=== PATIENT | female | born 1945 | race Caucasian/White ===

== ENCOUNTER → 2017-09-21 14:34 | Outpatient (CLI) | payer MEDICARE, BC, SELFPAY ==
--- NOTE | 2017-09-21 14:42 | XR_ITS ---
XR knee RT 3V HISTORY: ITS.REASON: ACUTE RT KNEE PAIN ORDERING PHYSICIAN: Edouard Giron MD PATIENT AGE: 72 years COMPARISON: 10/10/2016 FINDINGS: There are mild to moderate osteoarthritic changes of all 3 compartments greater at the medial compartment and patellofemoral joint. There is a small curvilinear density along the central aspect of the lateral tibial plateau measuring 5 mm and an additional rounded opacity along the central aspect of the medial tibial plateau. One these areas or both may represent loose bodies. There is decreased density at the interspinous region of the proximal tibia and may represent subcortical cystic change. No acute fracture or dislocation. There may be a small suprapatellar effusion. IMPRESSION: Mild to moderate osteoarthritic change greatest at the medial compartment and patellofemoral joint with possible small loose bodies and subcortical cystic change of the interspinous region of the proximal tibia. Overall no significant change from 10/10/2016
== END ==
PROVIDERS: PCP Family Medicine; Visit Provider Family Medicine
DX: M25.561 Pain in right knee (principal)
CPT/HCPCS: 73562

== ENCOUNTER → 2018-12-28 13:14 | Outpatient (CLI) | payer SELFPAY ==
--- NOTE | 2018-12-28 13:15 | CT_ITS ---
PROCEDURE: CT HEART W CALCIUM SCORE CLINICAL HISTORY: screening, heart scan COMPARISON: No exams were available for comparison TECHNIQUE: Axial images obtained with sagittal and coronal reformats. All CT scans at the facility use one or more dose reduction, viz: automated exposure control, ma/kV adjustment per patient size (including targeted exams where dose is matched to indication, i.e. head), or iterative reconstruction technique. FINDINGS: The coronary artery calcium score is 126 indicating moderate plaque burden with high cardiovascular disease risk. There is a small hiatal hernia. There is mild prominence of the pulmonary interstitium IMPRESSION: Moderate plaque burden with high cardiovascular disease risk Dictated by: Efra Laboy MD 12/28/2018 20:41 Electronically signed by Efra Laboy MD in [place] 12/28/2018 20:41
== END ==
PROVIDERS: PCP Family Medicine; Visit Provider Family Medicine
DX: Z13.6 Encounter for screening for cardiovascular disorders (principal)
CPT/HCPCS: 75571

== ENCOUNTER → 2019-01-31 11:00 | Outpatient (CLI) | payer MEDICARE, BC, SELFPAY ==
--- NOTE | 2019-01-31 | CA_ITS ---
APPROVED REPORT Exam: Exercise Treadmill Technologist: Adrianne Lawson Ht: 5 ft 4 in Wt: 180 lbs BSA: 1.87 m2 HR: 84 bpm BP: 156/88 mmHg Indications: Abnormal Calcium Score, Abnormal EKG, Dyspnea Medical History Medications: Levothyroxine,,,,, Aspirin,,,,, Multi Vitamin,,,,, Vitamin E,,,,, Crestor,,,,, Zolpidem,,,,, Magnesium,,,,, Vitamin D,,,,, Potassium,,,,, Vitamin A,,,,, Stress Test Details Test: Malcolm HR Resting HR: 92 bpm Max Heart Rate (APMHR): 147 bpm Max HR Achieved: 146 bpm Target HR (85% APMHR): 124 bpm % of APMHR: 99 Recovery HR: 93 bpm BP Resting BP: 156.0/88.0 mmHg Max BP: 156.0/88.0 mmHg Recovery BP: 139.0/78.0 mmHg ECG Clinical Exercise duration: 04:00 min Highest Stage Achieved: Exercise capacity: 7.0 METs Stress ECG Conclusion Resting ECG: Sinus rhythm Malcolm Protocol completed. Patient exercised 4:00. Test stopped due to dry mouth Symptoms: Dry mouth at peak exercise. No chest pain. No shortness of breath. Arrhythmias/Ectopy: Occasional PVC. Occasional PAC. ST-T Changes: Greater than 1.5mm ST Depression. Conclusion: Images to follow. Test Summary . . . . . Stop exercise at 04:00 . . . . . Electronically signed by : Yadiel Patel, 01/31/2019 18:54:30
--- NOTE | 2019-01-31 11:02 | NM_ITS ---
APPROVED REPORT Exam: Nuclear Stress Test Indication: abn calcium score, abn ekg, htn, hyperlipidemia, sob, fatique Patient Location: Outpatient Stress Tech: Adrianne Lawson GA Tech:KRISTA Maynard RT (R)(N)(M) Ht: 5 ft 4 in Wt: 180 lbs Bra Size: d HR: 84 bpm BP: 156/88 mmHg BSA: 1.87 m2 BMI: 30.8 History: abn calcium score, abn ekg, htn, hyperlipidemia, sob, fatique Procedure: Patient exercised on Malcolm protocol 4 minutes and sec, resting heart rate 84 bpm, resting blood pressure 156/88 mmHg, with exercise maximum heart rate achived was 148 bpm which is Greater than 85 % of the maximum predicted heart rate and blood pressure was 180/88 mmHg. Patient denied any complaint of chest pain. Patient has Adequate exercise capacity, achieved 7 METs of workload on treadmill, the blood pressure response to exercise was Adequate. Electrocardiogram Resting electro cardiogram showed sinus rhythm nonspecific ST-T changes, with exercise there is additional 1.[address] segment depression noted from the baseline EKG. The EKG portion of the exercise Myoview is nondiagnostic due to baseline abnormal EKG. Cardiac Stress and Resting SPECT Images: Cardiac Stress and Resting SPECT images were obtained using technetium 99m Myoview 31.2 mCi stress and 10.47 mCi at rest. Gated SPECT with analysis of segmental wall motion and calculation of the ejection fraction also done. Cardiac stress and resting SPECT images show uniform myocardial activity without segmental perfusion abnormality, computer derived ejection fraction is over 65% with no regional wall motion abnormality, right ventricle is normal size and contractility. Conclusion: 1. The EKG portion of the exercise Myoview is nondiagnostic due to baseline abnormal EKG, patient has adequate exercise capacity achieved 7 mets of workload on treadmill, the blood pressure response to exercise was adequate, there was no exercise-induced chest discomfort, test was stopped due to shortness of breath. 2. No scintigraphic evidence of reversible ischemia seen at this level of exercise, computer derived ejection fraction is over 65% with no regional wall motion abnormality, right ventricle is normal size and contractility. Electronically signed by : Yadiel Patel, 01/31/2019 18:57:42
--- NOTE | 2019-01-31 11:25 | CA_ITS ---
APPROVED REPORT EXAM: Comprehensive 2D, Doppler, and color-flow Echocardiogram Scout Executive: Irlanda Olivarez, RT(R) Ht: 5 ft 5 in Wt: 184lbs BSA: 1.91 BP: 142/79 mmHg Indications: Abnormal calcium score, SOA 2D Dimensions Aortic Root 2.90 cm F: 2.7 - 3.3 Left Atrium 3.40 cm F: 2.7 - 3.8 LVOT 2.09 cm (M/F) 1.5-2.5 M-Mode Dimensions RVDd 2.26 cm (0.9-2.6) LVDd 4.70 cm (3.5-5.7) LVDs 2.91 cm (3.5-5.7) IVSd 0.90 cm (0.6-1.1) PWd 0.97 cm (0.6-1.1) EF (Teich) 68.30% FS 38.10% EDV (Teich) 102.40 mL ESV (Teich) 32.50 mL LV Diastology E/A Ratio 0.87 Mitral Valve MV A Velocity 82.00 (40-130 cm/s) Left Ventricle Left atrium is mildly enlarged, left ventricle is normal size, mild concentric left ventricular hypertrophy, visually estimated ejection fraction 55% with no regional wall motion abnormality. Grade 1 diastolic dysfunction seen without tissue Doppler evidence of raise left atrial pressure. Right Ventricle Right atrium and right ventricular normal size and contractility. Aortic Valve Aortic valve is thickened and calcified, leaflet continue to display good mobility. There is no aortic stenosis aortic insufficiency. Mitral Valve Mitral valve is grossly normal, there is mild mitral regurgitation. Tricuspid Valve Tricuspid valve is grossly normal, there is mild tricuspid regurgitation. Pulmonic Valve Pulmonic valve is grossly normal, there is no pulmonic stenosis or pulmonic insufficiency. Great Vessels Aortic root is normal size. Pericardium No significant pericardial effusion noted. Conclusion 1. Mildly enlarged left atrium, normal left ventricular size, mild concentric left ventricular hypertrophy, visually estimated ejection fraction 55% with no regional wall motion abnormality, grade 1 diastolic dysfunction seen without tissue Doppler evidence of raise left atrial pressure. 2. Mild mitral and tricuspid regurgitation. 3. No significant pericardial effusion noted. Electronically signed by : Yadiel Patel, 02/01/2019 06:07:35
--- NOTE | 2019-01-31 13:22 | HMH.ITSHM ---
Current Home Medications as stated by this patient Aggie Oliver or litigation claim representative. []POTASSIUM CRESTOR LEVOTHYROXIN MAGNESIUM ASA CELEBREX ZOLPIDEM Coleman JAQUEZ,E SYNVASC
== END ==
PROVIDERS: PCP Family Medicine; Visit Provider Internal Medicine Cardiovascular Disease
DX: E78.5 Hyperlipidemia, unspecified (principal); R06.09 Other forms of dyspnea; R93.1 Abnormal findings on diagnostic imaging of heart and coronary circulation; R94.31 Abnormal electrocardiogram [ECG] [EKG]
CPT/HCPCS: 78452; 93017; 93306; A9502

== ENCOUNTER → 2021-03-11 13:33 | Outpatient (CLI) | payer MEDICARE, BC, SELFPAY ==
[2021-03-11 15:35] LABS: Basophils % 0.6 % (0.1-2.0); Eosinophils # 0.1 K/mm3 (0.0-0.4); Eosinophils % 0.9 % (0.1-12.0); Hematocrit 42.8 % (37.0-47.0); Hemoglobin 14.4 g/dL (12.2-16.2); Lymphocytes # 1.3 K/mm3 (0.7-4.5); Lymphocytes % 24.2 % (10-50); Mean Corpuscular HGB Conc 33.6 g/dL (31.8-35.4); Mean Corpuscular Hemoglobin 30.1 pg (27.0-31.2); Mean Corpuscular Volume 89.6 fl (81-99); Mean Platelet Volume 6.9 fl (7.4-10.4); Monocytes # 0.3 K/mm3 (0.1-1.0); Monocytes % 6.4 % (1.7-9.3); Neutrophils # 3.6 K/mm3 (1.8-7.8); Neutrophils % 67.9 % (37.0-80.0); Platelet Count 187 K/mm3 (142-424); Red Blood Count 4.77 M/mm3 (4.20-5.40); White Blood Count 5.3 K/mm3 (4.8-10.8)
== END ==
PROVIDERS: PCP Family Medicine; Visit Provider Nurse Practitioner
DX: Z20.822 Contact with and (suspected) exposure to COVID-19 (principal)
CPT/HCPCS: 36415; 85025; 87275; 87276; C9803; U0003; U0005

== ENCOUNTER → 2022-01-13 11:10 | Outpatient (CLI) | payer MEDICARE, BC, SELFPAY ==
--- NOTE | 2022-01-13 11:11 | US_ITS ---
PROCEDURE INFORMATION: Exam: US Right Breast, Complete Exam date and time: 01/13/2022 11:29 AM Age: 76 years old Clinical indication: Diffuse right breast pain TECHNIQUE: Imaging protocol: Complete ultrasound of all four quadrants of the Right breast and the retroareolar regions, including ultrasound of the axilla when performed. COMPARISON: [facility] Digital Tomas Screen BILAT 11/15/2021 1:34 PM FINDINGS: Breast: Only normal glandular structures are present. No suspicious solid or cystic mass is present. No benign-appearing solid or cystic mass is present. No architectural distortion or shadowing is present. No axillary adenopathy is present. IMPRESSION: No sonographic evidence of malignancy. Annual mammographic screening is recommended unless otherwise clinically indicated. ASSESSMENT: BI-RADS category 1: Negative
== END ==
PROVIDERS: PCP Family Medicine; Visit Provider Obstetrics & Gynecology
DX: N64.4 Mastodynia (principal)
CPT/HCPCS: 76641

== ENCOUNTER → 2022-03-26 10:30 | Outpatient (CLI) | payer MEDICARE, BC, SELFPAY ==
--- NOTE | 2022-03-26 10:34 | XR_ITS ---
FINAL REPORT CLINICAL HISTORY: Acute right knee pain COMPARISON: None FINDINGS: RIGHT KNEE 3 views of the left knee were obtained. There is no acute fracture or dislocation. There is moderate tricompartmental degenerative change. No joint effusion. Soft tissues are unremarkable. IMPRESSION: Degenerative changes with no acute bony abnormality. Reviewed, Interpreted and Dictated by Ambar Harkins MD Transcribed by Eleni Arango Authenticated and [facility]
== END ==
PROVIDERS: PCP Family Medicine; Visit Provider Orthopaedic Surgery
DX: M25.561 Pain in right knee (principal)
CPT/HCPCS: 73562

== ENCOUNTER 2024-08-02 07:40 | Day surgery (SDC) | payer MEDICARE, BC, SELFPAY ==
[2024-08-02] VITALS (7 sets, daily range): BP systolic 147–188; BP diastolic 74–89; PULSE 53–70; RESP 16–18; TEMP 36.2–36.7; O2SAT 94–99; BMI 30.1
[2024-08-02] MEDS: CYCLOPENTOLATE 2% OPHTH SOLN 2ML BOTTLE OP ×3 (08:30→08:40)
[2024-08-02] MEDS: TETRACAINE 0.5% OPTH SOL 15ML OP ×3 (08:30→08:40)
[2024-08-02] MEDS: PHENYLEPHRINE 2.5% OPHTH SOLN 2ML OP ×3 (08:30→08:40)
[2024-08-02] MEDS: SODIUM CHLORIDE 0.9% 10ML FLUSH SYRINGE 10 ML IV ×2 (08:46→09:35)
[2024-08-02] MEDS: FENTANYL 100MCG/2ML VIAL 25 MCG IV (09:35)
[2024-08-02] MEDS: LIDOCAINE 1% PF 2ML AMPULE 2 ML IJ (09:48)
[2024-08-02] MEDS: TIMOLOL 0.5% OPTH SOLN 5ML OP (09:48)
== END 2024-08-02 10:12 | disposition home or self-care (01) ==
PROVIDERS: PCP Family Medicine; Visit Provider Ophthalmology
PROC: (CPT 66984; principal; 2024-08-02 09:30)
DX: H26.9 Unspecified cataract (principal)
CPT/HCPCS: 66984; J3010; V2632

== ENCOUNTER 2024-08-19 08:29 | Outpatient (CLI) | payer MEDICARE, BC, SELFPAY ==
--- OUTSIDE RECORDS SUMMARY | 2024-08-19 08:33 | XMS_ITS ---
Author Organization Unknown [facility]MENT [facility] Start Date Provider Encounter for Check-up [id number] [facility]
--- OUTSIDE RECORDS SUMMARY | 2024-08-19 08:33 | XMS_ITS | Data Portability ---
Author Organization JACQUI NOHEMI Mccoy [facility]MBUDO CLOSED Address [address] [place] [address] Care Team Providers Care Internal Sales Name Role Phone MARANDA DELONG Primary Care Provider LINA AJ Topographic Computator Assessment No assessment recorded. Plan of Treatment Reminders Order Date Submit Date Provider Last Modified By Organization Details Last Modified Time Details Appointments FOLLOW UP DAK 2024 11:40A M LINA AJ MD Not available Not available Not available Lab None recorded. Referral None recorded. Procedures None recorded. Surgeries None recorded. Imaging None recorded. Medication Orders fluconazo le 150 mg tablet 2024 025 [facility], [address] [place] [address] [facility] [place], [id number], 07/21/2024 13:59:13 nystatin 100,000 unit/gram topical cream 2024 025 [facility] [employer] [facility], [address] [place] [address] [facility] [place], [id number], 07/21/2024 13:59:12 Patient TargetsNo targets recorded. Patient Instructions Encounter Date Encounter Id Patient Instructions Last Modified By Organization Details Last Modified Time 01/01/2023 [id number] Plan: office visit. Discussed in detail treatment recommendations. Lesion debridement #15 blade aseptic technique. Encourage splinting bilateral second MTPJ nonmedicated toe spacers dispensed.soaking instructions dispensed. If recurrence will recommend phenol matrixectomy orooney Not available 01/01/2023 16:15:06 02/08/2024 [id number] Plan: office visit. Discussed in detail treatment recommendations. continue with nonmedicated toe spacers soaking instructions if symptoms persist may benefit from phenol matrixectomy orooney Not available 02/08/2024 15:33:56 Reason for Referral None Reported. Results Created Date Observation Date Name Description Value Unit Range Abnormal Flag Note LastModifiedBy Organization Detail LastModifiedTime Result Notes None recorded. Problems Name Problem SNOMED Code Status Onset Date Resolution Date Notes Provider Name and Address Organization Details Recorded Time Asthma 705195689 [facility] 024 [facility] 10:33:26 History of hay fever 389493734 Active 024 [facility] 4 10:33:32 Malignant neoplasm of skin 847005701 Active 024 [facility] 10:33:45 Problem Notes None recorded. Procedures Surgical History Date Name Laterality Status Provider Name and Address Organization Details Recorded Time 02/08/20 24 Avulsion Nail Plate completed CARLOS A OAKES DPM [address] [place], [address], [facility] 02/08/2024 15:33:14 01/21/20 24 DAK - Cryo [place] completed Raymond Marcos [facility] 01/21/2024 13:54:17 07/16/19 24 DAK - Cryo [place] completed LINA AJ MD [address] [place], [address], [facility] 07/16/2023 10:53:41 01/02/20 23 Avulsion Nail Plate completed CARLOS A OAKES DPM [address] [place], [address], [facility] 01/01/2023 16:12:03 tonsillectomy completed Cici Enrique [facility] 07/16/2023 10:34:19 procedure on urinary bladder completed Cici Enrique [facility] 07/16/2023 10:34:23 cholecystectomy completed Cici Enrique [facility] 07/16/2023 10:34:32 [place] Teeth Extraction completed Cici Enrique [facility] 07/16/2023 10:35:16 Imaging Results None recorded. Procedure Notes None recorded. Medical Equipment None Reported. Allergies Allergen ID Allergen Name Allergen Category Reaction Reaction Severity Criticality Documentation Date Start Date Code Code System Note Provider Name and Address Organization Details Recorded Time 227215 Vioxx medicatio n Not available Not available Not available 02/14/20162008 63067 9 RxNorm Comme nt: Creat ed By: Atilio Balderas ;Crea ciarra Date: 1:43: 19 PM; Not Available [facility] 6 10:17:36 473457 Stahist medicatio n Not available Not available Not available 02/14/20162008 67826 5 RxNorm Comme nt: Creat ed By: Atilio Balderas ;Crea ciarra Date: 1:42: 40 PM; Not Available [facility] 6 12:52:16 575847 Valium medicatio n Not available Not available Not available 02/14/2016200847 2 RxNorm Comme nt: Creat ed By: Atilio Balderas ;Crea ciarra Date: 1:43: 08 PM; Not Available [facility] 6 12:52:16 656696 Substance with sulfonami de structure and antibacte rial mechanism of action (substanc e) medicatio n Not available Not available Not available 02/15/20162008 07190 8003 SNOMED Comme nt: Creat ed By: Atilio Balderas ;Crea ciarra Date: 1:42: 50 PM; Not Available [facility] 6 03:32:49 101565 Product containin g penicilli n (product) medicatio n Not available Not available Not available 02/15/20162008 61077 8001 SNOMED Comme nt: Creat ed By: Atilio Balderas ;Crea ciarra Date: 1:42: 28 PM; Not Available [facility] 6 03:32:52 900263 Lipitor medicatio n Not available Not available Not available 02/15/20162008 71424 5 RxNorm Comme nt: Creat ed By: Atilio Casanova ciarra Date: 009 1:44: 07 PM; Not Available [facility] 6 08:22:25 821903 Cipro medicatio n Not available Not available Not available 07/16/202393129 3 RxNorm Cici Enrique [facility] 4 10:29:40 118986 Levaquin medicatio n Not available Not available Not available 07/16/2023 88962 2 RxNorm Cici Enrique [facility] 4 10:29:55 785852 brompheni ramine / pseudoeph edrine medicatio n Not available Not available Not available 07/16/2023 19244 6 RxNorm Cici Enrique [facility] 4 10:30:02 Medications Name Sig Start Date Stop Date Status Note LastModified by Organization Details LastModified Time flowflex covid-19 ag home t 07/15 completed Not Available Not Available Not Available celecoxib 200 mg capsule active Not Available Not Available Not Available neomycin- polymyxin -hydrocor t 3.5 mg/mL-10, 000 unit/mL-1 % ear solution instill 5 drops into affected ear(s) THREE TIMES DAILY FOR 7 DAYS 07/15 completed Not Available Not Available Not Available potassium chloride ER 10 mEq capsule,e xtended release active Not Available Not Available Not Available fluconazo le 150 mg tablet Take 1 tablet every 72 hours by oral route. 2024 active Not Available Not Available Not Avai lable magnesium sulfate 500 mg/mL (50 %) injection solution active Medicati on Descript ion: magnesiu m sulfate; Route:in travenou s; refills: 0; Quantity :1 solution Not Available Not Available Not Available alendrona te 70 mg tablet TAKE ONE TABLET BY MOUTH ONCE A WEEK. take in THE morning with a full GLASS of water, ON an EMPTY stomach, AND DO not take anything else by MOUTH OR lie down FOR THE NEXT 30 MINUTES. 07/15 completed Not Available Not Available Not Available cromolyn 4 % eye drops INSTILL 1 DROP INTO AFFECTED EYE 4 TIMES DAILY NEEDED active Not Available Not Available No t Available Ultram 50 mg tablet 07/15 completed Duration : 10 days;Alt Frequenc y: prn;Medi cation Descript ion: tramadol ; Route:or al; refills: 0 Not Available Not Available Not Available omeprazol e 40 mg capsule,d elayed release active Not Available Not Available Not Available levothyro xine 25 mcg tablet active Not Available Not Available Not Available Micro-K 8 mEq capsule,e xtended release 07/15 completed Duration : 10 days;Med ication Descript ion: potassiu m chloride ; Route:or al; refills: 0 Not Available Not Available Not Available CARMOL 40 40 % topical cream Two times a day 07/15 completed Instruct ions: 90 day supply 3 tubes;Fr equency: bid;Medi cation Descript ion: urea topical; Dosage:1 ; Route:to pical; refills: 3; Quantity :100 g cream Not Available Not Available Not Available dexametha sone 2 mg tablet TAKE ONE TABLET BY MOUTH TWICE DAILY FOR 5 DAYS -- FINISH ALL MEDICINE -- --TAKE WITH FOOD-- 07/15 completed Not Available Not Available Not Available tacrolimu s 0.1 % topical ointment APPLY OINTMENT TOPICALL Y TO GROIN TWICE DAILY DIRECTED IN CLINIC active Not Available Not Available No t Available nystatin 100,000 unit/gram topical cream APPLY TO THE AFFECTED AREA(S) IN GROIN BY TOPICAL ROUTE 2 TIMES PER DAY X 2 WEEKS 2024 active Not Available Not Available Not Avai lable dexametha sone 4 mg tablet TAKE 1/2 TABLET BY MOUTH TWICE DAILY FOR 5 DAYS --TAKE WITH FOOD-- active Not Available Not Available No t Available metoprolo l succinate ER 25 mg tablet,ex tended release 24 hr active Not Available Not Available Not Available clobetaso l 0.05 % topical ointment apply a thin layer TO THE affected area(a) TWICE DAILY FOR no more THAN 2 WEEKS active Not Available Not Available No t Available azelastin e 137 mcg (0.1 %) nasal spray INSTILL 1 TO 2 SPRAYS IN EACH NOSTRIL TWICE DAILY NEEDED FOR ALLERGIE S OR NASAL DRAINAGE active Not Available Not Available No t Available epinephri ne 0.3 mg/0.3 mL injection , auto-inje ctor INJECT THE CONTENTS OF 1 AUTO-INJ ELVIRA INTRAMUS CULARLY ONCE NEEDED FOR ANAPHYLA XIS REACTION active Not Available Not Available No t Available cefuroxim e axetil 500 mg tablet TAKE ONE TABLET BY MOUTH TWICE DAILY FOR 7 DAYS -- FINISH ALL MEDICINE -- 07/15 completed Not Available Not Available Not Available zolpidem 10 mg tablet TAKE ONE TABLET BY MOUTH EVERY DAY AT BEDTIME NEEDED active Not Available Not Available No t Available albuterol sulfate HFA 90 mcg/actua tion aerosol inhaler INHALE TWO PUFFS BY MOUTH EVERY 4 HOURS NEEDED active Not Available Not Available No t Available cefdinir 300 mg capsule TAKE ONE CAPSULE BY MOUTH EVERY TWELVE HOURS FOR 7 DAYS -- FINISH ALL MEDICINE -- 07/15 completed Not Available Not Available Not Available albuterol sulfate concentra te 5 mg/mL(0.5 %) solution for nebulizat ion active Medicati on Descript ion: albutero l; Route:in halation ; refills: 0 Not Available Not Available Not Available fluticaso ne propionat e 50 mcg/actua tion nasal spray,brian pension instill 1-2 SPRAYS IN EACH NOSTRIL EVERY DAY NEEDED FOR allergie s active Not Available Not Available No t Available propoxyph marjorie 65 mg capsule 07/15 completed Medicati on Descript ion: propoxyp hene; Route:or al; refills: 0 Not Available Not Available Not Available Zetia 10 mg tablet 07/15 completed Medicati on Descript ion: ezetimib e; Route:or al; refills: 0 Not Available Not Available Not Available Restasis 0.05 % eye drops in a dropperet te active Medicati on Descript ion: cycloSPO RINE ophthalm ic; Route:op hthalmic ; refills: 0 Not Available Not Available Not Available Femring 0.1 mg/24 hr vaginal 07/15 completed Medicati on Descript ion: estradio l; Route:va ginal; refills: 0 Not Available Not Available Not Available rosuvasta tin 20 mg tablet active Not Available Not Available Not Available Vitamin C active Not Available Not Komal ilable Not Available aspirin active Not Available Not Avail able Not Available vitamin A active Not Available Not Komal ilable Not Available Fosamax active Duration : 30 days;Med ication Descript ion: alendron ate; Route:or al; refills: 0 Not Available Not Available Not Available calcium 07/15 completed Medicati on Descript ion: calcium carbonat e; Route:or al; refills: 0 Not Available Not Available Not Available Imitrex 07/15 completed Duration : 1 day;Medi cation Descript ion: sumatrip kamara; Route:or al; refills: 0 Not Available Not Available Not Available Vitamin D active Medicati on Descript ion: ergocalc iferol; Route:or al; refills: 0 Not Available Not Available Not Available levocetir izine 5 mg tablet TAKE ONE TABLET BY MOUTH EVERY DAY AT BEDTIME NEEDED active Not Available Not Available No t Available BinaxNOW COVID-19 Ag Self Test kit Use as Directed on the Package 07/15 completed Not Available Not Available Not Available Paxlovid 300 mg (150 mg x 2)-100 mg tablets in a dose pack TAKE 3 TABLETS TOGETHER (TWO 150 MG NIRMATRE LVIR TABLETS AND ONE 100 MG RITONAVI R TABLET) BY MOUTH TWICE DAILY FOR 5 DAYS. 01/20 completed Not Available Not Available Not Available Vitals None Recorded Social History Question Answer Notes LastModified by Organizat ion Details LastModified Time Tobacco Smoking Status Never Smoker Cici durán, [facility] 07/16/2023 10:34:08 What Was The Date Of Your Most Recent Tobacco Screening? 07/21/2024 [email or web address] Information not available 07/21/2024 Sex: Unknown Functional Status None recorded. Mental Status None recorded. Family History Relationship Description Onset Age of this Age Resolved Age Notes LastModified by Organization Details LastModified Time Father No current problems or disability Not available 06/22 10:34:02 Mother No current problems or disability [email or web address] Not available 06/22 10:34:02 Medical History Condition Response Skin Cancer Gynecological HistoryNo gynecological history recorded. 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 [id number] CARLOS A OAKES D[facility] [address] [place] [address] 01/01/2023 14:21:26 01/01/2023 15:53:44 Pain of toe of right foot 0527246607 99194 M79.674 Pain of to e of left foot 4307289660 25353 M79.675 Hammer toe 728732356 M20 .41 M20.42 With predisloca tion syndrome bilateral second MTPJ Ingrowing nail of toe of left foot 7358476131 2927144 L60.0 Ingrowing nail of toe of right foot 2765463460 5825643 L60.0 [id number] LINA AJ MD [address] [address] 07/16/2023 10:03:35 07/16/2023 14:40:42 History of malignant neoplasm of skin 366041552 Z85.828 - No evidence of recurrence today - Call with any worrisome lesions or if treated lesions return - Return at regular intervals for skin exam as recommende d Multiple b enign melanocytic nevi 790274544 D22.5 - Benign moles seen on exam today- SPF 30 or higher broad-spec trum sunscreen recommende d- Instructed to monitor for changes and to call us for appointmen t with any changing or worrisome lesions Seborrheic keratosis 394 224587 L82.1 - Benign overgrowth s of skin- Hereditary -SK on the left cheek. 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 today.She notes she had a flared 2 weeks again. Relates to stress of husbands cancer dx. She started clobetasol then. Pain was a 3/10 during flare.Can use plain Vaseline throughout the day as a protectant layer when not using clobetasol . Actinic keratosis L57.0 Will treat with LN2 today.Can leave a white discolorat ion in areas treated with LN2.Follow up if lesions persists or do not resolve with LN2. [id number] LINA W MD [facility] [address] [address] 01/21/2024 13:19:13 01/21/2024 14:53:05 Multiple benign melanocytic nevi 926084162 D22.5 I78.1 L81.4 L82.1 Benign appearing lesions.Co ntinue to monitor and follow-up with any or changing lesions.Re commend to wear SPF 30+ with zinc or titanium oxide cream daily. Prefers lotions/cr eams over sprays.Fol low up in 6 months for a full skin exam. History of malignant neoplasm of skin 866784441 Z85.828 Scar is clear. Well healed scar. No evidence of recurrence . Genital li iverson sclerosus 995229914 L90.0 Active.She is applying clobetasol TIW. Disc concern for atrophy due to senior care topical steroid on labia.Tacr olimus previously caused limited burning.Ad vised to mix tacrolimus with clobetasol TIW, then transfer to applying alternatin g clobetasol and tacrolimus daily in hopes to transfer to applying tacrolimus daily.Ok to stop if burning persists. Then just got to clobetasol BIW. Actinic keratosis L57.0 Precancero us lesion(s). Will LN2 today.Can leave a white discolorat ion in the areas when LN2 is performed. Follow-up if lesion(s) persists or do not resolve. [id number] CARLOS A OAKES D[facility] [address] [place] [address] 02/08/2024 13:17:18 02/08/2024 15:48:41 Pain of toe of right foot 9185095405 50511 M79.674 Hammer toe 153522371 M20 .41 M20.42 With predisloca tion syndrome bilateral second MTPJ Ingrowing nail of toe of right foot 5010430827 2131866 L60.0 Paronychia of toe of right foot 3346898640 1467992 L03.031 [id number] LINA W MD [facility] [place] [address] [place] [address] 07/21/2024 11:03:15 07/21/2024 12:18:03 Multiple benign melanocytic nevi 713948314 D22.5 I78.1 L81.4 L82.1 Benign appearing lesions.Co ntinue to monitor and follow-up with any or changing lesions.Re commend to wear SPF 30+ with zinc or titanium oxide cream daily. Prefers lotions/cr eams over sprays.Fol low up in 6 months for a full skin exam. History of malignant neoplasm of skin 276327280 Z85.828 Scar is clear. Well healed scar. No evidence of recurrence . 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 Active. She reports flared ~ 2-3 mo ago after passing.Sh e reports she is only able to tolerate tacrolimus BIW due to burning sensation unless she dilutes 1/4 with clobetasol .Advised to stop applying tacrolimus . Rec stopping the clobetasol x 2 weeks. If clear after 2 weeks can resume treatment with clobetasol as directed. Can apply prev rx'd clobetasol TIW to waistline. Rx sent for nystatin cream to apply to AA BID x 2 weeks. Disc concern for yeast.Rx sent for fluconazol e 150mg to take 1 po q72 hours x 3 doses.She is taking celecoxib BID. Advised to cut back if possible on days taking fluconazol e d/t bleeding risk. RTC if condition flares or worsens. Health Concerns Section Related Observation LastModified by Organization Detai ls LastModified Time None Recorded Concern Status LastModified by Organization Details LastModified Time None Recorded Advance Directives Directive None Recorded Payers Insurance Date Sequence Insurance Name Policy Number Policy Small Covered Member ID Small Member ID Guarantor Name 07/21/2024 2 [place] [id number] Aggie Oliver [id number] Aggie Oliver 07/21/2024 1 [place] Aggie Oliver [id number] Aggie Oliver Notes Date Note Type Note Provider Name and Address Organization Details Recorded Time 01/01/2023 text/html Location: Left halluxDuration: 2 weeksSeverity: Moderatemod factors: Nail feels to be ingrowing also pain bilateral second digit CARLOS A OAKES DPM [address] [place] [address], [phone], [facility] 01/01/2023 16:15:26 07/16/2023 text/html I am here for my skin check. History of SCCSternum I am following up on my lichen sclerosus.Groinclo betasol oint, vaseline. I have a place on my face that has changed.Alphonso AJ MD [address] [place] [address], [phone], [facility] 07/16/2023 10:56:05 01/21/2024 text/html I am here for my skin check. History of SCCSternum I am following up on my lichen sclerosus.Groinclo betasol oint, vaseline.About the same. Flares here and [place] [address] [place] [address], [phone], [facility] 01/21/2024 14:37:52 02/08/2024 text/html Location: Right halluxDuration: 1 weekSeverity: Moderatemod factors: pain is worsening CARLOS A OAKES DPM [address] [place], [address], [facility] 02/08/2024 15:34:17 07/21/2024 text/html I am here for my skin check. History of SCCSternum I am following up on my lichen sclerosus.Groinclo betasol oint, vaseline.patient reports flaring, getting worseneed refill of clobetasol June MD [facility] [address] [place], [address], [facility] 07/21/2024 12:35:04 OBGyn Episode No OBEpisode recorded.
--- OUTSIDE RECORDS SUMMARY | 2024-08-19 08:33 | XMS_ITS | Continuity of Care Document ---
Author Organization [facility] Sylvia gonzalez CLAUDIA WYANO Address [address] [place] [address] Care Team Providers Care Consultant Intern Name Role Phone MARANDA DELONG Primary Care Provider [phone] LINA AJ Lead Military Analyst Assessment No assessment recorded. Plan of Treatment Reminders Order Date Submit Date Provider Last Modified By Organization Details Last Modified Time Details Appointments FOLLOW UP [facility] 2024 11:40A M LINA AJ MD Not available Not available Not available Lab None recorded. Referral None recorded. Procedures None recorded. Surgeries None recorded. Imaging None recorded. Medication Orders fluconazo le 150 mg tablet 2024 025 [facility], [address] [place] [address] E Seema [place], [id number], 07/21/2024 13:59:13 nystatin 100,000 unit/gram topical cream 2024 025 [facility], [address] [place] [address] E Charlie Agarwal [employer], [place], [id number], 07/21/2024 13:59:12 Patient TargetsNo targets recorded. Patient InstructionsNo instructions recorded. Reason for Referral None Reported. Problems Name Problem SNOMED Code Status Onset Date Resolution Date Notes Provider Name and Address Organization Details Recorded Time Asthma 050410550 Active 024 [facility] 10:33:26 History of hay fever 417859627 Active 024 Cici durán [facility] 4 10:33:32 Malignant neoplasm of skin 946926007 Active 024 [facility]icarolyn [facility] 10:33:45 Problem Notes None recorded. Procedures Surgical History Date Name Laterality Status Provider Name and Address Organization Details Recorded Time 02/08/20 Avulsion Nail Plate completed CARLOS A OAKES, DPM [address] [place], [address], [facility] 02/08/2024 15:33:14 01/21/20 DAK - Cryo AK completed Raymond Marcos [facility] 01/21/2024 13:54:17 07/16/19 DAK - Cryo AK completed LINA AJ MD [address] [place], [address], [facility] 07/16/2023 10:53:41 01/02/20 Avulsion Nail Plate completed CARLOS A OAKES, EDUARD [address] [place], [address], [facility] 01/01/2023 16:12:03 tonsillectomy completed Cici Enrique [facility] 07/16/2023 10:34:19 procedure on urinary bladder completed Cici Enrqiue [facility] 07/16/2023 10:34:23 cholecystectomy completed Cici Enrique [facility] 07/16/2023 10:34:32 [place] Teeth Extraction completed Cici Enrique [facility] 07/16/2023 10:35:16 Imaging Results None recorded. Procedure Notes None recorded. Medical Equipment None Reported. Allergies Allergen ID Allergen Name Allergen Category Reaction Reaction Severity Criticality Documentation Date Start Date Code Code System Note Provider Name and Address Organization Details Recorded Time 344616 Vioxx medicatio n Not available Not available Not available 02/14/20162008 12700 9 RxNorm Comme nt: Creat ed By: Atilio lafleur Date: 009 1:43: 19 PM; Not Available [facility] 6 10:17:36 297917 Stahist medicatio n Not available Not available Not available 02/14/20162008 18861 5 RxNorm Comme nt: Creat ed By: Atilio lafleur Date: 1:42: 40 PM; Not Available [facility] 6 12:52:16 779902 Valium medicatio n Not available Not available Not available 02/14/2016200847 2 RxNorm Comme nt: Creat ed By: Harpalnav Balderas ;Crea ciarra Date: 1:43: 08 PM; Not Available [facility] 6 12:52:16 453575 Substance with sulfonami de structure and antibacte rial mechanism of action (substanc e) medicatio n Not available Not available Not available 02/15/20162008 52785 8003 SNOMED Comme nt: Creat ed By: Atilio Balderas ;Crea ciarra Date: 1:42: 50 PM; Not Available [facility] 6 03:32:49 422801 Product containin g penicilli n (product) medicatio n Not available Not available Not available 02/15/20162008 02775 8001 SNOMED Comme nt: Creat ed By: Harpalnav Balderas ;Crea ciarra Date: 1:42: 28 PM; Not Available [facility] 6 03:32:52 434691 Lipitor medicatio n Not available Not available Not available 02/15/20162008 90296 5 RxNorm Comme nt: Creat ed By: Atilio Balderas ;Crea ciarra Date: 1:44: 07 PM; Not Available [facility] 6 08:22:25 628184 Cipro medicatio n Not available Not available Not available 07/16/202357299 3 RxNorm [facility] 4 10:29:40 997097 Levaquin medicatio n Not available Not available Not available 07/16/202386893 2 RxNorm [facility] 4 10:29:55 070792 brompheni ramine / pseudoeph edrine medicatio n Not available Not available Not available 07/16/2023 52869 6 RxNorm Cici Klaus [facility] 10:30:02 Medications Name Sig Start Date Stop [...] Available Vitamin C active Not Available Not Kmoal ilable Not Available aspirin active Not Available [...] Time Tobacco Smoking Status Never Smoker [facility] 07/16/2023 10:34:08 What Was The Date Of Your Most Recent Tobacco Screening? 07/21/2024 Information not available 07/21/2024 Sex: Unknown Functional Status None recorded. Mental Status None recorded. Family History Relationship Description Onset Age of this Age Resolved Age Notes LastModified by Organization Details LastModified Time Father No current problems or disability [email or web address] Not available 06/22 10:34:02 Mother No current problems or disability [email or web address] Not available 06/22 10:34:02 Medical History Condition Response Skin Cancer Gynecological HistoryNo gynecological history recorded. Obstetrics History GPAL:G 0 P 0 0 0 0 Past Encounters Encounter ID Performer Location Encounter Start Date Encounter Closed Date Diagnosis/Indication Diagnosis SNOMED-CT Code Diagnosis ICD10 Code Diagnosis Note [id number] June MD [facility] [address] [address] [place] [address] 07/21/2024 11:03:15 07/21/2024 12:18:03 Multiple benign melanocytic nevi 083517299 D22.5 I78.1 L81.4 L82.1 Benign appearing lesions.Co ntinue to monitor and follow-up with any or changing lesions.Re commend to wear SPF 30+ with zinc or titanium oxide cream daily. Prefers lotions/cr eams over sprays.Fol low up in 6 months for a full skin exam. History of malignant neoplasm of skin 111185520 Z85.828 Scar is clear. Well healed scar. No evidence of recurrence . Genital li iverson sclerosus 860997009 L90.0 B37.2 Chronic. Active. She reports flared [...] by Organization Details LastModified Time None Recorded Payers Encounter Date Sequence Insurance Name Policy Number Policy Small Covered Member ID Small Member ID Guarantor Name 07/21/2024 1 [place] Aggie Oliver [id number] Aggie Oliver 07/21/2024 2 [place] [id number] Aggei Oliver [id number] Aggie Oliver Notes Date Note Type Note Provider Name and Address Organization Details Recorded Time 07/21/2024 text/html I am here for my skin check. History of SCCSternum I am following up on my lichen sclerosus.Groincl obetasol oint, vaseline.patient reports flaring, getting worseneed refill of clobetasol LINA W MD [facility] [address] [facility], [place], [address], [facility] 07/21/2024 12:35:04 OBGyn Episode No OBEpisode recorded.
--- NOTE | 2024-08-19 08:41 | XR_ITS ---
FINAL REPORT CLINICAL HISTORY: rt knee pain COMPARISON: 09/21/2017 FINDINGS: RIGHT KNEE: 3 views of the right knee obtained. There is no acute fracture or dislocation. There is moderate joint space narrowing of both the medial and lateral compartment present, consistent with osteoarthritic change. There are osteophytes on the posterior surface of the patella. A small joint effusion is present. Hypertrophic changes are present involving the posterior tibial plateau seen on the lateral view. . There is no soft tissue abnormality. IMPRESSION: Osteoarthritic degenerative change as described above, without acute bony abnormality. Reviewed, Interpreted and Dictated by Brandan Miller MD Transcribed by Josefina Spangler Authenticated and [facility]
== END 2024-08-19 23:59 | disposition home or self-care (01) ==
LOC: RAD 08:31
PROVIDERS: PCP Family Medicine; Visit Provider Physician Assistant
DX: M17.11 Unilateral primary osteoarthritis, right knee (principal)
CPT/HCPCS: 73564

== ENCOUNTER 2024-08-30 08:01 | Day surgery (SDC) | payer MEDICARE, BC, SELFPAY ==
[2024-08-29 15:36] VITALS: BMI 29.2
[2024-08-30] MEDS: CYCLOPENTOLATE 2% OPHTH SOLN 2ML BOTTLE OP ×3 (09:07→09:14)
[2024-08-30] MEDS: TETRACAINE 0.5% OPTH SOL 15ML OP ×3 (09:07→09:14)
[2024-08-30] MEDS: PHENYLEPHRINE 2.5% OPHTH SOLN 2ML OP ×3 (09:07→09:14)
[2024-08-30 09:08] VITALS: BP 145/91; PULSE 68; RESP 16; TEMP 36.3; O2SAT 97
[2024-08-30 09:59] VITALS: BP 183/86; PULSE 49; RESP 16; TEMP 36.6; O2SAT 98
[2024-08-30 10:04] VITALS: BP 168/80; PULSE 51; RESP 16; TEMP 36.6; O2SAT 98
[2024-08-30 10:09] VITALS: BP 172/80; PULSE 60; RESP 16; TEMP 36.6; O2SAT 100
[2024-08-30] MEDS: TIMOLOL 0.5% OPTH SOLN 5ML OP (10:09)
[2024-08-30] MEDS: TOBRAMYCIN/DEX OPTH SUSP 2.5ML OP (10:09)
[2024-08-30] MEDS: LIDOCAINE 1% PF 2ML AMPULE 2 ML IJ (10:09)
[2024-08-30 10:21] VITALS: BP 148/89; PULSE 72; RESP 18; TEMP 36.3; O2SAT 98
--- NOTE | 2024-08-30 10:54 | HMH.PROCNOTE ---
[facility] Procedure Note Date: 08/30/24 Time: 10:54 Procedure Note:: Preoperative Diagnosis: Cataract combined NS Cortical Complex [Right] Eye Postop diagnosis: same Operation: Microscopic phacoemulsification with intraocular lens implant [Right] Eye Specimen: None Blood Loss: None The patient was examined in the office with a complaint of poor vision in the [right] eye. The patient reports that this interferes with ADLs such as reading, watching TV and/or driving or the vision is like looking through a foggy haze and is very troubling. The patient was examined and found to have a visually significant cataract with best corrected vision of [20/400] by refraction and/or glare testing. Treatment options, risks and benefits were explained and the patient elected to have cataract surgery in an attempt to improve their vision. The patient had the eye anesthetized with topical tetracaine, the eye ways prepped and draped in the usual fashion for cataract surgery. A paracentesis and a temporal keratotomy were made. 0.2cc of 1% lidocaine PF was placed into the anterior chamber. And aqueous/viscoelastic exchange was done and a 360 degree capsulorexis was performed. Through hydrodissection and delineation with BSS on a cannula was done. The lens nucleus was phecoemulsified with CDE of [24.41]. Residual cortical material was removed using automated I&A The capsular bag was deepened with viscoelastica and a PCIOL was placed in the capsular bag with good centration and stability. Residual viscoelastic was removed using automated I&A. The keratotomy incision was hydrated with BSS on a cannula. The wound were checked and found to be water tight. IOP was checked digitally and adjusted as needed so as not to be too high. 1 drop of timolol 0.5%, ofloxacin, prednisolone acetate and ketorolac was instilled and eye shield taped over the eye. The patient was taken to recovery in good condition and will be seen postoperatively.
== END 2024-08-30 10:39 | disposition home or self-care (01) ==
PROVIDERS: PCP Family Medicine; Visit Provider Ophthalmology
PROC: (CPT 66984; principal; 2024-08-30 10:30)
DX: H25.811 Combined forms of age-related cataract, right eye (principal); M19.90 Unspecified osteoarthritis, unspecified site; I25.10 Atherosclerotic heart disease of native coronary artery without angina pectoris; E78.5 Hyperlipidemia, unspecified; I10 Essential (primary) hypertension; Z96.1 Presence of intraocular lens; Z97.3 Presence of spectacles and contact lenses; Z88.0 Allergy status to penicillin; Z79.82 Long term (current) use of aspirin; Z79.1 Long term (current) use of non-steroidal anti-inflammatories (NSAID); Z79.890 Hormone replacement therapy; Z79.899 Other long term (current) drug therapy; Z88.8 Allergy status to other drugs, medicaments and biological substances; Z88.6 Allergy status to analgesic agent; Z88.1 Allergy status to other antibiotic agents; Z88.2 Allergy status to sulfonamides
CPT/HCPCS: 66984; V2632

== ENCOUNTER 2024-09-01 08:41 | Outpatient (CLI) | payer MEDICARE, BC, SELFPAY ==
--- OUTSIDE RECORDS SUMMARY | 2024-03-08 06:15 | XMS_ITS ---
[facility] Organization [facility] Address [address] [place] [id number] Care Team Providers Care Landing Man Name Role Phone Mo Gironian Primary Care Provider [phone] Pepper Parson Unavailable [phone] Allergies Allergen (clinical drug ingredient) Drug/Non Drug [...] in each nost ril Nasally Twice a day for 30 day(s) Active Alendronate Sodium 70 MG 1 tablet 30 min utes before the first food, beverage or medicine of the day with plain water Orally One Time A Week Active Aspirin 81 MG 1 tab(s) orally once a day Active Flonase Allergy Relief 50 MCG/ACT 1 spray in each nostril Nasally Twice a day for 30 day(s) 03/08/2024 Active Bbxisumqx-Zbjudakw-IT 30-1-20 MG/5ML 5 ml as needed Orally every 6 hrs prn 03/08/2024 Active Synthroid 25 MCG 1 tab(s) orally once daily for 90 days Active Omeprazole 40 MG TAKE 1 CAPSULE BY MA UT ONCE DAILY for 90 days Active Potassium Chloride ER 10 MEQ 1 cap(s) orally 2 times a day for 90 days Active Erythromycin 5 MG/GM 1 application into the lower eyelid of affected eye Ophthalmic Twice a day for 7 day(s) 03/08/2024 Active Rosuvastatin Calcium 20 MG take 1 tablet by mouth once daily at bedtime for 90 days Active Metoprolol Succinate ER 25 MG 1 tablet Orally Once a day for 90 days Active Albuterol Sulfate HFA 108 (90 Base) MCG/ACT 1 puff as needed Inhalation tid 02/09/2024 Active CeleBREX 200 MG 1 cap(s) orally once a day for 90 days Active Cromolyn Sodium 4 % [...] 03/08/2024 Encounters Encounter Location Date Provider Diagnosis [facility] [address] [place], [place] [id number] 03/08/2024 Pepper Parson URI (upper respirato ry [...] spray in each nostril Nasally Twice a day for 30 day(s) 03/08/2024 Fviuvvrrh-Yvisijpq-NI 30-1-2 0 MG/5ML 5 ml as needed Orally every 6 hrs prn 03/08/2024 Erythromycin 5 MG/GM 1 application into the lower eyelid of affected eye Ophthalmic Twice a day for 7 day(s) 03/08/2024 Treatment Notes Assessment Notes URI (upper respiratory infection) fluids , rest, supportive measures; sleep with head elevated Stye eye care reviewed; w arm compresess to the eye prn Next Appt Details Follow Up: prn, Reason: Provider Name:Edouard Carroll , 02/27/2025 09:30:00 AM, [address] [facility] [address] [facility], [address] , [place], [place], [id number], Progress Notes * Fay OLIVEROB:[birth year] (79 yo F)Acc No.[id number]:03/08/2024 Progress Notes Patient: Aggie ARMSTRONG Provider: WILLIE Marquez :1945 A ge:79 Y S ex:Female Date:03/08/2024 Address:[address] [place] [address], [id number] Pcp:Edouard Giron Subjective: * Chief Complaints: * [...] , Forehead Pre Cancerous Lesion Removal , [place] Teeth Extracted , Eye Lid 12/2012, LT [...] * Vitals: W t:172.2, Temp:97.6, BP:124/70, HR:55, Nurse:[facility], Ht: 64.75, BMI:28.87. * Examination: E NT/Respiratory: General Appearance: well nourished and hydrated, NAD, alert. Eyes: sclera clear bilateraly; right iner lower lid with papule; drainage noted. Ears: auditory canals normal bilaterally, tympanic membranes normal bilaterally. Nose : nares patent. Sinuses : non tender bilaterally. Oral cavity : no erythema or exudate seen on pharynx.? Neck : supple, no cervical lymphadenopathy. Heart : RRR. Lungs: CTAB A&P. Assessment: * Assessment: 1. U [...] Procedure Codes: 3 6416 CAPILLARY BLOOD DRAW, 31030 CBC WITH AUTO DIFF * Follow Up: p rn * Billing Information: * Visit Code: 41470 Office Visit, Est Pt., Level 3. * Procedure Codes: 45009 CAPILLARY BLOOD DRAW. 69558 CBC WITH AUTO DIFF. * Electronic signature of Florencia Parson APRN on 09/01/2024 at 08:47 AM EDT Sign off status: Pending * Provider: WILLIE Marquez Date: 1 05/09/2023 Generated for Jim yun/Alicia/eTheladioitting on: 0 09/01/2024 08:47 AM EDT History and Physical Notes * HPI (History [...]
--- OUTSIDE RECORDS SUMMARY | 2024-08-26 07:00 | XMS_ITS ---
Author [facility] Address [address] [id number] Care Team Providers Care Environmental Conservation Professor Name Role Phone Mo Gironian Primary Care [...] Twice a day for 30 day(s) 03/08/2024 Not-Taking Gwrzxhhml-Oeasussb-OY 30-1-20 MG/5ML 5 ml as needed Orally every 6 hrs prn 03/08/2024 Not-Taking Erythromycin 5 MG/GM 1 application into the lower eyelid of affected eye Ophthalmic Twice a day for 7 day(s) 03/08/2024 Not-Taking Rosuvastatin Calcium 20 MG take 1 tablet by mouth once daily at bedtime for 90 days Active Synthroid 25 MCG 1 tab(s) orally once daily for 90 days Active Metoprolol Succinate ER 25 MG 1 tablet Orally Once a day Active Omeprazole 40 MG TAKE 1 CAPSULE BY [facility] ONCE DAILY for 90 days Active Potassium Chloride ER 10 MEQ 1 cap(s) orally 2 times a day for 90 days Active Albuterol [...] 08/26/2024 Encounters Encounter Location Date Provider Diagnosis [facility] [address] [id number] 08/26/2024 Edouard Giron Primary hypertension I10 ; [...] [address], [address], [place], [phone], Progress Notes * Fay HUNTOB:[birth year] (79 yo F)Acc No.[id number]:08/26/2024 Progress Notes Patient: Aggie ARMSTRONG Provider: Katy Giron M.D. :1945 A ge:79 Y S ex:Female Date:08/26/2024 Address:[address] [place] [address], [place], [id number] Subjective: * Chief Complaints: * 1 . [...] , Forehead Pre Cancerous Lesion Removal , [place] Teeth Extracted , Eye Lid 12/2012, LT [...] eye Ophthalmic Twice a day , Not-Taking Oqylwmrhc-Puzvadjw-ZY 30-1-20 MG/5ML Liquid 5 ml as needed [...] 91, O2 Sat: 98% on RA, Nurse: [facility], Ht: 64.75, BMI:29.58. * Examination: C ardiology: General Appearance: p leasant, NAD. Heart sounds: R RR, normal S1, S2. Lungs: c lear, no rales or wheezes. Assessment: * Assessment: 1. P rimary hypertension - I10 (Primary) 2 . A cquired hypothyroidism - E03.9 3 . H yperlipidemia - E78.5 4 . I nsomnia - G47.00 ? 5 . B GA 29.0-29.9,adult - Z68.29 Plan: * Treatment: * Procedure Codes: G 2211 Complex e/m visit add on, G8950 PREHTN/HTN BP DOC INDCD F/U DOC, G8752 MOST RECENT SYSTOLIC BP < 140MM HG, G8754 MOST RECENT DIASTOLIC BP < 90MM HG, G8420 BMI<30 AND >=22 CALC & DOCU, 1036F TOBACCO NON-USER * Follow Up: 6 Months * Billing Information: * Visit Code: 56288 Office Visit, Est Pt., Level 3. * Procedure Codes: G2211 Complex e/m visit add on. G8950 PREHTN/HTN BP DOC INDCD F/U DOC. G8752 MOST RECENT SYSTOLIC BP < 140MM HG. G8754 MOST RECENT DIASTOLIC BP < 90MM HG. G8420 BMI<30 AND >=22 CALC & DOCU. 1036F TOBACCO NON-USER. * Electronic signature of Yuly Giron MD on 09/01/2024 at 08:46 AM EDT Sign off status: Pending * Provider: Katy Giron M.D. Date: 0 08/26/2024 Generated for Jim yun/Alicia/Stormyitting on: 0 09/01/2024 08:46 AM EDT History and Physical Notes * [...]
--- OUTSIDE RECORDS SUMMARY | 2024-08-27 09:31 | XMS_ITS ---
Author Organization [facility] Address [address] [place] [id number] Care Team Providers Care Gasoline Catalyst Operator Name Role Phone Edouard Giron Primary Care Provider REASON FOR VISIT due for screening Encounters Encounter Location Date Provider Diagnosis [facility] [address] [place] [id number] 08/27/2024 Edouard Giron Screening for osteoporosis Z13.820 Assessments Encounter Date Diagnosis (ICD Code) Assessment Notes Treatment Notes Treatment Clinical Notes Section Notes 08/27/2024 Screening for osteoporosis (ICD-10 - Z13.820) Plan Of Treatment Next Appt Details Provider Name:Edouard Carroll ry, 02/27/2025 09:30:00 AM, [address], [place], [id number], Progress Notes * BENITO, SharChrisOB:[birth year] (79 yo F)Acc No.[id number]:08/27/2024 Patient: Aggie ARMSTRONG :1945 A ge:79 Y S ex:Female Address:[address], [address] Subjective: * Chief Complaints: * D ue for screening * Medical History: * Surgical History: * Hospitalization/Major Diagno stic Procedure: * Medications: Objective: * Vitals: * Physical Examination: Assessment: * Assessment: 1. S creening for osteoporosis - Z13.820 (Primary) Plan: * Treatment: * Procedure Codes: * * Date:
--- OUTSIDE RECORDS SUMMARY | 2024-09-01 08:46 | XMS_ITS | Encounter Summary ---
Author Organization Healthcare Address [address] [place] [address] Care Team Providers Care Oracle Financials Developer Name Role Phone Edouard Giron MD Primary Care Provider [phone] Encounter Details Date Type Department Care Team (Latest Contact Info) Description 08/18/2024 Travel Social History Tobacco Use Types Packs/Day Years Used Date Smoking Tobacco: Never Smokeless Tobacco: Never Alcohol Use Standard Drinks/Week Comments Yes 0 (1 standard drink = 0.6 oz pur e alcohol) Social PHQ-2 Answer Date Recorded Patient Health Questionnaire-2 Score 1 09/01/2023 PHQ-2A Answer Date Recorded Patient Health Questionnaire-2 Score 0 09/01/2022 Comments Unknown Sex and Gender Information Value Date Recorded Sex Assigned at Not on file Legal Sex Female 8:13 PM EDT Gender Identity Not on file Sexual Orientation Not on file documented as of this encounter Plan of Treatment Upcoming Encounters Date Type Department Care Team (Late st Contact Info) Description 09/19/2024 3:20 PM EDT Appointment Professional [facility] & Mineral Metabolism [address], [address] [place] [address] 09/19/2024 4:00 PM EDT Office Visit Professional [facility] Mineral Metabolism [address], [address] [place] [address] Yassine Pizarro PA [address] [place] [address] [place] [address] 08/29/2025 1:00 PM EDT Ovarian Cancer Screening [facility] [address] [place] [phone] documented as of this encounter Visit Diagnoses Not on filedocumented in this encounter Additional Health Concerns Assessment Noted Time A fall risk assessment has been complete d for the patient 09/01/2023 1:37 PM EDT A Body Mass Index follow-up plan has been documented for the patient 09/01/2023 1:49 PM EDT documented as of this encounter Care Teams Oracle Financ[employer] Developer Relationship Specialty Start Date End Date Edouard Giron MD [address] [id number] PCP - General 08/03/20 documented as of this encounter
--- OUTSIDE RECORDS SUMMARY | 2024-09-01 08:47 | XMS_ITS | Clinical Summary ---
Author Organization [facility] Address [address] [place] [address] Care Team Providers Care Billet Examiner Name Role Phone Edouard Giron MD Primary Care Provider [phone] Allergies Active Allergy Reactions Criticality Noted Date Comments Atorvastatin Unknown - Patient st ates they do not know rxn details Low 08/23/2008 Dexchlorpheniramine-Phenyleph Unknown - Patient states they do not know rxn details Low 08/23/2008 Diazepam Unknown - Patient st ates they do not know rxn details Low 08/23/2008 Dexbrompheniramine-Pseudoeph Unknown - P atient states they do not know rxn details Low 08/31/2012 Ibuprofen Unknown - Patient st ates they do not know rxn details Low 08/31/2012 Levofloxacin Unknown - Patient st ates they do not know rxn details Low 08/31/2012 Penicillins Rash Medium 08/31/2012 Rofecoxib Unknown - Patient st ates they do not know rxn details Low 08/23/2008 Triprolidine-Phenylephrine Unknown - Pat ient states they do not know rxn details Low 08/31/2012 Sulfa Drugs Unknown - Patient st ates they do not know rxn details Low 08/23/2008 Sulfacetamide Unknown - Patient st ates they do not know rxn details Low 08/31/2012 Medications Aspirin Buf,CaCarb-MgC arb-MgO, 81 MG tablet Take 81 mg by mouth 1 (one) time each day. 09/01/19 13 Active celecoxib (CeleBREX) 200 MG capsule Take 1 capsule (200 mg) by mouth if needed. 09/05/19 15 Active cromolyn (Opticrom) 4 % ophthalmic solution INSTILL 1 DROP INTO AFFECTED EYE(S) 4 TIMES DAILY NEEDED 08/27/19 19 Active levothyroxine (Synthroid, Levoxyl) 25 MCG tablet Take 1 tablet (25 mcg) by mouth 1 (one) time each day before breakfast. 07/26/19 17 Active magnesium oxide (Mag-Ox) 400 MG tablet Take 1 tablet (400 mg) by mouth 1 (one) time each day. 09/01/19 13 Active potassium chloride ER (Micro-K) 10 MEQ ER capsule Take 1 capsule (10 mEq) by mouth 1 (one) time each day. 09/01/19 13 Active Vitamin A 2400 MCG (8000 UT) capsule Take 1 capsule (8,000 Units) by mouth 1 (one) time each day. 09/01/19 13 Active cholecalcifero l (Vitamin D-3) 125 MCG (5000 UT) capsule Take 1 capsule (5,000 Units) by mouth 1 (one) time each day. 09/03/19 17 Active Multiple Vitamins-Car Salesperson als (Womens Multi) capsule Take 1 capsule by mouth 1 (one) time each day. 09/01/19 13 Active albuterol 108 (90 Base) MCG/ACT inhaler Inhale 1-2 puffs every 6 (six) hours if needed. 07/04/19 21 Active zolpidem (Ambien) 10 MG tablet Take 1 tablet (10 mg) by mouth at night if needed. 07/21/19 21 Active omeprazole (PriLOSEC) [address] capsule Take 1 capsule (40 mg) by mouth 1 (one) time each day. 07/29/19 21 Active levocetirizine (Xyzal) 5 MG tablet Take 0.5 tablets (2.5 mg) by mouth 1 (one) time each day. 08/07/19 21 Active Flovent HFA 220 MCG/ACT inhaler Inhale 2 puffs 2 (two) times a day if needed. 02/23/20 20 Active EPINEPHrine (Epipen) 0.3 MG/0.3ML injection syringe INJECT THE CONTENTS OF 1 AUTO-INJECTOR INTRAMUSCULARLY ONCE NEEDED FOR ANAPHYLAXIS REACTION 03/21/20 20 Active azelastine (Astelin) 0.1 % nasal spray instill 1-2 SPRAYS IN EACH NOSTRIL TWICE DAILY NEEDED FOR allergies OR nasal drainage 08/07/19 23 Active BinaxNOW COVID-19 Ag Home Test kit Use as Directed on the Package 01/12/20 22 Active cycloSPORINE (Restasis) 0.05 % ophthalmic emulsion Restasis 0.05 % eye drops in a dropperette Active fluticasone (Flonase) 50 MCG/ACT nasal spray instill 1-2 SPRAYS IN EACH NOSTRIL EVERY DAY NEEDED FOR allergies 08/07/19 23 Active metoprolol succinate XL (Toprol-XL) 25 MG 24 hr tablet metoprolol succinate ER 25 mg tablet,extended release 24 hr Active Probiotic Product (Align) capsule TAKE 1 CAPSULE Daily 09/03/19 17 Active Vitamin A 3 MG (90195 UT) capsule 09/01/19 13 Active alpha tocopherol (Vitamin E) 400 units capsule 09/01/19 13 Active rosuvastatin (Crestor) 10 MG tablet 09/05/19 15 Active Active Problems Problem Noted Date Diagnosed Date 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 Slight decline in BMD in R hip. FRAX remains low. Today's Plan: No bone tx at this time. Recheck labs and BMD in 2 years. Cont Vit D 7000IU. Increase exercise, has been limited due to covid. 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 21 Assessment & Plan (08/28/2020 3:26 PM EDT): Relevant Hx: ongoing L wrist pain Daily Update: no new fx Today's Plan: Cont f/u with pcp Encounters Date Type Department Care Team Description 08/29/2024 Travel 08/18/2024 Travel from Last 3 Months Immunizations Immunization Administration Dates Next Due Hep B, adult 08/04/2000,03/06/2000,02/05/2000 Influenza, High-dose, Split Virus, Trivalent, Injectable, preservative free 12/10/2017 Influenza, high-dose, quadrivalent 12/07,11/29/2019,12/28/2018,12/10,12/02/2016 Influenza, seasonal, injectable 12/17/2016,12/27 Influenza, seasonal, injecta ble, preservative free 12/17/2009 Pneumococcal Polysaccharide PPV23 02/22/2021 Rsvpref, Recombinant, Protei n Subunit, Adjuvent 02/27/2023 Zoster, Recombinant 05/10/2018 Family History Medical History Relation Name Comments Hypertension Father Stroke Father Alzheimer's disease Mother Arthritis Mother Diabetes Other Relation Name Status Comments Father Mother Other Social History Tobacco Use Types Packs/Day Years [...] on file Sexual Orientation Not on file Last Filed Vital Signs Vital Sign Reading Time Taken Comments Blood Pressure 166/83 09/01/2023 1:33 PM EDT Pulse 62 09/01/2023 1:33 PM EDT Temperature - - Respiratory Rate 18 09/01/2022 1:34 PM EDT Oxygen Saturation 96% 09/01/2023 1:33 PM EDT Inhaled Oxygen Concentration - - Weight 82.4 kg (181 lb 10.5 oz) 09/01/2023 1:33 PM EDT Height 162.6 cm (5' 4 ) 09/01/2023 1:33 PM EDT Body Mass Index 31.18 09/01/2023 1:33 PM EDT Plan of Treatment Upcoming Encounters Date Type Department Care Team (Late st Contact Info) Description 09/19/2024 3:20 PM EDT Appointment [facility] Mineral Metabolism [address] [place] [address] 09/19/2024 4:00 PM EDT Office Visit [facility] Mineral Metabolism [address] [place] [address] Yassine Pizarro, PA [address] [address] 08/29/2025 1:00 PM EDT Ovarian Cancer Screening [facility] [address] [facility] [place], [place] [address] Health Maintenance Due Date Last Done Comments [facility]-Hepatitis C Screening 1945 [facility]-Medicare Annual Wellness (AWV) 1945 [facility]-Infant/Child/Adol SDOH Screenings 1945 [facility]- SDOH Screenings 1963 [facility]-Adult SDOH Screenings 1963 [facility]-Zoster Vaccines (2 of 2) 07/05/2018 05/10/2018 [facility]-Bone Density Scan 08/31/2024 09/01/2023 , 09/01/2022, 09/01/2022, Additional history exists [facility]-Depression Screening 08/31/2024 09/01/2023 [id number] Vaccine (7 - Moderna risk 2023- season) 2024 03/25/2024, 12/31/2021, 07/16/2021, Additional history exists [facility]-Influenza Vaccine (Season Ended) 2024 12/07/2020, 11/29/2019, 12/28/2018, Additional history exists [facility]-DTaP,Tdap,and Td Vaccines (4 - Td or Tdap) 01/05/2034 01/06/2024, 12/12/2013, 07/03/2004 [facility]-Pneumococcal Vaccine: 50+ Years Completed 02/22/2021, 12/14/2015, 12/12/2013, Additional history exists [facility]-RSV Vaccine: 60+ Years or Completed 02/27/2023 [facility]-Obesity Intervention Completed 09/01/2023, 08/21 HPV Vaccines Aged Out No longer eligi ble based on patient's age to complete this topic [facility]-HIB Vaccines Aged Out No longer e ligible based on patient's age to complete this topic [facility]-Hepatitis A Vaccines Aged Out No longer eligible based on patient's age to complete this topic [facility]-IPV Vaccines Aged Out No longer e ligible based on patient's age to complete this topic [facility]-Rotavirus Vaccines Aged Out No lo nger eligible based on patient's age to complete this topic Procedures Procedure Name Priority Date/Time Associated Diagnosis Comments BONE SPECIFIC ALKALINE PHOSPHATASE Routine 08/29/2024 12:45 PM EDT Osteopenia of multiple sites RENAL FUNCTION PANEL, PLASMA Routine 08/29/2024 12:45 PM EDT Osteopenia of multiple sites VITAMIN D 25 HYDROXY Routine 08/29/2024 12:45 PM EDT Osteopenia of multiple sites DEXA BONE DENSITY Routine 09/01/2023 1:0 6 PM EDT Osteoporosis, unspecified osteoporosis type, unspecified pathological fracture presence from Last 3 Months or Most Recently Relevant to Health Maintenance Results * Bone Specific Alkaline Phosphatase (08/29/2024 12:45 PM EDT) Bone Specific Alkaline Phosphatase 14.4 ug/L 08/29/2024 4:31 PM EDT [facility] Comment: BSAP (Ostase) Reference Values, Female, age 18 years and up: Premenopausal: 4.5 to 16.9 ug/L Postmenopausal: 7.0 to 22.4 ug/L Blood Venous blood specimen / Unknown Venipuncture / Unknown 08/29/2024 12:45 PM EDT 08/29/2024 12:45 PM EDT us [facility] REF LAB BLOOD AND FLUID OR D Final Result [facility] [address] [place] [address] * Vitamin D 25 Hydroxy (08/29/2024 12:45 PM EDT) Vitamin D 25 Hydroxy 59.8 20.0 - 80.0 ng/mL 08/29/2024 4:29 PM EDT [facility] Blood Venous blood specimen / Unknown Venipuncture / Unknown 08/29/2024 12:45 PM EDT 08/29/2024 12:45 PM EDT Narrative [facility] - 08/29/2024 4:29 PM EDT Testing performed on [employer] [facility] [employer] [facility], standardized against NIST SRM 2972. When testing samples from patients whose predominant form of vitamin D is vitamin D2, such as patients receiving vitamin D2 supplementation, results that are subtherapeutic should be confirmed with another method, such as LC-MS/MS, before being used for patient management. Vitamin D, 25-Hydroxy reference range, age 18 years and up: Deficiency: <12 ng/mL Insufficiency: 12 to 19 ng/mL Sufficiency: 20 to 80 ng/mL Possible toxicity: >100 ng/mL us [facility] BLOOD ORDERABLES Final Res ult [facility] [address] [place] [address] * (ABNORMAL) Renal Function Panel, Plasma (08/29/2024 12:45 PM EDT) Glucose, Plasma 104(H) 74 - 99 mg/dL 08/29/2024 2:55 PM EDT [facility] BUN, Plasma 16 8 - 23 mg/dL 08/29/2024 2:55 PM EDT [facility] Creatinine, Plasma 0.65 0.60 - 1.10 mg/dL 08/29/2024 2:55 PM EDT [facility] BUN/Creatinine Ratio 25 08/29/2024 2:55 PM EDT [facility] Sodium, Plasma 135(L) 136 - 145 mmol/L 08/29/2024 2:55 PM EDT [facility] Potassium, Plasma 4.3 3.6 - 4.9 mmol/L 08/29/2024 2:55 PM EDT [facility] Chloride, Plasma 101 97 - 107 mmol/L 08/29/2024 2:55 PM EDT [facility] CO2, Plasma 24 22 - 29 mmol/L 08/29/2024 2:55 PM EDT [facility] Anion Gap 10 6 - 16 mmol/L 08/29/2024 2:55 PM EDT [facility] Total Calcium, Plasma 9.1 8.9 - 10.2 mg/dL 08/29/2024 2:55 PM EDT [facility] Phosphorus, Plasma 3.6 2.5 - 4.5 mg/dL 08/29/2024 2:55 PM EDT [facility] Albumin, Plasma 4.2 3.5 - 5.2 g/dL 08/29/2024 2:55 PM EDT [facility] eGFRcr 89.7 mL/min/1.7 3m*2 08/29/2024 2:55 PM EDT [facility] Comment:Reported eGFRcr in m L/min/1.73m2 is based the CKD-EPI 2020 equation that does not use a race coefficient. Blood Venous blood specimen / Unknown Venipuncture / Unknown 08/29/2024 12:45 PM EDT 08/29/2024 12:45 PM EDT us [facility] BLOOD ORDERABLES Final Res ult Performing Organization Address City/State/[facility] Co de Phone Number [facility] [address] [place] [address] * Dexa Bone Density (09/01/2023 1:06 PM EDT) Anatomical Region Laterality Modality L-spine Radiographic Zonia ging Narrative 09/06/2023 5:40 PM EDT [facility] - [facility] [address] [place] [address] DXA Bone Densitometry Report: [Date of exam] BMD test performed using the SynappioXA DXA System (analysis version: 14.10) manufactured by [employer]. REFERRING PROVIDER: SHAUNNA Garcia CLINICAL INFORMATION: PATIENT NAME: Aggie Hunt PATIENT AGE: 78 y.o. LEGAL SEX: female RADIOGRAPHIC VIEWS: Sites scanned: AP Spine, HIP Right , HIP Left, and TBS COMPARISON STUDY: DXA Axial 2022 FINDINGS: Based on WHO criteria (post-menopausal female) the diagnosis is Osteopenia The lowest T score is -2.2 in the Left Hip There is Stability compared to prior measurements The presence of arthritic or degenerative joint changes in the spine could artefactually increase measured BMD. 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 Suggest general measures to optimize calcium and vitamin D status, fall prevention measures and reduce fracture risk. FRAX threshold not calculated while on therapy Consider repeat BMD in 2-3 years [facility] DXA PROCEDURES Final Resul t from Last 3 Months or Most Recently Relevant to Health Maintenance Insurance MEDICARE [facility] [place] [address] Care Teams Billet Examiner Relationship Specialty Start Date End Date Edouard Giron MD [address] [place] [address] PCP - General 08/03/20
--- OUTSIDE RECORDS SUMMARY | 2024-09-01 08:47 | XMS_ITS | Encounter Summary ---
Author Organization Healthcare Address [address] [place] [address] Care Team Providers Care Yarn Mercerizer Operator Name Role Phone Edouard Giron MD Primary Care Provider [phone] Encounter Details Date Type Department Care Team (Latest Contact Info) Description 08/29/2024 Travel Social History Tobacco Use Types Packs/Day [...] Description 09/19/2024 3:20 PM EDT Appointment Professional [facility] Min[facility] Met[facility] [address], [address] [place] [address] 09/19/2024 4:00 PM EDT Office Visit Professional [facility] [address], [address] [place] [address] Yassine Pizarro PA [address] [place] [address] 08/29/2025 1:00 PM EDT Ovarian Cancer Screening [facility] [address] [place] [phone] documented as of this encounter Visit Diagnoses Not on filedocumented in this encounter Additional Health Concerns Assessment Noted Time A fall risk assessment has been complete d for the patient 09/01/2023 1:37 PM EDT A Body Mass Index follow-up plan has been documented for the patient 09/01/2023 1:49 PM EDT documented as of this encounter Care Teams Yarn Mercerizer Operator Relationship Specialty Start Date End Date Edouard Giron MD [address] [phone] PCP - General 08/03/20 documented as of this encounter
--- OUTSIDE RECORDS SUMMARY | 2024-09-01 08:47 | XMS_ITS | Patient Health Record ---
[facility] Address [address] [place] [id number] Care Team Providers Care Precipitator Operator Name Role Phone [email or web address] Primary Care Provider [phone] Pepper Parson Unavailable [phone] Allergies Allergen (clinical drug ingredient) Drug/Non Drug Allergy documented on EMR Reaction Allergy Type Onset Date Status Levaquin Unknown Drug Allergy Active atorvastatin Lipitor muscle weakness Drug Allergy Active Stahist Unknown Drug Allergy Active Sulfamethoxazole Unknown Drug Allergy Active diazepam Valium insomnia Drug Allergy Active Penicillin rash Drug Allergy Active rofecoxib Rofecoxib Unknown Drug Allergy Active Results Component Value Reference Range Notes P-Vitamin D 25-Hydroxy Reviewed date:03/02/2024 09:02:03 AM Interpretation: Normal Performing Lab: Notes/Report: Test performed by [facility] [address] [place] [address] , [place] [address] Richard Live MD, Care Assistant CLIA: [id number] Vitamin D 25-Hydroxy 52.9 30.0-100.0 ng/mL Interpretation of Vitamin D 25 OH: < 20 ng/mL - Deficiency 20 - 29 ng/mL - Insufficiency 30 - 100 ng/mL - Sufficiency > 100 ng/mL - Super-therapeutic- toxicity may occur above this level. Clinical correlation required. P-Microalbumin/Creatinine, R andom Urine Sample Reviewed date:03/02/2024 09:02:03 AM Interpretation: Normal Performing Lab: Notes/Report: Test performed by [facility] [address] [place], [place] [address] [place] , [address], [place] [address] Richard Live MD, Care Assistant CLIA: [id number] Albumin/Creatinine Ratio, Urine 25 0-30 ug/m g Microalbumin, Urine, Random 11.4 Creatinine, Urine 462.4 P-TSH Reviewed date:03/02/2024 09:02:03 AM Interpretation: Normal Performing Lab: Notes/Report: Test performed by [facility] [address] [place] [address] [address], [place] [address] Richard Live MD, Care Assistant CLIA: [id number] TSH 2.82 0.43-5.25 mU/L P-Lipid Panel Reviewed date:03/02/2024 09:02:03 AM Interpretation: Normal Performing Lab: Notes/Report: Test performed by [facility] [address] [place] [address] [address], [place] [address] Richard Live MD, Care Assistant CLIA: [id number] Cholesterol 148 <200 mg/dL Triglycerides 116 <150 [...] Results: 51 Units: mg/dL % Change: -1% P-T4 Free (thyroxine) Reviewed date:03/02/2024 09:02:03 AM Interpretation: Normal Performing Lab: Notes/Report: Test performed by [facility] [address] [place] [address] , [place] [address] Richard Live MD, Care Assistant CLIA: [id number] Thyroxine Free (free T4) 1.45 0.86-1.76 ng/dL P-Comprehensive Metabolic Pa gabby (CMP) Reviewed date:03/02/2024 09:02:02 AM Interpretation:gluc 126 Performing Lab: Notes/Report: Test performed by [facility] [address] [place], [place] [address] [place] , [address], [place] [address] Richard Live MD, Care Assistant CLIA: [id number] Sodium 141 135-145 mmol/L Potassium 4.7 3.5-5.3 [...] 0.6 <0.2-1.2 mg/dL A/G Ratio 1.9 1.1-2.5 CBC Venipuncture (in house) Reviewed date:03/02/2024 09:02:03 [...] - 38 platlet 277 100 - 400 CBC Fingerstick (in house) Reviewed date:02/09/2024 03:39:46 [...] - 38 plat 159 100 - 400 Covid test (in house) Reviewed date:11/30/2023 02:50:25 PM Interpretation:Positive Performing Lab: Notes/Report: Positive Result: Pos CBC Fingerstick (in house) Reviewed date:11/30/2023 02:50:25 PM Interpretation: Performing Lab: Notes/Report: wbc 6.4 3.5 - 10 lym 23.3% 15 - 50 mid 6.8% 2 - 15 gran 69.9% 35 - 80 rbc 4.44 3.5 - 5.5 hgb 13.6 11.5 - 16.5 hct 40.4 35 - 55 mcv 91.0 75 - 100 mch 30.7 25 - 35 mchc 33.7 31 - 38 plat 163 100 - 400 CBC Fingerstick (in house) Reviewed date:03/08/2024 03:05:08 [...] - 38 plat 203 100 - 400 Reason For Referral No Information Medications Medication SIG (Take, Route, Frequency, Duration) Notes Start Date End Date Status EpiPen 2-Tima 0.3 MG/0.3ML 1 kit intramuscularly once Active Vitamin E 400 UNIT 1 cap(s) orally once a day Active Erythromycin 5 MG/GM 1 application into the lower eyelid of affected eye Ophthalmic Twice a day for 7 day(s) 03/08/2024 Not-Taking Metoprolol Succinate ER 25 MG 1 tablet Orally Once a day Active Vitamin A & D 8000-400 UNIT 1 cap(s) orally once a day Active Rosuvastatin Calcium 20 MG take 1 tablet by mouth once daily at bedtime for 90 days Active Multivitamin - 1 tab(s) orally once a day Active Synthroid 25 MCG 1 tab(s) orally once daily for 90 days Active Magnesium Oxide 400 MG 1 tab(s) orally o nce a day Active Omeprazole 40 MG TAKE 1 CAPSULE BY [facility] ONCE DAILY for 90 days Active Aspirin 81 MG 1 tab(s) orally once a day Active Potassium Chloride ER 10 MEQ 1 cap(s) orally 2 times a day for 90 days Active Azelastine HCl 0.1 % 1 puff in each nost ril Nasally Twice a day for 30 day(s) Active Alendronate Sodium 70 MG 1 tablet 30 minutes before the first food, beverage or medicine of the day with plain water Orally One Time A Week Active Albuterol Sulfate HFA 108 (90 Base) MCG/ACT 1 puff as needed Inhalation tid 02/09/2024 Active CeleBREX 200 MG 1 cap(s) orally once a day for 90 days Active Cromolyn Sodium 4 % 1 gtt in each affect ed eye 4 times a day as needed 08/26/2018 Active Vitamin D3 50 MCG (2000 UT) 6000 units orally once a day 12/24/2015 Active Flonase Allergy Relief 50 MCG/ACT 1 spray in each nostril Nasally Twice a day for 30 day(s) 03/08/2024 Not-Taking Ctjjxtggt-Yostxckl-OF 30-1-20 MG/5ML 5 ml as needed Orally every 6 hrs prn 03/08/2024 Not-Taking Immunizations Vaccine Route Administration Date Status Comme nts Tetanus Tdap-Adacel (over 7yrs) IM Intramuscular 07/03/2004 Administered Tetanus Tdap-Adacel (over 7yrs) IM Intramuscular 12/12/2013 Administered Shingrix Unknown 01/30/2018 Administered Shingrix Unknown 05/10/2018 Administered Prevnar (PCV20) Unknown 02/28/2022 Pending Prevnar (PCV13) IM Intramuscular 12/12/2013 Administered PNEUMOVAX 23 VACCINE IM Intramuscular 01/08/2009 Administe red PNEUMOVAX 23 VACCINE IM Intramuscular 12/14/2015 Administe red PNEUMOVAX 23 VACCINE IM Intramuscular 02/22/2021 Administe red Hepatitis B (20 and more) Unknown 08/04/2000 Administer ed Fluzone High Dose (65yr and older) IM Intramuscular 12/10/2012 Administered Fluzone High Dose (65yr and older) IM Intramuscular 12/12/2013 Administered Fluzone High Dose (65yr and older) IM Intramuscular 11/29/2015 Administered Fluzone High Dose (65yr and older) IM Intramuscular 12/02/2016 Administered Fluzone High Dose (65yr and older) IM Intramuscular 12/10/2017 Administered Fluzone High Dose (65yr and older) IM Intramuscular 12/28/2018 Administered Fluzone High Dose (65yr and older) IM Intramuscular 11/29/2019 Administered Fluzone High Dose (65yr and older) IM Intramuscular 12/07/2020 Administered Fluzone High Dose (65yr and older) IM Intramuscular 12/19/2021 Administered Fluzone High Dose (65yr and older) IM Intramuscular 12/11/2022 Administered Fluzone High Dose (65yr and older) IM Intramuscular 12/25/2023 Administered COVID 19 Moderna Unknown 05/04/2020 Administered COVID 19 Moderna Unknown 11/21/2020 Administered Boostrix Tdap Unknown 01/06/2024 Administered Problems Problem Type SNOMED Code ICD Code Onset Dates Problem Status W/U Status Risk Notes Problem Atrophic vulvovaginitis (90243639) 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.3) Active confirmed Problem Polyarthralgia (38909070) Polyarthralgia (719.49) Active confirmed Problem 638654533 Insomnia (G47.00) Active confirmed Problem 004164407 Dry eyes, bilate ral (H04.123) Active confirmed Problem 21394367 Hyperlipidemia (E78.5) Active confirmed Problem 21788178 Vitamin D deficiency (E55.9) Active confirmed Problem Otitis externa (0702776) Otitis externa (H60.90) Active confirmed Problem 295044999 History of anemi a (Z86.2) Active confirmed Problem Allergic rhinitis (12157748) Allergic rhinitis, unspecified (J30.9) Active confirmed Problem 860857722 Acquired hypothyroidism (E03.9) Active confirmed Problem 214508151 Gastroesophageal reflux disease, esophagitis presence not specified (K21.9) Active confirmed Problem 54336599 Migraine without status migrainosus, not intractable, unspecified migraine type (G43.909) Active confirmed Problem 175477204 Uncomplicated asthma, unspecified asthma severity (J45.909) Active confirmed Problem 811702397 Primary osteoarthritis of both knees (M17.0) Active confirmed Problem 346919446 Low vitamin D le carolyne (E55.9) Active confirmed Problem 23586769 Rhinitis, unspecified type (J31.0) Active confirmed Problem 81730623 Allergic rhiniti s, unspecified seasonality, unspecified trigger (J30.9) Active confirmed Problem 39551914 Primary hypertension (I10) Active confirmed Vital Signs Heart Rate 91 /min 08/26/2024 Blood pressure diastolic 72 mm Hg 08/26/2024 Height 64.75 in 08/26/2024 Blood pressure systolic 120 mm Hg 08/26/2024 Weight 176.4 lbs 08/26/2024 BMI 29.58 kg/m2 08/26/2024 Encounters Encounter Location Date Provider Diagnosis [facility] [address] [place], [place] [id number] 11/30/2023 [place] COVID-19 U07.1 [facility] [address] [place], [place] [id number] 12/25/2023 [place] Encounter for immunization Z23 [facility] [address] [place], [place] [id number] 02/09/2024 Pepper Parson Bronchitis J40 [facility] [address] [place], [place] [id number] 02/26/2024 Ed[place] [place] Primary hypertension I10 ; Hyperlipidemia E78.5 ; Acquired hypothyroidism E03.9 ; Vitamin D deficiency E55.9 ; Gastroesophageal reflux disease, esophagitis presence not specified K21.9 ; Insomnia G47.00 ; Persistent cough R05.3 and Hypokalemia E87.6 [facility] [address] [facility] [address] [place], [place] [id number] 03/08/2024 Peppertomas [place]ond URI (upper respirato ry infection) J06.9 and Stye H00.019 [facility] [address] [facility] [address] [place], [place] [id number] 08/26/2024 Ed[place] [place] Primary hypertension I10 ; Acquired hypothyroidism E03.9 ; Hyperlipidemia E78.5 ; Insomnia G47.00 and BMI 29.0-29.9,adult Z68.29 [facility] [address] [place], [place] [id number] 08/27/2024 [place] [place] Screening for osteoporosis Z13.820 [facility] [address] [facility] [address] [place], [place] [id number] 09/02/2023 Ed[place] Dry eyes, bilateral H04.123 [facility] [address] [facility] [address] [place], [place] [id number] 09/02/2023 [place] [facility] [address] [place], [place] [id number] 03/02/2024 [place] [place] Assessments Encounter Date Diagnosis (ICD Code) Assessment Notes Treatment Notes Treatment Clinical Notes Section Notes 08/26/2024 Primary hypertension (ICD-10 - I10) 08/27/2024 Screening for osteoporosis (ICD-10 - Z13.820) 09/02/2023 Dry eyes, bilateral (ICD-10 - H04.123) 11/30/2023 COVID-19 (ICD-10 - U07.1) 12/25/2023 Encounter for immunization (ICD-10 - Z23) 02/09/2024 Bronchitis (ICD-10 - J40) fluids, rest, supportive measures for fever/symptom relief 02/26/2024 Hyperlipidemia (ICD-10 - E78.5) 02/26/2024 Primary hypertension (ICD-10 - I10) 03/08/2024 URI (upper respiratory infection) (ICD-10 - J06.9) fluids, rest, supportive measures; sleep with head elevated 03/08/2024 Stye (ICD-10 - H00.019) eye care reviewed; warm compresess to the eye prn 08/26/2024 Acquired hypothyroidism (ICD-10 - E03.9) 02/26/2024 Acquired hypothyroidism (ICD-10 - E03.9) 08/26/2024 Hyperlipidemia (ICD-10 - E78.5) 08/26/2024 Insomnia (ICD-10 - G47.00) 02/26/2024 Vitamin D deficiency (ICD-10 - E55.9) 08/26/2024 BMI 29.0-29.9,adult (ICD-10 - Z68.29) 02/26/2024 Gastroesophageal reflux disease, esophagitis presence not specified (ICD-10 - K21.9) 02/26/2024 Insomnia (ICD-10 - G47.00) 02/26/2024 Persistent cough (ICD-10 - R05.3) 02/26/2024 Hypokalemia (ICD-10 - E87.6) Plan Of Treatment Pending Test Test Name Order Date Bone density 08/29/2024 Next Appt Details Provider Name:Edouard Carroll , 02/27/2025 09:30:00 AM, [address], [address], [place], [place], [id number], Insurance Providers Payer Name Payer Address Payer Phone Subscriber Number Group Number Insured Name Patient Relationship to Insured Coverage Start Date Coverage End Date MEDICARE PART B [address] [address] [place] [address] [id number] Aggie Oliver Self - patient is the insured [employer] [address] [place] [address] [id number] Aggie Oliver Self - patient is the insured Medications Administered Medication Instructions Date of Administration Dosage Notes allergy 10/28/2012 Contents: [facility] 1:10, R upper deltoid allergy 10/28/2012 Contents Tree [facility] 1:1000, R lower deltoid allergy 10/28/2012 Contents: [facility] 1:10,000, L lower deltoid allergy 02/23/2013 R upper arm, e xp 07/2013 allergy 02/23/2013 R Delt. Lower area, allergy 02/23/2013 exp, 07/2013 allergy 08/08/2013 1.0 blue dot allergy 08/08/2013 1.0 right upper-re d allergy 08/08/2013 1.0 yellow right a rm lower allergy 10/05/2013 1.0 mL allergy 10/05/2013 1.0 mL allergy 10/05/2013 1.0 mL allergy 11/02/2013 0.5 mL allergy 11/02/2013 0.5 mL allergy 11/02/2013 0.5 mL allergy 11/09/2013 1 allergy 11/09/2013 1 allergy 11/09/2013 1 allergy 12/05/2013 1 mL Upper arm allergy 12/05/2013 1 mL Lower arm allergy 12/05/2013 1 mL allergy 02/23/2014 0.10 mL allergy 02/23/2014 0.1 mL allergy 02/23/2014 0.1 mL allergy 07/28/2014 1 mL allergy 07/28/2014 1 mL allergy 07/28/2014 1 mL allergy 08/25/2014 0.5 mL allergy 08/25/2014 0.5 mL allergy 08/25/2014 0.5 mL allergy 08/31/2014 1.0 mL allergy 08/31/2014 1.0 mL allergy 08/31/2014 1.0 mL allergy 09/27/2014 0.10 mL allergy 09/27/2014 0.10 mL allergy 09/27/2014 0.10 mL allergy 10/26/2014 1.0 ug RU allergy 10/26/2014 1.0 ug RL allergy 10/26/2014 1.0 ug allergy 11/24/2014 0.1 mL allergy 11/24/2014 0.1 mL allergy 11/24/2014 0.1 mL allergy 03/05/2015 1.0 units allergy 03/05/2015 1.0 units allergy 03/05/2015 1.0 units allergy 08/13/2015 1.0 mL allergy 08/13/2015 1.0 mL allergy 08/13/2015 1.0 mL allergy 09/18/2015 1.0 mL allergy 09/18/2015 1.0 mL allergy 09/18/2015 1.0 mL allergy 10/17/2015 1.0 mL allergy 10/17/2015 1.0 mL allergy 10/17/2015 1.0 mL allergy 11/19/2015 1.0 mL allergy 11/19/2015 1.0 mL allergy 11/19/2015 1.0 mL allergy 03/06/2016 1 mL allergy 03/06/2016 1 mL allergy 03/06/2016 1.0 mL allergy 08/06/2016 1.0 mL allergy 08/06/2016 1.0 mL allergy 08/06/2016 1.0 mL allergy 09/08/2016 1.0 mL allergy 09/08/2016 1.0 mL allergy 09/08/2016 1.0 mL allergy 10/10/2016 allergy 10/10/2016 allergy 10/10/2016 allergy 11/11/2016 0.5 mL allergy 11/11/2016 0.5 mL allergy 11/11/2016 0.5 mL allergy 11/18/2016 1.0 mL allergy 11/18/2016 1.0 mL allergy 11/18/2016 1.0 mL allergy 02/18/2017 1.0 mL allergy 02/18/2017 1.0 mL allergy 02/18/2017 1.0 mL allergy 03/20/2017 1.0 mL allergy 03/20/2017 1.0 mL allergy 03/20/2017 1.0 mL allergy 06/11/2017 0.6 mL allergy 06/11/2017 0.6 mL allergy 06/11/2017 0.6 mL allergy 06/18/2017 0.05 mL allergy 06/18/2017 0.05 mL allergy 06/18/2017 0.05 mL allergy 06/29/2017 0.10 mL allergy 06/29/2017 0.10 mL allergy 06/29/2017 0.10 mL allergy 07/07/2017 0.20 mL allergy 07/07/2017 0.20 allergy 07/07/2017 0.20 mL allergy 07/15/2017 0.30 allergy 07/15/2017 0.30 mL allergy 07/15/2017 0.30 mL allergy 07/24/2017 0.40 mL allergy 07/24/2017 0.5 mL allergy 07/24/2017 0.5 mL allergy 07/31/2017 0.6 mL allergy 07/31/2017 0.8 mL allergy 07/31/2017 0.8 mL allergy 08/07/2017 0.05 mL allergy 08/07/2017 0.50 mL allergy 08/07/2017 0.50 mL allergy 08/14/2017 0.10 mg allergy 08/14/2017 1.0 mg allergy 08/14/2017 1.0 mg allergy 08/21/2017 0.20 mL allergy 08/21/2017 1.0 mL allergy 08/21/2017 1.0 mL allergy 08/28/2017 0.4 mL allergy 08/28/2017 1.0 mL allergy 08/28/2017 1.0 mL allergy 09/07/2017 0.80 mL allergy 09/07/2017 1 mL allergy 09/07/2017 1 mL allergy 09/15/2017 1 mL allergy 09/15/2017 1 mL allergy 09/15/2017 1 mL allergy 10/14/2017 0.5 mL allergy 10/14/2017 0.5 mL allergy 10/14/2017 0.5 mL allergy 10/22/2017 1.0 mL allergy 10/22/2017 1.0 mL allergy 10/22/2017 1.0 mL allergy 11/05/2017 1.0 mL allergy 11/05/2017 1.0 mL allergy 11/05/2017 1.0 mL allergy 11/24/2017 1.0 mL allergy 11/24/2017 1.0 mL allergy 11/24/2017 1.0 mL allergy 12/16/2017 1.0 mL allergy 12/16/2017 1.0 mL allergy 12/16/2017 1.0 mL allergy 01/01/2018 allergy 01/01/2018 allergy 01/01/2018 Dexamethasone 02/27/2014 1 mL Dexamethasone 02/09/2024 1 mL Medical (General) History Medical History History ICD Code Insomnia Hypercholestrolemia Vitamin D Deficiency Migraine Headaches Allergic Rhinitis Asthma Esophageal Reflux Surgical History Surgery Date(Month/Year) Cholecystectomy Tonsillectomy Bladder Suspension D & C Ear Tubes Forehead Pre Cancerous Lesion Removal [place] Teeth Extracted Eye Lid 12/2012 LT Lower Arm Lesion Removal x2 5 RT 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
--- NOTE | 2024-09-01 09:30 | CT_ITS ---
FINAL REPORT TECHNIQUE: Pre and post contrasted images of the right knee was performed by computed tomography. Sagittal and coronal reformatted images were obtained and reviewed. This study was performed with techniques to keep radiation doses as low as reasonably achievable, (ALARA). Individualized dose reduction techniques using automated exposure control or adjustment of mA and/or kV according to the patient's size were employed. CLINICAL HISTORY: right knee pain pt stated right knee pain x many years FINDINGS: There is moderately advanced medial compartment joint space narrowing and subchondral sclerosis. There is degenerative subchondral cyst formation. There are moderate hypertrophic changes at the medial and lateral joint margins. Small osteophytes are seen along the undersurface of the patella. Small joint effusion is identified. There is no abnormal contrast-enhancement. IMPRESSION: Moderately advanced hypertrophic change of osteoarthritis. Reviewed, Interpreted and Dictated by Brandan Miller MD Transcribed by Nicolasa Christian Authenticated and [facility]
[2024-09-01 09:33] LABS: Blood Urea Nitrogen 16 mg/dl (7-17); Estimated Glomerular Filt Rate 96 ml/min (>60); GFR (African American) 117 ML/MIN (>60)
[2024-09-01] MEDS: IOPAMIDOL-370 (76%);100ML BOTTLE 75 ML IV (10:07)
[2024-09-01] MEDS: SODIUM CHLORIDE 0.9% 10ML SYR (RAD ONLY) 10 ML IV (10:07)
== END 2024-09-01 23:59 | disposition home or self-care (01) ==
LOC: RAD 08:42
PROVIDERS: PCP Family Medicine; Visit Provider Physician Assistant
DX: M17.11 Unilateral primary osteoarthritis, right knee (principal)
CPT/HCPCS: 36415; 73702; 82565; 84520; Q9967

== ENCOUNTER 2024-09-09 08:40 | Outpatient (CLI) | payer MEDICARE, BC, SELFPAY ==
--- OUTSIDE RECORDS SUMMARY | 2024-03-08 06:15 | XMS_ITS ---
Author Organization [facility] Address [address] [place] [id number] Care Team Providers Care Breeder Hen Service Technician Name Role Phone Mo Gironian Primary Care Provider Pepper Parson Unavailable [phone] Allergies Allergen (clinical drug ingredient) Drug/Non Drug [...] a day for 30 day(s) 03/08/2024 Active Vovxdnmec-Ygoymqnc-EL 30-1-20 MG/5ML 5 ml as needed Orally every 6 hrs prn 03/08/2024 Active Synthroid 25 MCG 1 tab(s) orally once daily for 90 days Active Omeprazole 40 MG TAKE 1 CAPSULE BY LA UT ONCE DAILY for 90 days Active [...] 03/08/2024 Encounters Encounter Location Date Provider Diagnosis [facility] [address] [place], [place] [id number] 03/08/2024 Pepper Parson URI (upper respirato ry [...] Twice a day for 30 day(s) 03/08/2024 Mkwgvgfli-Omwsadkd-OY 30-1-2 0 MG/5ML 5 ml as needed [...] Carroll , 02/27/2025 09:30:00 AM, [address] [facility] [address] [facility], [address] , [place], [place], [id number], Progress Notes * Fay OLIVEROB:[birth year] (79 yo F)Acc No.[id number]:03/08/2024 Progress Notes Patient: Aggie ARMSTRONG Provider: WILLIE Marquez :1945 A ge:79 Y S ex:Female Date:03/08/2024 Address:[address] [place] [address], [id number] Pcp:Edouard Giron Subjective: * Chief Complaints: * [...] , Forehead Pre Cancerous Lesion Removal , [place] Teeth Extracted , Eye Lid 12/2012, LT [...] * Vitals: W t:172.2, Temp:97.6, BP:124/70, HR:55, Nurse:[facility], Ht: 64.75, BMI:28.87. * Examination: E NT/Respiratory: [...] Procedure Codes: 3 6416 CAPILLARY BLOOD DRAW, 28547 CBC WITH AUTO DIFF * Follow Up: p rn * Billing Information: * Visit Code: 86735 Office Visit, Est Pt., Level 3. * Procedure Codes: 75969 CAPILLARY BLOOD DRAW. 55270 CBC WITH AUTO DIFF. * Electronic signature of Florencia Parson APRN on 09/09/2024 at 08:44 AM EDT Sign off status: Pending * Provider: WILLIE Marquez Date: 1 05/09/2023 Generated for Jim yun/Alicia/eTalexsmitting on: 0 09/09/2024 08:44 AM EDT History and Physical Notes * [...]
--- OUTSIDE RECORDS SUMMARY | 2024-08-26 07:00 | XMS_ITS ---
Author Organization [facility] Address [address] [phone] Care Team Providers Care Central Services Tech Name Role Phone Mo Gironian Primary Care [...] a day for 30 day(s) 03/08/2024 Not-Taking Axzqpzhnf-Brxuqpmk-GV 30-1-20 MG/5ML 5 ml as needed Orally [...] 40 MG TAKE 1 CAPSULE BY [facility] ONCE DAILY for 90 days Active Potassium [...] Diagnosis [facility] [address] [id number] 08/26/2024 Edouard Giron Primary hypertension I10 ; [address], [place], [id number], Progress Notes * Fay HUNTOB:[birth year] (79 yo F)Acc No.[id number]:08/26/2024 Progress Notes Patient: Aggie ARMSTRONG Provider: Katy Giron M.D. :1945 A ge:79 Y S ex:Female Date:08/26/2024 Address:[address] [place] [address], [place], [id number] Subjective: * Chief Complaints: * 1 . [...] , Forehead Pre Cancerous Lesion Removal , [place] Teeth Extracted , Eye Lid 12/2012, LT [...] eye Ophthalmic Twice a day , Not-Taking Hyauxlkoq-Sykikrxl-HE 30-1-20 MG/5ML Liquid 5 ml as needed [...] 91, O2 Sat: 98% on RA, Nurse: [facility], Ht: 64.75, BMI:29.58. * Examination: C ardiology: General Appearance: p leasant, NAD. Heart sounds: R RR, normal S1, S2. Lungs: c lear, no rales or wheezes. Assessment: * Assessment: 1. P rimary hypertension - I10 (Primary) 2 . A cquired hypothyroidism - E03.9 3 . H yperlipidemia - E78.5 4 . I nsomnia - G47.00 ? 5 . B SC 29.0-29.9,adult - Z68.29 Plan: * Treatment: * Procedure Codes: G 2211 Complex e/m visit add on, G8950 PREHTN/HTN BP DOC INDCD F/U DOC, G8752 MOST RECENT SYSTOLIC BP < 140MM HG, G8754 MOST RECENT DIASTOLIC BP < 90MM HG, G8420 BMI<30 AND >=22 CALC & DOCU, 1036F TOBACCO NON-USER * Follow Up: 6 Months * Billing Information: * Visit Code: 49625 Office Visit, Est Pt., Level 3. * Procedure Codes: G2211 Complex e/m visit add on. G8950 PREHTN/HTN BP DOC INDCD F/U DOC. G8752 MOST RECENT SYSTOLIC BP < 140MM HG. G8754 MOST RECENT DIASTOLIC BP < 90MM HG. G8420 BMI<30 AND >=22 CALC & DOCU. 1036F TOBACCO NON-USER. * Electronic signature of Yuly Giron MD on 09/09/2024 at 08:42 AM EDT Sign off status: Pending * Provider: Katy Giron M.D. Date: 0 08/26/2024 Generated for Jim yun/Alicia/Stormyitting on: 09/09/2024 08:42 AM EDT History and Physical Notes * [...]
--- OUTSIDE RECORDS SUMMARY | 2024-08-27 09:31 | XMS_ITS ---
Author Organization [facility] Address [address] [place] [id number] Care Team Providers Care Cut Off Sawyer Log Name Role Phone Edouard Giron Primary Care Provider REASON FOR VISIT due for screening Encounters Encounter Location Date Provider Diagnosis [facility] [address] [place] [id number] 08/27/2024 Edouard Giron Screening for osteoporosis Z13.820 Assessments Encounter Date Diagnosis (ICD Code) Assessment Notes Treatment Notes Treatment Clinical Notes Section Notes 08/27/2024 Screening for osteoporosis (ICD-10 - Z13.820) Plan Of Treatment Next Appt Details Provider Name:Edouard Carroll ry, 02/27/2025 09:30:00 AM, [address], [place], [id number], Progress Notes * BENITO, SharChrisOB:[birth year] (79 yo F)Acc No.[id number]:08/27/2024 Patient: Aggie ARMSTRONG :1945 A ge:79 Y S ex:Female Address:[address], [address] Subjective: * Chief Complaints: * D ue for screening * Medical History: * Surgical History: * Hospitalization/Major Diagno stic Procedure: * Medications: Objective: * Vitals: * Physical Examination: Assessment: * Assessment: 1. S creening for osteoporosis - Z13.820 (Primary) Plan: * Treatment: * Procedure Codes: * true * Date: Generated for Jim yun/Alicia/John on: 0 09/09/2024 08:43 AM EDT
--- OUTSIDE RECORDS SUMMARY | 2024-09-09 08:43 | XMS_ITS | Data Portability ---
Author Organization JACQUI NOHEMI Mccoy [facility] Address [address] [facility] [address] [place] [address] Care Team Providers Care Lens Maker Name Role Phone MARANDA DELONG Primary Care Provider LINA AJ Shingle Shearing Machine Operator Assessment No assessment recorded. Plan of Treatment Reminders Order Date Submit Date Provider Last Modified By Organization Details Last Modified Time Details Appointments FOLLOW UP DAK 2024 11:40A M LINA AJ MD Not available Not available Not available Lab None recorded. Referral None recorded. Procedures None recorded. Surgeries None recorded. Imaging None recorded. Medication Orders fluconazo le 150 mg tablet 2024 025 [facility], [address] [place] [address] E [facility] [place], [id number], 07/21/2024 13:59:13 nystatin 100,000 unit/gram topical cream 2024 025 [facility] [employer] [facility], [address] [place] [address] E [facility] [place], [id number], 07/21/2024 13:59:12 Patient TargetsNo targets recorded. Patient Instructions Encounter Date Encounter Id Patient Instructions Last Modified By Organization Details Last Modified Time 01/01/2023 [id number] Plan: office visit. Discussed in detail treatment recommendations. Lesion debridement #15 blade aseptic technique. Encourage splinting bilateral second MTPJ nonmedicated toe spacers dispensed.soaking instructions dispensed. If recurrence will recommend phenol matrixectomy orooney Not available 01/01/2023 16:15:06 02/08/2024 [id number] Plan: office visit. Discussed in detail treatment [...] and Address Organization Details Recorded Time Asthma 030996990 Active 024 [facility] 10:33:26 History of hay fever 765312501 Active 024 [facility] 4 10:33:32 Malignant neoplasm of skin 662940142 Active 024 [facility] 10:33:45 Problem Notes None recorded. Procedures Surgical History Date Name Laterality Status Provider Name and Address Organization Details Recorded Time 02/08/20 24 Avulsion Nail Plate completed CARLOS A OAKES DPM [address] [place], [address], [facility] 02/08/2024 15:33:14 01/21/20 24 DAK - Cryo AK completed Raymond Marcos [facility] 01/21/2024 13:54:17 07/16/19 24 DAK - Cryo AK completed LINA AJ MD [address] [place], [address], [facility] 07/16/2023 10:53:41 01/02/20 23 Avulsion Nail Plate completed CARLOS A OAKES DPM [address] [place], [address], [facility] 01/01/2023 16:12:03 tonsillectomy completed Cici Enrique [facility] 07/16/2023 10:34:19 procedure on urinary bladder completed Cici Enrique [facility] 07/16/2023 10:34:23 cholecystectomy completed Cici Enrique [facility] 07/16/2023 10:34:32 [place] Teeth Extraction completed Cici Enrique [facility] 07/16/2023 10:35:16 Imaging Results None recorded. Procedure Notes None recorded. Medical Equipment None Reported. Allergies Allergen ID Allergen Name Allergen Category Reaction Reaction Severity Criticality Documentation Date Start Date Code Code System Note Provider Name and Address Organization Details Recorded Time 195970 Vioxx medicatio n Not available Not available Not available 02/14/20162008 71367 9 RxNorm Comme nt: Creat ed By: Atilio Balderas ;Crea ciarra Date: 1:43: 19 PM; Not Available [facility] 6 10:17:36 720025 Stahist medicatio n Not available Not available Not available 02/14/20162008 76250 5 RxNorm Comme nt: Creat ed By: Atilio Balderas ;Crea ciarra Date: 1:42: 40 PM; Not Available [facility] 6 12:52:16 413619 Valium medicatio n Not available Not available Not available 02/14/2016200847 2 RxNorm Comme nt: Creat ed By: Atilio Balderas ;Crea ciarra Date: 1:43: 08 PM; Not Available [facility] 6 12:52:16 143631 Substance with sulfonami de structure and antibacte rial mechanism of action (substanc e) medicatio n Not available Not available Not available 02/15/20162008 39052 8003 SNOMED Comme nt: Creat ed By: Atilio Balderas ;Crea ciarra Date: 1:42: 50 PM; Not Available [facility] 6 03:32:49 586239 Product containin g penicilli n (product) medicatio n Not available Not available Not available 02/15/20162008 16985 8001 SNOMED Comme nt: Creat ed By: Atilio Balderas ;Crea ciarra Date: 1:42: 28 PM; Not Available [facility] 6 03:32:52 901854 Lipitor medicatio n Not available Not available Not available 02/15/20162008 06985 5 RxNorm Comme nt: Creat ed By: Atilio Casanova ciarra Date: 009 1:44: 07 PM; Not Available [facility] 6 08:22:25 051509 Cipro medicatio n Not available Not available Not available 07/16/202348096 3 RxNorm Cici Enrique [facility] 4 10:29:40 061813 Levaquin medicatio n Not available Not available Not available 07/16/2023 80958 2 RxNorm Cici Enrique [facility] 4 10:29:55 263955 brompheni ramine / pseudoeph edrine medicatio n Not available Not available Not available 07/16/2023 12858 6 RxNorm Cici Enrique [facility] 4 10:30:02 Medications Name Sig Start Date [...] Tobacco Smoking Status Never Smoker Cici durán, [facility] 07/16/2023 10:34:08 What Was The Date Of Your Most Recent Tobacco Screening? 07/21/2024 [email or web address] Information not available 07/21/2024 Sex: Unknown Functional Status None recorded. Mental Status None recorded. Family History Relationship Description Onset Age of this Age Resolved Age Notes LastModified by Organization Details LastModified Time Father No current problems or disability [email or web address] Not available 06/22 10:34:02 Mother No current problems or disability [email or web address] Not available 06/22 10:34:02 Medical History Condition Response Skin Cancer Gynecological HistoryNo gynecological history recorded. Obstetrics History GPAL:G 0 P 0 0 0 0 Past Encounters Encounter ID Performer Location Encounter Start Date Encounter Closed Date Diagnosis/Indication Diagnosis SNOMED-CT Code Diagnosis ICD10 Code Diagnosis Note [id number] CARLOS A OAKES DPM [facility] [address] [place] [address] 03/21/2022 11:12:47 03/21/2022 11:48:57 Pain of toe of right foot 4657290992 63158 M79.674 Pain of to e of left foot 5289689910 42849 M79.675 Hammer toe 862295277 M20 .41 M20.42 With predisloca tion syndrome bilateral second MTPJ [id number] CARLOS A OAKES DPM [facility] [address] [place] [address] 01/01/2023 14:21:26 01/01/2023 15:53:44 Pain of toe of right foot 4485905172 47991 M79.674 Pain of to e of left foot 6468382362 25239 M79.675 Hammer toe 106481404 M20 .41 M20.42 With predisloca tion syndrome bilateral second MTPJ Ingrowing nail of toe of left foot 4353802492 3264481 L60.0 Ingrowing nail of toe of right foot 8729393684 3541475 L60.0 [id number] LINA AJ MD [address] [address] 07/16/2023 10:03:35 07/16/2023 14:40:42 History of malignant neoplasm of skin 218192954 Z85.828 - No evidence of recurrence today - Call with any worrisome lesions or if treated lesions return - Return at regular intervals for skin exam as recommende d Multiple b enign melanocytic nevi 804766142 D22.5 - Benign moles seen on exam today- SPF 30 or higher broad-spec trum sunscreen recommende d- Instructed to monitor for changes and to call us for appointmen t with any changing or worrisome lesions Seborrheic keratosis 394 303434 L82.1 - Benign overgrowth s of skin- Hereditary -SK on the left cheek. 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 [id number] LINA W MD [place] [address] [address] 01/21/2024 13:19:13 01/21/2024 14:53:05 Multiple benign melanocytic nevi 487306876 D22.5 I78.1 L81.4 L82.1 Benign appearing lesions.Co ntinue to monitor and follow-up with any or changing lesions.Re commend to wear SPF 30+ with zinc or titanium oxide cream daily. Prefers lotions/cr eams over sprays.Fol low up in 6 months for a full skin exam. History of malignant neoplasm of skin 942312253 Z85.828 Scar is clear. Well healed scar. No evidence of recurrence . 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 Disc concern for atrophy due to long-term topical steroid on labia.Tacr olimus previously caused [...] if lesion(s) persists or do not resolve. [id number] CARLOS A OAKES DPM [facility] [address] [place] [address] 02/08/2024 13:17:18 02/08/2024 15:48:41 Pain of toe of right foot 1633596780 69918 M79.674 Hammer toe 353416353 M20 .41 M20.42 With predisloca tion syndrome bilateral second MTPJ Ingrowing nail of toe of right foot 3881506534 5811083 L60.0 Paronychia of toe of right foot 4842178487 2661152 L03.031 [id number] LINA W MD [place] [address] [place] [address] 07/21/2024 11:03:15 07/21/2024 12:18:03 Multiple benign melanocytic nevi 845933095 D22.5 I78.1 L81.4 L82.1 Benign appearing lesions.Co ntinue to monitor and follow-up with any or changing lesions.Re commend to wear SPF 30+ with zinc or titanium oxide cream daily. Prefers lotions/cr eams over sprays.Fol low up in 6 months for a full skin exam. History of malignant neoplasm of skin 865311188 Z85.828 Scar is clear. Well healed scar. No evidence of recurrence . Genital li iverson sclerosus 649167430 L90.0 B37.2 Chronic. Active. She reports flared [...] OF [place] (MEDICARE SUPPLEMENT) [id number] Aggie Oliver [id number] Aggie Oliver 07/21/2024 1 MEDIC[place]ICARE[place] Aggie Oliver [id number] Aggie Oliver Notes Date Note Type Note Provider Name and Address Organization Details Recorded Time 01/01/2023 text/html Location: Left halluxDuration: 2 weeksSeverity: Moderatemod factors: Nail feels to be ingrowing also pain bilateral second digit CARLOS A OAKES DPM [address] [place] [address], [phone], [facility] 01/01/2023 16:15:26 07/16/2023 text/html I am here for my skin check. History of SCCSternum I am following up on my lichen sclerosus.Groinclo betasol oint, vaseline. I have a place on my face that has changed.Alphonso AJ MD [address] [place] [address], [address], [facility] 07/16/2023 10:56:05 01/21/2024 text/html I am here for my skin check. History of SCCSternum I am following up on my lichen sclerosus.Groinclo betasol oint, vaseline.About the same. Flares here and [place] [address] [place] [address], [address], [facility] 01/21/2024 14:37:52 02/08/2024 text/html Location: Right halluxDuration: 1 weekSeverity: Moderatemod factors: pain is worsening CARLOS A OAKES DPM [address] [place], [address], [facility] 02/08/2024 15:34:17 07/21/2024 text/html I am here for my skin check. History of SCCSternum I am following up on my lichen sclerosus.Groinclo betasol oint, vaseline.patient reports flaring, getting worseneed refill of clobetasol June MD [place] [address] [place], [address], [facility] 07/21/2024 12:35:04 OBGyn Episode No OBEpisode recorded.
--- OUTSIDE RECORDS SUMMARY | 2024-09-09 08:43 | XMS_ITS | Encounter Summary ---
Author Organization [employer] Address [address] [place] [address] Care Team Providers Care Grain Elevator Man Name Role Phone Edouard Giron MD Primary Care Provider + [phone] Encounter Details Date Type Department Care Team (Late st Contact Info) Description 09/19/2021 Transcribed Document [facility] [place] [address] [place] [address] ProviderRenato MD [address] [place] [address] Social History Tobacco Use Types Packs/Day Years Used Date Smoking Tobacco: Never Assessed Comments Unknown Sex and Gender Information Value Date Recorded Sex Assigned at Not on file Legal Sex Female 4:29 PM CDT Gender Identity Not on file Sexual Orientation Not on file documented as of this encounter Miscellaneous Notes * [employer] Conversion Note - Renato Elizabeth MD - 09/19/2021 8:03 AM CDT Pre Procedure Adult Entered On: 09/19/2021 8:07 EDT Performed On: 09/19/2021 8:03 EDT by ONELIA Mandujano RN Height and Weight, Clinical Dosing Height Source : Stated Height Entry Format : [place] Height, Feet : 0 ft(Converted to: 0 cm, 0 Inch) Height, Inches : 64 Inch(Converted to: 5 ft 4 Inch, 162.56 cm) Clinical Height : 162.56 cm Weight Source : Standing scale Weight Entry Format : [place] Clinical Dosing Weight : 79.82 kg Weight, Pounds : 175.6 lb Body Surface Area (BSA) : 1.85 m2 Body Mass Index : 30.2 kg/m2 (HI) [place] Body Weight : 54 kg ONELIA Mandujano RN - 09/19/2021 8:03 EDT Health Histories Smoking Status : Never (less than 100 in lifetime; none in last 30 days) Smokeless Tobacco Status : Never ONELIA Mandujano RN - 09/19/2021 8:03 EDT Social History (As Of: 09/19/2021 08:07:44 EDT) Tobacco: Use in Last 12 Months: No. Smoking Status Never smoker. (Last Updated: 09/05/2013 07:37:27 EDT by JOHNATHON COOK RN) Alcohol: Use in Last 12 Months: Yes. (Last Updated: 09/05/2013 07:37:33 EDT by JOHNATHON COOK RN) Alcohol Use History No. Alcohol Use Frequency Rarely. (Last Updated: 09/19/2021 08:04:14 EDT by ONELIA Mandujano RN) Substance Abuse: Drug Use Hx: No. Use in Last 12 Months: No. (Last Updated: 09/16/2018 07:32:05 EDT by Lanny Cohen RN) Nutrition/Health: Caffeine intake amount: 1. (Last Updated: 09/05/2013 07:37:53 EDT by JOHNATHON COOK RN) Infectious Disease History Does patient have symptoms of COVID-19? : No Tested for COVID19 in the past 14 days : No, Patient stated Does the Patient state known exposure to a COVID-19 positive case in the last 14 days? : No Patient Vaccinated for COVID-19 : Fully vaccinated ONELIA Mandujano RN - 09/19/2021 8:03 EDT Infectious Disease Risk Screening Grid Cough < 2 wks of unknown origin : NO Cough > 2 weeks : NO Blood in Sputum : NO Fever or self-reported Fever : NO Rash of unknown origin : NO Headache : NO Stiff neck : NO Night Sweats : NO Unexplained Weight Loss : NO Diarrhea (3 episode per day) : NO ONELIA Mandujano RN - 09/19/2021 8:03 EDT Physical contact outside [place] in the last 30 days : No Hospitalized in Foreign Country : No Infectious Disease History : Chicken pox/Shingles, Influenza, Measles, Mumps INF Disease TB Screening Calc : 0 INF Disease Recent Travel Calc : 0 [place], ONELIA J, RN - 09/19/2021 8:03 EDT COVID19 PreProcedure Screening Is this an Emergent or Add on Procedure? : No Date PreProcedure COVID-19 test known? : No Has patient been isolated since the test : Unable to Obtain Exposed to COVID19 symptoms since test? : No ONELIA Mandujano RN - 09/19/2021 8:03 EDT Anesthesia/Transfusion History Family History of Anesthesia Reaction : No prior transfusion(s) Transfusion History : Prior anesthesia without reaction Family History of Anesthesia Reaction : None ONELIA Mandujano RN - 09/19/2021 8:03 EDT Functional Assessment Living Situation : Home Patient Lives With : Spouse Current Home Treatments : None ONELIA Mandujano RN - 09/19/2021 8:03 EDT [place] Suicide Severity Rating Scale (C-SSRS) CSSRS Past Month Wish to be : No CSSRS Past Month Suicidal Thoughts : No CSSRS Lifetime Suicide Behavior : No Suicide Severity Rating Score : 0 Suicide Severity Rating : No Additional Care Required at this time ONELIA Mandujano RN - 09/19/2021 8:03 EDT Psychosocial History Do You Have a History of the Following? : Patient denies history Currently in Unsafe Situation : No ONELIA Mandujano RN - 09/19/2021 8:03 EDT Advance Directive Patient has Advance Directive *Q : Yes, Advance Directive not with the patient Advance Directive Type : Living will Copy Advance Directive Verified/on Chart : No ONELIA Mandujano RN - 09/19/2021 8:03 EDT Teaching/Learning Assessment Barriers To Learning : None evident Individuals Taught : Patient Readiness to Learn : Cooperative Highest Level of Education : Some college Baseline Knowledge of Topic : Good Readiness to Learn : Explanation ONELIA Mandujano RN - 09/19/2021 8:03 EDT General Info Support Person/Patient Business Team Leader : Yes Support Person/Pt Rep Name : Jamel (spouse) Patient's Support Person/Pt Rep Contact Information : [phone] Want Family/Rep/Phys Notified of Admit : Yes Name/Contact Info Fam/Rep Notified Adm : na Name/Contact Info Physician Notified Adm : Edouard Giron Emergency Contact #1 : Normal [place] Emergency Contact #1 Emergency Contact #1 Relationship : spouse Emergency Contact #2 : none Emergency Contact #2 Phone Number : none Emergency Contact #2 Relationship : none Information Obtained From : Patient Primary Language : Irish Communication Barrier : None Truck Rental Manager Needed : No Objects to Sharing Info w Family : No ONELIA Mandujano RN - 09/19/2021 8:03 EDT Sleep Apnea Risk Assmt Hx of Obstructive Sleep Apnea Diagnosis : No Snore Loudly : No Tired, Fatigued, or Sleepy During Day : No Observed Stopping Breathing During Sleep : No Have/Are Being Treated for Hypertension : Yes BMI Greater Than 35 kg/m2 : No Age over 50 Years Old : Yes Neck Circumference Greater Than 40 cm : No Gender Male : No STOP-BANG Sleep Apnea Risk Level Score : 2 ONELIA Mandujano RN - 09/19/2021 8:03 EDT Kennedy Scale Kennedy Sensory Perception : No impairment Kennedy Moisture : Rarely moist Kennedy Activity : Walks frequently Kennedy Mobility : No limitation Kennedy Nutrition : Adequate Kennedy Friction and Shear : No apparent problem Kennedy Score : 22 ONELIA Mandujano RN - 09/19/2021 8:03 EDT Fall Risk Scales ABCs Fall Injury Risk Identification : None WHITTAKER Hx Falls Immediate/Within 3 Months : No Whittaker Secondary Diagnosis : No WHITTAKER Use of Ambulatory Aid : None WHITTAKER IV Therapy or IV Access : Yes Whittaker Gait/Transferring : Normal, bedrest, immobile Whittaker Mental Status : Oriented to own ability Whittaker Fall Risk Score : 20 WHITTAKER Fall Scale Risk Level : 0-24 Low Risk Turney Fall Interventions : Adequate lighting, Bed in low position, Call device within reach, Fall prevention handout/education per facility policy, Frequent orientation to call device, Frequent orientation to surroundings, Hourly comfort/safety rounds, Non-slip footwear, Personal items within reach, Reinforced to call for assistance before getting out of bed, Room free of clutter/spills, Upper side-rails up, Wheels locked, Wires/Cords secured ONELIA Mandujano RN - 09/19/2021 8:03 EDT Valuables and Belongings Valuables and Belongings : Clothing, Personal devices Clothing : Common streetwear Clothing Disposition : Bedside Personal Device Disposition : Bedside Personal Devices : Glasses ONELIA Mandujano RN - 09/19/2021 8:03 EDT Electronically signed by [facility], [facility] Conversion Thermoforming Operator Cerner at 07/08/2022 11:48 AM CDT documented in this encounter Plan of Treatment Upcoming Encounters Date Type Department Care Team (Late st Contact Info) Description 11/23/2024 1:45 PM EDT Appointment [address] [place] [address] documented as of this encounter Visit Diagnoses Not on filedocumented in this encounter Care Teams Grain Elevator Man Relationship Specialty Start Date End Date Edouard Giron MD [address] [place] [facility] [address] [facility] [place] [address] PCP - General Family Medicine 11/17/22 documented as of this encounter
--- OUTSIDE RECORDS SUMMARY | 2024-09-09 08:43 | XMS_ITS | Encounter Summary ---
Author Organization [employer] Address [address] [place] [address] Care Team Providers Care Plant Worker Name Role Phone Edouard Giron MD Primary Care Provider [phone] Encounter Details Date Type Department Care Team (Late st Contact Info) Description 09/16/2018 Transcribed Document [facility] Family [place] [facility] [place] [address] ProviderRenato MD [address] [place], [place] [id number] Social History Tobacco Use Types Packs/Day Years Used Date Smoking Tobacco: Never Assessed Comments Unknown Sex and Gender Information Value Date Recorded Sex Assigned at Not on file Legal Sex Female 4:29 PM CDT Gender Identity Not on file Sexual Orientation Not on file documented as of this encounter Miscellaneous Notes * Cerner Conversion Note - Renato ProviderMD - 09/16/2018 8:00 AM CDT [facility] [place] PreOp Summary Primary Physician: ERNIE SANTORO MD-GAE Finalized Date/Time: 09/16/18 07:47:09 Pt. Name: AGGIE HUNT /Sex: 1945 Female Med Rec #: [id number] Physician: ERNIE SANTORO MD-GAE Financial #: [id number] Pt. Type: O Room/Bed: N/2 Admit/Disch: 09/16/18 06:44:00 - Institution: [facility] PreOp Case Times Entry 1 In Preop 09/16/18 07:25:00 Ready for Holding 09/16/18 07:46:00 Room Patient Ready for 09/16/18 07:47:00 Surgery Patient Out of Preop 09/16/18 07:47:00 Patient Out of 09/16/18 07:47:00 Holding Room [facility] PreOp Case Times Audit 09/16/18 07:47:05 Hoisting Laborer: [email or web address] Modifier: [email or web address] <+> 1 Patient Out of Preop <+> 1 Patient Ready for Surgery <+> 1 Ready for Holding Room <+> 1 Patient Out of Holding Room Finalized By: Lanny Cohen RN Document Signatures Signed By: Lanny Cohen RN 09/16/18 07:47 Electronically signed by Neida Manuel Conversion Enrollment Services Vice President Cerner at 07/08/2022 11:49 AM CDT documented in this encounter Plan of Treatment Upcoming Encounters Date Type Department Care Team (Late st Contact Info) Description 11/23/2024 1:45 PM EDT Appointment [address] [place] [address] documented as of this encounter Visit Diagnoses Not on filedocumented in this encounter Care Teams Plant Worker Relationship Specialty Start Date End Date Edouard Giron MD [address] [facility] [address] [place] [address] PCP - General Family Medicine 11/17/22 documented as of this encounter
--- OUTSIDE RECORDS SUMMARY | 2024-09-09 08:43 | XMS_ITS | Encounter Summary ---
Author Organization Healthcare Address [address] [place] [address] Care Team Providers Care Vibrator Operator Name Role Phone Edouard Giron MD Primary Care Provider [phone] Encounter Details Date Type Department Care Team [...] Description 09/19/2024 3:20 PM EDT Appointment Professional [facility] [address], [address] [place] [address] 09/19/2024 4:00 PM EDT Office Visit Professional [employer] [facility] [address], [address] [place] [address] Yassine Pizarro PA [address] [place] [address] [place] [address] 08/29/2025 1:00 PM EDT Ovarian Cancer Screening [facility] [address] [facility] [address] [place] [address] documented as of this encounter Visit Diagnoses Not on filedocumented in this encounter Additional Health Concerns Assessment Noted Time A fall risk assessment has been complete d for the patient 09/01/2023 1:37 PM EDT A Body Mass Index follow-up plan has been documented for the patient 09/01/2023 1:49 PM EDT documented as of this encounter Care Teams Vibrator Operator Relationship Specialty Start Date End Date Edouard Giron MD [address] [place] [id number] PCP - General 08/03/20 documented as of this encounter
--- OUTSIDE RECORDS SUMMARY | 2024-09-09 08:43 | XMS_ITS | Encounter Summary ---
Author Organization [employer] Address [address] [place] [address] Care Team Providers Care Inclusion Special Education Teacher Name Role Phone Edouard Giron MD Primary Care Provider [phone] Encounter Details Date Type Department Care Team (Late st Contact Info) Description 09/19/2021 Transcribed Document [facility] [place] Family Medicine [address] [place] [address] ProviderRenato MD [address] [place], [place] [id number] Social History Tobacco Use Types Packs/Day Years Used Date Smoking Tobacco: Never Assessed Comments Unknown Sex and Gender Information Value Date Recorded Sex Assigned at Not on file Legal Sex Female 4:29 PM CDT Gender Identity Not on file Sexual Orientation Not on file documented as of this encounter Miscellaneous Notes * Cerner Conversion Note - Renato Elizabeth MD - 09/19/2021 8:30 AM CDT [facility] [place] PreOp Summary Primary Physician: ROSA GLASS MD Finalized Date/Time: 09/19/21 08:10:55 Pt. Name: AGGIE HUNT /Sex: 1945 Female Med Rec #: [id number] Physician: ROSA GLASS MD Financial #: [id number] Pt. Type: E Room/Bed: [facility] Admit/Disch: 09/19/21 07:30:00 - Institution: [facility] [place] PreOp Case Times Entry 1 In Preop 09/19/21 07:52:00 Ready for Holding n/a Room Patient Ready for n/a Surgery Patient Out of Preop 09/19/21 08:10:00 Patient Out of n/a Holding Room [facility] [place] PreOp Case Times Audit 09/19/21 08:10:53 Board Setter: MARTÍNEZ Modifier: MARTÍNEZ <+> 1 Patient Out of Preop Finalized By: ONELIA Mandujano RN Document Signatures Signed By: ONELIA Mandujano RN 09/19/21 08:10 documented in this encounter Plan of Treatment Upcoming Encounters Date Type Department Care Team (Late st Contact Info) Description 11/23/2024 1:45 PM EDT Appointment [address] [place] [address] documented as of this encounter Visit Diagnoses Not on filedocumented in this encounter Care Teams Inclusion Special Education Teacher Relationship Specialty Start Date End Date Edouard Giron MD [address] [facility] [address] [place] [address] PCP - General Family Medicine 11/17/22 documented as of this encounter
--- OUTSIDE RECORDS SUMMARY | 2024-09-09 08:43 | XMS_ITS | Encounter Summary ---
Author Organization [employer] Address [address] [place] [address] Care Team Providers Care Colorist Dyer Name Role Phone Edouard Giron MD Primary Care Provider + [phone] Encounter Details Date Type Department Care Team (Late st Contact Info) Description 09/16/2018 Transcribed Document [facility] [place] Family Medicine [address] [place] [address] ProviderRenato MD [address] [place] [address] Social History Tobacco Use Types Packs/Day Years Used Date Smoking Tobacco: Never Assessed Comments Unknown Sex and Gender Information Value Date Recorded Sex Assigned at Not on file Legal Sex Female 4:29 PM CDT Gender Identity Not on file Sexual Orientation Not on file documented as of this encounter Miscellaneous Notes * Cerner Conversion Note - Renato Elizabeth MD - 09/16/2018 7:29 AM CDT Pre Procedure Adult Entered On: 09/16/2018 7:39 EDT Performed On: 09/16/2018 7:29 EDT by Lanny Cohen RN Height and Weight, Clinical Dosing Height Source : Stated Height Entry Format : [place] Height, Feet : 5 ft(Converted to: 152 cm, 60 Inch) Height, Inches : 4 Inch(Converted to: 0 ft 4 Inch, 10.16 cm) Clinical Height : 162.56 cm Weight Source : Standing scale Weight Entry Format : [place] Clinical Dosing Weight : 78.73 kg Weight, Pounds : 173.2 lb Body Surface Area (BSA) : 1.84 m2 Body Mass Index : 29.8 kg/m2 (HI) [place] Body Weight : 54 kg Lanny Cohen RN - 09/16/2018 7:29 EDT Health Histories Smoking Status : Never (less than 100 in lifetime; none in last 30 days) Smokeless Tobacco Status : Never Lanny Cohen RN - 09/16/2018 7:29 EDT Social History (As Of: 09/16/2018 07:39:04 EDT) Tobacco: Use in Last 12 Months: No. Smoking Status Never smoker. (Last Updated: 09/05/2013 07:37:27 EDT by JOHNATHON COOK RN) Alcohol: Use in Last 12 Months: Yes. (Last Updated: 09/05/2013 07:37:33 EDT by JOHNATHON COOK RN) Substance Abuse: Drug Use Hx: No. Use in Last 12 Months: No. (Last Updated: 09/16/2018 07:32:05 EDT by Lanny Cohen RN) Nutrition/Health: Caffeine intake amount: 1. (Last Updated: 09/05/2013 07:37:53 EDT by JOHNATHON COOK RN) Infectious Disease History Infectious Disease History : Chicken pox/Shingles, Influenza, Measles, Mumps Fever/Chills Last 48 Hours : No Travel To Regions with Travel Advisories : No Travel Outside [place] Within Last 30 Days : No Contact With Traveler to Advisory Region : No Tuberculosis Symptoms : None Lanny Cohen RN - 09/16/2018 7:29 EDT Anesthesia/Transfusion History Family History of Anesthesia Reaction : No prior transfusion(s) Transfusion History : Prior anesthesia without reaction Family History of Anesthesia Reaction : None Lanny Cohen RN - 09/16/2018 7:29 EDT Functional Assessment Living Situation : Home Patient Lives With : Spouse Current Home Treatments : None Lanny Cohen RN - 09/16/2018 7:29 EDT Psychosocial History Do You Have a History of the Following? : Patient denies history Currently in Unsafe Situation : No Tried to Harm Yourself in the Past? : No Thoughts of Harming/Killing Yourself : No Lanny Cohen RN - 09/16/2018 7:29 EDT Advance Directive Patient has Advance Directive *Q : Yes, Advance Directive not with the patient Advance Directive Type : Living will Copy Advance Directive Verified/on Chart : No Lanny Cohen RN - 09/16/2018 7:29 EDT Teaching/Learning Assessment Barriers To Learning : None evident Individuals Taught : Patient, Spouse Readiness to Learn : Cooperative Baseline Knowledge of Topic : Good Readiness to Learn : Explanation, Printed materials Learning Style Preferences Patient : Printed materials, Verbal explanation Learning Style Preferences Family : Printed materials, Verbal explanation Lanny Cohen RN - 09/16/2018 7:29 EDT General Info Arrived From : Home Mode of Arrival on Unit : Ambulatory Support Person/Patient Mineral Surveying Technician : Yes Support Person/Pt Rep Name : Rui (spouse) Patient's Support Person/Pt Rep Contact Information : [phone] Want Family/Rep/Phys Notified of Admit : Yes Name/Contact Info Fam/Rep Notified Adm : RUI Name/Contact Info Physician Notified Adm : EDOUARD GIRON Emergency Contact #1 : RUI Emergency Contact #1 Emergency Contact #1 Relationship : Emergency Contact #2 : NA Emergency Contact #2 Phone Number : NA Emergency Contact #2 Relationship : NA Primary Language : Guatemalan Communication Barrier : None Lanny Cohen RN - 09/16/2018 7:29 EDT Sleep Apnea Risk Assmt Hx of Obstructive Sleep Apnea Diagnosis : No Snore Loudly : No Tired, Fatigued, or Sleepy During Day : No Observed Stopping Breathing During Sleep : No Have/Are Being Treated for Hypertension : No BMI Greater Than 35 kg/m2 : No Age over 50 Years Old : Yes Neck Circumference Greater Than 40 cm : No Gender Male : No STOP-BANG Sleep Apnea Risk Level Score : 1 Lanny Cohen RN - 09/16/2018 7:29 EDT Kennedy Scale Kennedy Sensory Perception : No impairment Kennedy Moisture : Rarely moist Kennedy Activity : Walks occasionally Kennedy Mobility : No limitation Kennedy Nutrition : Adequate Kennedy Friction and Shear : No apparent problem Kennedy Score : 21 Lanny Cohen RN - 09/16/2018 7:29 EDT Pain Assessment Pain Assessment : Initial assessment Pain Scale Goal : 5 Pain Scale Used : 0-10 Scale Lanny Cohen RN - 09/16/2018 7:29 EDT Fall Risk Scales ABCs Fall Injury [...] Scale Risk Level : 0-24 Low Risk [place] Fall Interventions : Adequate lighting, Bed in low position, Personal items within reach, Reinforced to call for assistance before getting out of bed, Room free of clutter/spills, Upper side-rails up, Wheels locked, Wires/Cords secured Lanny Cohen RN - 09/16/2018 7:29 EDT Valuables and Belongings Valuables and Belongings : Clothing Clothing : Common streetwear Clothing Disposition : Bedside Lanny Cohen RN - 09/16/2018 7:29 EDT Pain Scale Intensity : 0 Lanny Cohen RN - 09/16/2018 7:29 EDT Image 4 - Images currently included in the form version of this document have not been included in the text rendition version of the form. documented in this encounter Plan of Treatment Upcoming Encounters Date Type Department Care Team (Late st Contact Info) Description 11/23/2024 1:45 PM EDT Appointment [address] [address] documented as of this encounter Visit Diagnoses Not on filedocumented in this encounter Care Teams Colorist Dyer Relationship Specialty Start Date End Date Edouard Giron MD [address] [facility] [address] [place] [address] PCP - General Family Medicine 11/17/22 documented as of this encounter
--- OUTSIDE RECORDS SUMMARY | 2024-09-09 08:43 | XMS_ITS | Encounter Summary ---
Author Organization [employer] Address [address] [place] [address] Care Team Providers Care Combination Machine Tool Operator Name Role Phone Edouard Giron MD Primary Care Provider + [phone] Encounter Details Date Type Department Care Team (Late st Contact Info) Description 09/16/2018 Transcribed Document [facility] [place] Family [facility] [place] [address] ProviderRenato MD [address] [place] [address] Social History Tobacco Use Types Packs/Day Years Used Date Smoking Tobacco: Never Assessed Comments Unknown Sex and Gender Information Value Date Recorded Sex Assigned at Not on file Legal Sex Female 4:29 PM CDT Gender Identity Not on file Sexual Orientation Not on file documented as of this encounter Miscellaneous Notes * Cerner Conversion Note - Renato Elizabeth MD - 09/16/2018 7:16 AM CDT Patient: AGGIE HUNT Age: 73 years Sex: Female : 1945 Associated Diagnoses: None Author: CORI PAYNE MD-GAE Basic Information Source of history: Self. Referral source: CORI PAYNE MD-GAE. Chief Complaint History of colon polyps History of Present Illness Patient presents today for a screening colonoscopy. Denies any gastrointestinal complaints. Specifically denies rectal bleeding, weight loss, or change in bowel habits. No family history of colon cancer. Pt takes a daily ASA 81mg, stopped 5 days ago. Denies NSAID's. She did feel a protrusion as she had a bowel movement in April. It has since gone, but now more difficult to wipe . Last colonoscopy 08/[address] Cori Payne for screening colon, Findings: Diverticulosis in the sigmoid, A single polyp in the descending colon, measuring between 5 and 10 mm, ( TUBULAR ADENOMA) Two sessile polyps in the sigmoid colon, measuring between 5 and 10mm, ( FRAGMENTS OF TUBULAR ADNOMA) Two sessile polyps found in the rectum, measuring between 5 and 10mm, (HYPERPLASTIC POLYP). NO HIGH GRAQDE DYSPLASIA IN POLYPS. InternaL HEMORRHOIDS Histories Past Medical History: Active Seasonal allergies (263946534) Arthritis (1965831) Resolved Asthma (941615323): Resolved. Procedure history: Dental surgical procedure (830722075). Tonsillectomy (259199375). Cholecystectomy (29554393). Bladder surgery. Dilation and curettage (46572286). Blephaplasty. Cyst removed from right finger. Social History Social & Psychosocial Habits Alcohol 09/05/2013 Alcohol Use in Last Twelve Months Yes Nutrition/Health 09/05/2013 Caffeine intake amount: 1 Substance Abuse 09/16/2018 Recreational Drug Use History No Recreational Drug Use Last 12 Months No Tobacco 09/05/2013 Tobacco Use Within Last Twelve Months No Smoking Status Never smoker . Family History: No family history of Zepeda Syndrome. Health Status Allergies: Allergic Reactions (All) Severity Not Documented Drixoral- Disorientation. Levaquin- Unknown. Lipitor- Disorientation. Penicillin- Hives. Stahist- No reactions were documented. Sulfamethoxazole- No reactions were documented. Valium- Disorientation. Vioxx- Disorientation. Canceled/Inactive Reactions (All) Severity Not Documented Stahist- Unknown. Vioxx,valium,lipitor,dirxoral- Disorientation., Allergies (8) Active Reaction Drixoral Disorientation Levaquin Unknown Lipitor Disorientation penicillin Hives Stahist None Documented sulfamethoxazole None Documented Valium Disorientation Vioxx Disorientation Current medications: (Selected) Inpatient Medications Ordered Sodium Chloride 0.9% intravenous solution 1,000 mL: 100 mL/Hr, IntraVENous Documented Medications Documented Crestor 10 mg oral tablet: 1 Tab, Oral, Daily, 30 Tab, 0 Refill(s) Mucinex DM: Tab, Oral, Q12H, PRN: as needed, 0 Refill(s) Multiple Vitamins oral tablet: 1 Tab, Oral, Daily, 30 Tab, 0 Refill(s) Non Formulary Medication: one dose, SubCutaneous, [id number], Allergy injection, 0 Refill(s) ProAir HFA 90 mcg/inh inhalation aerosol: Puff, Inhalation, QID, PRN: as needed for wheezing, 0 Refill(s) Vitamin D2: 1400u, Oral, Daily, 0 Refill(s) aspirin: 81 mg, Oral, Daily, 0 Refill(s) magnesium oxide: 400 mg, Oral, Daily, 0 Refill(s) potassium chloride-sodium chloride: 750 mg, Oral, Daily, 0 Refill(s) vitamin A: 30719p, Oral, Daily, 0 Refill(s) vitamin E: 500 mg, Oral, Daily, 0 Refill(s) zolpidem 10 mg oral tablet: 1 Tab, Oral, At Bedtime, PRN: for sleep, 0 Refill(s), Medications (1) Active Scheduled: (0) Continuous: (1) NaCl 0.9% 1,000 mL 1,000 mL, IntraVENous, 100 mL/Hr PRN: (0) Problem list: All Problems Acute vaginitis / SNOMED CT 63093068 / Confirmed Arthritis / SNOMED CT 4438920 / Confirmed H/O hyperlipidemia / SNOMED CT 374784451 / Confirmed Seasonal allergies / SNOMED CT 792121562 / Confirmed Resolved: Asthma / SNOMED CT 233962742, Active Problems (4) Acute vaginitis Arthritis H/O hyperlipidemia Seasonal allergies Review of Systems Constitutional: No fever, No chills, No weight gain, No weight loss. Eye: No recent visual problem, No blurring. Ear/Nose/Mouth/Throat: No dysphagia, No epistaxis, No hoarse voice, No sore throat. Respiratory: No shortness of breath, No cough, No hemoptysis. Cardiovascular: No chest pain, No palpitations, No claudication. Gastrointestinal: Negative except as documented in history of present illness. Genitourinary: No dysuria, No hematuria. Hematology/Lymphatics: No bruising tendency, No bleeding tendency. Endocrine: No excessive thirst, No cold intolerance, No heat intolerance. Musculoskeletal: No joint pain, No muscle pain, No gait disturbance, No joint redness. Integumentary: No rash, No pruritus. Neurologic: No confusion, No dizziness, No headache, No seizure. Psychiatric: No anxiety, No depression. the rest of the 10 system review is negative Physical Examination VS/Measurements Vitals Signs (last 24 hrs) Last Charted Minimum Maximum Temp 97.8 (SEP 16 07:40) 97.8 (SEP 16:40) 97.8 (SEP 16 07:40) Mon HR 62 (SEP 16 07:40) 62 (SEP 16 07:40) 62 (SEP 16 07:40) Resp Rate 18 (SEP 16:40) 18 (SEP 16 07:40) 18 (SEP 16 07:40) SBP H 178 (SEP 16 07:40) H 178 (SEP 16 07:40) H 178 (SEP 16 07:40) DBP 75 (SEP 16:40) 75 (SEP 16 07:40) 75 (SEP 16 07:40) SpO2 97 (SEP 16 07:40) 97 (SEP 16 07:40) 97 (SEP 16 07:40) General: No acute distress. Appearance: Well nourished. Eye: Pupils are equal, round and reactive to light, Extraocular movements are intact, Normal conjunctiva. Sclera: Both eyes, Within normal limits. HENT: Normocephalic, Normal hearing, Oral mucosa is moist. Nose: Both nostrils, Within normal limits, Patent. Mouth: pink. Neck: Supple, Non-tender, No carotid bruit, No jugular venous distention. Respiratory: Lungs are clear to auscultation, Respirations are non-labored, Breath sounds are equal. Pattern: Regular. Cardiovascular: Normal rate, Regular rhythm, No murmur, No gallop, No edema. Arterial pulses: Bilateral, Dorsalis pedis, Within normal limits. Gastrointestinal: Soft, Non-tender, Non-distended, Normal bowel sounds, No organomegaly. Abdomen: Liver ( Within normal limits ). Lymphatics: Lymphatic exam: Bilateral, Cervical chain, Inguinal, Within normal limits. Musculoskeletal: Normal range of motion, Normal strength, No tenderness, No deformity, Normal gait. Integumentary: Warm, Dry, [place], No rash. Integumentary exam: Face, Chest, Arm, Abdomen, Leg. Neurologic: Alert, Oriented, No focal deficits. Orientation: To person, To place, To time. Psychiatric: Cooperative, Appropriate mood & affect, Normal judgment. Review / Management Results review: No qualifying data available. Impression and Plan Colon for screening of colon polyps. Proceed with colonoscopy. Risks including that of bleeding, perforation, splenic injury, and missed lesion have been discussed with patient who verbalizes understanding and agrees to proceed. Further recommendations taz be based on the above findings. Scribed by Evens Pham PA-C for Dr. Mayi Payne. documented in this encounter Plan of Treatment Upcoming Encounters Date Type Department Care Team (Late st Contact Info) Description 11/23/2024 1:45 PM EDT Appointment [address] [place] [address] documented as of this encounter Visit Diagnoses Not on filedocumented in this encounter Care Teams Combination Machine Tool Operator Relationship Specialty Start Date End Date Edouard Giron MD [address] [facility] [address] [place] [address] PCP - General Family Medicine 11/17/22 documented as of this encounter
--- OUTSIDE RECORDS SUMMARY | 2024-09-09 08:43 | XMS_ITS | Encounter Summary ---
Author Organization [employer] Address [address] [place] [address] Care Team Providers Care Bowling Pin Refinisher Name Role Phone Edouard Giron MD Primary Care Provider + [phone] Encounter Details Date Type Department Care Team (Late st Contact Info) Description 09/19/2021 Transcribed Document [facility] Family Medicine [address] [place] [address] ProviderRenato MD [address] [place], [place] [id number] Social History Tobacco Use Types Packs/Day Years Used Date Smoking Tobacco: Never Assessed Comments Unknown Sex and Gender Information Value Date Recorded Sex Assigned at Not on file Legal Sex Female 4:29 PM CDT Gender Identity Not on file Sexual Orientation Not on file documented as of this encounter Miscellaneous Notes * Cerner Conversion Note - Renato Elizabeth MD - 09/19/2021 9:07 AM CDT [facility] Summary Primary Physician: ROSA GLASS MD Finalized Date/Time: 09/19/21 09:39:14 Pt. Name: AGGIE HUNT /Sex: 1945 Female Med Rec #: [id number] Physician: ROSA GLASS MD Financial #: [id number] Pt. Type: Room/Bed: [facility] Admit/Disch: 09/19/21 07:30:00 - Institution: [facility] - Case Attendance Entry 1 Entry 2 Entry 3 Case Attendee ROSA GLASS MD QURESHI, HERA, ILEANA BRIAN, RAMA Role Performed Surgeon/Proceduralist, Anesthesiologist of DENTAL TECHNOLOGY ADVISOR/Nurse Manufacturing Shift Supervisor First Record Time In 09/19/21 09:03:00 09/19/21 08:58:00 09/19/21 08:58:00 Time Out 09/19/21 09:38:00 09/19/21 09:38:00 09/19/21 09:38:00 Procedure Colon Polypectomy, Colon Polypectomy, Colon Polypectomy, Colonoscopy Colonoscopy Colonoscopy Other Attendee Superficial Wound Closed By: Last Modified By: RE GREEN, RE WAHL, RE WAHL, VERONICA 09/19/21 09:38:04 09/19/21 09:38:04 09/19/21 09:38:04 Entry 4 Entry 5 Entry 6 Case Attendee RE GREEN, Adeola Glover, Ally Delcid, MANAGER CONSUMER INSIGHTS Role Performed Unpaid Intern, First Unpaid Intern, Second Scrub, First Time In 09/19/21 08:58:00 09/19/21 08:58:00 09/19/21 08:58:00 Time Out 09/19/21 09:38:00 09/19/21 09:38:00 09/19/21 09:38:00 Procedure Colon Polypectomy, Colon Polypectomy, Colon Polypectomy, Colonoscopy Colonoscopy Colonoscopy Other Attendee Superficial Wound Closed By: Last Modified By: RE GREEN, RE WAHL, RE WAHL, VERONICA 09/19/21 09:38:04 09/19/21 09:38:04 09/19/21 09:38:04 [facility] - Case Attendance Audit 09/19/21 09:38:04 Play Writer: [id number] Modifier: [id number] 1 <+> Time Out 1 <*> Procedure Colon Polypectomy, Colonoscopy 2 <+> Time Out 2 <*> Procedure Colon Polypectomy, Colonoscopy 3 <+> Time Out 3 <*> Procedure Colon Polypectomy, Colonoscopy 4 <+> Time Out 4 <*> Procedure Colon Polypectomy, Colonoscopy 5 <+> Time Out 5 <*> Procedure Colon Polypectomy, Colonoscopy 6 <+> Time Out 6 <*> Procedure Colon Polypectomy, Colonoscopy 09/19/21 09:26:47 Play Writer: [id number] Modifier: [id number] <+> 1 Procedure <+> 2 Procedure <+> 3 Procedure <+> 4 Procedure <+> 5 Procedure <+> 6 Procedure 09/19/21 09:25:29 Play Writer: [id number] Modifier: [id number] 1 <-> Procedure Colonoscopy 2 <-> Procedure Colonoscopy 3 <-> Procedure Colonoscopy 4 <-> Procedure Colonoscopy 5 <-> Procedure Colonoscopy 6 <-> Procedure Colonoscopy 09/19/21 09:04:12 Play Writer: [id number] Modifier: [id number] 1 <*> Time In 09/19/21 08:58:00 1 <*> Procedure Colonoscopy 09/19/21 09:01:57 Play Writer: [id number] Modifier: [id number] 1 <+> Time In 1 <*> Procedure Colonoscopy 2 <*> Procedure Colonoscopy 3 <*> Procedure Colonoscopy 4 <*> Procedure Colonoscopy 5 <*> Procedure Colonoscopy 6 <*> Procedure Colonoscopy 09/19/21 08:59:34 Play Writer: [id number] Modifier: [id number] 1 <*> Procedure Colonoscopy 2 <+> Time In 2 <*> Procedure Colonoscopy 3 <+> Time In 3 <*> Procedure Colonoscopy 4 <+> Time In 4 <*> Procedure Colonoscopy 5 <+> Time In 5 <*> Procedure Colonoscopy 6 <+> Time In 6 <*> Procedure Colonoscopy 09/19/21 08:51:22 Play Writer: [id number] Modifier: [id number] <+> 1 Procedure 2 <*> Procedure Colonoscopy 3 <*> Procedure Colonoscopy 4 <*> Procedure Colonoscopy 5 <*> Procedure Colonoscopy 6 <*> Procedure Colonoscopy 09/19/21 08:50:11 Play Writer: [id number] Modifier: [id number] <+> 2 Case Attendee <+> 2 Role Performed <+> 2 Procedure <+> 3 Case Attendee <+> 3 Role Performed <+> 3 Procedure <+> 4 Case Attendee <+> 4 Role Performed <+> 4 Procedure <+> 5 Case Attendee <+> 5 Role Performed <+> 5 Procedure <+> 6 Case Attendee <+> 6 Role Performed <+> 6 Procedure [facility] - Case Times Entry 1 Patient In Room Time 09/19/21 08:58:00 Out Room Time 09/19/21 09:38:00 Anesthesia Start Time 09/19/21 09:04:00 Stop Time 09/19/21 09:36:00 Anesthesia Ready 09/19/21 08:58:00 Surgery / Procedure Times Start Time 09/19/21 09:07:00 Stop Time 09/19/21 09:36:00 Last Modified By: RE GREEN RN 09/19/21 08:59:23 [facility] - Case Times Audit 09/19/21 09:38:01 Play Writer: [id number] Modifier: [id number] <+> 1 Out Room Time <+> 1 Stop Time <+> 1 Stop Time 09/19/21 09:07:10 Play Writer: [id number] Modifier: [id number] <+> 1 Start Time <+> 1 Start Time [facility] - Cultures and Spec Summary Entry 1 Cultrures and Specimens Specimen Ordered: Yes Test(s) Routine/Path-Lab Requested/Final Disposition Last Modified By: RE GREEN RN 09/19/21 09:26:54 [facility] - Delays Entry 1 Delay Reason Other Duration 0 Minute(s) Comment NO DELAY Last Modified By: RE GREEN RN 09/19/21 08:50:14 [facility] - Departure from OR Entry 1 Integumentary Assessment Integumentary WDL Assessment WDL Transfer/Handoff Transfer to PACU Phase I Handoff Method Bedside/Face to face Post-op Transport Stretcher/Gurney Via Patient Transport RE GREEN, Accompanied by RN, ILEANA KHANNA NA, Adeola Packer RN Last Modified By: RE GREEN RN 09/19/21 09:02:27 [facility] - Endoscopy Details Entry 1 Abdomen Procedure Soft, Non-Tender Assessment Procedure Abdomen 09/19/21 09:00:00 Assessment D/T Radio Frequency Ablation Abdominal Pressure Last Modified By: RE GREEN RN 09/19/21 09:02:14 [facility] - Fire Risk Assessment Entry 1 Fire Info Surgical Site or 0- No Incision Above the Xyphoid Open O2 Source 1- Yes (Mask or Cannula) Available Ignition 1- Yes (ESU, Laser, Light Source) Fire Risk 2 Assessment Score Fire Score Fire Risk Yes Assessment 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 RN Assessment Verified By Fire Risk 09/19/21 08:59:00 Assessment Verified Date/Time Fire Risk High Risk Protocol Yes Implemented Standard Fire Yes Safety Precautions Followed Last Modified By: RE GREEN RN 09/19/21 09:00:09 [facility] - General Case Systems Operator 1 Case Information OR Endo 02 [facility] Case Level 1 Room Verified Yes Wound Class 2 - Clean-Contaminated Specialty Gastroenterology Anesthesia Type Moderate Sedation ASA Class 3 Diagnosis Preop Diagnosis Routine screening, History of polyps Postop Diagnosis diverticulosis, colon polyps Wound Class Definitions Last Modified By: RE GREEN RN 09/19/21 09:05:21 [facility] - General Case Data Audit 09/19/21 09:24:57 Play Writer: [id number] Modifier: [id number] 1 <*> Postop Diagnosis diverticulosis, 09/19/21 09:12:40 Play Writer: [id number] Modifier: [id number] <+> 1 Postop Diagnosis 09/19/21 09:05:21 Play Writer: [id number] Modifier: [id number] <+> 1 ASA Class [facility] - Intraoperative Assessment Entry 1 Handoff Method Bedside/Face to face Valid History / Yes Physical in Chart Preoperative Yes Checklist Reviewed/Evaluated Patient is Latex No Sensitive Isolation Not applicable Precautions Noted Level of WDL Consciousness (WDL = Alert, Oriented to Person, Place, and Time) Present Upon IVs, ECG monitored Arrival to OR Last Modified By: RE GREEN RN 09/19/21 09:01:07 [facility] - Intraoperative Equipment Entry 1 Type Scope Equipment Intraop Monitoring Electrocardiogram Three lead placement (ECG) Electrode Placement Blood Pressure Non-Invasive BP Device Source Blood Pressure Arm, left upper Location Pulse Oximeter Hand, right Probe Site Antiembolic Devices Scopes Flexible Endoscopes Colonoscope, Peds Used Scope Serial [id number] Number/Identificatio n Number Photo/Video Documentation Photo Yes Video No Last Modified By: RE GREEN RN 09/19/21 08:50:55 [facility] - Patient Positioning Entry 1 Procedure Colon Polypectomy, Colonoscopy Body Position Lateral, right side up Left Arm Position Resting at side Right Arm Position Resting at side Left Leg Position Other Right Leg Position Other Position Comments Right leg over Left leg uncrossed Feet Uncrossed Yes Pressure Points Yes Checked Positioned By Ally Schmidt, MANAGER CONSUMER INSIGHTS, ILEANA KHANNA NA Position Verified Positioning Yes Verified by Surgeon Last Modified By: RE GREEN RN 09/19/21 09:01:28 [facility] - Patient Positioning Audit 09/19/21 09:26:48 Play Writer: [id number] Modifier: [id number] <+> 1 Procedure 09/19/21 09:25:30 Play Writer: [id number] Modifier: [id number] 1 <-> Procedure Colonoscopy [facility] - Sign In Entry 1 Patient, Site, Yes Procedure Identified Surgical Consent Yes Confirmed Surgical Site N/A Marked by person performing procedure Allergies Yes Airway Hypothermia Risk No Warming Measures Yes Taken Last Modified By: RE GREEN RN 09/19/21 09:01:52 [facility] - Sign Out Entry 1 RN Confirmation Surgical Yes Procedure(s) Identified Instrument, Sponge Yes and Sharps Counts Correct/Documented Urinary Catheter N/A Documented in IView Wound Yes classification reviewed, verified and updated post case in both the General Case Data and Procedure segments Safety Checklist Yes Elements Complete? RN Sign Out RE GREEN, RN Signature RN Sign Out 09/19/21 09:38:00 Signature Date/Time Plan of Care Outcome - Fire Risk OUTCOME STATEMENT: Goal met Patient is free from injury related to surgical fire Plan of Care Outcome - Pt Positioning OUTCOME STATEMENT: Goal met Absence of signs and symptoms of positioning injury. Plan of Care Outcome - Skin Prep OUTCOME STATEMENT: Goal met Intraoperative care is consistent with measures to prevent infection Plan of Care Outcome - Xray/Images OUTCOME STATEMENT: Goal met Absence of observable signs or symptoms of radiation injury Plan of Care Outcome - Counts OUTCOME STATEMENT: Goal met Absence of signs and symptoms of injury related to extraneous objects Last Modified By: RE GREEN RN 09/19/21 09:37:49 [facility] - Surgical Procedures Entry 1 Entry 2 Procedure Colon Polypectomy Colonoscopy Modifiers Additional ascending, descending, Procedure sigmoid Description Primary Procedure No Yes Primary Surgeon ROSA GLASS MD YONG, JUNE, MD Start 09/19/21 09:07:00 09/19/21 09:07:00 Stop 09/19/21 09:36:00 09/19/21 09:36:00 Physician States 09/19/21 09:15:00 09/19/21 09:15:00 Cecum Reached Anesthesia Type MAC MAC Specialty Gastroenterology Gastroenterology Wound Class 2 - Clean-Contaminated 2 - Clean-Contaminated Last Modified By: RE GREEN RN MASENGALE, DANIELLE, RN 09/19/21 09:24:27 09/19/21 09:26:42 [facility] - Surgical Procedures Audit 09/19/21 09:38:51 Play Writer: [id number] Modifier: [id number] <+> 1 Stop 09/19/21 09:37:15 Play Writer: [id number] Modifier: [id number] 2 <*> Procedure Colonoscopy 2 <+> Stop 09/19/21 09:33:48 Play Writer: [id number] Modifier: [id number] 1 <*> Procedure Colon Polypectomy 1 <*> Additional Procedure Description ascending, descending 09/19/21 09:26:42 Play Writer: [id number] Modifier: [id number] 1 <*> Procedure Colonoscopy 1 <*> Primary Procedure Yes 1 <+> Additional Procedure Description <+> 2 Procedure <+> 2 Primary Procedure <+> 2 Primary Surgeon <+> 2 Specialty <+> 2 Start <+> 2 Wound Class <+> 2 Anesthesia Type <+> 2 Physician States Cecum Reached 09/19/21 09:24:27 Play Writer: [id number] Modifier: [id number] 1 <*> Procedure Colonoscopy 1 <+> Start 1 <+> Physician States Cecum Reached [facility] - Time Out Entry 1 Procedure to be Colon Polypectomy, Performed Colonoscopy Time Out Time Out Pause Time 09/19/21 09:04:00 All activity Yes suspended (unless life threatening emergency) Team Verbally Correct patient Confirms Information identity, Consent form is present and accurate, Agreement on the procedure to be done, Correct patient position Antibiotic N/A Prophylaxis Administered Or In Progress Within the Last 60 Minutes Beta Caryl N/A Administered Venous N/A Thromboembolism Prophylaxis Required Anticipated Critical Events Surgeon None expected Last Modified By: RE GREEN RN 09/19/21 09:26:48 [facility] - Time Out Audit 09/19/21 09:26:48 Play Writer: [id number] Modifier: [id number] <+> 1 Procedure to be Performed 09/19/21 09:25:30 Play Writer: [id number] Modifier: [id number] 1 <-> Procedure to be Performed Colonoscopy Case Comments <None> Finalized By: RE GREEN, RN Document Signatures Signed By: RE GREEN, VERONICA 09/19/21 09:39 documented in this encounter Plan of Treatment Upcoming Encounters Date Type Department Care Team (Late st Contact Info) Description 11/23/2024 1:45 PM EDT Appointment [address] [place] [address] documented as of this encounter Visit Diagnoses Not on filedocumented in this encounter Care Teams Bowling Pin Refinisher Relationship Specialty Start Date End Date Edouard Giron MD [address] [facility] [address] [place] [address] PCP - General Family Medicine 11/17/22 documented as of this encounter
--- OUTSIDE RECORDS SUMMARY | 2024-09-09 08:43 | XMS_ITS | Encounter Summary ---
Author Organization [employer] Address [address] [place] [address] Care Team Providers Care Computer Programmer Analyst Name Role Phone Edouard Giron MD Primary Care Provider + [phone] Encounter Details Date Type Department Care Team (Late st Contact Info) Description 09/19/2021 Transcribed Document [facility] Family Medicine [address] [place] [address] ProviderRenato MD [address] [place], [place] [id number] Social History Tobacco Use Types Packs/Day Years [...] - 09/19/2021 9:07 AM CDT [facility] Summary Primary Physician: ROSA GLASS MD Finalized Date/Time: 09/19/21 10:19:13 Pt. Name: AGGIE HUNT /Sex: 1945 Female Med Rec #: [id number] Physician: ROSA GLASS MD Financial #: [id number] Pt. Type: E Room/Bed: [facility] Admit/Disch: 09/19/21 07:30:00 - Institution: [facility] PACU Case Times Entry 1 In PACU I 09/19/21 09:40:00 Ready for PACU 09/19/21 10:16:00 Discharge Discharge from PACU 09/19/21 10:18:00 I Finalized By: Irlanda Berry [facility] Document Signatures Signed By: Irlanda Berry [facility]-NUR[facility] 09/19/21 10:19 documented in this encounter Plan of Treatment Upcoming Encounters Date Type Department Care Team (Late st Contact Info) Description 11/23/2024 1:45 PM EDT Appointment [address] [place] [address] documented as of this encounter Visit Diagnoses Not on filedocumented in this encounter Care Teams Computer Programmer Analyst Relationship Specialty Start Date End Date Edouard Giron MD [address] [place] [address] PCP - General Family Medicine 11/17/22 documented as of this encounter
--- OUTSIDE RECORDS SUMMARY | 2024-09-09 08:43 | XMS_ITS | Encounter Summary ---
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 Name Role Phone Edouard Giron MD Primary Care Provider + [phone] Encounter Details Date Type Department Care Team (Late st Contact Info) Description 09/16/2018 Transcribed Document [facility] [place] [facility] [place] [address] ProviderRenato MD [address] [place] [id number] Social History Tobacco Use Types Packs/Day Years Used Date Smoking Tobacco: Never Assessed Comments Unknown Sex and Gender Information Value Date Recorded Sex Assigned at Not on file Legal Sex Female 4:29 PM CDT Gender Identity Not on file Sexual Orientation Not on file documented as of this encounter Miscellaneous Notes * Cerner Conversion Note - Renato Elizabeth MD - 09/16/2018 8:50 AM CDT [address] [address] AGGIE HUNT :1945 Visit Time:09/16/2018 What to do next Your Diagnosis Personal history of colonic polyps, Personal history of colonic polyps Instructions From Your Care Team Diet after Discharge: Resume usual diet as tolerated, Do not drink any alcoholic beverages, _ Fluid Restriction after Discharge: _ Activity after Discharge: _, Rest and relax today, No strenuous activity Lifting Restrictions: _ Weight Bearing: _ Bedrest: _ Driving after Discharge: Do not drive for 24 hours May Return to Work/School: 09/17/18 Showering/Bathing: _, _ Notify Provider of: with any questions or concerns Wound/Incision Care after Discharge: _, _ Medical Equipment for Home Use: Home Health Services: Community Services: Follow-Up Appointments Follow Up with ERNIE SANTORO MD-GAE When Within As needed, only if needed Comments See procedure report for recommendations Where: [address] [facility] [address] [place] [address]- Medications What How Much When Instructions Next Dose albuterol (ProAir HFA 90 mcg/ inh inhalation aerosol) Inhalation Four Times A Day as needed for as needed for wheezing aspirin 81 Milligram(s) Oral Every Day dextromethorphan-guaiFENesin (Mucinex DM) Oral Every 12 hours as needed for as needed ergocalciferol (Vitamin D2) 1400u Oral Every Day magnesium oxide 400 Milligram(s) Oral Every Day multivitamin (Multiple Vitamins oral tablet) 1 Tablet(s) Oral Every Day Non Formulary (Non Formulary Medication) one dose SubCutaneous Every 4 Weeks Allergy injection potassium chloride-sodium chloride 750 Milligram(s) Oral Every Day rosuvastatin (Crestor 10 mg oral tablet) 1 Tablet(s) Oral Every Day vitamin A 03895n Oral Every Day vitamin E 500 Milligram(s) Oral Every Day zolpidem (zolpidem 10 mg oral tablet) 1 Tablet(s) Oral At Bedtime as needed for for sleep Take your medications faithfully. Do NOT skip medication. Do NOT stop taking medications without the direction of a physician. Carry a list of your medications with you at all times, and take this medication list with you to your first follow up visit. Report any side effects. Avoid herbal remedies unless discussed with your physician. As part of your treatment plan, your physician may have prescribed a limited course of a controlled substance. This medication may be given to help people with moderate or severe pain or for other medical conditions, but there are risks involved with treatment. Common side effects may include nausea, constipation, drowsiness, sweating, itching, dry mouth, and rash. More serious side effects may include cognitive and motor impairment, like problems with thinking, concentrating, alertness, and movement (e.g. slowed reflexes), and driving and operating heavy machinery can be dangerous. It is important for you to talk to your physician if you have these side effects or questions. These controlled substances can produce physical dependence and be habit-forming if taken for an extended period of time, which means that the body has gotten used to them and may experience withdrawal symptoms if they are abruptly stopped. Withdrawal symptoms can include runny nose, sweating, goose bumps, diarrhea, abdominal cramping, rapid heartbeat, difficulty sleeping, and nervousness. Please dispose of unused and medications per pharmacy guidance. Education Materials Colonoscopy, Adult, Care After This sheet gives you information about how to care for yourself after your procedure. Your doctor may also give you more specific instructions. If you have problems or questions, call your doctor. What can I expect after the procedure? After the procedure, it is common to have: ??? A small amount of blood in your poop for 24 hours. ??? Some gas. ??? Mild cramping or bloating in your belly. Follow these instructions at home: General instructions ??? For the first 24 hours after the procedure: ? Do not drive or use machinery. ? Do not sign important documents. ? Do not drink alcohol. ? Do your daily activities more slowly than normal. ? Eat foods that are soft and easy to digest. ??? Take pble-eie-grbohdc or prescription medicines only as told by your doctor. To help cramping and bloating: ??? Try walking around. ??? Put heat on your belly (abdomen) as told by your doctor. Use a heat source that your doctor recommends, such as a moist heat pack or a heating pad. ? Put a towel between your skin and the heat source. ? Leave the heat on for 20???30 minutes. ? Remove the heat if your skin turns bright red. This is especially important if you cannot feel pain, heat, or cold. You can get burned. Eating and drinking ??? Drink enough fluid to keep your pee (urine) clear or pale yellow. ??? Return to your normal diet as told by your doctor. Avoid heavy or fried foods that are hard to digest. ??? Avoid drinking alcohol for as long as told by your doctor. Contact a doctor if: ??? You have blood in your poop (stool) 2???3 days after the procedure. Get help right away if: ??? You have more than a small amount of blood in your poop. ??? You see large clumps of tissue (blood clots) in your poop. ??? Your belly is swollen. ??? You feel sick to your stomach (nauseous). ??? You throw up (vomit). ??? You have a fever. ??? You have belly pain that gets worse, and medicine does not help your pain. Summary ??? After the procedure, it is common to have a small amount of blood in your poop. You may also have mild cramping and bloating in your belly. ??? For the first 24 hours after the procedure, do not drive or use machinery, do not sign important documents, and do not drink alcohol. ??? Get help right away if you have a lot of blood in your poop, feel sick to your stomach, have a fever, or have more belly pain. This information is not intended to replace advice given to you by your health care provider. Make sure you discuss any questions you have with your health care provider. Document Released: 04/11/2011 Document Revised: 01/07/2018 Document Reviewed: 12/01/2016 [employer] Patient Education ?? 2019 [employer] Colon Polyps Polyps are tissue growths inside the body. Polyps can grow in many places, including the large intestine (colon). A polyp may be a round bump or a mushroom-shaped growth. You could have one polyp or several. Most colon polyps are noncancerous (benign). However, some colon polyps can become cancerous over time. What are the causes? The exact cause of colon polyps is not known. What increases the risk? This condition is more likely to develop in people who: ??? Have a family history of colon cancer or colon polyps. ??? Are older than 50 or older than 45 if they are . ??? Have inflammatory bowel disease, such as ulcerative colitis or Crohn disease. ??? Are overweight. ??? Smoke cigarettes. ??? Do not get enough exercise. ??? Drink too much alcohol. ??? Eat a diet that is: ? High in fat and red meat. ? Low in fiber. ??? Had childhood cancer that was treated with abdominal radiation. What are the signs or symptoms? Most polyps do not cause symptoms. If you have symptoms, they may include: ??? Blood coming from your rectum when having a bowel movement. ??? Blood in your stool. The stool may look dark red or black. ??? A change in bowel habits, such as constipation or diarrhea. How is this diagnosed? This condition is diagnosed with a colonoscopy. This is a procedure that uses a lighted, flexible scope to look at the inside of your colon. How is this treated? Treatment for this condition involves removing any polyps that are found. Those polyps will then be tested for cancer. If cancer is found, your health care provider will talk to you about options for colon cancer treatment. Follow these instructions at home: Diet ??? Eat plenty of fiber, such as fruits, vegetables, and whole grains. ??? Eat foods that are high in calcium and vitamin D, such as milk, cheese, yogurt, eggs, liver, fish, and broccoli. ??? Limit foods high in fat, red meats, and processed meats, such as hot dogs, sausage, amin, and lunch meats. ??? Maintain a healthy weight, or lose weight if recommended by your health care provider. General instructions ??? Do not smoke cigarettes. ??? Do not drink alcohol excessively. ??? Keep all follow-up visits as told by your health care provider. This is important. This includes keeping regularly scheduled colonoscopies. Talk to your health care provider about when you need a colonoscopy. ??? Exercise every day or as told by your health care provider. Contact a health care provider if: ??? You have new or worsening bleeding during a bowel movement. ??? You have new or increased blood in your stool. ??? You have a change in bowel habits. ??? You unexpectedly lose weight. This information is not intended to replace advice given to you by your health care provider. Make sure you discuss any questions you have with your health care provider. Document Released: 12/03/2004 Document Revised: 08/14/2016 Document Reviewed: 01/28/2016 [employer] Patient Education ?? 2019 [employer] Diverticulosis Diverticulosis is a condition that develops when small pouches (diverticula) form in the wall of the large intestine (colon). The colon is where water is absorbed and stool is formed. The pouches form when the inside layer of the colon pushes through weak spots in the outer layers of the colon. You may have a few pouches or many of them. What are the causes? The cause of this condition is not known. What increases the risk? The following factors may make you more likely to develop this condition: ??? Being older than age 60. Your risk for this condition increases with age. Diverticulosis is rare among people younger than age 30. By age 80, many people have it. ??? Eating a low-fiber diet. ??? Having frequent constipation. ??? Being overweight. ??? Not getting enough exercise. ??? Smoking. ??? Taking nvgq-lqz-igcuaqb pain medicines, like aspirin and ibuprofen. ??? Having a family history of diverticulosis. What are the signs or symptoms? In most people, there are no symptoms of this condition. If you do have symptoms, they may include: ??? Bloating. ??? Cramps in the abdomen. ??? Constipation or diarrhea. ??? Pain in the lower left side of the abdomen. How is this diagnosed? This condition is most often diagnosed during an exam for other colon problems. Because diverticulosis usually has no symptoms, it often cannot be diagnosed independently. This condition may be diagnosed by: ??? Using a flexible scope to examine the colon (colonoscopy). ??? Taking an X-ray of the colon after dye has been put into the colon (barium enema). ??? Doing a CT scan. How is this treated? You may not need treatment for this condition if you have never developed an infection related to diverticulosis. If you have had an infection before, treatment may include: ??? Eating a high-fiber diet. This may include eating more fruits, vegetables, and grains. ??? Taking a fiber supplement. ??? Taking a live bacteria supplement (probiotic). ??? Taking medicine to relax your colon. ??? Taking antibiotic medicines. Follow these instructions at home: ??? Drink 6???8 glasses of water or more each day to prevent constipation. ??? Try not to strain when you have a bowel movement. ??? If you have had an infection before: ? Eat more fiber as directed by your health care provider or your diet and nutritional chemist (dietitian). ? Take a fiber supplement or probiotic, if your health care provider approves. ??? Take dqjd-kra-pqplmuf and prescription medicines only as told by your health care provider. ??? If you were prescribed an antibiotic, take it as told by your health care provider. Do not stop taking the antibiotic even if you start to feel better. ??? Keep all follow-up visits as told by your health care provider. This is important. Contact a health care provider if: ??? You have pain in your abdomen. ??? You have bloating. ??? You have cramps. ??? You have not had a bowel movement in 3 days. Get help right away if: ??? Your pain gets worse. ??? Your bloating becomes very bad. ??? You have a fever or chills, and your symptoms suddenly get worse. ??? You vomit. ??? You have bowel movements that are bloody or black. ??? You have bleeding from your rectum. Summary ??? Diverticulosis is a condition that develops when small pouches (diverticula) form in the wall of the large intestine (colon). ??? You may have a few pouches or many of them. ??? This condition is most often diagnosed during an exam for other colon problems. ??? If you have had an infection related to diverticulosis, treatment may include increasing the fiber in your diet, taking supplements, or taking medicines. This information is not intended to replace advice given to you by your health care provider. Make sure you discuss any questions you have with your health care provider. Document Released: 12/04/2004 Document Revised: 01/26/2017 Document Reviewed: 01/26/2017 [employer] Patient Education ?? 2019 [employer] Hemorrhoids Hemorrhoids are swollen veins in and around the rectum or anus. Hemorrhoids can cause pain, itching, or bleeding. Most of the time, they do not cause serious problems. They usually get better with diet changes, lifestyle changes, and other home treatments. Follow these instructions at home: Eating and drinking ??? Eat foods that have fiber, such as whole grains, beans, nuts, fruits, and vegetables. Ask your doctor about taking products that have added fiber (fiber supplements). ??? Drink enough fluid to keep your pee (urine) clear or pale yellow. For Pain and Swelling ??? Take a warm-water bath (sitz bath) for 20 minutes to ease pain. Do this 3???4 times a day. ??? If directed, put ice on the painful area. It may be helpful to use ice between your warm baths. ? Put ice in a plastic bag. ? Place a towel between your skin and the bag. ? Leave the ice on for 20 minutes, 2???3 times a day. General instructions ??? Take ygwq-edd-cwbvkpv and prescription medicines only as told by your doctor. ? Medicated creams and medicines that are inserted into the anus (suppositories) may be used or applied as told. ??? Exercise often. ??? Go to the bathroom when you have the urge to poop (to have a bowel movement). Do not wait. ??? Avoid pushing too hard (straining) when you poop. ??? Keep the butt area dry and clean. Use wet toilet paper or moist paper towels. ??? Do not sit on the toilet for a long time. Contact a doctor if: ??? You have any of these: ? Pain and swelling that do not get better with treatment or medicine. ? Bleeding that will not stop. ? Trouble pooping or you cannot poop. ? Pain or swelling outside the area of the hemorrhoids. This information is not intended to replace advice given to you by your health care provider. Make sure you discuss any questions you have with your health care provider. Document Released: 12/16/2008 Document Revised: 08/14/2016 Document Reviewed: 11/21/2015 [employer] Patient Education ?? 2019 [employer]. Emergency Awareness and Preventative Care STROKE is an EMERGENCY Every Minute Counts Act FAST and Check for these signs: FACE Does the face look uneven? ARM Does one arm drift down? SPEECH Does their speech sound strange? TIME Call at any sign of stroke Stroke Risk Factors Atrial Fibrillation (irregular heartbeat) Diabetes Family history of stroke Heart Disease Heavy alcohol use High Blood Pressure High Cholesterol Physical inactivity and obesity Smoking Cigarette Smoking The facts are clear, cigarette smoking will shorten your life. Smoking can cause many illnesses along the way. As a healthcare provider, we recommend that you stop smoking. Assistance with quitting is available by contacting 1-873-AAZL-NOW. This is a free resource providing counseling, support, and referral. Or you may contact your personal physician. National Suicide Prevention Lifeline: The National Suicide Prevention Lifeline is a national network of local crisis centers that provides free and confidential emotional support to people in suicidal crisis or emotional distress 24 hours a day, 7 days a week. Don't Wait! Stop a Heart Attack Before it Starts What is a heart attack? A heart attack is damage or to a part of the heart from severely decreased or lack of blood flow to the heart. Over time, arteries can become narrow from the buildup of fat and cholesterol, which is called plaque. The plaque can rupture causing a blood clot to form. When the blood clot forms, the artery can become severely narrowed or completely blocked, causing a heart attack. Heart attack is the leading cause of in the [place]. 85% of muscle damage occurs within the first 2 hours. Delay in the recognition of heart attack symptoms increases the chances of . Know the early symptoms of a heart attack: Nausea Feeling of fullness in chest Jaw Pain Pain that travels down one or both arms Fatigue/being tired Anxiety Back Pain Chest pressure, squeezing, or discomfort Shortness of breath Sweating, or a cold sweat Feeling of impending doom There are unusual signs of a heart attack, too! Women, the elderly, and diabetics may present with atypical symptoms: Fainting/dizziness Weakness Confusion Risk Factors for a Heart Attack Some heart disease risk factors, such as age and family history, cannot be changed. Others, like smoking and lack of exercise, can be changed. Smoking High Cholesterol High Blood Pressure Family History Obesity Age Gender (Males are at higher risk) Lack of Exercise Diabetes Diet Stress Excessive Alcohol Intake If you or someone you know is experiencing the signs and symptoms of a heart attack, DON???T DELAY. Call immediately and seek help. If someone collapses, perform CPR! Do not attempt to drive if you are having symptoms of heart attack. Hands-Only CPR Why Hands-Only CPR? Hands-Only CPR has been shown to be as effective as conventional CPR for cardiac arrests that occur outside of a hospital. Survival depends on immediately receiving CPR from someone nearby. How do you perform Hands-Only CPR? There are two easy steps: Call 9-1-1 if you see a teen or adult collapse Push hard and fast in the center of the chest at a beat of 100 beats per minute. Save a life! 4 WAYS TO GET AHEAD OF SEPSIS SEPSIS is a MEDICAL EMERGENCY. Time matters! Infections put you and your family at risk for a life-threatening condition called sepsis. Sepsis is the body's extreme response to an infection. It is life-threatening, and without timely treatment, sepsis can rapidly lead to tissue damage, organ failure, and . Sepsis happens when an infection you already have-in your skin, lungs, urinary tract or somewhere else-triggers a chain reaction throughout your body. 1 PREVENT INFECTIONS Take good care of chronic conditions. Talk to your doctor about getting the recommended vaccines. 2 PRACTICE GOOD HYGIENE Wash your hands frequently. Keep cuts or open sores clean and covered until they are healed. 3 KNOW THE SYMPTOMS Confusion or disorientation Shortness of breath High heart rate Fever, shivering, or feeling very cold Extreme pain or discomfort Clammy or sweaty skin 4 ACT FAST Get medical care IMMEDIATELY if you suspect sepsis or if you have an infection that is not getting better or is getting worse. To learn more about sepsis and how to prevent infections, visit www.cdc.gov/sepsis. Test Results Laboratory or Other Results This Visit (last charted value for your 09/16/2018 visit) No Laboratory or Other Results This Visit Patient Name:GILBERT AGGIE Coleman I have received this information and was given the opportunity to ask questions. Patient/[facility] Vat Worker Name: Patient/[facility] Vat Worker Signature: Relationship to Patient: Clinician/Hospital [facility] Worker Signature: Date: documented in this encounter Plan of Treatment Upcoming Encounters Date Type Department Care Team (Late st Contact Info) Description 11/23/2024 1:45 PM EDT Appointment [address] [place] [address] documented as of this encounter Visit Diagnoses Not on filedocumented in this encounter Care Teams Endless Bed Drum Sander Relationship Specialty Start Date End Date Edouard Giron MD [address] [facility] [address] [place] [id number] PCP - General Family Medicine 11/17/22 documented as of this encounter
--- OUTSIDE RECORDS SUMMARY | 2024-09-09 08:43 | XMS_ITS | Encounter Summary ---
Author Organization [employer] Address [address] [place] [address] Care Team Providers Care Pulp Bleacher Name Role Phone Edouard Giron MD Primary Care Provider [phone] Encounter Details Date Type Department Care Team (Late st Contact Info) Description 09/16/2018 Transcribed Document [facility] Family Medicine [facility] [place] [address] ProviderRenato MD [address] [place], [place] [phone] Social History Tobacco Use Types Packs/Day Years Used Date Smoking Tobacco: Never Assessed Comments Unknown Sex and Gender Information Value Date Recorded Sex Assigned at Not on file Legal Sex Female 4:29 PM CDT Gender Identity Not on file Sexual Orientation Not on file documented as of this encounter Miscellaneous Notes * Cerner Conversion Note - Renato Elizabeth MD - 09/16/2018 8:38 AM CDT Patient Education Materials Follows: Colonoscopy, Adult, Care After This sheet gives [...] soft and easy to digest. ??? Take hcca-czx-fcdhwdv or prescription medicines only as told by [...] source. ? Leave the heat on for 20?30 minutes. ? Remove the heat if your [...] You have blood in your poop (stool) 2?3 days after the procedure. Get help right [...] 04/11/2011 Document Revised: 01/07/2018 Document Reviewed: 12/01/2016 [employer] Interactive Patient Education ? 2019 [employer] Colon Polyps Polyps are tissue growths [...] a bowel movement. ??? Blood in your stool.?The stool may look dark red or black. [...] 12/03/2004 Document Revised: 08/14/2016 Document Reviewed: 01/28/2016 [employer] Interactive Patient Education ? 2019 [employer] Diverticulosis Diverticulosis is a condition that [...] getting enough exercise. ??? Smoking. ??? Taking hkxj-zpj-jhxtdhe pain medicines, like aspirin and ibuprofen. ??? [...] Follow these instructions at home: ??? Drink 6?8 glasses of water or more each day to prevent constipation. ??? Try not to strain when you have a bowel movement. ??? If you have had an infection before: ? Eat more fiber as directed by your health care provider or your diet and graphics production specialist (dietitian). ? Take a fiber supplement or probiotic, if your health care provider approves. ??? Take dqdn-mdg-akexmau and prescription medicines only as told by [...] 12/04/2004 Document Revised: 01/26/2017 Document Reviewed: 01/26/2017 [employer] Interactive Patient Education ? 2019 [employer] Hemorrhoids Hemorrhoids are swollen veins in [...] about taking products that have added fiber (fiber?supplements). ??? Drink enough fluid to keep your pee (urine) clear or pale yellow. For Pain and Swelling ??? Take a warm-water bath (sitz bath) for 20 minutes to ease pain. Do this 3?4 times a day. ??? If directed, put ice on the painful area. It may be helpful to use ice between your warm baths. ? Put ice in a plastic bag. ? Place a towel between your skin and the bag. ? Leave the ice on for 20 minutes, 2?3 times a day. General instructions ??? Take eohh-pvr-stbbhrt and prescription medicines only as told by [...] 12/16/2008 Document Revised: 08/14/2016 Document Reviewed: 11/21/2015 [employer] Interactive Patient Education ? 2019 [employer]. documented in this encounter Plan of Treatment Upcoming Encounters Date Type Department Care Team (Late st Contact Info) Description 11/23/2024 1:45 PM EDT Appointment [address] [place] [address] documented as of this encounter Visit Diagnoses Not on filedocumented in this encounter Care Teams Pulp Bleacher Relationship Specialty Start Date End Date Edouard Giron MD [address] [facility] [address] [place] [address] PCP - General Family Medicine 11/17/22 documented as of this encounter
--- OUTSIDE RECORDS SUMMARY | 2024-09-09 08:43 | XMS_ITS | Encounter Summary ---
Author Organization [employer] Address [address] [place] [address] Care Team Providers Care Lasting Machine Operator Hand Method Name Role Phone Edouard Giron MD Primary Care Provider [phone] Encounter Details Date Type Department Care Team (Late st Contact Info) Description 09/16/2018 Transcribed Document [facility] Family Medicine [facility] [place] [address] ProviderRenato MD [address] [place], [place] [phone] Social History Tobacco Use Types Packs/Day Years Used Date Smoking Tobacco: Never Assessed Comments Unknown Sex and Gender Information Value Date Recorded Sex Assigned at Not on file Legal Sex Female 4:29 PM CDT Gender Identity Not on file Sexual Orientation Not on file documented as of this encounter Miscellaneous Notes * Cerner Conversion Note - Renato Elizabeth MD - 09/16/2018 7:59 AM CDT [facility] Summary Primary Physician: ERNIE SANTORO MD-GAE Finalized Date/Time: 09/16/18 09:44:03 Pt. Name: AGGIE HUNT /Sex: 1945 Female Med Rec #: [id number] Physician: ERNIE SANTORO MD-GAE Financial #: [id number] Pt. Type: O Room/Bed: N/2 Admit/Disch: 09/16/18 06:44:00 - Institution: [facility] - Case Attendance Entry 1 Entry 2 Entry 3 Case Attendee ERNIE SANTORO MD-MELVI MAGANA, RN CAMELIA MARTINEZ, NUMERICAL CONTROL MACHINE MACHINIST Role Performed Surgeon/Proceduralist, Compression Molding Machine Tender, First NUMERICAL CONTROL MACHINE MACHINIST/Nurse Finished Cloth Examiner First Time In 09/16/18 07:50:00 09/16/18 07:50:00 09/16/18 07:50:00 Time Out 09/16/18 08:24:00 09/16/18 08:24:00 09/16/18 08:24:00 Procedure Colonoscopy, Colon Colonoscopy, Colon Colonoscopy, Colon Polypectomy Polypectomy Polypectomy Other Attendee Superficial Wound Closed By: Last Modified By: MELVI RANGEL, RN MELVI RANGEL, RN MELVI RANGEL, RN 09/16/18 08:22:51 09/16/18 08:22:51 09/16/18 08:22:51 Entry 4 Case Attendee TESSA KHAN Role Performed Scrub, First Time In 09/16/18 07:54:00 Time Out 09/16/18 08:24:00 Procedure Colonoscopy, Colon Polypectomy Other Attendee Superficial Wound Closed By: Last Modified By: MELVI RANGEL RN 09/16/18 08:22:51 [facility] - Case Attendance Audit 09/16/18 08:22:51 Warehouse Distribution Manager: YONGJ Modifier: YONGJ 1 <+> Time Out 1 <*> Procedure Colonoscopy, Colon Polypectomy 2 <+> Time Out 2 <*> Procedure Colonoscopy, Colon Polypectomy 3 <+> Time Out 3 <*> Procedure Colonoscopy, Colon Polypectomy 4 <+> Time Out 4 <*> Procedure Colonoscopy, Colon Polypectomy 09/16/18 08:08:53 Warehouse Distribution Manager: YONGJ Modifier: YONGJ 1 <*> Procedure Colonoscopy 2 <*> Procedure Colonoscopy 3 <*> Procedure Colonoscopy 4 <*> Procedure Colonoscopy 09/16/18 07:54:32 Warehouse Distribution Manager: YONGJ Modifier: YONGJ 4 <*> Time In 09/16/18 07:54:00 4 <*> Procedure Colonoscopy [facility] - Case Times Entry 1 Patient In Room Time 09/16/18 07:50:00 Out Room Time 09/16/18 08:24:00 Anesthesia Start Time 09/16/18 07:50:00 Stop Time 09/16/18 08:24:00 Anesthesia Ready 09/16/18 07:52:00 Surgery / Procedure Times Start Time 09/16/18 07:59:00 Stop Time 09/16/18 08:22:00 Last Modified By: MELVI RANGEL RN 09/16/18 08:22:47 [facility] - Case Times Audit 09/16/18 08:22:47 Warehouse Distribution Manager: JUAN CARLOSKJ Modifier: JUAN CARLOSKJ <+> 1 Out Room Time <+> 1 Stop Time <+> 1 Stop Time 09/16/18 08:06:09 Warehouse Distribution Manager: JUAN CARLOSKJ Modifier: JUAN CARLOSKJ <+> 1 Start Time [facility] - Cultures and Spec Summary Entry 1 Cultrures and Specimens Specimen Ordered: Yes Specimens Types Pathology Specimen(s) Labeled Lab and Sent to Last Modified By: MELVI RANGEL RN 09/16/18 08:09:15 General Comments: ascending colon polyp transverse colon polyp [facility] - Delays Entry 1 Delay Reason Other Duration 0 Minute(s) Comment NO DELAY Last Modified By: MELVI RANGEL RN 09/16/18 07:52:41 [facility] - Departure from OR Entry 1 Integumentary Assessment Integumentary WDL Assessment WDL Transfer/Handoff Transfer to PACU Phase I Post-op Transport Stretcher/Livia Via Patient Transport MELVI RANGEL RN, Accompanied by CAMELIA MARTINEZ CRNA Last Modified By: MELVI RANGEL RN 09/16/18 07:52:59 [facility] - Endoscopy Details Entry 1 Abdomen Procedure Soft, Non-Tender Assessment Procedure Abdomen 09/16/18 07:52:00 Assessment D/T Radio Frequency Ablation Last Modified By: MELVI RANGEL RN 09/16/18 07:52:51 [facility] - Fire Risk Assessment Entry 1 Fire Info Surgical Site or 0- No Incision Above the Xyphoid Open O2 Source 1- Yes (Mask or Cannula) Available Ignition 1- Yes (ESU, Laser, Light Source) Fire Risk 2 Assessment Score Fire Score Fire Risk Yes Assessment Complete Fire Risk MELVI RANGEL RN Assessment Verified By Fire Risk 09/16/18 07:53:00 Assessment Verified Date/Time Fire Risk High Risk Protocol Yes Implemented Standard Fire Yes Safety Precautions Followed Last Modified By: MELVI RANGEL RN 09/16/18 07:53:07 [facility] Endo - General Case Diversified Crops I Farmworker 1 Case Information OR Endo 02 [facility] Case Level 1 Room Verified Yes Wound Class III - Contaminated Specialty SN Gastroenterology Anesthesia Type MAC ASA Class 2 Diagnosis Preop Diagnosis Z86.010 history of polyps Postop Same As Preop No Postop Diagnosis polyps, diverticulosis, hemorrhoids Last Modified By: MELVI RANGEL RN 09/16/18 08:22:37 [facility] Endo - General Case Data Audit 09/16/18 08:22:37 Warehouse Distribution Manager: MADHU Modifier: MADHU 1 <*> Postop Diagnosis polyps, diverticulosis, hemorrhoids 09/16/18 08:12:30 Warehouse Distribution Manager: MADHU Modifier: MADHU <+> 1 Postop Diagnosis [facility] Endo - Intraoperative Assessment Entry 1 Valid History / Yes Physical in Chart Preoperative Yes Checklist Reviewed/Evaluated Allergies Reviewed Yes Patient is Latex No Sensitive Level of WDL Consciousness (WDL = Alert, Oriented to Person, Place, and Time) Present Upon ECG monitored Arrival to OR Last Modified By: MELVI RANGEL RN 09/16/18 07:53:47 [facility] - Intraoperative Equipment Entry 1 Type Scope Equipment Intraop Monitoring Blood Pressure Arm, left upper Location Pulse Oximeter Hand, right Probe Site Antiembolic Devices Scopes Flexible Endoscopes Colonoscope, Peds Used Scope Serial [id number] Number/Identificatio n Number Photo/Video Documentation Photo Yes Video No Last Modified By: MELVI RANGEL RN 09/16/18 07:54:50 [facility] - Intraoperative Equipment Audit 09/16/18 07:54:50 Warehouse Distribution Manager: MADHU Modifier: MADHU <+> 1 Photo <+> 1 Video <+> 1 Blood Pressure Location <+> 1 Pulse Oximeter Probe Site <+> 1 Flexible Endoscopes Used <+> 1 Scope Serial Number/Identification Number [facility] Endo - Patient Positioning Entry 1 Procedure Colonoscopy, Colon Polypectomy Body Position Lateral, right side up Left Arm Position Resting at side Right Arm Position Resting at side Left Leg Position Other Right Leg Position Other Position Comments Right leg over Left leg uncrossed Feet Uncrossed Yes Pressure Points Yes Checked Positioned By MELVI RANGEL RN Position Verified Positioning Yes Verified by Surgeon Last Modified By: MELVI RANGEL RN 09/16/18 08:08:54 [facility] - Patient Positioning Audit 09/16/18 08:08:54 Warehouse Distribution Manager: JUAN CARLOSKJ Modifier: JUAN CARLOSKJ 1 <*> Procedure Colonoscopy [facility] - Sign In Entry 1 Patient, Site, Yes Procedure Identified Surgical Consent Yes Confirmed Surgical Site N/A Marked by person performing procedure Allergies Yes Airway Hypothermia Risk No Warming Measures No Taken Last Modified By: MELVI RANGEL RN 09/16/18 07:54:09 [facility] - Sign Out Entry 1 RN Confirmation Surgical Yes Procedure(s) Identified Instrument, Sponge N/A and Sharps Counts Correct/Documented Equipment Problems N/A Documented Specimen Labeled Yes Correctly Urinary Catheter N/A Documented in IView Safety Checklist Yes Elements Complete? RN Sign Out MELVI RANGEL RN Signature RN Sign Out 09/16/18 08:23:00 Signature Date/Time Plan of Care Outcome - [...] of Care Outcome - Xray/Images OUTCOME STATEMENT: N/A Absence of observable signs or symptoms of radiation injury Plan of Care Outcome - Counts OUTCOME STATEMENT: N/A Absence of signs and symptoms of injury related to extraneous objects Last Modified By: MELVI RANGEL RN 09/16/18 08:23:44 [facility] - Sign Out Audit 09/16/18 08:23:44 Warehouse Distribution Manager: JUAN CARLOSKJ Modifier: JUAN CARLOSKJ <+> 1 RN Sign Out Signature Date/Time <+> 1 Urinary Catheter Documented in IView [facility] Endo - Surgical Procedures Entry 1 Entry 2 Procedure Colonoscopy Colon Polypectomy Modifiers Additional Procedure Description Primary Procedure Yes No Primary Surgeon ERNIE SANTORO MD-GAE HAAS, LAURIE, MD-GAE Start 09/16/18 07:59:00 09/16/18 07:59:00 Stop 09/16/18 08:22:00 09/16/18 08:22:00 Physician States 09/16/18 08:06:00 09/16/18 08:06:00 Cecum Reached Anesthesia Type MAC MAC Specialty SN Gastroenterology SN Gastroenterology Wound Class III - Contaminated III - Contaminated Last Modified By: MELVI RANGEL RN TAYLOR, KAREN J., RN 09/16/18 08:23:01 09/16/18 08:23:01 [facility] Endo - Surgical Procedures Audit 09/16/18 08:23:01 Warehouse Distribution Manager: MADHU Modifier: YONGJ <+> 1 Stop <+> 2 Stop 09/16/18 08:08:48 Warehouse Distribution Manager: MADHU Modifier: MADHU 1 <*> Procedure Colonoscopy 1 <+> Start 1 <+> Physician States Cecum Reached <+> 2 Procedure <+> 2 Primary Procedure <+> 2 Primary Surgeon <+> 2 Specialty <+> 2 Start <+> 2 Wound Class <+> 2 Anesthesia Type <+> 2 Physician States Cecum Reached 09/16/18 07:55:14 Warehouse Distribution Manager: MADHU Modifier: MADHU 1 <*> Procedure Colonoscopy 1 <+> Specialty [facility] Endo - Time Out Entry 1 Procedure to be Colonoscopy, Colon Performed Polypectomy Time Out Time Out Pause Time 09/16/18 07:55:00 All activity Yes suspended (unless life threatening emergency) Team Verbally Correct patient Confirms Information identity, Correct side and site are marked, Consent form is present and accurate, Agreement on the procedure to be done, Correct patient position, Relevant images/results properly labeled/appropriately displayed Antibiotic N/A Prophylaxis Administered Or In Progress Within the Last 60 Minutes Beta Caryl N/A Administered Venous N/A Thromboembolism Prophylaxis Required Anticipated Critical Events Surgeon None expected Last Modified By: MELVI RANGEL RN 09/16/18 08:08:55 [facility] - Time Out Audit 09/16/18 08:08:55 Warehouse Distribution Manager: MADHU Modifier: MADHU 1 <*> Procedure to be Performed Colonoscopy Case Comments <None> Finalized By: MELVI RANGEL, RN Document Signatures Signed By: MELVI RANGEL RN 09/16/18 08:23 MELVI RANGEL RN 09/16/18 09:44 Unfinalized History Date/Time Username Reason for Unfinalizing Freetext Reason for Unfinalizing 09/16/18 09:43 MADHU Correct Documentation documented in this encounter Plan of Treatment Upcoming Encounters Date Type Department Care Team (Late st Contact Info) Description 11/23/2024 1:45 PM EDT Appointment [address] [place] [address] documented as of this encounter Visit Diagnoses Not on filedocumented in this encounter Care Teams Lasting Machine Operator Hand Method Relationship Specialty Start Date End Date Edouard Giron MD [address] [facility] [address] [place] [address] PCP - General Family Medicine 11/17/22 documented as of this encounter
--- OUTSIDE RECORDS SUMMARY | 2024-09-09 08:43 | XMS_ITS | Encounter Summary ---
Author Organization [employer] Address [address] [place] [address] Care Team Providers Care Engraver Copperplate Name Role Phone Edouard Giron MD Primary Care Provider [phone] Encounter Details Date Type Department Care Team (Late st Contact Info) Description 09/16/2018 Transcribed Document [facility] [place] [facility] [place] [address] ProviderRenato MD [address] [place] [phone] Social History Tobacco Use Types Packs/Day Years [...] - 09/16/2018 7:59 AM CDT [facility] Summary Primary Physician: ERNIE SANTORO MD-GAE Finalized Date/Time: 09/16/18 08:56:16 Pt. Name: AGGIE HUNT /Sex: 1945 Female Med Rec #: [id number] Physician: ERNIE SANTORO MD-GAE Financial #: [id number] Pt. Type: O Room/Bed: N/2 Admit/Disch: 09/16/18 06:44:00 - Institution: [facility] PACU Case Times Entry 1 In PACU I 09/16/18 08:26:00 Ready for PACU 09/16/18 08:56:00 Discharge Discharge from PACU 09/16/18 08:56:00 [facility] PACU Case Times Audit 09/16/18 08:56:12 Faculty Neuropsychologist: MARTÍNEZ Modifier: MARTÍNEZ <+> 1 Ready for PACU Discharge <+> 1 Discharge from PACU I Finalized By: ONELIA Mandujano RN Document Signatures Signed By: ONELIA Mandujano RN 09/16/18 08:56 documented in this encounter Plan of Treatment Upcoming Encounters Date Type Department Care Team (Late st Contact Info) Description 11/23/2024 1:45 PM EDT Appointment [address] [place] [address] documented as of this encounter Visit Diagnoses Not on filedocumented in this encounter Care Teams Engraver Copperplate Relationship Specialty Start Date End Date Edouard Giron MD [address] [facility] [address] [facility] [place] [address] PCP - General Family Medicine 11/17/22 documented as of this encounter
--- OUTSIDE RECORDS SUMMARY | 2024-09-09 08:44 | XMS_ITS | Encounter Summary ---
Author Organization [employer] Address [address] [place] [address] Care Team Providers Care Active Directory Administrator Name Role Phone Edouard Giron MD Primary Care Provider [phone] Reason for Referral * Mammography (Routine) - Authorized Specialty Diagnoses / Procedures Referred By Ramos bennett Referred To Contact Radiology Diagnoses Visit for screening mammogram Procedures MM digital mammo screen with joe bilateral Edouard Giron MD [address] [place] [address] Phone: tel: fax: [address] [place] [address] Phone: tel: fax: Referral ID Status Reason Start Date Expiration Date V isits Requested Visits Authorized [id number] Authorized 11/23/2024 11/23/2025 1 1 Encounter Details Date Type Department Care Team (Late st Contact Info) Description 11/19/2023 Outside Orders [address] [place] [address] Edouard Giron MD [address] [place] [address] Visit for screening mammogram (Primary Dx) Social History Tobacco Use Types Packs/Day Years Used Date Smoking Tobacco: Never Assessed Interpersonal Safety Answer Date Record ed Family or friends hurt you Not on file 04/10 Family or friends insult you Not on file Family or friends threaten you Not on file 0 04/10/2023 Family or friends scream or curse at you Not on file 04/10/2023 Housing Stability Answer Date Recorded Living situation today Not on file Living situation problems Not on file 2023 Family and Community Support Answer Patrick e Recorded Help with Day to Day Activities Not on file 04/10/2023 Feeling Lonely or Isolated Not on file 04/10 Educational Attainment Answer Date Rupesh rded Speak language other than Nigerien at home Not on file 04/10/2023 Want help with school or training Not on file 04/10/2023 Depression Answer Date Recorded PHQ-2 Risk Not on file 04/10/2023 Disabilities Answer Date Recorded Difficulty concentrating Not on file 024 Difficulty doing errands alone Not on file 0 04/10/2023 Substance Use Answer Date Recorded Used prescription meds for non-medical reasons N ot on file 04/10/2023 Used illegal drugs past 12 months Not on file 04/10/2023 Comments Unknown Sex and Gender Information Value Date Recorded Sex Assigned at Not on file Legal Sex Female 4:29 PM CDT Gender Identity Not on file Sexual Orientation Not on file documented as of this encounter Plan of Treatment Upcoming Encounters Date Type Department Care Team (Late st Contact Info) Description 11/23/2024 1:45 PM EDT Appointment [address] [address] Scheduled Orders Name Type Priority Associated Diagnoses Orde r Schedule MM digital mammo screen with joe bilateral Imaging Routine Visit for screening mammogram Expected: 11/23/2024, Expires: 11/23/2025 documented as of this encounter Visit Diagnoses Diagnosis Visit for screening mammogram- Primary documented in this encounter Care Teams Active Directory Administrator Relationship Specialty Start Date End Date Edouard Giron MD [address] [facility] [address] [facility] [address] PCP - General Family Medicine 11/17/22 documented as of this encounter
--- OUTSIDE RECORDS SUMMARY | 2024-09-09 08:44 | XMS_ITS | Clinical Summary ---
Author Organization [employer] Address [address] [place] [address] Care Team Providers Care Hops Farmworker Name Role Phone Edouard Giron MD Primary Care Provider + [phone] Allergies Active Allergy Reactions Criticality Noted Date Comments Atorvastatin Anaphylaxis,Other (See Comments) High 08/23/2008 Dexbrompheniramine-Ps eudoephed Other (See Comments) Low 08/31/2012 Dexchlorpheniram-Phen ylephrine Other (See Comments) Low 08/23/2008 Diazepam Other (See Comments) Low 08/23/2008 Other reaction(s): Disorientation Ibuprofen Other (See Comments) Low 08/31/2012 Levofloxacin Other (See Comments) Low 08/31/2012 Penicillins Hives,Other (See Comments) High 08/23/2008 Rofecoxib Anaphylaxis,Rash,Ot her (See Comments) High 08/23/2008 Btlpadcol-Lj-Nlm-Verde adonna Other (See Comments) 08/23/2008 1Replaced free text allergy Sulfa (Sulfonamide Antibiotics) Other (See Comments) Low 08/23/2008 Triprolidine-Phenylep hrine-Dm Other (See Comments) Low 08/31/2012 Triprolidine-Pseudoep hedrine Anaphylaxis High 11/03/2023 Medications alendronate (FOSAMAX) 70 MG tablet Take 1 tablet (70 mg total) by mouth once a week. 06/16/2023 Active celecoxib (CeleBREX) 200 MG capsule Take 1 capsule (200 mg total) by mouth 2 (two) times daily. Active cycloSPORINE (RESTASIS) 0.05 % ophthalmic emulsion Place 1 drop into both eyes every 12 (twelve) hours. Active levothyroxine (SYNTHROID) 25 MCG tablet Take 1 tablet (25 mcg total) by mouth daily. Active metoprolol succinate (TOPROL-XL) 25 MG 24 hr tablet Take 1 tablet (25 mg total) by mouth daily. Active omeprazole (PriLOSEC) 40 MG capsule Take 1 capsule (40 mg total) by mouth daily. Active potassium chloride (MICRO-K) 10 mEq CR capsule Take 1 capsule (10 mEq total) by mouth daily. Active Active Problems Problem Noted Date Diagnosed Date History of colon polyps 11/03/2023 Family History Medical History Relation Name Comments Breast cancer Maternal Grandmother Relation Name Status Comments Maternal Grandmother Social History Tobacco Use Types Packs/Day Years Used Date Smoking Tobacco: Never Smokeless Tobacco: Never Tobacco Cessation:Counseling Given: Not Answered Alcohol Use Standard Drinks/Week Comments Never 0 (1 standard drink = 0.6 oz pur e alcohol) Interpersonal Safety Answer Date Record ed Family [...] Date Rupesh rded Speak language other than Sudanese at home Not on file 04/10/2023 Want [...] Sign Reading Time Taken Comments Blood Pressure 128/70 12/28/2023 4:10 PM EDT Pulse 67 12/28/2023 4:10 PM EDT Temperature 36.4 C (97.5 F) 12/28/2023 3:58 PM EDT Respiratory Rate 16 12/28/2023 4:10 PM EDT Oxygen Saturation 99% 12/28/2023 4:10 PM EDT Inhaled Oxygen Concentration - - Weight 79.8 kg (176 lb) 12/28/2023 2:03 PM EDT Height 162.6 cm (5' 4 ) 12/28/2023 2:03 PM EDT Body Mass Index 30.21 12/28/2023 2:03 PM EDT Plan of Treatment Upcoming Encounters Date Type Department Care Team (Late st Contact Info) Description 11/23/2024 1:45 PM EDT Appointment [address] [address] Health Maintenance Due Date Last Done Comments DXA SCAN 1945 Depression Screening (12+) 1957 Hepatitis C Screening 1963 DTAP/TDAP/TD VACCINES (1 - Tdap) 02/16/1964 Medicare Initial AWV G0438 01/22/2011 Respiratory Syncytial Virus (RSV) Adult or (1 - 1-dose 75+ series) 02/16/2020 Pneumococcal 50+ years (2 of 2 - PCV) 02/22/2022 02/22/2021 COVID-19 VACCINE (6 - 2023-2 5 season) 2023 12/31/2021, 07/16/2021, 11/21/2020, Additional history exists Falls Risk Screening 03/23/2024 Influenza Vaccine (Season Ended) 2024 12/07/2020, 11/29/2019, 11/29/2019, Additional history exists Tobacco Cessation Counseling and Screening (12+) 12/27/2024 12/28/2023 Shingles Vaccine (Zoster) Completed 05/10/2018, 12/2017 Insurance [facility] SUPPL MEDICARE PART A B Care Teams Hops Farmworker Relationship Specialty Start Date End Date Edouard Giron MD [address] [facility] [address] [place] [address] PCP - General Family Medicine 11/17/22
--- OUTSIDE RECORDS SUMMARY | 2024-09-09 08:44 | XMS_ITS | Encounter Summary ---
Author Organization [employer] Address [address] [place] [address] Care Team Providers Care Gravity Prospecting Operator Helper Name Role Phone Edouard Giron MD Primary Care Provider + [phone] Encounter Details Date Type Department Care Team (Late st Contact Info) Description 09/19/2021 Transcribed Document [facility] [place] [facility] [place] [address] ProviderRenato MD [address], [place] [id number] Social History Tobacco Use Types Packs/Day Years Used Date Smoking Tobacco: Never Assessed Comments Unknown Sex and Gender Information Value Date Recorded Sex Assigned at Not on file Legal Sex Female 4:29 PM CDT Gender Identity Not on file Sexual Orientation Not on file documented as of this encounter Miscellaneous Notes * Cerner Conversion Note - Renato Elizabeth MD - 09/19/2021 9:56 AM CDT Patient Education Materials Follows: Diverticulosis Diverticulosis is a condition that develops when small pouches (diverticula) form in the wall of the large intestine (colon). The colon is where water is absorbed and stool (feces) is formed. The pouches form when the inside layer of the colon pushes through weak spots in the outer layers of the colon. You may have a few pouches or many of them. The pouches usually do not cause problems unless they become inflamed or infected. When this happens, the condition is called diverticulitis. What are the causes? The cause of [...] getting enough exercise. ??? Smoking. ??? Taking adpz-ukl-ojbawac pain medicines, like aspirin and ibuprofen. ??? Having a family history of diverticulosis. What are the signs or symptoms? In most people, there are no symptoms of this condition. If you do have symptoms, they may include: ??? Bloating. ??? Cramps in the abdomen. ??? Constipation or diarrhea. ??? Pain in the lower left side of the abdomen. How is this diagnosed? Because diverticulosis usually has no symptoms, it is most often diagnosed during an exam for other colon problems. The condition may be diagnosed by: ??? Using a flexible scope to examine the colon (colonoscopy). ??? Taking an X-ray of the colon after dye has been put into the colon (barium enema). ??? Having a CT scan. How is this treated? You may not need treatment for this condition. Your health care provider may recommend treatment to prevent problems. You may need treatment if you have symptoms or if you previously had diverticulitis. Treatment may include: ??? Eating a high-fiber diet. ??? Taking a fiber supplement. ??? Taking a live bacteria supplement (probiotic). ??? Taking medicine to relax your colon. Follow these instructions at home: Medicines ??? Take aijo-sdr-gewqxzz and prescription medicines only as told by your health care provider. ??? If told by your health care provider, take a fiber supplement or probiotic. Constipation prevention Your condition may cause constipation. To prevent or treat constipation, you may need to: ??? Drink enough fluid to keep your urine pale yellow. ??? Take tlmd-itq-qqewjnk or prescription medicines. ??? Eat foods that are high in fiber, such as beans, whole grains, and fresh fruits and vegetables. ??? Limit foods that are high in fat and processed sugars, such as fried or sweet foods. General instructions ??? Try not to strain when you have a bowel movement. ??? Keep all follow-up visits as told by your health care provider. This is important. Contact a health care provider if you: ??? Have pain in your abdomen. ??? Have bloating. ??? Have cramps. ??? Have not had a bowel movement in 3 [...] an exam for other colon problems. ??? Treatment may include increasing the fiber in your diet, taking supplements, or taking medicines. This information is not intended to replace advice given to you by your health care provider. Make sure you discuss any questions you have with your health care provider. Document Revised: 10/06/2019 Document Reviewed: 10/06/2019 [employer] Patient Education ? 2020 [employer]. Oncology Colon Polyps Colon polyps are tissue growths inside the colon, which is part of the large intestine. They are one of the types of polyps that can grow in the body. A polyp may be a round bump or a mushroom-shaped growth. You could have one polyp or more than one. Most colon polyps are noncancerous (benign). However, some colon polyps can become cancerous over time. Finding and removing the polyps early can help prevent this. What are the causes? The exact cause of colon polyps is not known. What increases the risk? The following factors may make you more likely to develop this condition: ??? Having a family history of colorectal cancer or colon polyps. ??? Being older than 45 years of age. ??? Being younger than 45 years of age and having a significant family history of colorectal cancer or colon polyps or a genetic condition that puts you at higher risk of getting colon polyps. ??? Having inflammatory bowel disease, such as ulcerative colitis or Crohn's disease. ??? Having certain conditions passed from parent to child (hereditary conditions), such as: ? Familial adenomatous polyposis (FAP). ? Zepeda syndrome. ? Turcot syndrome. ? Peutz?Jeghers syndrome. ? MUTYH-associated polyposis (MAP). ??? Being overweight. ??? Certain lifestyle factors. These include smoking cigarettes, drinking too much alcohol, not getting enough exercise, and eating a diet that is high in fat and red meat and low in fiber. ??? Having had childhood cancer that was treated with radiation of the abdomen. What are the signs or symptoms? Many times, there are no symptoms. If you have symptoms, they may include: ??? Blood coming from the rectum during a bowel movement. ??? Blood in the stool (feces). The blood may be bright red or very dark in color. ??? Pain in the abdomen. ??? A change in bowel habits, such as constipation or diarrhea. How is this diagnosed? This condition is diagnosed with a colonoscopy. This is a procedure in which a lighted, flexible scope is inserted into the opening between the buttocks (anus) and then passed into the colon to examine the area. Polyps are sometimes found when a colonoscopy is done as part of routine cancer screening tests. How is this treated? This condition is treated by removing any polyps that are found. Most polyps can be removed during a colonoscopy. Those polyps will then be tested for cancer. Additional treatment may be needed depending on the results of testing. Follow these instructions at home: Eating and drinking ??? Eat foods that are high in fiber, such as fruits, vegetables, and whole grains. ??? Eat foods that are high in calcium and vitamin D, such as milk, cheese, yogurt, eggs, liver, fish, and broccoli. ??? Limit foods that are high in fat, such as fried foods and desserts. ??? Limit the amount of red meat, precooked or cured meat, or other processed meat that you eat, such as hot dogs, sausages, amin, or meat loaves. ??? Limit sugary drinks. Lifestyle ??? Maintain a healthy weight, or lose weight if recommended by your health care provider. ??? Exercise every day or as told by your health care provider. ??? Do not use any products that contain nicotine or tobacco, such as cigarettes, e-cigarettes, and chewing tobacco. If you need help quitting, ask your health care provider. ??? Do not drink alcohol if: ? Your health care provider tells you not to drink. ? You are , may be , or are planning to become . ??? If you drink alcohol: ? Limit how much you use to: ? 0?1 drink a day for women. ? 0?2 drinks a day for men. ? Know how much alcohol is in your drink. In the [place] one drink equals one 12 oz bottle of beer (355 mL), one 5 oz glass of wine (148 mL), or one 1? oz glass of hard liquor (44 mL). General instructions ??? Take ndwp-esn-waygllz and prescription medicines only as told by your health care provider. ??? Keep all follow-up visits. This is important. This includes having regularly scheduled colonoscopies. Talk to your health care provider about when you need a colonoscopy. Contact a health care provider if: ??? You have new or worsening bleeding during a bowel movement. ??? You have new or increased blood in your stool. ??? You have a change in bowel habits. ??? You lose weight for no known reason. Summary ??? Colon polyps are tissue growths inside the colon, which is part of the large intestine. They are one type of polyp that can grow in the body. ??? Most colon polyps are noncancerous (benign), but some can become cancerous over time. ??? This condition is diagnosed with a colonoscopy. ??? This condition is treated by removing any polyps that are found. Most polyps can be removed during a colonoscopy. This information is not intended to replace advice given to you by your health care provider. Make sure you discuss any questions you have with your health care provider. Document Revised: 06/27/2020 Document Reviewed: 06/27/2020 [employer] Patient Education ? 2020 [employer]. Pharmacology Monitored Anesthesia Care, Care After This sheet gives you information about how to care for yourself after your procedure. Your health care provider may also give you more specific instructions. If you have problems or questions, contact your health care provider. What can I expect after the procedure? After the procedure, it is common to have: ??? Tiredness. ??? Forgetfulness about what happened after the procedure. ??? Impaired judgment for important decisions. ??? Nausea or vomiting. ??? Some difficulty with balance. Follow these instructions at home: For the time period you were told by your health care provider: ??? Rest as needed. ??? Do not participate in activities where you could fall or become injured. ??? Do not drive or use machinery. ??? Do not drink alcohol. ??? Do not take sleeping pills or medicines that cause drowsiness. ??? Do not make important decisions or sign legal documents. ??? Do not take care of children on your own. Eating and drinking ??? Follow the diet that is recommended by your health care provider. ??? Drink enough fluid to keep your urine pale yellow. ??? If you vomit: ? Drink water, juice, or soup when you can drink without vomiting. ? Make sure you have little or no nausea before eating solid foods. General instructions ??? Have a responsible adult stay with you for the time you are told. It is important to have someone help care for you until you are awake and alert. ??? Take xnjh-lda-yszwrqf and prescription medicines only as told by your health care provider. ??? If you have sleep apnea, surgery and certain medicines can increase your risk for breathing problems. Follow instructions from your health care provider about wearing your sleep device: ? Anytime you are sleeping, including during daytime naps. ? While taking prescription pain medicines, sleeping medicines, or medicines that make you drowsy. ??? Avoid smoking. ??? Keep all follow-up visits as told by your health care provider. This is important. Contact a health care provider if: ??? You keep feeling nauseous or you keep vomiting. ??? You feel light-headed. ??? You are still sleepy or having trouble with balance after 24 hours. ??? You develop a rash. ??? You have a fever. ??? You have redness or swelling around the IV site. Get help right away if: ??? You have trouble breathing. ??? You have new-onset confusion at home. Summary ??? For several hours after your procedure, you may feel tired. You may also be forgetful and have poor judgment. ??? Have a responsible adult stay with you for the time you are told. It is important to have someone help care for you until you are awake and alert. ??? Rest as told. Do not drive or operate machinery. Do not drink alcohol or take sleeping pills. ??? Get help right away if you have trouble breathing, or if you suddenly become confused. This information is not intended to replace advice given to you by your health care provider. Make sure you discuss any questions you have with your health care provider. Document Revised: 11/22/2020 Document Reviewed: 02/09/2020 [employer]inte Patient Education ? 2020 [employer]. documented in this encounter Plan of Treatment Upcoming Encounters Date Type Department Care Team (Late st Contact Info) Description 11/23/2024 1:45 PM EDT Appointment [address] [place] [address] documented as of this encounter Visit Diagnoses Not on filedocumented in this encounter Care Teams Gravity Prospecting Operator Helper Relationship Specialty Start Date End Date Edouard Giron MD [address] [facility] [address] [facility] [id number] PCP - General Family Medicine 11/17/22 documented as of this encounter
--- OUTSIDE RECORDS SUMMARY | 2024-09-09 08:44 | XMS_ITS | Clinical Summary ---
Author Organization [facility] Address [address] [place] [address] Care Team Providers Care Label Machine Operator Name Role Phone Edouard Giron MD Primary Care Provider + [phone] Allergies Active Allergy Reactions Criticality Noted Date [...] time each day. 09/03/19 17 Active Multiple Vitamins-Duck Farmer als (Womens Multi) capsule Take 1 capsule [...] 09/03/19 17 Active Vitamin A 3 MG (88388 UT) capsule 09/01/19 13 Active alpha tocopherol [...] Info) Description 09/19/2024 3:20 PM EDT Appointment [facility] [address] , [address] [place] [address] 09/19/2024 4:00 PM EDT Office Visit [facility] [address] , [address] [place] [address] Yassine Pizarro, PA [address] [address] 08/29/2025 1:00 PM EDT Ovarian Cancer Screening [facility] [address] [facility] [place], [place] [address] Health Maintenance Due Date Last Done Comments [facility]-Hepatitis C Screening 1945 [facility]-Medicare Annual Wellness (AWV) 1945 [facility]-Infant/Child/Adol SDOH Screenings 1945 [facility]- SDOH Screenings 1963 [facility]-Adult SDOH Screenings 1963 [facility]-Zoster Vaccines (2 of 2) 07/05/2018 05/10/2018 [facility]-Bone Density Scan 08/31/2024 09/01/2023 , 09/01/2022, 09/01/2022, Additional history exists [facility]-Depression Screening 08/31/2024 09/01/2023 [id number] Vaccine (7 - Moderna risk 2023- season) [...] 12:45 PM EDT Osteopenia of multiple sites C-TELOPEPTIDE Routine 08/29/2024 12:45 PM EDT Osteopenia of [...] Specific Alkaline Phosphatase (08/29/2024 12:45 PM EDT) Pathologist [facility] Bone Specific Alkaline Phosphatase 14.4 ug/L 08/29/2024 4:31 PM EDT [facility] Comment: BSAP (Ostase) Reference Values, Female, age 18 years and up: Premenopausal: 4.5 to 16.9 ug/L Postmenopausal: 7.0 to 22.4 ug/L Blood Venous blood specimen / Unknown Venipuncture / Unknown 08/29/2024 12:45 PM EDT 08/29/2024 12:45 PM EDT us [facility] REF LAB BLOOD AND FLUID OR D Final Result [facility] [address] [place] [address] * C-Telopeptide (08/29/2024 12:45 PM EDT) Pathologist [facility] C Telopeptide Beta Cross Linked Serum Result 429 pg/mL 09/01/2024 12:49 PM EDT [facility] ([facility]) Blood Venous blood specimen / Unknown Venipuncture / Unknown 08/29/2024 12:45 PM EDT 08/29/2024 12:45 PM EDT Narrative [facility]) - 09/01/2024 12:49 PM EDT Premenopausal Females: 136-689 pg/mL Postmenopausal Females: 177-1015 pg/mL REFERENCE INTERVAL: C-Telopeptide, Ntoq-Vvlzy-Wqnmhw, Serum Access complete set of age- and/or gender-specific reference intervals for this test in the [facility] Test Directory (Family[facility]). Performed By: [facility] [address] [place] [address] Insurance Claims Processor: Arsalan Elizabeth MD, PhD CLIA Number: [id number] us [facility] BLOOD ORDERABLES Final Res ult [facility] [address] [place] [address] * Vitamin D 25 Hydroxy (08/29/2024 12:45 PM EDT) Vitamin D 25 Hydroxy 59.8 20.0 - 80.0 ng/mL 08/29/2024 4:29 PM EDT [facility] Blood Venous blood specimen / Unknown Venipuncture / Unknown 08/29/2024 12:45 PM EDT 08/29/2024 12:45 PM EDT Narrative [facility] - 08/29/2024 4:29 PM EDT Testing performed on [employer], standardized against NIST SRM 2972. When testing [...] [facility] BLOOD ORDERABLES Final Res ult [facility] [address] [place] [address] * (ABNORMAL) Renal Function Panel, Plasma (08/29/2024 12:45 PM EDT) Glucose, Plasma 104(H) 74 - 99 mg/dL 08/29/2024 2:55 PM EDT [facility] BUN, Plasma 16 8 - 23 mg/dL 08/29/2024 2:55 PM EDT [facility] Creatinine, Plasma 0.65 0.60 - 1.10 mg/dL 08/29/2024 2:55 PM EDT [facility] BUN/Creatinine Ratio 25 08/29/2024 2:55 PM EDT [facility] Sodium, Plasma 135(L) 136 - 145 mmol/L 08/29/2024 2:55 PM EDT [facility] Potassium, Plasma 4.3 3.6 - 4.9 mmol/L 08/29/2024 2:55 PM EDT [facility] Chloride, Plasma 101 97 - 107 mmol/L 08/29/2024 2:55 PM EDT [facility] CO2, Plasma 24 22 - 29 mmol/L 08/29/2024 2:55 PM EDT [facility] Anion Gap 10 6 - 16 mmol/L 08/29/2024 2:55 PM EDT [facility] Total Calcium, Plasma 9.1 8.9 - 10.2 mg/dL 08/29/2024 2:55 PM EDT [facility] Phosphorus, Plasma 3.6 2.5 - 4.5 mg/dL 08/29/2024 2:55 PM EDT [facility] Albumin, Plasma 4.2 3.5 - 5.2 g/dL 08/29/2024 2:55 PM EDT [facility] eGFRcr 89.7 mL/min/1.7 3m*2 08/29/2024 2:55 PM EDT [facility] Comment:Reported eGFRcr in m L/min/1.73m2 is based the CKD-EPI 2020 equation that does not use a race coefficient. Blood Venous blood specimen / Unknown Venipuncture / Unknown 08/29/2024 12:45 PM EDT 08/29/2024 12:45 PM EDT us [facility] BLOOD ORDERABLES Final Res ult [facility] [address] [place] [address] * Dexa Bone Density (09/01/2023 1:06 PM EDT) Anatomical Region Laterality Modality L-spine Radiographic Zonia ging Narrative 09/06/2023 5:40 PM EDT [facility] [address] [address], [place] [address] DXA Bone Densitometry Report: [Date of exam] BMD test performed using the eTherapeuticsXA DXA System (analysis version: 14.10) manufactured by [employer]. REFERRING PROVIDER: SHAUNNA Garcia CLINICAL INFORMATION: PATIENT [...] therapy Consider repeat BMD in 2-3 years us [facility] DXA PROCEDURES Final Resul t from Last 3 Months or Most Recently Relevant to [place] [address] [facility] Care Teams Label Machine Operator Relationship Specialty Start Date End Date Edouard Giron MD [address] [place] [id number] PCP - General 08/03/20
--- OUTSIDE RECORDS SUMMARY | 2024-09-09 08:44 | XMS_ITS | Encounter Summary ---
Author Organization [employer] Address [address] [place] [address] Care Team Providers Care Bioengineer Name Role Phone Edouard Giron MD Primary Care Provider + [phone] Encounter Details Date Type Department Care Team (Late st Contact Info) Description 09/19/2021 Transcribed Document [facility] Family Medicine [address] [place] [address] ProviderRenato MD [address] [place] [address] Social History Tobacco Use Types Packs/Day Years Used Date Smoking Tobacco: Never Assessed Comments Unknown Sex and Gender Information Value Date Recorded Sex Assigned at Not on file Legal Sex Female 4:29 PM CDT Gender Identity Not on file Sexual Orientation Not on file documented as of this encounter Miscellaneous Notes * Cerner Conversion Note - Renato Elizabeth MD - 09/19/2021 9:58 AM CDT [address] [address] AGGIE HUNT :1945 Visit Time:09/19/2021 What to do next Your Diagnosis Personal history of colonic polyps, Personal history of colonic polyps Instructions From Your Care Team Diet after Discharge: Resume usual diet as tolerated, Do not drink any alcoholic beverages, _ Activity after Discharge: _, Rest and relax today, No strenuous activity Driving after Discharge: Do not drive May Return to Work/School: tomorrow Notify Provider of: with any fever/chills of 101, persistent vomiting or vomiting blood, severe abdominal pain other than gas cramps, severe throat or chest pain, black tarry stools, any bleeding exceeding a tablespoon Follow-Up Appointments Follow Up with ROSA GLASS MD When Within 2 to 3 days, only if needed Comments Please contact the office with any questions or concerns. Where: [address] [facility] [place] [address]- [phone] Medications What How Much When Instructions Next Dose albuterol (ProAir HFA 90 mcg/ inh inhalation aerosol) Inhalation Four Times A Day as needed for as needed for wheezing ascorbic acid (Vitamin C) 400 iu Oral Every Day aspirin 81 Milligram(s) Oral Every Day clobetasol topical (clobetasol 0.05% topical cream) Topical 2-3 x a week dextromethorphan-guaifenesin (Mucinex DM) 1 Tablet(s) Oral Every 12 hours as needed for as needed ergocalciferol (Vitamin D2) 1400u Oral Every Day fluticasone nasal (fluticasone 50 mcg/ inh nasal spray) Nasal Every Day levothyroxine 25 Microgram(s) Oral Every Day magnesium oxide 400 Milligram(s) Oral Every Day metoprolol (metoprolol succinate 25 mg oral capsule, extended release) 1 Capsule(s) Oral Every Day multivitamin (Multiple Vitamins oral tablet) 1 Tablet(s) Oral Every Day potassium chloride (Potassium Chloride (Eqv-K-Tab) 10 mEq oral tablet, extended release) 1 Tablet(s) Oral Every Day rosuvastatin (Crestor 10 mg oral tablet) 1 Tablet(s) Oral Every Day vitamin A 04445y Oral Every Day vitamin E 500 Milligram(s) [...] and medications per pharmacy guidance. Education Materials Monitored Anesthesia Care, Care After This sheet [...] you are awake and alert. ??? Take llec-gfo-avgjzcd and prescription medicines only as told by [...] provider. Document Revised: 11/22/2020 Document Reviewed: 02/09/2020 Workable Patient Education ?? 2020 [employer]able Inc. Diverticulosis Diverticulosis is a condition that [...] getting enough exercise. ??? Smoking. ??? Taking ogar-zum-blragup pain medicines, like aspirin and ibuprofen. ??? [...] these instructions at home: Medicines ??? Take oivs-xon-moybudz and prescription medicines only as told by your health care provider. ??? If told by your health care provider, take a fiber supplement or probiotic. Constipation prevention Your condition may cause constipation. To prevent or treat constipation, you may need to: ??? Drink enough fluid to keep your urine pale yellow. ??? Take ecvc-emm-sbfxloa or prescription medicines. ??? Eat foods that [...] provider. Document Revised: 10/06/2019 Document Reviewed: 10/06/2019 Workable Patient Education ?? 2020 [employer]r, Inc.. Colon Polyps Colon polyps are tissue growths [...] ? Zepeda syndrome. ? Turcot syndrome. ? Peutz???Jeghers syndrome. ? MUTYH-associated polyposis (MAP). ??? Being [...] Limit how much you use to: ? 0???1 drink a day for women. ? 0???2 drinks a day for men. ? Know how much alcohol is in your drink. In the [place] one drink equals one 12 oz bottle of beer (355 mL), one 5 oz glass of wine (148 mL), or one 1?? oz glass of hard liquor (44 mL). General instructions ??? Take kyai-syf-rlipmlt and prescription medicines only as told by [...] provider. Document Revised: 06/27/2020 Document Reviewed: 06/27/2020 Elsevier Patient Education ?? 2020 [employer] Inc. Emergency Awareness and Preventative Care STROKE is [...] Assistance with quitting is available by contacting 4-679-EOCU-NOW. This is a free resource providing counseling, support, and referral. Or you may contact your personal physician. [employer] Suicide Prevention Lifeline: The National Suicide Prevention [...] CPR? There are two easy steps: Call 11-21- if you see a teen or adult [...] This Visit (last charted value for your 09/19/2021 visit) No Laboratory or Other Results This Visit Patient Name:AGGIE HUNT Coleman I have received this information and was given the opportunity to ask questions. Patient/Seafood And Service Meat Manager Name: Patient/Seafood And Service Meat Manager Signature: Relationship to Patient: Clinician/Hospital Seafood And Service Meat Manager Signature: Date: Electronically signed by Kaleb, [facility] Conversion Captain Airline Pilot Cerner at 07/08/2022 11:57 AM CDT documented in this encounter Plan of Treatment Upcoming Encounters Date Type Department Care Team (Late st Contact Info) Description 11/23/2024 1:45 PM EDT Appointment [address] [address] documented as of this encounter Visit Diagnoses Not on filedocumented in this encounter Care Teams Bioengineer Relationship Specialty Start Date End Date Edouard Giron MD [address] [facility] [address] [place] [address] PCP - General Family Medicine 11/17/22 documented as of this encounter
--- OUTSIDE RECORDS SUMMARY | 2024-09-09 08:44 | XMS_ITS | Patient Health Record ---
Author Organization [facility] Address [address] [place] [id number] Care Team Providers Care Journeyman Powerhouse Operator Name Role Phone dEouard Giron Primary Care Provider [phone] Pepper Parson Unavailable [phone] Allergies Allergen (clinical drug ingredient) Drug/Non Drug Allergy documented on EMR Reaction Allergy Type Onset Date Status Levaquin Unknown Drug Allergy Active atorvastatin Lipitor muscle weakness Drug Allergy Active Stahist Unknown Drug Allergy Active Sulfamethoxazole Unknown Drug Allergy Active diazepam Valium insomnia Drug Allergy Active Penicillin rash Drug Allergy Active rofecoxib Rofecoxib Unknown Drug Allergy Active Results Component Value Reference Range Notes Covid test (in house) Reviewed date:11/30/2023 02:50:25 [...] - 38 plat 159 100 - 400 CBC Venipuncture (in house) Reviewed date:03/02/2024 09:02:03 [...] 126 Performing Lab: Notes/Report: Test performed by [facility] [address] [place] [address] , [address], [place] [address] Richard Live MD, Breaker Machine Operator CLIA: [id number] Sodium 141 135-145 mmol/L Potassium 4.7 3.5-5.3 [...] Normal Performing Lab: Notes/Report: Test performed by [facility], [address] , [place] [address] Richard Live MD, Breaker Machine Operator CLIA: [id number] Thyroxine Free (free T4) 1.45 0.86-1.76 ng/dL P-Lipid Panel Reviewed date:03/02/2024 09:02:03 AM Interpretation: Normal Performing Lab: Notes/Report: Test performed by [facility], [address] , [place] [address] Richard Live MD, Breaker Machine Operator CLIA: [id number] Cholesterol 148 <200 mg/dL Triglycerides 116 <150 [...] Normal Performing Lab: Notes/Report: Test performed by [facility] [address] [place] [address] , [address], [place] [address] Richard Live MD, Breaker Machine Operator CLIA: [id number] TSH 2.82 0.43-5.25 mU/L P-Microalbumin/Creatinine, R andom Urine Sample Reviewed date:03/02/2024 09:02:03 AM Interpretation: Normal Performing Lab: Notes/Report: Test performed by [facility] [address] [place] [address] , [address], [place] [id number] Richard Live MD, Breaker Machine Operator CLIA: [id number] Albumin/Creatinine Ratio, Urine 25 0-30 ug/m g Microalbumin, Urine, Random 11.4 Creatinine, Urine 462.4 P-Vitamin D 25-Hydroxy Reviewed date:03/02/2024 09:02:03 AM Interpretation: Normal Performing Lab: Notes/Report: Test performed by [facility] [address] [place] [address] , [place] [address] Richard Live MD, Breaker Machine Operator CLIA: [id number] Vitamin D 25-Hydroxy 52.9 30.0-100.0 ng/mL Interpretation of Vitamin D 25 OH: < 20 ng/mL - Deficiency 20 - 29 ng/mL - Insufficiency 30 - 100 ng/mL - Sufficiency > 100 ng/mL - Super-therapeutic- toxicity may occur above this level. Clinical correlation required. CBC Fingerstick (in house) Reviewed date:03/08/2024 03:05:08 [...] Omeprazole 40 MG TAKE 1 CAPSULE BY [facility] ONCE DAILY for 90 days Active [...] a day for 30 day(s) 03/08/2024 Not-Taking Chbsbjxry-Yeqlzfes-VH 30-1-20 MG/5ML 5 ml as needed Orally every 6 hrs prn 03/08/2024 Not-Taking Immunizations Vaccine Route Administration Date Status Comme nts Tetanus Tdap-Adacel (over 7yrs) IM Intramuscular 07/03/2004 Administered Tetanus Tdap-Adacel (over 7yrs) IM Intramuscular 12/12/2013 Administered Shingrix Unknown 01/30/2018 Administered Shingrix Unknown 05/10/2018 Administered Prevnar (PCV20) Unknown 02/28/2022 Pending Prevnar (PCV13) IM Intramuscular 12/12/2013 Administered Fluzone High Dose [...] 11/21/2020 Administered Boostrix Tdap Unknown 01/06/2024 Administered PNEUMOVAX 23 VACCINE IM Intramuscular 01/08/2009 Administe red PNEUMOVAX 23 VACCINE IM Intramuscular 12/14/2015 Administe red PNEUMOVAX 23 VACCINE IM Intramuscular 02/22/2021 Administe red Hepatitis B (20 and more) Unknown 08/04/2000 Administer ed Problems Problem Type SNOMED Code ICD Code Onset Dates Problem Status W/U Status Risk Notes Problem Atrophic vulvovaginitis (70454055) 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.3) Active confirmed Problem Polyarthralgia (88337130) Polyarthralgia (719.49) Active confirmed Problem 248203596 Insomnia (G47.00) Active confirmed Problem 420575841 Dry eyes, bilate ral (H04.123) Active confirmed Problem 43413139 Hyperlipidemia (E78.5) Active confirmed Problem 29086966 Vitamin D deficiency (E55.9) Active confirmed Problem Otitis externa (9521013) Otitis externa (H60.90) Active confirmed Problem 821524964 History of anemi a (Z86.2) Active confirmed Problem Allergic rhinitis (05433297) Allergic rhinitis, unspecified (J30.9) Active confirmed Problem 407992008 Acquired hypothyroidism (E03.9) Active confirmed Problem 977636026 Gastroesophageal reflux disease, esophagitis presence not specified (K21.9) Active confirmed Problem 81616908 Migraine without status migrainosus, not intractable, unspecified migraine type (G43.909) Active confirmed Problem 457747085 Uncomplicated asthma, unspecified asthma severity (J45.909) Active confirmed Problem 405486160 Primary osteoarthritis of both knees (M17.0) Active confirmed Problem 881293647 Low vitamin D le carolyne (E55.9) Active confirmed Problem 70957550 Rhinitis, unspecified type (J31.0) Active confirmed Problem 81824511 Allergic rhiniti s, unspecified seasonality, unspecified trigger (J30.9) Active confirmed Problem 28379017 Primary hypertension (I10) Active confirmed Vital Signs Heart Rate 91 /min 08/26/2024 Blood pressure diastolic 72 mm Hg 08/26/2024 Height 64.75 in 08/26/2024 Blood pressure systolic 120 mm Hg 08/26/2024 Weight 176.4 lbs 08/26/2024 BMI 29.58 kg/m2 08/26/2024 Encounters Encounter Location Date Provider Diagnosis [facility] [address] [place], [place] [id number] 11/30/2023 Edouard Phoenix COVID-19 U07.1 [facility] [address] [place], [place] [id number] 12/25/2023 Edouard [place] Encounter for immunization Z23 [facility] [address] [place], [place] [id number] 02/09/2024 Pepper Parson Bronchitis J40 [facility] [address] [place] [id number] 02/26/2024 Edouard [place] Primary hypertension I10 ; Hyperlipidemia E78.5 ; Acquired hypothyroidism E03.9 ; Vitamin D deficiency E55.9 ; Gastroesophageal reflux disease, esophagitis presence not specified K21.9 ; Insomnia G47.00 ; Persistent cough R05.3 and Hypokalemia E87.6 [facility] [address] [facility] [address] [place] [id number] 03/08/2024 Peppertomas Hellerond URI (upper respirato ry infection) J06.9 and Stye H00.019 [facility] [address] [place] [id number] 08/26/2024 Edouard [place] Primary hypertension I10 ; Acquired hypothyroidism E03.9 ; Hyperlipidemia E78.5 ; Insomnia G47.00 and BMI 29.0-29.9,adult Z68.29 [facility] [address] [place] [id number] 03/02/2024 Edouard [place] [facility] [address] [place] [id number] 08/27/2024 Edouard [place] Screening for osteoporosis Z13.820 Assessments Encounter Date Diagnosis (ICD Code) Assessment Notes Treatment Notes Treatment Clinical Notes Section Notes 08/26/2024 Primary hypertension (ICD-10 - I10) 08/27/2024 Screening for osteoporosis (ICD-10 - Z13.820) 11/30/2023 COVID-19 (ICD-10 - U07.1) 12/25/2023 Encounter [...] 08/29/2024 Next Appt Details Provider Name:Edouard Carroll ry, 02/27/2025 09:30:00 AM, [address], [place], [place], [id number], Insurance Providers Payer Name Payer Address Payer Phone Subscriber Number Group Number Insured Name Patient Relationship to Insured Coverage Start Date Coverage End Date MEDICARE PART B [address] [address] [place] [id number] Aggie Oliver Self - patient is the insured [facility] [address] [place] [address] [id number] Aggie Oliver Self - patient is the insured Medications Administered Medication Instructions Date of Administration Dosage Notes allergy 10/28/2012 Contents: DMC 1:10, R upper deltoid allergy 10/28/2012 Contents Tree C 1:1000, R lower deltoid allergy 10/28/2012 Contents: GTW 1:10,000, L lower deltoid allergy 02/23/2013 R upper arm, e xp 07/2013 allergy 02/23/2013 R Delt. 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
--- OUTSIDE RECORDS SUMMARY | 2024-09-09 08:44 | XMS_ITS | Referral Summary ---
Author Organization [employer] Address [address] [place] [address] Care Team Providers Care Middle School Humanities Teacher Name Role Phone Edouard Giron MD Primary Care Provider + [phone] Allergies Active Allergy Reactions Criticality Noted Date Comments Atorvastatin Anaphylaxis,Other (See Comments) High 08/23/2008 Dexbrompheniramine-Ps eudoephed Other (See Comments) Low 08/31/2012 Dexchlorpheniram-Phen ylephrine Other (See Comments) Low 08/23/2008 Diazepam Other (See Comments) Low 08/23/2008 Other reaction(s): Disorientation Ibuprofen Other (See Comments) Low 08/31/2012 Levofloxacin Other (See Comments) Low 08/31/2012 Penicillins Hives,Other (See Comments) High 08/23/2008 Rofecoxib Anaphylaxis,Rash,Ot her (See Comments) High 08/23/2008 Exlnbhsuw-Ja-Ipz-Verde adonna Other (See Comments) 08/23/2008 1Replaced free [...] Diagnosed Date History of colon polyps 11/03/2023 Social History Tobacco Use Types Packs/Day Years [...] Date Rupesh rded Speak language other than Maldivian at home Not on file 04/10/2023 Want [...] Info) Description 11/23/2024 1:45 PM EDT Appointment [address] [address] Insurance [facility] MEDICARE PART A B Care Teams Middle School Humanities Teacher Relationship Specialty Start Date End Date Edouard Giron MD [address] [facility] [address] [place] [address] PCP - General Family Medicine 11/17/22
--- OUTSIDE RECORDS SUMMARY | 2024-09-09 08:44 | XMS_ITS | Encounter Summary ---
Author Organization Healthcare Address [address] [place] [address] Care Team Providers Care Regional Project Manager Name Role Phone Edouard Giron MD Primary Care Provider [phone] Encounter Details Date Type Department Care Team [...] Description 09/19/2024 3:20 PM EDT Appointment Professional [facility] [address], [address] [place] [address] 09/19/2024 4:00 PM EDT Office Visit Professional [employer] [place] [facility] [address], [address] [place] [address] Yassine Pizarro PA [address] [place] [address] [place] [address] 08/29/2025 1:00 PM EDT Ovarian Cancer Screening [facility] [address] [facility] [address] [place] [address] documented as of this encounter Visit Diagnoses Not on filedocumented in this encounter Additional Health Concerns Assessment Noted Time A fall risk assessment has been complete d for the patient 09/01/2023 1:37 PM EDT A Body Mass Index follow-up plan has been documented for the patient 09/01/2023 1:49 PM EDT documented as of this encounter Care Teams Regional Project Manager Relationship Specialty Start Date End Date Edouard Giron MD [address] [place] [id number] PCP - General 08/03/20 documented as of this encounter
--- NOTE | 2024-09-09 08:45 | CA_ITS ---
APPROVED REPORT EXAM: Comprehensive 2D, Doppler, and color-flow Echocardiogram Customs Guard: Corine Hartman RDCS Ht: 5 ft 5 in Wt: 176lbs BSA: 1.87 BP: 182/105 mmHg Indications: Preop assessment for total knee replacement M-Mode Dimensions RVDd 2.69 cm (0.9-2.6) LA Diam 3.74 cm (1.9-4.0) LVDd 5.42 cm (3.5-5.7) LVDs 3.75 cm (3.5-5.7) IVSd 0.95 cm (0.6-1.1) PWd 0.83 cm (0.6-1.1) EF (Teich) 57.90% FS 30.80% EDV (Teich) 142.50 mL TAPSE 1.98 (<1.7) ESV (Teich) 60.00 mL LV Diastology E Decel Time 247 (160-240 msec) E/A Ratio 0.4 Mitral Valve MV E Max Mitchell. 35.0 (40-130 cm/s) MV A Velocity 93.0 (40-130 cm/s) E/A Ratio 0.38 MV Mean Gr. 0.90 (<2mmHg) MV PHT 72.0 ms Left Ventricle The left ventricle is normal size. The left ventricular systolic function is normal. The left ventricular ejection fraction is within the normal range. There is increased LV wall thickness. There is normal LV segmental wall motion. The left ventricular diastolic function is normal. LVEF is 55%. Right Ventricle The right ventricle is normal size. The right ventricular systolic function is normal. Atria Left atrium is mildly dilated. The right atrium size is normal. There is no Doppler evidence of interatrial shunt. Aortic Valve The aortic valve is mildly thickened. There is no aortic valvular stenosis. Trace aortic regurgitation. Mitral Valve The mitral valve is normal in structure. No evidence of mitral valve stenosis. Mild mitral regurgitation. Tricuspid Valve Tricuspid valve is grossly normal in structure and function. Trace tricuspid regurgitation. There is insufficient TR jet to estimate RVSP. Pulmonic Valve The pulmonary valve is normal in structure. Trace pulmonic regurgitation. Great Vessels The aortic root is normal in size. IVC is normal in size and collapses >50% with inspiration. Pericardium There is no pericardial effusion. Other Information Study Quality: Fair Conclusion Normal biventricular systolic function. Mild LA dilation. Mild MR. Electronically signed by : Steph Pereira MD 09/12/2024 23:05:05
== END 2024-09-09 23:59 | disposition home or self-care (01) ==
LOC: RT 08:41
PROVIDERS: PCP Family Medicine; Visit Provider Physician Assistant
DX: Z01.810 Encounter for preprocedural cardiovascular examination (principal); I34.0 Nonrheumatic mitral (valve) insufficiency; I51.7 Cardiomegaly
CPT/HCPCS: 93306

== ENCOUNTER 2024-11-16 14:54 | Outpatient (CLI) | payer MEDICARE, BC, SELFPAY ==
--- OUTSIDE RECORDS SUMMARY | 2024-09-19 15:02 | XMS_ITS | Encounter Summary ---
Author Organization [facility] Address [address] [place] [address] Care Team Providers Care Software Quality Test Engineer Name Role Phone Edouard Giron MD Primary Care Provider + [phone] Encounter Details Date Type Department Care Team (Latest Contact Info) Description 09/19/2024 3:02 PM EDT - 09/19/2024 11:59 PM EDT Hospital Encounter [facility] [address], [address] [place] [address] Osteopenia of multiple sites Discharge Disposition: Home or Self Care Social History Tobacco Use Types Packs/Day Years [...] on file documented as of this encounter Medications at Time of Discharge albuterol 108 (90 Base) MCG/ACT inhaler Inhale 1-2 puffs every 6 (six) hours if needed. 07/03/2020 alpha tocopherol (Vitamin E) 400 units capsule 08/31/2012 Aspirin Buf,CaCarb-MgCa rb-MgO, 81 MG tablet Take 81 mg by mouth 1 (one) time each day. 08/31/2012 azelastine (Astelin) 0.1 % nasal spray instill 1-2 SPRAYS IN EACH NOSTRIL TWICE DAILY NEEDED FOR allergies OR nasal drainage 08/06/2022 ManuelaideeJAMAR COVID-19 Ag Home Test kit Use as Directed on the Package 01/11/2022 celecoxib (CeleBREX) 200 MG capsule Take 1 capsule (200 mg) by mouth if needed. 09/04/2014 cholecalciferol (Vitamin D-3) 125 MCG (5000 UT) capsule Take 1 capsule (5,000 Units) by mouth 1 (one) time each day. 09/02/2016 cromolyn (Opticrom) 4 % ophthalmic solution INSTILL 1 DROP INTO AFFECTED EYE(S) 4 TIMES DAILY NEEDED 08/26/2018 cycloSPORINE (Restasis) 0.05 % ophthalmic emulsion Restasis 0.05 % eye drops in a dropperette EPINEPHrine (Epipen) 0.3 MG/0.3ML injection syringe INJECT THE CONTENTS OF 1 AUTO-INJECTOR INTRAMUSCULARLY ONCE NEEDED FOR ANAPHYLAXIS REACTION 03/21/2020 Flovent HFA 220 MCG/ACT inhaler Inhale 2 puffs 2 (two) times a day if needed. 02/23/2020 fluticasone (Flonase) 50 MCG/ACT nasal spray instill 1-2 SPRAYS IN EACH NOSTRIL EVERY DAY NEEDED FOR allergies 08/06/2022 levocetirizine (Xyzal) 5 MG tablet Take 0.5 tablets (2.5 mg) by mouth 1 (one) time each day. 08/06/2020 levothyroxine (Synthroid, Levoxyl) 25 MCG tablet Take 1 tablet (25 mcg) by mouth 1 (one) time each day before breakfast. 07/25/2016 magnesium oxide (Mag-Ox) 400 MG tablet Take 1 tablet (400 mg) by mouth 1 (one) time each day. 08/31/2012 metoprolol succinate XL (Toprol-XL) 25 MG 24 hr tablet metoprolol succinate ER 25 mg tablet,extended release 24 hr Multiple Vitamins-Minera ls (Womens Multi) capsule Take 1 capsule by mouth 1 (one) time each day. 08/31/2012 omeprazole (PriLOSEC) [address] capsule Take 1 capsule (40 mg) by mouth 1 (one) time each day. 07/28/2020 potassium chloride ER (Micro-K) 10 MEQ ER capsule Take 1 capsule (10 mEq) by mouth 1 (one) time each day. 08/31/2012 Probiotic Product (Align) capsule TAKE 1 CAPSULE Daily 09/02/2016 rosuvastatin (Crestor) 10 MG tablet 09/04/2014 rosuvastatin (Crestor) 20 MG tablet 08/05/2024 Vitamin A 2400 MCG (8000 UT) capsule Take 1 capsule (8,000 Units) by mouth 1 (one) time each day. 08/31/2012 Vitamin A 3 MG (11447 UT) capsule 08/31/2012 zolpidem (Ambien) 10 MG tablet Take 1 tablet (10 mg) by mouth at night if needed. 07/20/2020 documented as of this encounter Plan of Treatment Upcoming Encounters Date Type Department Care Team ([facility] st Contact Info) Description 08/29/2025 1:00 PM EDT Ovarian Cancer Screening [facility] [address] [place] [place] [phone] 09/05/2025 1:00 PM EDT Clinical Support [facility] Laboratory Services [address], 1st [place] [address] 09/19/2025 2:40 PM EDT Appointment [facility] Mineral Metabolism [address], [address] [place] [address] 09/19/2025 3:00 PM EDT Office Visit [facility] Mineral Metabolism [address], [address] [place] [address] Yassine Pizarro PA [address] [place] [address] documented as of this encounter Procedures Procedure Name Priority Date/Time Associated Diagnosis Comments DEXA BONE DENSITY Routine 09/19/2024 2:1 9 PM EDT Osteopenia of multiple sites documented in this encounter Results * Dexa Bone Density (09/19/2024 2:19 PM EDT) Anatomical Region Laterality Modality L-spine Radiographic Zonia ging Narrative 10/01/2024 10:42 PM EDT [facility] [address] [place] [address], [place] [address] DXA Bone Densitometry Report: [Date of exam] BMD test performed using the MethylGeneXA DXA System (analysis version: 14.10) manufactured by [employer]. REFERRING PROVIDER: SHAUNNA Garcia CLINICAL INFORMATION: PATIENT NAME: Aggie Oliver PATIENT AGE: 79 y.o. LEGAL SEX: female RADIOGRAPHIC VIEWS: Sites scanned: AP Spine, HIP Right , and HIP Left COMPARISON STUDY: DXA Axial 2023 FINDINGS: Based on WHO criteria (post-menopausal female) the diagnosis is Osteopenia The lowest T score is -2.3 in the Left Hip There is Stability compared to prior measurements FRAX (10-year probability of fracture) - Major Osteoporotic: 17.1 %; Hip: 5.4 % The presence of arthritic or degenerative joint changes in the spine could artefactually increase measured BMD. 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 Suggest general measures to optimize calcium and vitamin D status, fall prevention measures and reduce fracture risk. FRAX threshold met for consideration of therapy (Hip >3% or Total >20%) Consider repeat BMD in 2-3 years Yassine MAZA IMG DXA PROCEDURES Final Resul t documented in this encounter Visit Diagnoses Diagnosis Osteopenia of multiple sites documented in this encounter Additional Health Concerns Assessment Noted Time A fall risk assessment has been complete d for the patient 09/19/2024 3:50 PM EDT A Body Mass Index follow-up plan has been documented for the patient 09/19/2024 4:33 PM EDT documented as of this encounter Care Teams Software Quality Test Engineer Relationship Specialty Start Date End Date Edouard Giron MD [address] [place] [address] PCP - General 08/03/20 documented as of this encounter
--- OUTSIDE RECORDS SUMMARY | 2024-09-19 16:00 | XMS_ITS | Encounter Summary ---
Author Organization [facility] Address [address] [place] [address] Care Team Providers Care Securities Lending Trader Name Role Phone Edouard Giron MD Primary Care Provider + [phone] Reason for Referral * Consultation (Routine) - Pending Review Specialty Diagnoses / Procedures Referred By Ramos bennett Referred To Contact Diagnoses Osteopenia of multiple sites Yassine Pizarro PA [address] [place] [address] Phone: tel: fax: Referral ID Status Reason Start Date Expiration Date V isits Requested Visits Authorized [id number] Pending Review 09/19/2024 03/21/2026 1 1 Reason for Visit * Reason Comments Follow-up Encounter Details Date Type Department Care Team ([facility] st Contact Info) Description 09/19/2024 4:00 PM EDT Office Visit [facility] [address] , [address] [place] [address] Yassine Pizarro PA [address] [place] [address] Osteopenia of multiple sites (Primary Dx); Hypervitaminosis D; Osteochondrosis of lunate, unspecified laterality Social History Tobacco Use Types Packs/Day Years Used Date Smoking Tobacco: Never Smokeless Tobacco: Never Tobacco Cessation:Counseling Given: Not Answered Alcohol Use Standard Drinks/Week Comments Yes 0 [...] on file documented as of this encounter Last Filed Vital Signs Vital Sign Reading Time Taken Comments Blood Pressure 180/82 09/19/2024 3:54 PM EDT Pulse 53 09/19/2024 3:41 PM EDT Temperature 36.5 C (97.7 F) 09/19/2024 3:41 PM EDT Respiratory Rate - - Oxygen Saturation 97% 09/19/2024 3:4 1 PM EDT Inhaled Oxygen Concentration - - Weight 81.8 kg (180 lb 5.4 oz) 09/19/2024 3:41 PM EDT Height 163.8 cm (5' 4.5 ) 09/19/2024 3: 41 PM EDT with shoes on Body Mass Index 30.48 09/19/2024 3:41 PM EDT documented in this encounter Miscellaneous Notes * Progress Notes - Yassine Pizarro PA - 09/19/2024 4:00 PM EDT Subjective Patient ID: Aggie Oliver is a 79 y.o. female Chief Complaint Patient presents with Follow-up for osteopenia HPI Ms Oliver is seen for follow up in the Bone Clinic today for osteopenia and Kienb?ck disease. 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 The pt reports that repetitious motions from her work caused numerous fractures a bone in the left wrist. Last visit 08/2023. The patient was treated with Fosamax 70 mg weekly from 1992 through 2006. At that time, the Fosamaxwas decreased to 35 mg/week from 2006 through 2010. In August 2010, the Fosamax was discontinued altogether since the pt's bone density had improved. Restarted alendronate 08/2022-09/2023. The patient is postmenopausal x 16 years and was on hormone replacement therapy from for several years until 2004. She used Premarin vaginal cream in the past but discontinued it in 2011. Previous fractures include multiple toe fractures over the years. She states that the pain in her left wrist is ongoing. 3-4 episodes of left wrist pain. She discontinued her calcium supplement in 2012 and on Vitamin D 5000 u/day. She ingests at least 3servings/day of calcium in her diet Exercise has declined during pandemic, has not resumed. Doing yardwork, active. No hx of seizure med use or jail steroid use Denies height loss, Low back pain at times No hx of cancer or radiation treatment No IA or CVA No hx of kidney stones x 2 Family hx of osteoporosis in mother possibly Dental health: good, no plans for invasive work Diet is good, wgt stable No recent falls Restarted alendronate 08/2022-09/2023, held since last visit due to low bone markers. Returns today for follow up. Taking Vit D 5000 IU every day Sadly, passed in dec 2024 Cataract surgery since last visit Pending right knee surgery soon, has to see dentist first 09/27/24. Walks some for exercise. May need right knee replacement, getting steroid injections periodically. No fractures since last visit. Constitutional: Negative. No fever, fatigue, weight loss. Eyes: Negative. No vision changes. Cardiovascular: Negative. No chest pain or discomfort, lower extremity swelling. Respiratory: Negative. No shortness of breath at rest, cough, hemoptysis. Gastrointestinal: Negative. No heartburn, loss of appetite, nausea, vomiting, bowel disturbance. Musculoskeletal: wrist pain, knee pain Physical Exam: Constitutional: No acute distress. Well-developed and nourished. Body mass index is 30.48 kg/m??. Pulmonary: Normal effort of breathing; . Musculoskeletal: Normal range of motion. Psychiatric: Orientated to person, place, and time: Normal Mood and affect Objective BMD 09/19/24 Lunar T score: L spine -1.6, left femur neck -2.3, right femur neck -1.7, total left hip -1.6, total right hip -1.9, Values are improved in total left hip, stable in all other sites compared to 2023 DXA. FRAX major fx 16.7%, hip fx 5.6% BMD 09/01/23 Lunar T score: L spine -1.5, left femur neck -2.2, right femur neck -1.8, total left hip -1.8, total right hip -1.9. Values are improved in L spine, total left and right hip, stable in femur necks compared to 2022 DXA. Labs: No visits with results within 7 Day(s) from this visit. Latest known visit with results is: Appointment on 08/29/2024 Component Date Value Ref Range Status Vitamin D 25 Hydroxy 08/29/2024 59.8 20.0 - 80.0 ng/mL Final Glucose, Plasma 08/29/2024 104 (H) 74 - 99 mg/dL Final BUN, Plasma 08/29/2024 16 8 - 23 mg/dL Final Creatinine, Plasma 08/29/2024 0.65 0.60 - 1.10 mg/dL Final BUN/Creatinine Ratio 08/29/2024 25 Final Sodium, Plasma 08/29/2024 135 (L) 136 - 145 mmol/L Final Potassium, Plasma 08/29/2024 4.3 3.6 - 4.9 mmol/L Final Chloride, Plasma 08/29/2024 101 97 - 107 mmol/L Final CO2, Plasma 08/29/2024 24 22 - 29 mmol/L Final Anion Gap 08/29/2024 10 6 - 16 mmol/L Final Total Calcium, Plasma 08/29/2024 9.1 8.9 - 10.2 mg/dL Final Phosphorus, Plasma 08/29/2024 3.6 2.5 - 4.5 mg/dL Final Albumin, Plasma 08/29/2024 4.2 3.5 - 5.2 g/dL Final eGFRcr 08/29/2024 89.7 mL/min/1.73m*2 Final C Telopeptide Beta Cross Linked Se* 08/29/2024 429 pg/mL Final Bone Specific Alkaline Phosphatase 08/29/2024 14.4 ug/L Final Assessment/Plan Problem List Items Addressed This Visit Osteopenia of multiple sites - Primary Relevant Orders Follow Up Bone Mineral Metabolism Dexa Bone Density Bone Specific Alkaline Phosphatase C-Telopeptide Renal Function Panel, Plasma Vitamin D 25 Hydroxy Osteochondrosis of lunate Hypervitaminosis D Ms Oliver is seen for follow up in the Bone Clinic today for osteopenia and Kienb?ck disease. 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 Osteopenia/osteoporosis defined due to fx/elevated FRAX -BMD 09/19/24 Lunar T score: L spine -1.6, left femur neck -2.3, right femur neck -1.7, total left hip -1.6, total right hip -1.9, Values are improved in total left hip, stable in all other sites compared to 2023 DXA. FRAX major fx 16.7%, hip fx 5.6% -Fosamax 70 mg weekly from 1992 through 2006. At that time, the Fosamax was decreased to 35 mg/weekfrom 2006 through 2010. -restarted alendronate 70 mg/week 08/2022-09/2023, held due to low bone markers. 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 The pt reports that repetitious motions from her work caused numerous fractures a bone in the left wrist. -today, bone markers are increasing a bit, discussed starting alendronate again vs IM or IV meds, pt prefers oral med -will hold until pt had dental visit and completes her right knee replacement surgery, will call ptin early October to check on her and see if she is ready to start alendronate again -cont current dose Vit D -cont wgt bearing exercise as able 2. Kienb?ck disease. -stable, wrist pain at times 3. Hypervitaminosis D -level now normal 59.8, on 5000 IU every day -cont at this time Restart alendronate after knee surgery Will call pt in October to check on status RTC one year with labs and BMD Pt agreed with plan and can call with questions. Total time of encounter: 30 minutes. This time includes face to face with patient, counseling and discussion, lab/result interpretation, coordination of follow-up care. Documents reviewed: previous note, dxa report Labs reviewed: bone labs, vit d, rfp Additional Historian: No Social Determinants impacting Health: none identified SHAUNNA [facility] Note to patient: The Century Cures Act makes medical notes like these available to patients inthe interest of transparency. However, be advised this is a medical document. It is intended as peer to peer communication. It is written in medical language and may contain abbreviations or verbiagethat are unfamiliar. It may appear blunt or direct. Medical documents are intended to carry relevant information, facts as evident, and the clinical opinion of the practitioner. documented in this encounter Plan of Treatment Upcoming Encounters Date Type Department Care Team (Late st Contact Info) Description 08/29/2025 1:00 PM EDT Ovarian Cancer Screening [facility] [address] [address] 09/05/2025 1:00 PM EDT Clinical Support [facility] Laboratory Services [address], [address] [place] [address] 09/19/2025 2:40 PM EDT Appointment [facility] Mineral Metabolism [address], [address] [place] [address] 09/19/2025 3:00 PM EDT Office Visit [facility] [address], [address] [place] [address] Yassine Pizarro PA [address] [place] [address] Scheduled Orders Name Type Priority Associated Diagnoses Orde r Schedule Dexa Bone Density Imaging Routine Osteopenia of multiple sites Expected: 09/19/2025 (Approximate), Expires: 03/23/2026 Bone Specific Alkaline Phosphatase Lab Routine Osteopenia of multiple sites Expected: 09/22/2025 (Approximate), Expires: 03/23/2026 C-Telopeptide Lab Routine Osteopenia of multiple sites Expected: 09/22/2025 (Approximate), Expires: 03/23/2026 Renal Function Panel, Plasma Lab Routine Osteopenia of multiple sites Expected: 09/22/2025 (Approximate), Expires: 03/23/2026 Vitamin D 25 Hydroxy Lab Routine Osteopenia of multiple sites Expected: 09/22/2025 (Approximate), Expires: 03/23/2026 Scheduled Referrals Name Type Priority Associated Diagnoses Order Schedule Follow Up Bone Mineral Metabolism Outpatient Referral Routine Osteopenia of multiple sites Expected: 09/19/2025, Expires: 10/19/2025 documented as of this encounter Visit Diagnoses Diagnosis Osteopenia of multiple sites- Primary Hypervitaminosis D Osteochondrosis of lunate, unspecified laterality documented in this encounter Additional Health Concerns Assessment Noted Time A fall risk assessment has been complete d for the patient 09/19/2024 3:50 PM EDT A Body Mass Index follow-up plan has been documented for the patient 09/19/2024 4:33 PM EDT documented as of this encounter Care Teams Securities Lending Trader Relationship Specialty Start Date End Date Edouard Giron MD [address] [place] [address] PCP - General 08/03/20 documented as of this encounter
--- OUTSIDE RECORDS SUMMARY | 2024-09-20 07:45 | XMS_ITS ---
Author Organization [facility] Address [address] [place] [id number] Care Team Providers Care Cafeteria Worker Name Role Phone Mo Gironian Primary Care [...] Duration) Notes Start Date End Date Status Hvgpedtnc-Kbmkpfmo-EL 30-1-20 MG/5ML 5 ml as needed Orally [...] Omeprazole 40 MG TAKE 1 CAPSULE BY [facility] ONCE DAILY; Duration: 90 days Active Synthroid [...] orally once a day Active Vital Signs Weight 178 lbs 09/20/2024 Blood pressure systolic 132 mm Hg 09/21/19 25 Blood pressure diastolic 92 mm Hg 025 Heart Rate 92 /min 09/20/2024 Height 64.75 in 09/20/2024 BMI 29.85 kg/m2 09/20/2024 Encounters Encounter Location Date Provider Diagnosis [facility] [address] [facility] [address] [place], [place] [id number] 09/20/2024 Edouard Giron Essential hypertensi on I10 [...] [address], [address], [place], [id number], Progress Notes * Fay HUNTOB:[birth year] (79 yo F)Acc No.[id number]:09/20/2024 Progress Notes Patient: Aggie ARMSTRONG Provider: Katy Giron M.D. :1945 A ge:79 Y S ex:Female Date:09/20/2024 Address:[address] [place] [address], [place], [id number] Subjective: * Chief Complaints: * 1 . [...] , Forehead Pre Cancerous Lesion Removal , [place] Teeth Extracted , Eye Lid 12/2012, LT [...] eye Ophthalmic Twice a day , Not-Taking Xclrpugzr-Dujznelf-JF 30-1-20 MG/5ML Liquid 5 ml as needed [...] hypertension - I10 (Primary) 2 . B MD 29.0-29.9,adult - Z68.29 Plan: * Treatment: * Procedure Codes: G 2211 Complex e/m visit add on, 1036F TOBACCO NON-USER, G8420 BMI<30 AND >=22 CALC & DOCU, G8950 PREHTN/HTN BP DOC INDCD F/U DOC, G8752 MOST RECENT SYSTOLIC BP < 140MM HG, G8755 MOST RECENT DIASTOLIC BP >= 90MM HG * Follow Up: 1 Week * Images: Billing Information: * Visit Code: 24325 Office Visit, Est Pt., Level 3. * Procedure Codes: G2211 Complex e/m visit add on. 1036F TOBACCO NON-USER. G8420 BMI<30 AND >=22 CALC & DOCU. G8950 PREHTN/HTN BP DOC INDCD F/U DOC. G8752 MOST RECENT SYSTOLIC BP < 140MM HG. G8755 MOST RECENT DIASTOLIC BP >= 90MM HG. * Electronic signature of Yuly Giron MD on 11/16/2024 at 02:56 PM EDT Sign off status: Pending * Provider: Katy Giron M.D. Date: 09/20/2024 Generated for Jim yun/Alicia/eTransmitting on: 11/16/2024 02:56 PM EDT History and Physical Notes * HPI [...]
--- OUTSIDE RECORDS SUMMARY | 2024-09-27 06:30 | XMS_ITS ---
Author Organization [facility] Address [address] [place] [phone] Care Team Providers Care Line Manager Name Role Phone Mo Gironian Primary [...] once a day Active Vital Signs Weight 181.4 lbs 09/27/2024 Blood pressure systolic 160 mm Hg 09/28/19 25 Blood pressure diastolic 82 mm Hg 025 Heart Rate 80 /min 09/27/2024 Height 64.75 in 09/27/2024 BMI 30.42 kg/m2 09/27/2024 Encounters Encounter Location Date Provider Diagnosis [facility] [address] [place], [place] [id number] 09/27/2024 Edouard Giron Primary hypertension I10 Assessments [...] [address], [address], [place], [place], [phone], Progress Notes * Fay HUNTOB:[birth year] (79 yo F)Acc No.[id number]:09/27/2024 Patient: Aggie ARMSTRONG Provider: Katy Giron M.D. :1945 A ge:79 Y S ex:Female Date:09/27/2024 Address:[address] [place] [address], [place], [id number] Subjective: * Chief Complaints: * 1 . [...] , Forehead Pre Cancerous Lesion Removal , [place] Teeth Extracted , Eye Lid 12/2012, LT [...] eye Ophthalmic Twice a day , Discontinued Ccelswolw-Sjxfiblf-MW 30-1-20 MG/5ML Liquid 5 ml as needed [...] * Images: Billing Information: * Visit Code: 19610 Office Visit, Est Pt., Level 3. * Procedure Codes: G2211 Complex e/m visit add on. 1036F TOBACCO NON-USER. G8950 PREHTN/HTN BP DOC INDCD F/U DOC. G8753 MOST RECENT SYSTOLIC BP >= 140MM HG. G8754 MOST RECENT DIASTOLIC BP < 90MM HG. * Electronic signature of Yuly Giron MD on 11/16/2024 at 02:58 PM EDT Sign off status: Pending * Provider: Katy Giron M.D. Date: 0 09/27/2024 Generated for Jim yun/Alicia/Emilismitting on: 0 11/16/2024 02:58 PM EDT History and Physical Notes * [...]
--- OUTSIDE RECORDS SUMMARY | 2024-11-16 14:56 | XMS_ITS | Encounter Summary ---
Author Organization [facility] [employer] ([place], [place], [place], [place]) Address [address] [place] [address] Care Team Providers Care Law Writer Name Role Phone Edouard Giron MD Primary Care Provider + [phone] Encounter Details Date Type Department Care Team (Late st Contact Info) Description 09/16/2018 Transcribed Document [facility] [address] [place] [address] ProviderRenato MD [address] [place] [address] Social History Tobacco Use Types Packs/Day Years Used Date Smoking Tobacco: Never Assessed Comments Unknown Sex and Gender Information Value Date Recorded Sex Assigned at Not on file Legal Sex Female 4:29 PM CDT Gender Identity Not on file Sexual Orientation Not on file documented as of this encounter Miscellaneous Notes * Cerner Conversion Note - Renato ProviderMD - 09/16/2018 8:50 AM CDT [address] [address] AGGIE HUNT :1945 Visit Time:09/16/2018 [...] See procedure report for recommendations [facility]: [address] [facility] [address] [place] [id number]- Medications What How Much When Instructions Next [...] 1 Tablet(s) Oral Every Day vitamin A 54744v Oral Every Day vitamin E 500 Milligram(s) [...] soft and easy to digest. ??? Take sktq-vfz-aiytnau or prescription medicines only as told by [...] 04/11/2011 Document Revised: 01/07/2018 Document Reviewed: 12/01/2016 Insticator Interactive Patient Education ?? 2019 [employer] Inc. Colon Polyps Polyps are tissue growths [...] 12/03/2004 Document Revised: 08/14/2016 Document Reviewed: 01/28/2016 Insticator Interactive Patient Education ?? 2019 [employer]. Diverticulosis Diverticulosis is a condition that [...] getting enough exercise. ??? Smoking. ??? Taking qklo-efz-lfkrhdr pain medicines, like aspirin and ibuprofen. ??? [...] health care provider or your diet and nutrition aides teacher (dietitian). ? Take a fiber supplement or probiotic, if your health care provider approves. ??? Take fcre-ywf-qyfbtct and prescription medicines only as told by [...] 12/04/2004 Document Revised: 01/26/2017 Document Reviewed: 01/26/2017 Insticator Interactive Patient Education ?? 2019 [employer]. Hemorrhoids Hemorrhoids are swollen veins in [...] times a day. General instructions ??? Take duyr-yhu-trjwevh and prescription medicines only as told by [...] 12/16/2008 Document Revised: 08/14/2016 Document Reviewed: 11/21/2015 Insticator Interactive Patient Education ?? 2019 [employer] Inc. Emergency Awareness and Preventative Care STROKE [...] Assistance with quitting is available by contacting 9-770-LMEGNOW. This is a free resource providing counseling, [...] Other Results This Visit Patient Name:AGGIE HUNT I have received this information and was given the opportunity to ask questions. Patient/Street Photographer Name: Patient/Street Photographer Signature: Relationship to Patient: Clinician/Hospital Street Photographer Signature: Date: Electronically signed by Kaleb, Neida Conversion Release And Technical Records Clerk Cerner at 07/08/2022 12:01 PM CDT documented in this encounter Plan of Treatment Upcoming Encounters Date Type Department Care Team (Late st Contact Info) Description 11/23/2024 1:45 PM EDT Appointment [address] [address] documented as of this encounter Visit Diagnoses Not on filedocumented in this encounter Care Teams Law Writer Relationship Specialty Start Date End Date Edouard Giron MD [address] [facility] [address] [place] [address] PCP - General Family Medicine 11/17/22 documented as of this encounter
--- OUTSIDE RECORDS SUMMARY | 2024-11-16 14:56 | XMS_ITS | Encounter Summary ---
Author Organization [employer] ([place], [place], [place], [place]) Address [address] [place] [address] Care Team Providers Care Manager Furniture Name Role Phone Edouard Giron MD Primary Care Provider + [phone] Encounter Details Date Type Department Care Team (Late st Contact Info) Description 09/16/2018 Transcribed Document [facility] [place] [address] [place] [address] ProviderRenato MD [address] [place] [address] Social History Tobacco Use Types Packs/Day Years Used Date Smoking Tobacco: Never Assessed Comments Unknown Sex and Gender Information Value Date Recorded Sex Assigned at Not on file Legal Sex Female 4:29 PM CDT Gender Identity Not on file Sexual Orientation Not on file documented as of this encounter Miscellaneous Notes * Cerner Conversion Note - Renato ProviderMD - 09/16/2018 7:59 AM CDT [facility] PACU Summary Primary Physician: ERNIE SANTORO MD-GAE Finalized Date/Time: 09/16/18 08:56:16 Pt. Name: AGGIE HUNT.O.B./Sex: 1945 Female Med Rec #: [id number] Physician: ERNIE SANTORO MD-GAE Financial #: [id number] Pt. Type: O Room/Bed: EEN/2 Admit/Disch: 09/16/18 06:44:00 - Institution: [facility] PACU Case Times Entry 1 In PACU I 09/16/18 08:26:00 Ready for PACU 09/16/18 08:56:00 Discharge Discharge from PACU 09/16/18 08:56:00 I [facility] PACU Case Times Audit 09/16/18 08:56:12 Handkerchief Presser: MARTÍNEZ Modifier: MARTÍNEZ <+> 1 Ready for PACU Discharge <+> 1 Discharge from PACU I Finalized By: ONELIA Mandujano RN Document Signatures Signed By: ONELIA Mandujano RN 09/16/18 08:56 Electronically signed by Kaleb [facility] Conversion News Anchor Cerner at 07/08/2022 11:59 AM CDT documented in this encounter Plan of Treatment Upcoming Encounters Date Type Department Care Team (Late st Contact Info) Description 11/23/2024 1:45 PM EDT Appointment [address] [address] documented as of this encounter Visit Diagnoses Not on filedocumented in this encounter Care Teams Manager Furniture Relationship Specialty Start Date End Date Edouard Giron MD [address] [facility] [address] [place] [address] PCP - General Family Medicine 11/17/22 documented as of this encounter
--- OUTSIDE RECORDS SUMMARY | 2024-11-16 14:56 | XMS_ITS | Encounter Summary ---
Author Organization [employer] ([place], [place], [place], [place]) Address [address] [place] [address] Care Team Providers Care Economic Analyst Name Role Phone Edouard Giron MD Primary Care Provider + [phone] Encounter Details Date Type Department Care Team (Late st Contact Info) Description 09/16/2018 Transcribed Document [facility] [place] [address] [place] [address] ProviderRenato MD [address], [place] [id number] Social History Tobacco Use Types Packs/Day Years Used Date Smoking Tobacco: Never Assessed Comments Unknown Sex and Gender Information Value Date Recorded Sex Assigned at Not on file Legal Sex Female 4:29 PM CDT Gender Identity Not on file Sexual Orientation Not on file documented as of this encounter Miscellaneous Notes * Cerner Conversion Note - Renato ProviderMD - 09/16/2018 7:29 AM CDT Pre Procedure Adult Entered On: 09/16/2018 7:39 EDT Performed On: 09/16/2018 7:29 EDT by Lanny Cohen RN Height and Weight, Clinical Dosing Height Source : Stated Height Entry Format : [place] Height, Feet : 5 ft(Converted to: 152 cm, 60 Inch) Height, Inches : 4 Inch(Converted to: 0 ft 4 Inch, 10.16 cm) Clinical Height : 162.56 cm Weight Source : Standing scale Weight Entry Format : [place] Clinical Dosing Weight : 78.73 kg Weight, Pounds : 173.2 lb Body Surface Area (BSA) : 1.84 m2 Body Mass Index : 29.8 kg/m2 (HI) [place] Body Weight : 54 kg Lanny Cohen [...] Arrival on Unit : Ambulatory Support Person/Patient Frame Stripper And Crusher : Yes Support Person/Pt Rep Name : Rui (spouse) Patient's Support Person/Pt Rep Contact Information : [phone] Want Family/Rep/Phys Notified of Admit : Yes Name/Contact Info Fam/Rep Notified Adm : RUI Name/Contact Info Physician Notified Adm : EDOUARD GIRON Emergency Contact #1 : RUI Emergency Contact #1 Emergency Contact #1 Relationship : Emergency Contact #2 : NA Emergency Contact #2 Phone Number : NA Emergency Contact #2 Relationship : NA Primary Language : Sri Lankan Communication Barrier : None Lanny Cohen RN [...] Scale Risk Level : 0-24 Low Risk [place] Fall Interventions : Adequate lighting, Bed in [...] Info) Description 11/23/2024 1:45 PM EDT Appointment [address] [place] [address] documented as of this encounter Visit Diagnoses Not on filedocumented in this encounter Care Teams Economic Analyst Relationship Specialty Start Date End Date Edouard Giron MD [address] [facility] [address] [place] [id number] PCP - General Family Medicine 11/17/22 documented as of this encounter
--- OUTSIDE RECORDS SUMMARY | 2024-11-16 14:56 | XMS_ITS | Encounter Summary ---
Author Organization [employer] ([place], [place], [place], [place]) Address [address] [place] [address] Care Team Providers Care Commercial Loan Officer Name Role Phone Edouard Giron MD Primary Care Provider + [phone] Encounter Details Date Type Department Care Team (Late st Contact Info) Description 09/16/2018 Transcribed Document [facility] [place] Medicine [address] [place] [address] ProviderRenato MD [address], [place] [id number] Social History Tobacco Use Types Packs/Day Years [...] soft and easy to digest. ??? Take afnz-hdl-nnkaybn or prescription medicines only as told by [...] 04/11/2011 Document Revised: 01/07/2018 Document Reviewed: 12/01/2016 ElseScuttledog Interactive Patient Education ? 2019 Mediamind Inc. Colon Polyps Polyps are tissue growths [...] 12/03/2004 Document Revised: 08/14/2016 Document Reviewed: 01/28/2016 Mediamind Interactive Patient Education ? 2019 [employer] Inc. Diverticulosis Diverticulosis is a condition that [...] getting enough exercise. ??? Smoking. ??? Taking nmqm-hnp-yjnnmji pain medicines, like aspirin and ibuprofen. ??? [...] health care provider or your diet and security specialist (dietitian). ? Take a fiber supplement or probiotic, if your health care provider approves. ??? Take rtyx-owr-nerxstj and prescription medicines only as told by [...] 12/04/2004 Document Revised: 01/26/2017 Document Reviewed: 01/26/2017 Mediamind Interactive Patient Education ? 2019 [employer] Inc. Hemorrhoids Hemorrhoids are swollen veins in [...] times a day. General instructions ??? Take kicg-fhy-aebvgpb and prescription medicines only as told by [...] 12/16/2008 Document Revised: 08/14/2016 Document Reviewed: 11/21/2015 ElseScuttledog Interactive Patient Education ? 2019 Sym[employer]ified. documented in this encounter Plan of Treatment Upcoming Encounters Date Type Department Care Team (Late st Contact Info) Description 11/23/2024 1:45 PM EDT Appointment [address] [place] [address] documented as of this encounter Visit Diagnoses Not on filedocumented in this encounter Care Teams Commercial Loan Officer Relationship Specialty Start Date End Date Edouard Giron MD 12[address] [facility] [address] [place] [address] PCP - General Family Medicine 11/17/22 documented as of this encounter
--- OUTSIDE RECORDS SUMMARY | 2024-11-16 14:56 | XMS_ITS | Encounter Summary ---
Author Organization [employer] ([place], [place], [place], [place]) Address [address] [place] [address] Care Team Providers Care Manager Bank Name Role Phone Edouard Giron MD Primary Care Provider + [phone] Encounter Details Date Type Department Care Team (Late st Contact Info) Description 09/19/2021 Transcribed Document [facility] [place] Medicine [address] [place] [address] ProviderRenato MD [address] [place] [address] Social History Tobacco Use Types Packs/Day Years Used Date Smoking Tobacco: Never Assessed Family and Community Support Answer Patrick e Recorded Help with Day to Day Activities Not on file 04/10/2023 Feeling Lonely or Isolated Not on file 04/10 Educational Attainment Answer Date Rupesh rded Speak language other than Andorran at home Not on file 04/10/2023 Want help with school or training Not on file 04/10/2023 Substance Use Answer Date Recorded Used [...] Source : Stated Height Entry Format : [place] Height, Feet : 0 ft(Converted to: 0 cm, 0 Inch) Height, Inches : 64 Inch(Converted to: 5 ft 4 Inch, 162.56 cm) Clinical Height : 162.56 cm Weight Source : Standing scale Weight Entry Format : [place] Clinical Dosing Weight : 79.82 kg Weight, Pounds : 175.6 lb Body Surface Area (BSA) : 1.85 m2 Body Mass Index : 30.2 kg/m2 (HI) Walker Body Weight : 54 kg ONELIA Mandujano [...] (Last Updated: 09/05/2013 07:37:27 EDT by JOHNATHON COOK, VERONICA) Alcohol: Use in Last 12 Months: Yes. (Last Updated: 09/05/2013 07:37:33 EDT by JOHNATHON COOK, VERONICA) Alcohol Use History No. Alcohol Use Frequency Rarely. (Last Updated: 09/19/2021 08:04:14 EDT by ONELIA Mandujano RN) Substance Abuse: Drug Use Hx: No. Use in Last 12 Months: No. (Last Updated: 09/16/2018 07:32:05 EDT by Lanny Cohen RN) Nutrition/Health: Caffeine intake amount: 1. (Last Updated: 09/05/2013 07:37:53 EDT by JOHNATHON COOK, VERONICA) Infectious Disease History Does patient have symptoms [...] INF Disease Recent Travel Calc : 0 ONELIA Mandujano RN - 09/19/2021 8:03 EDT COVID19 PreProcedure [...] ONELIA Mandujano RN - 09/19/2021 8:03 EDT [place] Suicide Severity Rating Scale (C-SSRS) CSSRS Past [...] 09/19/2021 8:03 EDT General Info Support Person/Patient Inside Barrel Polisher : Yes Support Person/Pt Rep Name : Jamel (spouse) Patient's Support Person/Pt Rep Contact Information : [phone] Want Family/Rep/Phys Notified of Admit : Yes Name/Contact Info Fam/Rep Notified Adm : na Name/Contact Info Physician Notified Adm : Edouard Giron Emergency Contact #1 : Normal [place] Emergency Contact #1 Emergency Contact #1 Relationship : spouse Emergency Contact #2 : none Emergency Contact #2 Phone Number : none Emergency Contact #2 Relationship : none Information Obtained From : Patient Primary Language : Andorran Communication Barrier : None Dealer Card Room Needed : No Objects to Sharing Info [...] Scale Risk Level : 0-24 Low Risk [place] Fall Interventions : Adequate lighting, Bed in [...] - 09/19/2021 8:03 EDT Electronically signed by [facility], [facility] Conversion Polymer Engineer Cerner at 07/08/2022 11:48 AM CDT documented in this encounter Plan of Treatment Upcoming Encounters Date Type Department Care Team (Late st Contact Info) Description 11/23/2024 1:45 PM EDT Appointment [address] [place] [address] documented as of this encounter Visit Diagnoses Not on filedocumented in this encounter Care Teams Manager Bank Relationship Specialty Start Date End Date Edouard Giron MD [address] [facility] [address] [place] [address] PCP - General Family Medicine 11/17/22 documented as of this encounter
--- OUTSIDE RECORDS SUMMARY | 2024-11-16 14:56 | XMS_ITS | Encounter Summary ---
Author Organization [employer] ([place], [place], [place], [place]) Address [address] [place] [address] Care Team Providers Care Proposal Lead Writer Name Role Phone Edouard Giron MD Primary Care Provider + [phone] Encounter Details Date Type Department Care Team (Late st Contact Info) Description 09/16/2018 Transcribed Document [facility] [place] [address] [place] [address] ProviderRenato MD [address] [place] [address] Social History Tobacco Use Types Packs/Day Years [...] Histories Past Medical History: Active Seasonal allergies (310255899) Arthritis (0476163) Resolved Asthma (340008055): Resolved. Procedure history: Dental surgical procedure (661716284). Tonsillectomy (374442525). Cholecystectomy (63602971). Bladder surgery. Dilation and curettage (09662441). Blephaplasty. Cyst removed from right finger. Social [...] Refill(s) Non Formulary Medication: one dose, SubCutaneous, N3Bpwsz, Allergy injection, 0 Refill(s) ProAir HFA 90 mcg/inh inhalation aerosol: Puff, Inhalation, QID, PRN: as needed for wheezing, 0 Refill(s) Vitamin D2: 1400u, Oral, Daily, 0 Refill(s) aspirin: 81 mg, Oral, Daily, 0 Refill(s) magnesium oxide: 400 mg, Oral, Daily, 0 Refill(s) potassium chloride-sodium chloride: 750 mg, Oral, Daily, 0 Refill(s) vitamin A: 57193w, Oral, Daily, 0 Refill(s) vitamin E: 500 mg, Oral, Daily, 0 Refill(s) zolpidem 10 mg oral tablet: 1 Tab, Oral, At Bedtime, PRN: for sleep, 0 Refill(s), Medications (1) Active Scheduled: (0) Continuous: (1) NaCl 0.9% 1,000 mL 1,000 mL, IntraVENous, 100 mL/Hr PRN: (0) Problem list: All Problems Acute vaginitis / SNOMED CT 23573916 / Confirmed Arthritis / SNOMED CT 4453386 / Confirmed H/O hyperlipidemia / SNOMED CT 378051065 / Confirmed Seasonal allergies / SNOMED CT 186310069 / Confirmed Resolved: Asthma / SNOMED CT 354384669, Active Problems (4) Acute vaginitis Arthritis H/O [...] Temp 97.8 (SEP 16 07:40) 97.8 (SEP 16 07:40) 97.8 (SEP 16 07:40) Mon HR 62 [...] No deformity, Normal gait. Integumentary: Warm, Dry, [place], No rash. Integumentary exam: Face, Chest, Arm, [...] Evens Pham PA-C for Dr. Mayi Payne. Electronically signed by [facility], [facility] Conversion Blooming Mill Supervisor Cerner at 07/08/2022 11:59 AM CDT documented in this encounter Plan of Treatment Upcoming Encounters Date Type Department Care Team (Late st Contact Info) Description 11/23/2024 1:45 PM EDT Appointment [address] [place] [address] documented as of this encounter Visit Diagnoses Not on filedocumented in this encounter Care Teams Proposal Lead Writer Relationship Specialty Start Date End Date Edouard Giron MD 1210 [facility] [address] [place] [address] PCP - General Family Medicine 11/17/22 documented as of this encounter
--- OUTSIDE RECORDS SUMMARY | 2024-11-16 14:56 | XMS_ITS | Encounter Summary ---
Author Organization [employer] ([place], [place], [place], [place]) Address [address] [place] [address] Care Team Providers Care Woolen Suiting Shrinker Name Role Phone Edouard Giron MD Primary Care Provider + [phone] Encounter Details Date Type Department Care Team (Late st Contact Info) Description 09/16/2018 Transcribed Document [facility] [place] [address] [place] [address] ProviderRenato MD [address] [place], [place] [address] Social History Tobacco Use Types Packs/Day Years [...] Finalized Date/Time: 09/16/18 09:44:03 Pt. Name: AGGIE HUNT.O.B./Sex: 1945 Female Med Rec #: [id number] Physician: ERNIE SANTORO MD-GAE Financial #: [id number] Pt. Type: O Room/Bed: EEN/2 Admit/Disch: 09/16/18 06:44:00 - Institution: [facility] [place] - Case Attendance Entry 1 Entry 2 Entry 3 Case Attendee ERNIE SANTORO MD-MELVI MAGANA, RN CAMELIA MARTINEZ, MAJOR GIFTS MANAGER Role Performed Surgeon/Proceduralist, Keycase Assembler, First MAJOR GIFTS MANAGER/Nurse Staffing Mgr First Time In 09/16/18 07:50:00 09/16/18 07:50:00 09/16/18 07:50:00 Time Out 09/16/18 08:24:00 09/16/18 08:24:00 09/16/18 08:24:00 Procedure Colonoscopy, Colon Colonoscopy, Colon Colonoscopy, Colon Polypectomy Polypectomy Polypectomy Other Attendee Superficial Wound Closed By: Last Modified By: MELVI RANGEL, RN MELVI RANGEL, RN MELVI RANGEL RN 09/16/18 08:22:51 09/16/18 08:22:51 09/16/18 08:22:51 Entry 4 Case Attendee TESSA KHAN Role Performed Scrub, First Time In 09/16/18 07:54:00 Time Out 09/16/18 08:24:00 Procedure Colonoscopy, Colon Polypectomy Other Attendee Superficial Wound Closed By: Last Modified By: MELVI RANGEL RN 09/16/18 08:22:51 [facility] - Case Attendance Audit 09/16/18 08:22:51 Density Control Puncher: JUAN CARLOSKJ Modifier: JUAN CARLOSKJ 1 <+> Time Out 1 <*> Procedure Colonoscopy, Colon Polypectomy 2 <+> Time Out 2 <*> Procedure Colonoscopy, Colon Polypectomy 3 <+> Time Out 3 <*> Procedure Colonoscopy, Colon Polypectomy 4 <+> Time Out 4 <*> Procedure Colonoscopy, Colon Polypectomy 09/16/18 08:08:53 Density Control Puncher: JUAN CARLOSKJ Modifier: JUAN CARLOSKJ 1 <*> Procedure Colonoscopy 2 <*> Procedure Colonoscopy 3 <*> Procedure Colonoscopy 4 <*> Procedure Colonoscopy 09/16/18 07:54:32 Density Control Puncher: JUAN CARLOSKJ Modifier: JUAN CARLOSKJ 4 <*> Time In 09/16/18 07:54:00 4 <*> Procedure Colonoscopy [facility] - Case Times Entry 1 Patient In Room Time 09/16/18 07:50:00 Out Room Time 09/16/18 08:24:00 Anesthesia Start Time 09/16/18 07:50:00 Stop Time 09/16/18 08:24:00 Anesthesia Ready 09/16/18 07:52:00 Surgery / Procedure Times Start Time 09/16/18 07:59:00 Stop Time 09/16/18 08:22:00 Last Modified By: MELVI RANGEL RN 09/16/18 08:22:47 [facility] - Case Times Audit 09/16/18 08:22:47 Density Control Puncher: JUAN CARLOSKJ Modifier: JUAN CARLOSKJ <+> 1 Out Room Time <+> 1 Stop Time <+> 1 Stop Time 09/16/18 08:06:09 Density Control Puncher: YONGJ Modifier: JUAN CARLOSKJ <+> 1 Start Time [...] Risk Yes Assessment Complete Fire Risk MELVI RANGEL, green marketer Verified By Fire Risk 09/16/18 07:53:00 Assessment Verified Date/Time Fire Risk High Risk Protocol Yes Implemented Standard Fire Yes Safety Precautions Followed Last Modified By: MELVI RANGEL RN 09/16/18 07:53:07 [facility] Endo - General Case Clerical Office 1 Case Information OR Endo 02 [facility] Case Level 1 Room Verified Yes Wound Class III - Contaminated Specialty SN Gastroenterology Anesthesia Type MAC ASA Class 2 Diagnosis Preop Diagnosis Z86.010 history of polyps Postop Same As Preop No Postop Diagnosis polyps, diverticulosis, hemorrhoids Last Modified By: MELVI RANGEL RN 09/16/18 08:22:37 [facility] Endo - General Case Data Audit 09/16/18 08:22:37 Density Control Puncher: MADHU Modifier: MADHU 1 <*> Postop Diagnosis polyps, diverticulosis, hemorrhoids 09/16/18 08:12:30 Density Control Puncher: MADHU Modifier: MADHU <+> 1 Postop Diagnosis [facility] Endo - Intraoperative Assessment Entry 1 Valid [...] Endo - Intraoperative Equipment Audit 09/16/18 07:54:50 Density Control Puncher: MADHU Modifier: MADHU <+> 1 Photo <+> 1 Video <+> 1 Blood Pressure Location <+> 1 Pulse Oximeter Probe Site <+> 1 Flexible Endoscopes Used <+> 1 Scope Serial Number/Identification Number [facility] Endo - Patient Positioning Entry 1 Procedure [...] Endo - Patient Positioning Audit 09/16/18 08:08:54 Density Control Puncher: JUAN CARLOSElmaJ Modifier: YONGJ 1 <*> Procedure Colonoscopy [facility] Endo - Sign In Entry 1 Patient, Site, Yes Procedure Identified Surgical Consent Yes Confirmed Surgical Site N/A Marked by person performing procedure Allergies Yes Airway Hypothermia Risk No Warming Measures No Taken Last Modified By: MELVI RANGEL RN 09/16/18 07:54:09 [facility] - Sign Out Entry 1 RN [...] Modified By: MELVI RANGEL RN 09/16/18 08:23:44 [facility] - Sign Out Audit 09/16/18 08:23:44 Density Control Puncher: JUAN CARLOSKJ Modifier: YONGJ <+> 1 RN Sign Out Signature Date/Time <+> 1 Urinary Catheter Documented in IView E Endo - Surgical Procedures Entry 1 Entry [...] KAREN J., RN 09/16/18 08:23:01 09/16/18 08:23:01 [facility] Endo - Surgical Procedures Audit 09/16/18 08:23:01 Density Control Puncher: MADHU Modifier: MADHU <+> 1 Stop <+> 2 Stop 09/16/18 08:08:48 Density Control Puncher: MADHU Modifier: MADHU 1 <*> Procedure Colonoscopy 1 <+> Start 1 <+> Physician States Cecum Reached <+> 2 Procedure <+> 2 Primary Procedure <+> 2 Primary Surgeon <+> 2 Specialty <+> 2 Start <+> 2 Wound Class <+> 2 Anesthesia Type <+> 2 Physician States Cecum Reached 09/16/18 07:55:14 Density Control Puncher: MADUH Modifier: MADHU 1 <*> Procedure Colonoscopy 1 <+> Specialty [facility] Endo - Time Out Entry 1 Procedure [...] Endo - Time Out Audit 09/16/18 08:08:55 Density Control Puncher: MADHU Modifier: MADHU 1 <*> Procedure to [...] Info) Description 11/23/2024 1:45 PM EDT Appointment [address] [place] [address] documented as of this encounter Visit Diagnoses Not on filedocumented in this encounter Care Teams Woolen Suiting Shrinker Relationship Specialty Start Date End Date Edouard Giron MD [address] [address] [place] [address] PCP - General Family Medicine 11/17/22 documented as of this encounter
--- OUTSIDE RECORDS SUMMARY | 2024-11-16 14:56 | XMS_ITS | Encounter Summary ---
Author Organization [employer] ([place], [place], [place], [place]) Address [address] [place] [address] Care Team Providers Care Multimedia Engineer Name Role Phone Edouard Giron MD Primary Care Provider + [phone] Encounter Details Date Type Department Care Team (Late st Contact Info) Description 09/16/2018 Transcribed Document [facility] Family Medicine [address] [place] [address] ProviderRenato MD [address] [place], [place] [id number] Social History Tobacco Use Types Packs/Day Years [...] Finalized Date/Time: 09/16/18 07:47:09 Pt. Name: AGGIE HUNT.O.B./Sex: 1945 Female Med Rec #: [id number] Physician: ERNIE SANTORO MD-GAE Financial #: [id number] Pt. Type: O Room/Bed: EEN/2 Admit/Disch: 09/16/18 06:44:00 - Institution: [facility] [place] PreOp Case Times Entry 1 In Preop 09/16/18 07:25:00 Ready for Holding 09/16/18 07:46:00 Room Patient Ready for 09/16/18 07:47:00 Surgery Patient Out of Preop 09/16/18 07:47:00 Patient Out of 09/16/18 07:47:00 Holding Room [facility] PreOp Case Times Audit 09/16/18 07:47:05 Sanitary Chemist: FERMIN Modifier: [email or web address] <+> 1 Patient Out of Preop <+> 1 Patient Ready for Surgery <+> 1 Ready for Holding Room <+> 1 Patient Out of Holding Room Finalized By: Lanny Cohen RN Document Signatures Signed By: Lanny Cohen RN 09/16/18 07:47 documented in this encounter Plan of Treatment Upcoming Encounters Date Type Department Care Team (Late st Contact Info) Description 11/23/2024 1:45 PM EDT Appointment [address] [place] [address] documented as of this encounter Visit Diagnoses Not on filedocumented in this encounter Care Teams Multimedia Engineer Relationship Specialty Start Date End Date Edouard Giron MD [address] [facility] [address] [place] [address] PCP - General Family Medicine 11/17/22 documented as of this encounter
--- OUTSIDE RECORDS SUMMARY | 2024-11-16 14:57 | XMS_ITS | Clinical Summary ---
Author Organization [facility] Address [address] [place] [address] Care Team Providers Care Certified Family Mediator Name Role Phone Edouard Giron MD Primary Care Provider + [phone] Allergies Active Allergy Reactions Criticality Noted Date [...] time each day. 09/03/19 17 Active Multiple Vitamins-Northwest Arctic als (Womens Multi) capsule Take 1 capsule [...] 09/03/19 17 Active Vitamin A 3 MG (55917 UT) capsule 09/01/19 13 Active alpha tocopherol (Vitamin E) 400 units capsule 09/01/19 13 Active rosuvastatin (Crestor) 10 MG tablet 09/05/19 15 Active rosuvastatin (Crestor) 20 MG tablet 08/06/19 25 Active Active Problems Problem Noted Date Diagnosed [...] limited due to covid. 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 Assessment & Plan (08/28/2020 3:26 PM EDT): Relevant Hx: ongoing L wrist pain Daily Update: no new fx Today's Plan: Cont f/u with pcp Encounters Date Type Department Care Team Description 09/19/2024 4:00 PM EDT Office Visit [facility] [address], [address] [place] [address] Yassine Pizarro, PA Osteopenia of multiple sites (Primary Dx); Hypervitaminosis D; Osteochondrosis of lunate, unspecified laterality 09/19/2024 3:02 PM EDT - 09/19/2024 11:59 PM EDT Hospital Encounter Professional [facility] [address], [address] [place] [address] Osteopenia of multiple sites Discharge Disposition: Home or Self Care 09/19/2024 Travel 08/29/2024 Travel 08/18/2024 Travel from Last 3 Months Immunizations Immunization Administration Dates Next Due Hep B, adult 08/04/2000,03/06/2000,02/05/2000 Influenza, high-dose, quadrivalent 12/07,11/29/2019,12/28/2018,12/10,12/02/2016 Influenza, seasonal, injectable 12/17/2016,12/27 Influenza, seasonal, injecta ble, preservative free 12/17/2009 Pneumococcal Polysaccharide PPV23 02/22/2021 Rsvpref, Recombinant, Protei n Subunit, Adjuvent 02/27/2023 Zoster, Recombinant 05/10/2018,01/30/2018 Family History Medical History Relation Name Comments [...] F) 09/19/2024 3:41 PM EDT Respiratory Rate 18 09/01/2022 1:34 PM EDT Oxygen Saturation 97% 09/19/2024 3:4 1 PM EDT Inhaled Oxygen Concentration - - Weight 81.8 kg (180 lb 5.4 oz) 09/19/2024 3:41 PM EDT Height 163.8 cm (5' 4.5 ) 09/19/2024 3: 41 PM EDT with shoes on Body Mass Index 30.48 09/19/2024 3:41 PM EDT Plan of Treatment Upcoming Encounters Date Type Department Care Team (Late st Contact Info) Description 08/29/2025 1:00 PM EDT Ovarian Cancer Screening [facility] [address] [place] [address] 09/05/2025 1:00 PM EDT Clinical Support [facility] [address] [place] [address] 09/19/2025 2:40 PM EDT Appointment [facility] [address], [address] [place] [address] 09/19/2025 3:00 PM EDT Office Visit [facility] [address], [address] [place] [address] Yassine Pizarro, SHAUNNA [address] [place] [address] Health Maintenance Due Date Last Done Comments [facility]-Hepatitis C Screening 1945 [facility]Medicare Annual Wellness (AWV) 1945 [facility]-/Child/Adol SDOH Screenings 1945 [facility]- SDOH Screenings 1963 [facility]-Adult SDOH Screenings 1963 [facility]-Depression Screening 08/31/2024 09/01/2023 [id number] Vaccine (7 - Moderna risk season) 2024 03/25/2024, 12/31/2021, 07/16/2021, Additional history exists [facility]-Influenza Vaccine (#1) 11/21/202412/07, 11/29/2019, 12/28/2018, Additional history exists [facility]-Bone Density Scan 09/19/2025 09/19/2024 , 09/01/2023, 09/01/2022, Additional history exists [facility]-DTaP,Tdap,and Td Vaccines (4 - Td or Tdap) 01/05/2034 01/06/2024, 12/12/2013, 07/03/2004 [facility]-Zoster Vaccines Completed 05/10/2018, 8 [facility]-Pneumococcal Vaccine: 50+ Years Completed 02/22/2021, 12/14/2015, 12/12/2013, Additional history exists [facility]-RSV Vaccine: 60+ Years or Completed 02/27/2023 [facility]-Obesity Intervention Completed 025, 09/01/2023, 09/01/2022 HPV Vaccines Aged Out No longer eligi [...] 9 PM EDT Osteopenia of multiple sites BONE SPECIFIC ALKALINE PHOSPHATASE Routine 08/29/2024 12:45 PM EDT Osteopenia of multiple sites C-TELOPEPTIDE Routine 08/29/2024 12:45 PM EDT Osteopenia of multiple sites RENAL FUNCTION PANEL, PLASMA Routine 08/29/2024 12:45 PM EDT Osteopenia of multiple sites VITAMIN D 25 HYDROXY Routine 08/29/2024 12:45 PM EDT Osteopenia of multiple sites from Last 3 Months Results * Dexa Bone Density (09/19/2024 2:19 PM EDT) Anatomical Region Laterality Modality L-spine Radiographic Zonia ging Narrative 10/01/2024 10:42 PM EDT [facility] [address] [place] [address] DXA Bone Densitometry Report: [Date of exam] BMD test performed using the [employer] DXA System (analysis version: 14.10) manufactured by [employer]. REFERRING PROVIDER: SHAUNNA Garcia CLINICAL INFORMATION: PATIENT NAME: Aggie Hunt PATIENT AGE: 79 y.o. LEGAL SEX: female [...] >20%) Consider repeat BMD in 2-3 years us [facility] IMG DXA PROCEDURES Final Resul t * Bone Specific Alkaline Phosphatase (08/29/2024 12:45 PM EDT) Bone Specific Alkaline Phosphatase 14.4 ug/L 08/29/2024 4:31 PM EDT [facility] Comment: BSAP (Ostase) Reference Values, Female, age 18 years and up: Premenopausal: 4.5 to 16.9 ug/L Postmenopausal: 7.0 to 22.4 ug/L Blood Venous blood specimen / Unknown Venipuncture / Unknown 08/29/2024 12:45 PM EDT 08/29/2024 12:45 PM EDT us [facility] REF LAB BLOOD AND FLUID OR D Final Result [facility] [address] [place] [address] * C-Telopeptide (08/29/2024 12:45 PM EDT) C Telopeptide Beta Cross Linked Serum Result 429 pg/mL 09/01/2024 12:49 PM EDT [facility] ([employer]) Blood Venous blood specimen / Unknown Venipuncture / Unknown 08/29/2024 12:45 PM EDT 08/29/2024 12:[address] [facility] [employer]) - 09/01/2024 12:49 PM EDT Premenopausal Females: 136-689 pg/mL Postmenopausal Females: 177-1015 pg/mL REFERENCE INTERVAL: C-Telopeptide, Cgkf-Faixn-Ibrotm, Serum Access complete set of age- and/or gender-specific reference intervals for this test in the [facility] Test Directory ([email or web address]). Performed By: [facility] [address] [place] [address] Aerospace Products Sales Engineer: Arsalan Elizabeth MD, PhD CLIA Number: [id number] us [facility] BLOOD ORDERABLES Final Res ult Performing Organization Address City/[facility]/ZIP Co de Phone Number [facility] [employer]) [address] [place] [address] * Vitamin D 25 Hydroxy (08/29/2024 12:45 PM EDT) Vitamin D 25 Hydroxy 59.8 20.0 - 80.0 ng/mL 08/29/2024 4:29 PM EDT [facility] Blood Venous blood specimen / Unknown Venipuncture / Unknown 08/29/2024 12:45 PM EDT 08/29/2024 12:45 PM EDT Narrative [facility] - 08/29/2024 4:29 PM EDT Testing performed on [employer] Net Coordinator, standardized against NIST SRM 2972. When testing [...] [facility] BLOOD ORDERABLES Final Res ult [facility] [address] [place] [address] * (ABNORMAL) Renal Function Panel, Plasma (08/29/2024 12:45 PM EDT) Glucose, Plasma 104(H) 74 - 99 mg/dL 08/29/2024 2:55 PM EDT [facility] BUN, Plasma 16 8 - 23 mg/dL 08/29/2024 2:55 PM EDT [facility] Creatinine, Plasma 0.65 0.60 - 1.10 mg/dL 08/29/2024 2:55 PM EDT [facility] BUN/Creatinine Ratio 25 08/29/2024 2:55 PM EDT [facility] Sodium, Plasma 135(L) 136 - 145 mmol/L 08/29/2024 2:55 PM EDT [facility] Potassium, Plasma 4.3 3.6 - 4.9 mmol/L 08/29/2024 2:55 PM EDT [facility] Chloride, Plasma 101 97 - 107 mmol/L 08/29/2024 2:55 PM EDT [facility] CO2, Plasma 24 22 - 29 mmol/L 08/29/2024 2:55 PM EDT [facility] Anion Gap 10 6 - 16 mmol/L 08/29/2024 2:55 PM EDT [facility] Total Calcium, Plasma 9.1 8.9 - 10.2 mg/dL 08/29/2024 2:55 PM EDT [facility] Phosphorus, Plasma 3.6 2.5 - 4.5 mg/dL 08/29/2024 2:55 PM EDT [facility] Albumin, Plasma 4.2 3.5 - 5.2 g/dL 08/29/2024 2:55 PM EDT [facility] eGFRcr 89.7 mL/min/1.7 3m*2 08/29/2024 2:55 PM EDT [facility] Comment:Reported eGFRcr in m L/min/1.73m2 is based the CKD-EPI 2020 equation that does not use a race coefficient. Blood Venous blood specimen / Unknown Venipuncture / Unknown 08/29/2024 12:45 PM EDT 08/29/2024 12:45 PM EDT us [facility] BLOOD ORDERABLES Final Res ult [facility] [address] [place] [address] from Last 3 [place] [address] [facility] [place] [address] [address] [facility] Care Teams Certified Family Mediator Relationship Specialty Start Date End Date Edouard Giron MD [address] [place] [address] PCP - General 08/03/20
--- OUTSIDE RECORDS SUMMARY | 2024-11-16 14:57 | XMS_ITS | Referral Summary ---
Author Organization [employer] ([place], [place], [place], [place]) Address [address] [place] [address] Care Team Providers Care Play Reader Name Role Phone Edouard Giron MD Primary Care Provider + [phone] Allergies Active Allergy Reactions Criticality Noted Date Comments Atorvastatin Anaphylaxis,Other (See Comments) High 08/23/2008 Dexbrompheniramine-Ps eudoephed Other (See Comments) Low 08/31/2012 Dexchlorpheniram-Phen ylephrine Other (See Comments) Low 08/23/2008 Diazepam Other (See Comments) Low 08/23/2008 Other reaction(s): Disorientation Ibuprofen Other (See Comments) Low 08/31/2012 Levofloxacin Other (See Comments) Low 08/31/2012 Penicillins Hives,Other (See Comments) High 08/23/2008 Rofecoxib Anaphylaxis,Rash,Ot her (See Comments) High 08/23/2008 Kdpuldnsq-Bg-Fft-Verde adonna Other (See Comments) 08/23/2008 1Replaced free [...] drink = 0.6 oz pur e alcohol) Family and Community Support Answer Patrick e Recorded Help with Day to Day Activities Not on file 04/10/2023 Feeling Lonely or Isolated Not on file 04/10 Educational Attainment Answer Date Rupesh rded Speak language other than Georgian at home Not on file 04/10/2023 Want [...] Info) Description 11/23/2024 1:45 PM EDT Appointment [address] [place] [address] Insurance [facility] MEDICARE PART A B Care Teams Play Reader Relationship Specialty Start Date End Date Edouard Giron MD [address] [facility] [address] [place] [phone] PCP - General Family Medicine 11/17/22
--- OUTSIDE RECORDS SUMMARY | 2024-11-16 14:57 | XMS_ITS | Encounter Summary ---
Author Organization [employer] ([place], [place], [place], [place]) Address [address] [place] [address] Care Team Providers Care Social Insurance Adviser Name Role Phone Edouard Giron MD Primary Care Provider + [phone] Encounter Details Date Type Department Care Team (Late st Contact Info) Description 09/19/2021 Transcribed Document [facility] [place] Family Medicine [address] [place] [address] ProviderRenato MD [address] [place] [address] Social History Tobacco Use Types Packs/Day Years Used Date Smoking Tobacco: Never Assessed Family and Community Support Answer Patrick e Recorded Help with Day to Day Activities Not on file 04/10/2023 Feeling Lonely or Isolated Not on file 04/10 Educational Attainment Answer Date Rupesh rded Speak language other than German at home Not on file 04/10/2023 Want [...] Miscellaneous Notes * Cerner Conversion Note - Historical MD Clara - 09/19/2021 9:07 AM CDT [facility] PACU Summary Primary Physician: ROSA GLASS MD Finalized Date/Time: 09/19/21 10:19:13 Pt. Name: AGGIE HUNT Coleman /Sex: 1945 Female Med Rec #: [id number] Physician: ROSA GLASS MD Financial #: [id number] Pt. Type: E Room/Bed: [facility] Admit/Disch: 09/19/21 07:30:00 - Institution: [facility] PACU Case Times Entry 1 In PACU I 09/19/21 09:40:00 Ready for PACU 09/19/21 10:16:00 Discharge Discharge from PACU 09/19/21 10:18:00 I Finalized By: Irlanda Berry MGR-NURSING Document Signatures Signed By: Irlanda Berry MGR-NURSING 09/19/21 10:19 documented in this encounter Plan of Treatment Upcoming Encounters Date Type Department Care Team (Late st Contact Info) Description 11/23/2024 1:45 PM EDT Appointment [address] [place] [address] documented as of this encounter Visit Diagnoses Not on filedocumented in this encounter Care Teams Social Insurance Adviser Relationship Specialty Start Date End Date Edouard Giron MD [address] [facility] [address] [place] [address] PCP - General Family Medicine 11/17/22 documented as of this encounter
--- OUTSIDE RECORDS SUMMARY | 2024-11-16 14:57 | XMS_ITS | Encounter Summary ---
Author Organization [employer] ([place], [place], [place], [place]) Address [address] [place] [address] Care Team Providers Care Community Center Worker Name Role Phone Edouard Giron MD Primary Care Provider + [phone] Encounter Details Date Type Department Care Team (Late st Contact Info) Description 09/19/2021 Transcribed Document [facility] [place] [address] [place] [address] ProviderRenato MD [address] [place] [address] Social History Tobacco Use Types Packs/Day Years Used Date Smoking Tobacco: Never Assessed Family and Community Support Answer Patrick e Recorded Help with Day to Day Activities Not on file 04/10/2023 Feeling Lonely or Isolated Not on file 04/10 Educational Attainment Answer Date Rupesh rded Speak language other than Pakistani at home Not on file 04/10/2023 Want [...] getting enough exercise. ??? Smoking. ??? Taking iyin-owo-pwgpunw pain medicines, like aspirin and ibuprofen. ??? [...] these instructions at home: Medicines ??? Take zksi-wvt-umyofic and prescription medicines only as told by your health care provider. ??? If told by your health care provider, take a fiber supplement or probiotic. Constipation prevention Your condition may cause constipation. To prevent or treat constipation, you may need to: ??? Drink enough fluid to keep your urine pale yellow. ??? Take dbkj-xhh-imwhtfd or prescription medicines. ??? Eat foods that [...] provider. Document Revised: 10/06/2019 Document Reviewed: 10/06/2019 [employer] Patient Education ? 2020 [employer]. Oncology Colon Polyps Colon polyps are tissue [...] liquor (44 mL). General instructions ??? Take rktp-ozh-fzsbiuc and prescription medicines only as told by [...] provider. Document Revised: 06/27/2020 Document Reviewed: 06/27/2020 [employer] Patient Education ? 2020 [employer] Pharmacology Monitored Anesthesia Care, Care After [...] you are awake and alert. ??? Take debw-xdw-ytdpqax and prescription medicines only as told by [...] provider. Document Revised: 11/22/2020 Document Reviewed: 02/09/2020 [employer] Patient Education ? 2020 [employer]. documented in this encounter Plan of Treatment Upcoming Encounters Date Type Department Care Team (Late st Contact Info) Description 11/23/2024 1:45 PM EDT Appointment [address] [place] [address] documented as of this encounter Visit Diagnoses Not on filedocumented in this encounter Care Teams Community Center Worker Relationship Specialty Start Date End Date Edouard Giron MD [address] [facility] [address] [place] [address] PCP - General Family Medicine 11/17/22 documented as of this encounter
--- OUTSIDE RECORDS SUMMARY | 2024-11-16 14:57 | XMS_ITS | Encounter Summary ---
Author Organization [employer] ([place], [place], [place], [place]) Address [address] [place] [address] Care Team Providers Care Windsurfing Instructor Name Role Phone Edouard Giron MD Primary Care Provider + [phone] Encounter Details Date Type Department Care Team (Late st Contact Info) Description 09/19/2021 Transcribed Document [facility] Family Medicine [address] [place] [address] ProviderRenato MD [address] [place] [address] Social History Tobacco Use Types Packs/Day Years Used Date Smoking Tobacco: Never Assessed Family and Community Support Answer Patrick e Recorded Help with Day to Day Activities Not on file 04/10/2023 Feeling Lonely or Isolated Not on file 04/10 Educational Attainment Answer Date Rupesh rded Speak language other than Finnish at home Not on file 04/10/2023 Want [...] MD Clara - 09/19/2021 9:07 AM CDT [facility] [place] IntraOp Summary Primary Physician: ROSA GLASS MD Finalized Date/Time: 09/19/21 09:39:14 Pt. Name: AGGIE HUNT Coleman /Sex: [address] [facility] Rec #: [id number] Physician: ROSA GLASS MD Financial #: [id number] Pt. Type: Room/Bed: [facility] Admit/Disch: 09/19/21 07:30:00 - Institution: [facility] - Case Attendance Entry 1 Entry 2 Entry 3 Case Attendee ROSA GLASS MD QURESHI, HERA, ILEANA BRIAN, RAMA Role Performed Surgeon/Proceduralist, Anesthesiologist of BUTCHER HEAD/Nurse Food Order Delivery Runner First Record Time In 09/19/21 09:03:00 09/19/21 [...] Attendee RE GREEN, Adeola Glover, Ally Delcid, SENIOR SHAREPOINT DEVELOPER Role Performed Steak Tenderizer Machine, First Steak Tenderizer Machine, Second Scrub, First Time In 09/19/21 08:58:00 09/19/21 08:58:00 09/19/21 08:58:00 Time Out 09/19/21 09:38:00 09/19/21 09:38:00 09/19/21 09:38:00 Procedure Colon Polypectomy, Colon Polypectomy, Colon Polypectomy, Colonoscopy Colonoscopy Colonoscopy Other Attendee Superficial Wound Closed By: Last Modified By: RE GREEN, RE WAHL, RE WAHL, VERONICA 09/19/21 09:38:04 09/19/21 09:38:04 09/19/21 09:38:04 [facility] - Case Attendance Audit 09/19/21 09:38:04 Pipe Stem Sawyer: [id number] Modifier: [id number] 1 <+> Time Out 1 <*> Procedure Colon Polypectomy, Colonoscopy 2 <+> Time Out 2 <*> Procedure Colon Polypectomy, Colonoscopy 3 <+> Time Out 3 <*> Procedure Colon Polypectomy, Colonoscopy 4 <+> Time Out 4 <*> Procedure Colon Polypectomy, Colonoscopy 5 <+> Time Out 5 <*> Procedure Colon Polypectomy, Colonoscopy 6 <+> Time Out 6 <*> Procedure Colon Polypectomy, Colonoscopy 09/19/21 09:26:47 Pipe Stem Sawyer: [id number] Modifier: [id number] <+> 1 Procedure <+> 2 Procedure <+> 3 Procedure <+> 4 Procedure <+> 5 Procedure <+> 6 Procedure 09/19/21 09:25:29 Pipe Stem Sawyer: [id number] Modifier: [id number] 1 <-> Procedure Colonoscopy 2 <-> Procedure Colonoscopy 3 <-> Procedure Colonoscopy 4 <-> Procedure Colonoscopy 5 <-> Procedure Colonoscopy 6 <-> Procedure Colonoscopy 09/19/21 09:04:12 Pipe Stem Sawyer: [id number] Modifier: [id number] 1 <*> Time In 09/19/21 08:58:00 1 <*> Procedure Colonoscopy 09/19/21 09:01:57 Pipe Stem Sawyer: [id number] Modifier: [id number] 1 <+> Time In 1 <*> Procedure Colonoscopy 2 <*> Procedure Colonoscopy 3 <*> Procedure Colonoscopy 4 <*> Procedure Colonoscopy 5 <*> Procedure Colonoscopy 6 <*> Procedure Colonoscopy 09/19/21 08:59:34 Pipe Stem Sawyer: [id number] Modifier: [id number] 1 <*> Procedure Colonoscopy 2 <+> Time In 2 <*> Procedure Colonoscopy 3 <+> Time In 3 <*> Procedure Colonoscopy 4 <+> Time In 4 <*> Procedure Colonoscopy 5 <+> Time In 5 <*> Procedure Colonoscopy 6 <+> Time In 6 <*> Procedure Colonoscopy 09/19/21 08:51:22 Pipe Stem Sawyer: [id number] Modifier: [id number] <+> 1 Procedure 2 <*> Procedure Colonoscopy 3 <*> Procedure Colonoscopy 4 <*> Procedure Colonoscopy 5 <*> Procedure Colonoscopy 6 <*> Procedure Colonoscopy 09/19/21 08:50:11 Pipe Stem Sawyer: [id number] Modifier: [id number] <+> 2 Case Attendee <+> 2 Role [...] Endo - Case Times Audit 09/19/21 09:38:01 Pipe Stem Sawyer: [id number] Modifier: [id number] <+> 1 Out Room Time <+> 1 Stop Time <+> 1 Stop Time 09/19/21 09:07:10 Pipe Stem Sawyer: [id number] Modifier: [id number] <+> 1 Start Time <+> 1 Start [...] GREEN, Accompanied by RN, ILEANA KHANNA NA, Edmundson, Stephanie, RN Last Modified By: RE GREEN RN 09/19/21 09:02:27 [facility] - Endoscopy Details Entry 1 Abdomen Procedure Soft, Non-Tender Assessment Procedure Abdomen 09/19/21 09:00:00 Assessment D/T Radio Frequency Ablation Abdominal Pressure Last Modified By: RE GREEN RN 09/19/21 09:02:14 [facility] - Fire Risk Assessment Entry 1 Fire Info Surgical Site or 0- No Incision Above the Xyphoid Open O2 Source 1- Yes (Mask or Cannula) Available Ignition 1- Yes (ESU, Laser, Light Source) Fire Risk 2 Assessment Score Fire Score Fire Risk Yes Assessment 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, 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 Verified By Fire Risk 09/19/21 08:59:00 Assessment Verified Date/Time Fire Risk High Risk Protocol Yes Implemented Standard Fire Yes Safety Precautions Followed Last Modified By: RE GREEN RN 09/19/21 09:00:09 [facility] - General Case Room Cleaner 1 Case Information OR Endo 02 [facility] Case Level 1 Room Verified Yes Wound Class 2 - Clean-Contaminated Specialty Gastroenterology Anesthesia Type Moderate Sedation ASA Class 3 Diagnosis Preop Diagnosis Routine screening, History of polyps Postop Diagnosis diverticulosis, colon polyps Wound Class Definitions Last Modified By: RE GREEN RN 09/19/21 09:05:21 [facility] - General Case Data Audit 09/19/21 09:24:57 Pipe Stem Sawyer: [id number] Modifier: [id number] 1 <*> Postop Diagnosis diverticulosis, 09/19/21 09:12:40 Pipe Stem Sawyer: [id number] Modifier: [id number] <+> 1 Postop Diagnosis 09/19/21 09:05:21 Pipe Stem Sawyer: [id number] Modifier: [id number] <+> 1 ASA Class [facility] - Intraoperative Assessment Entry 1 Handoff Method Bedside/Face to face Valid History / Yes Physical in Chart Preoperative Yes Checklist Reviewed/Evaluated Patient is Latex No Sensitive Isolation Not applicable Precautions Noted Level of WDL Consciousness (WDL = Alert, Oriented to Person, Place, and Time) Present Upon IVs, ECG monitored Arrival to OR Last Modified By: RE GREEN RN 09/19/21 09:01:07 [facility] - Intraoperative Equipment Entry 1 Type [...] Modified By: RE GREEN RN 09/19/21 08:50:55 [facility] - Patient Positioning Entry 1 Procedure Colon Polypectomy, Colonoscopy Body Position Lateral, right side up Left Arm Position Resting at side Right Arm Position Resting at side Left Leg Position Other Right Leg Position Other Position Comments Right leg over Left leg uncrossed Feet Uncrossed Yes Pressure Points Yes Checked Positioned By Ally Schmidt, SENIOR SHAREPOINT DEVELOPER, ILEANA KHANNA NA Position Verified Positioning Yes Verified by Surgeon Last Modified By: RE GREEN RN 09/19/21 09:01:28 [facility] - Patient Positioning Audit 09/19/21 09:26:48 Pipe Stem Sawyer: [id number] Modifier: [id number] <+> 1 Procedure 09/19/21 09:25:30 Pipe Stem Sawyer: [id number] Modifier: [id number] 1 <-> Procedure Colonoscopy [facility] - [...] Elements Complete? RN Sign Out RE GREEN, VERONICA Signature RN Sign Out 09/19/21 09:38:00 Signature [...] 09:15:00 09/19/21 09:15:00 Cecum Reached Anesthesia Type [facility] Specialty Gastroenterology Gastroenterology Wound Class 2 - Clean-Contaminated 2 - Clean-Contaminated Last Modified By: RE GREEN RN MASENGALE, DANIELLE, RN 09/19/21 09:24:27 09/19/21 09:26:42 [facility] - Surgical Procedures Audit 09/19/21 09:38:51 Pipe Stem Sawyer: [id number] Modifier: [id number] <+> 1 Stop 09/19/21 09:37:15 Pipe Stem Sawyer: [id number] Modifier: [id number] 2 <*> Procedure Colonoscopy 2 <+> Stop 09/19/21 09:33:48 Pipe Stem Sawyer: [id number] Modifier: [id number] 1 <*> Procedure Colon Polypectomy 1 <*> Additional Procedure Description ascending, descending 09/19/21 09:26:42 Pipe Stem Sawyer: [id number] Modifier: [id number] 1 <*> Procedure Colonoscopy 1 <*> Primary Procedure Yes 1 <+> Additional Procedure Description <+> 2 Procedure <+> 2 Primary Procedure <+> 2 Primary Surgeon <+> 2 Specialty <+> 2 Start <+> 2 Wound Class <+> 2 Anesthesia Type <+> 2 Physician States Cecum Reached 09/19/21 09:24:27 Pipe Stem Sawyer: [id number] Modifier: [id number] 1 <*> Procedure Colonoscopy 1 <+> Start [...] Modified By: RE GREEN RN 09/19/21 09:26:48 [facility] - Time Out Audit 09/19/21 09:26:48 Pipe Stem Sawyer: [id number] Modifier: [id number] <+> 1 Procedure to be Performed 09/19/21 09:25:30 Pipe Stem Sawyer: [id number] Modifier: [id number] 1 <-> Procedure to be Performed Colonoscopy Case Comments <None> Finalized By: RE GREEN, RN Document Signatures Signed By: RE GREEN RN 09/19/21 09:39 documented in this encounter Plan of Treatment Upcoming Encounters Date Type Department Care Team (Late st Contact Info) Description 11/23/2024 1:45 PM EDT Appointment [address] [place] [address] documented as of this encounter Visit Diagnoses Not on filedocumented in this encounter Care Teams Windsurfing Instructor Relationship Specialty Start Date End Date Edouard Giron MD [address] [facility] [address] [place] [address] PCP - General Family Medicine 11/17/22 documented as of this encounter
--- OUTSIDE RECORDS SUMMARY | 2024-11-16 14:57 | XMS_ITS | Encounter Summary ---
Author Organization [employer] ([place], [place], [place], [place]) Address [address] [place] [address] Care Team Providers Care Laser Specialist Name Role Phone Edouard Giron MD Primary Care Provider [phone] Reason for Referral * Mammography (Routine) - Authorized Specialty Diagnoses / Procedures Referred By Ramos bennett Referred To Contact Radiology Diagnoses Visit for screening mammogram Procedures MM digital mammo screen with joe bilateral Edouard Giron MD [address] [address] [address] [place] [address] Phone: tel: fax: [address] [place] [address] Phone: tel: fax: Referral ID Status Reason Start Date Expiration Date V isits Requested Visits Authorized [id number] Authorized 11/23/2024 11/23/2025 1 1 Encounter Details Date Type Department Care Team (Late st Contact Info) Description 11/19/2023 Outside Orders [address] [place] [address] Edouard Giron MD [address] [place] [address] Visit for screening mammogram (Primary Dx) Social History Tobacco Use Types Packs/Day Years Used Date Smoking Tobacco: Never Assessed Family and Community Support Answer Patrick e Recorded Help with Day to Day Activities Not on file 04/10/2023 Feeling Lonely or Isolated Not on file 04/10 Educational Attainment Answer Date Rupesh rded Speak language other than Libyan at home Not on file 04/10/2023 Want [...] Info) Description 11/23/2024 1:45 PM EDT Appointment [address] [place] [address] Scheduled Orders Name Type Priority Associated Diagnoses Orde r Schedule MM digital mammo screen with joe bilateral Imaging Routine Visit for screening mammogram Expected: 11/23/2024, Expires: 11/23/2025 documented as of this encounter Visit Diagnoses Diagnosis Visit for screening mammogram- Primary documented in this encounter Care Teams Laser Specialist Relationship Specialty Start Date End Date Edouard Giron MD [address] [place] [address] PCP - General Family Medicine 11/17/22 documented as of this encounter
--- OUTSIDE RECORDS SUMMARY | 2024-11-16 14:57 | XMS_ITS | Clinical Summary ---
Author Organization [employer] ([place], [place], [place], [place]) Address [address] [place] [address] Care Team Providers Care Twisting Operator Name Role Phone Edouard Giron MD Primary Care Provider + [phone] Allergies Active Allergy Reactions Criticality Noted Date Comments Atorvastatin Anaphylaxis,Other (See Comments) High 08/23/2008 Dexbrompheniramine-Ps eudoephed Other (See Comments) Low 08/31/2012 Dexchlorpheniram-Phen ylephrine Other (See Comments) Low 08/23/2008 Diazepam Other (See Comments) Low 08/23/2008 Other reaction(s): Disorientation Ibuprofen Other (See Comments) Low 08/31/2012 Levofloxacin Other (See Comments) Low 08/31/2012 Penicillins Hives,Other (See Comments) High 08/23/2008 Rofecoxib Anaphylaxis,Rash,Ot her (See Comments) High 08/23/2008 Aatbshcwm-Rg-Olu-Verde adonna Other (See Comments) 08/23/2008 1Replaced free [...] Date Rupesh rded Speak language other than Rwandan at home Not on file 04/10/2023 Want [...] Upcoming Encounters Date Type Department Care Team (Lucero st Contact Info) Description 11/23/2024 1:45 PM EDT Appointment [address] [place] [address] Health Maintenance Due Date Last Done [...] exists Falls Risk Screening 03/23/2024 Influenza Vaccine (#1) 2024 , 11/29/2019, 11/29/2019, Additional history exists Tobacco Cessation Counseling and Screening (12+) 12/27/2024 12/28/2023 Shingles Vaccine (Zoster) Completed 05/10/2018, 12/2017 Insurance [facility] [employer] MEDICARE PART A B Care Teams Twisting Operator Relationship Specialty Start Date End Date Edouard Giron MD [facility] [address] [place] [address] PCP - General Family Medicine 11/17/22
--- OUTSIDE RECORDS SUMMARY | 2024-11-16 14:57 | XMS_ITS | Encounter Summary ---
Author Organization [employer] ([place], [place], [place], [place]) Address [address] [place] [address] Care Team Providers Care Manager Knowledge Name Role Phone Eoduard Giron MD Primary Care Provider + [phone] Encounter Details Date Type Department Care Team (Late st Contact Info) Description 09/19/2021 Transcribed Document [facility] [place] [address] [place] [address] ProviderRenato MD [address] [place] [address] Social History Tobacco Use Types Packs/Day Years Used Date Smoking Tobacco: Never Assessed Family and Community Support Answer Patrick e Recorded Help with Day to Day Activities Not on file 04/10/2023 Feeling Lonely or Isolated Not on file 04/10 Educational Attainment Answer Date Rupesh rded Speak language other than Yemeni at home Not on file 04/10/2023 Want [...] Notes * Cerner Conversion Note - Historical ProviderMD - 09/19/2021 9:58 AM CDT [address] [address] AGGIE HUNT :1945 Visit Time:09/19/2021 What to [...] with any questions or concerns. Where: [address] [place] [address]- [phone] Medications What How Much When Instructions Next [...] 1 Tablet(s) Oral Every Day vitamin A 35039c Oral Every Day vitamin E 500 Milligram(s) [...] you are awake and alert. ??? Take vkul-pos-fdxtnmr and prescription medicines only as told by [...] provider. Document Revised: 11/22/2020 Document Reviewed: 02/09/2020 [employer] Patient Education ?? 2020 [employer]. Diverticulosis Diverticulosis is a condition that develops [...] getting enough exercise. ??? Smoking. ??? Taking fupr-qqo-cyjemdo pain medicines, like aspirin and ibuprofen. ??? [...] these instructions at home: Medicines ??? Take rknw-ifn-ctwrbfq and prescription medicines only as told by your health care provider. ??? If told by your health care provider, take a fiber supplement or probiotic. Constipation prevention Your condition may cause constipation. To prevent or treat constipation, you may need to: ??? Drink enough fluid to keep your urine pale yellow. ??? Take uqaf-agu-opswsxq or prescription medicines. ??? Eat foods that [...] provider. Document Revised: 10/06/2019 Document Reviewed: 10/06/2019 [employer] Patient Education ?? 2020 [employer] Colon Polyps Colon polyps are tissue growths [...] liquor (44 mL). General instructions ??? Take nnmo-muh-zggqbra and prescription medicines only as told by [...] provider. Document Revised: 06/27/2020 Document Reviewed: 06/27/2020 [employer] Patient Education ?? 2020 [employer]. Emergency Awareness and Preventative Care STROKE is [...] Assistance with quitting is available by contacting 6-018-ZCCA3FLOZNOW. This is a free resource providing counseling, [...] CPR? There are two easy steps: Call if you see a teen or adult [...] was given the opportunity to ask questions. Patient/Overhead Crane Inspector Name: Patient/Overhead Crane Inspector Signature: Relationship to Patient: Clinician/Hospital Overhead Crane Inspector Signature: Date: Electronically signed by Kaleb, [facility] Conversion Financial Services Agent Cerner at 07/08/2022 11:57 AM CDT documented in this encounter Plan of Treatment Upcoming Encounters Date Type Department Care Team (Late st Contact Info) Description 11/23/2024 1:45 PM EDT Appointment [address] [place] [address] documented as of this encounter Visit Diagnoses Not on filedocumented in this encounter Care Teams Manager Knowledge Relationship Specialty Start Date End Date Edouard Giron MD [address] [facility] [address] [place] [address] PCP - General Family Medicine 11/17/22 documented as of this encounter
--- OUTSIDE RECORDS SUMMARY | 2024-11-16 14:57 | XMS_ITS | Encounter Summary ---
Author Organization [employer] ([place], [place], [place], [place]) Address [address] [place] [address] Care Team Providers Care Control Systems Engineer Name Role Phone Edouard Giron MD Primary Care Provider + [phone] Encounter Details Date Type Department Care Team (Late st Contact Info) Description 09/19/2021 Transcribed Document [facility] [place] [address] [place] [address] ProviderRenato MD [address] [place] [address] Social History Tobacco Use Types Packs/Day Years Used Date Smoking Tobacco: Never Assessed Family and Community Support Answer Patrick e Recorded Help with Day to Day Activities Not on file 04/10/2023 Feeling Lonely or Isolated Not on file 04/10 Educational Attainment Answer Date Rupesh rded Speak language other than Turkmen at home Not on file 04/10/2023 Want [...] Note - Historical MD Clara - 09/19/2021 8:30 AM CDT [facility] [place] PreOp Summary Primary Physician: ROSA GLASS MD Finalized Date/Time: 09/19/21 08:10:55 Pt. Name: AGGIE HUNT /Sex: 1945 Female Med Rec #: [id number] Physician: ROSA GLASS MD Financial #: [id number] Pt. Type: E Room/Bed: [facility] Admit/Disch: 09/19/21 07:30:00 - Institution: [facility] [place] PreOp Case Times Entry 1 In Preop 09/19/21 07:52:00 Ready for Holding n/a Room Patient Ready for n/a Surgery Patient Out of Preop 09/19/21 08:10:00 Patient Out of n/a Holding Room [facility] PreOp Case Times Audit 09/19/21 08:10:53 Silversmith Apprentice: MARTÍNEZ Modifier: [email or web address] <+> 1 Patient Out of Preop Finalized By: ONELIA Mandujano RN Document Signatures Signed By: ONELIA Mandujano RN 09/19/21 08:10 documented in this encounter Plan of Treatment Upcoming Encounters Date Type Department Care Team (Late st Contact Info) Description 11/23/2024 1:45 PM EDT Appointment [address] [place] [address] documented as of this encounter Visit Diagnoses Not on filedocumented in this encounter Care Teams Control Systems Engineer Relationship Specialty Start Date End Date Edouard Giron MD [address] [facility] [address] [place] [address] PCP - General Family Medicine 11/17/22 documented as of this encounter
--- OUTSIDE RECORDS SUMMARY | 2024-11-16 14:58 | XMS_ITS | Clinical Summary ---
Author Organization [facility] Address [address] [place] [address] Care Team Providers Care Student Driving Instructor Name Role Phone Edouard Giron MD Primary Care Provider + [phone] Allergies Active Allergy Reactions Criticality Noted Date Comments Penicillins Rash Low 07/28/2023 Diazepam Unknown - Low Severity Low 07/28/2023 Medications omeprazole (priLOSEC) 40 MG capsule Take 1 capsule by mouth Daily. Active levothyroxine (SYNTHROID, LEVOTHROID) 25 MCG tablet Take 1 tablet by mouth Daily. Active metoprolol succinate XL (TOPROL-XL) 25 MG 24 hr tablet Take 1 tablet by mouth Daily. Active potassium chloride (MICRO-K) 10 MEQ CR capsule Take 1 capsule by mouth Daily. Active VITAMIN A PO Active Ascorbic Acid (VITAMIN C ER PO) Active celecoxib (CeleBREX) 200 MG capsule Take 1 capsule by mouth 2 (Two) Times a Day As Needed for Mild Pain. 180 capsule 1 07/11/2024 Active Active Problems No known active problems Family History Medical History Relation Name Comments Hypertension Father Alzheimer's disease Mother Relation Name Status Comments Father Mother Social History Tobacco Use Types Packs/Day Years Used Date Smoking Tobacco: Never Smokeless Tobacco: Never Tobacco Cessation:Counseling Given: Not Answered Alcohol Use Standard Drinks/Week Comments Yes 0 (1 standard drink = 0.6 oz pur e alcohol) Rarely Comments Unknown Sex and Gender Information Value Date Recorded Sex Assigned at Not on file Legal Sex Female 10:24 AM EDT Gender Identity Not on file Sexual Orientation Not on file Last Filed Vital Signs Vital Sign Reading Time Taken Comments Blood Pressure 144/86 07/11/2024 10:08 AM EDT Pulse 85 07/11/2024 10:08 AM EDT Temperature 36.3 C (97.3 F) 07/11/2024 10:08 AM EDT Respiratory Rate - - Oxygen Saturation - - Inhaled Oxygen Concentration - - Weight 78.2 kg (172 lb 6.4 oz) 07/11/2024 10:08 AM EDT Height 162.6 cm (5' 4 ) 07/11/2024 10:08 AM EDT Body Mass Index 29.59 07/11/2024 10:08 AM EDT Plan of Treatment Upcoming Encounters Date Type Department Care Team (Late st Contact Info) Description 07/11/2025 11:30 AM EDT Office Visit [facility] [address] [address] Shruti Hansen APRN [address] [facility] [address] [place] [address] Health Maintenance Due Date Last Done Comments RSV Vaccine - Adults (1 - 1- dose 75+ series) 02/16/2020 Pneumococcal Vaccine 50+ (2 of 2 - PCV) 02/22/2022 02/22/2021 ANNUAL WELLNESS VISIT 07/25/2023 HEPATITIS C SCREENING 07/25/2023 COVID-19 Vaccine (2023-2 5 season) 2024 03/25/2024, 12/31/2021, 07/16/2021, Additional history exists INFLUENZA VACCINE 12/21/2024 12/07/2020, , 12/28/2018, Additional history exists DXA SCAN 08/31/2025 09/01/2023, 08/21, 09/01/2022, Additional history exists TDAP/TD VACCINES (2 - Td or Tdap) 01/05/2034 024 ZOSTER VACCINE Completed 05/10/2018, 01/30/2018 MAMMOGRAM Discontinued 11/19/2023, 10/22, 11/17/2022, Additional history exists Insurance MEDICARE A & B [facility] Care Teams Student Driving Instructor Relationship Specialty Start Date End Date Edouard Giron MD [address] [facility] [address] [place] [address] PCP - General Family Medicine 07/28/23
--- OUTSIDE RECORDS SUMMARY | 2024-11-16 14:58 | XMS_ITS | Patient Health Record ---
Author Organization [facility] Address [address] [place] [id number] Care Team Providers Care Groundskeeper Porter Name Role Phone Mo Gironian Primary Care Provider Pepper Parson Unavailable [phone] Allergies Allergen (clinical drug ingredient) Drug/Non Drug Allergy documented on EMR Reaction Allergy Type Onset Date Status Levaquin Unknown Drug Allergy Active atorvastatin Lipitor muscle weakness Drug Allergy Active Stahist Unknown Drug Allergy Active Sulfamethoxazole Unknown Drug Allergy Active diazepam Valium insomnia Drug Allergy Active Penicillin rash Drug Allergy Active rofecoxib Rofecoxib Unknown Drug Allergy Active Results Component Value Reference Range Notes Bone density Reviewed date:10/28/2024 12:15:45 PM Interpretation:osteopenia Performing Lab: Notes/Report: osteopenia Bone density osteopenia CBC Fingerstick (in house) Reviewed date:11/30/2023 02:50:25 [...] - 38 plat 163 100 - 400 Covid test (in house) Reviewed date:11/30/2023 02:50:25 PM Interpretation:Positive Performing Lab: Notes/Report: Positive Result: Pos CBC Fingerstick (in house) Reviewed date:02/09/2024 03:39:46 [...] 126 Performing Lab: Notes/Report: Test performed by [employer] [facility] , [address], [place] [address] Richard Live MD, Visually Impaired Teacher CLIA: [id number] Sodium 141 135-145 mmol/L Potassium 4.7 3.5-5.3 [...] Normal Performing Lab: Notes/Report: Test performed by [employer] [address] [place] [address] [place] [address] Richard Live MD, Visually Impaired Teacher CLIA: [id number] Thyroxine Free (free T4) 1.45 0.86-1.76 ng/dL P-Lipid Panel Reviewed date:03/02/2024 09:02:03 AM Interpretation: Normal Performing Lab: Notes/Report: Test performed by [employer] [address] [place] [address] Julieta Berrios C, [place] [address] Richard Live MD, Visually Impaired Teacher CLIA: [id number] Cholesterol 148 <200 mg/dL Triglycerides 116 <150 [...] Normal Performing Lab: Notes/Report: Test performed by [employer] [address] [place] [address] , [address], [place] [address] Richard Live MD, Visually Impaired Teacher CLIA: [id number] TSH 2.82 0.43-5.25 mU/L P-Microalbumin/Creatinine, R andom Urine Sample Reviewed date:03/02/2024 09:02:03 AM Interpretation: Normal Performing Lab: Notes/Report: Test performed by [employer] [address] [place] [address] , [address], [place] [address] Richard Live MD, Visually Impaired Teacher CLIA: [id number] Albumin/Creatinine Ratio, Urine 25 0-30 ug/mg Microalbumin, Urine, Random 11.4 Creatinine, Urine 462.4 P-Vitamin D 25-Hydroxy Reviewed date:03/02/2024 09:02:03 AM Interpretation: Normal Performing Lab: Notes/Report: Test performed by [employer] [address] [place] [address] , [address], [place] [address] Richard Live MD, Visually Impaired Teacher CLIA: [id number] Vitamin D 25-Hydroxy 52.9 30.0-100.0 ng/mL Interpretation [...] Duration) Notes Start Date End Date Status Alendronate Sodium 70 MG 1 tablet 30 min utes before the first food, beverage or medicine of the day with plain water Orally One Time A Week Active Aspirin 81 MG 1 tab(s) orally once a day Active Azelastine HCl 0.1 % 1 puff in each nost ril Nasally Twice a day; Duration: 30 day(s) Active Synthroid 25 MCG 1 tab(s) orally once daily; Duration: 90 days Active Vitamin D3 50 MCG (2000 UT) 6000 units orally once a day 12/24/2015 Active EpiPen 2-Tima 0.3 MG/0.3ML 1 kit intramuscularly once Active CeleBREX 200 MG 1 cap(s) orally once a day; Duration: 90 days Active Cromolyn Sodium 4 % 1 gtt in each affect ed eye 4 times a day as needed 08/26/2018 Active Multivitamin - 1 tab(s) orally once a day Active Magnesium Oxide 400 MG 1 tab(s) orally once a day Active Vitamin E 400 UNIT 1 cap(s) orally once a day Active Vitamin A & D 8000-400 UNIT 1 cap(s) orally once a day A ctive Rosuvastatin Calcium 20 MG 1 tablet Orally Once a day; Duration: 90 days Active Metoprolol Succinate ER 25 MG 3 tablet Orally Once a day; Duration: 90 days Active Omeprazole 40 MG TAKE 1 CAPSULE BY MO UT ONCE DAILY; Duration: 90 days Active Albuterol Sulfate HFA 108 (90 Base) MCG/ACT 1 puff as needed Inhalation tid 02/09/2024 Active Potassium Chloride ER 10 MEQ TAKE 1 CAPSULE BY MOUTH TWICE DAILY; Duration: 90 Active Immunizations Vaccine Route Administration Date Status Comme nts Boostrix Tdap Unknown 01/06/2024 Administered COVID 19 Moderna Unknown 05/04/2020 Administered COVID 19 Moderna Unknown 11/21/2020 Administered Fluzone High Dose (65yr and older) [...] (65yr and older) IM Intramuscular 12/25/2023 Administered Hepatitis B (20 and more) Unknown 08/04/2000 Administer ed PNEUMOVAX 23 VACCINE IM Intramuscular 01/08/2009 Administe red PNEUMOVAX 23 VACCINE IM Intramuscular 12/14/2015 Administe red PNEUMOVAX 23 VACCINE IM Intramuscular 02/22/2021 Administe red Prevnar (PCV13) IM Intramuscular 12/12/2013 Administered Prevnar (PCV20) Unknown 02/28/2022 Pending Shingrix Unknown 01/30/2018 Administered Shingrix Unknown 05/10/2018 Administered Tetanus Tdap-Adacel (over 7yrs) IM Intramuscular 07/03/2004 Administered Tetanus Tdap-Adacel (over 7yrs) IM Intramuscular 12/12/2013 Administered Problems Problem Type SNOMED Code ICD Code Onset Dates Problem Status W/U Status Risk Notes Problem Atrophic vulvovaginitis (25582340) 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.3) Active confirmed Problem Polyarthralgia (24676780) Polyarthralgia (719.49) Active confirmed Problem Insomnia (987802058) Insomnia (G47.00) Active confirmed Problem Tear film insufficiency (96675163) Dry eyes, bilateral (H04.123) Active confirmed Problem Hyperlipidemia (15684148) Hyperlipidemia (E78.5) Active confirmed Problem Vitamin D deficiency (50201585) Vitamin D deficiency (E55.9) Active confirmed Problem Otitis externa (9210753) Otitis externa (H60.90) Active confirmed Problem History of anemia (178681701) History of anemia (Z86.2) Active confirmed Problem Allergic rhinitis (48874933) Allergic rhinitis, unspecified (J30.9) Active confirmed Problem Acquired hypothyroidism (596232969) Acquired hypothyroidism (E03.9) Active confirmed Problem Gastroesophageal reflux disease (172225812) Gastroesophageal reflux disease, esophagitis presence not specified (K21.9) Active confirmed Problem Migraine (70720345) Migraine wit hout status migrainosus, not intractable, unspecified migraine type (G43.909) Active confirmed Problem Asthma without status asthmaticus (13631858) Uncomplicated asthma, unspecified asthma severity (J45.909) Active confirmed Problem Osteoarthritis of knee (314596376) Primary osteoarthritis of both knees (M17.0) Active confirmed Problem Vitamin D deficiency (59058416) Low vitamin D level (E55.9) Active confirmed Problem Chronic rhinitis (68801314) Rhinitis, unspecified type (J31.0) Active confirmed Problem Allergic rhinitis (91711634) Allergic rhinitis, unspecified seasonality, unspecified trigger (J30.9) Active confirmed Problem Primary hypertension (75187588) Primary hypertension (I10) Active confirmed Vital Signs Heart Rate 70 /min 10/17/2024 Blood pressure diastolic 70 mm Hg 10/17/2024 Height 64.75 in 10/17/2024 Blood pressure systolic 122 mm Hg 10/17/2024 Weight 178.6 lbs 10/17/2024 BMI 29.95 kg/m2 10/17/2024 Encounters Encounter Location Date Provider Diagnosis [facility] [address] [place], [place] [id number] 11/30/2023 Edouard [place] COVID-19 U07.1 [facility] [address] [place], [place] [id number] 12/25/2023 Edouard [place] Encounter for immunization Z23 [facility] [address] [place], [place] [id number] 02/09/2024 Pepper Parson Bronchitis J40 [facility] [address] [place] [id number] 02/26/2024 Edouard [place] Primary hypertension I10 ; Hyperlipidemia E78.5 ; Acquired hypothyroidism E03.9 ; Vitamin D deficiency E55.9 ; Gastroesophageal reflux disease, esophagitis presence not specified K21.9 ; Insomnia G47.00 ; Persistent cough R05.3 and Hypokalemia E87.6 [facility] [address] [facility] [address] [place], [place] [id number] 03/08/2024 Pepper Parson URI (upper respirato ry infection) J06.9 and Stye H00.019 [facility] [address] [facility] [address] [place], [place] [id number] 08/26/2024 Edouard [place] Primary hypertension I10 ; Acquired hypothyroidism E03.9 ; Hyperlipidemia E78.5 ; Insomnia G47.00 and BMI 29.0-29.9,adult Z68.29 [facility] [address] [facility] [address] [place], [place] [id number] 09/20/2024 Edouard [place] Essential hypertensi on I10 and BMI 29.0-29.9,adult Z68.29 [facility] [address] [place], [place] [id number] 09/27/2024 Edouard [place] Primary hypertension I10 [facility] [address] [place], [place] [id number] 10/17/2024 Edouard [place] Primary hypertension I10 and BMI 29.0-29.9,adult Z68.29 [facility] [address] [place], [place] [id number] 03/02/2024 Edouard Willis [place]arf [facility] [address] [facility] [address] [place] [id number] 08/27/2024 Edouard [place] Screening for osteoporosis Z13.820 [facility] [address] [place] [id number] 09/20/2024 Edouard [place] [facility] [address] [facility] [address] [place] [id number] 10/28/2024 Edouard [place]arf Assessments Encounter Date Diagnosis (ICD Code) Assessment Notes Treatment Notes Treatment Clinical Notes Section Notes 11/30/2023 COVID-19 (ICD-10 - U07.1) 12/25/2023 Encounter [...] prn 08/26/2024 Acquired hypothyroidism (ICD-10 - E03.9) 08/26/2024 Primary hypertension (ICD-10 - I10) 08/27/2024 Screening for osteoporosis (ICD-10 - Z13.820) 09/20/2024 Essential hypertension (ICD-10 - I10) 09/20/2024 BMI 29.0-29.9,adult (ICD-10 - Z68.29) 09/27/2024 Primary hypertension (ICD-10 - I10) 10/17/2024 BMI 29.0-29.9,adult (ICD-10 - Z68.29) 10/17/2024 Primary hypertension (ICD-10 - I10) 08/26/2024 Hyperlipidemia (ICD-10 - E78.5) 02/26/2024 Acquired hypothyroidism (ICD-10 - E03.9) 02/26/2024 Vitamin D deficiency (ICD-10 - E55.9) 08/26/2024 Insomnia (ICD-10 - G47.00) 08/26/2024 BMI 29.0-29.9,adult (ICD-10 - Z68.29) 02/26/2024 Gastroesophageal reflux disease, esophagitis presence not specified (ICD-10 - K21.9) 02/26/2024 Insomnia (ICD-10 - G47.00) 02/26/2024 Persistent cough (ICD-10 - R05.3) 02/26/2024 Hypokalemia (ICD-10 - E87.6) Plan Of Treatment Next Appt Details Provider Name:Edouard Carroll ry, 02/27/2025 09:30:00 AM, [address], [address], [place], [id number], Insurance Providers Payer Name Payer Address Payer Phone Subscriber Number Group Number Insured Name Patient Relationship to Insured Coverage Start Date Coverage End Date MEDICARE PART B [address] [address] [place] [id number] BenitoAggie correa Self - patient is the insured [employer] [address] [place] [address] [id number] Aggie Oliver Self - patient is the insured Medications Administered Medication Instructions Date of Administration Dosage Notes allergy 10/28/2012 Contents: DMC 1:10, R upper deltoid allergy 10/28/2012 Contents Tree C 1:1000, R lower deltoid allergy 10/28/2012 Contents: GTW 1:10,000, L lower deltoid allergy 02/23/2013 R upper arm, e xp 07/2013 allergy 02/23/2013 R Delt. Lower area, exp/2013 allergy 02/23/2013 exp, 07/2013 allergy 08/08/2013 1.0 [...] Ear Tubes Forehead Pre Cancerous Lesion Removal [place] Teeth Extracted Eye Lid 12/2012 LT Lower Arm Lesion Removal x2 5 RT 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
--- OUTSIDE RECORDS SUMMARY | 2024-11-16 14:58 | XMS_ITS | Encounter Summary ---
Author Organization Healthcare Address [address] [place] [address] Care Team Providers Care Dress Fitter Name Role Phone Edouard Giron MD Primary Care Provider + [phone] Encounter Details Date Type Department Care Team (Latest Contact Info) Description 09/19/2024 Travel Social History Tobacco Use Types Packs/Day [...] 08/29/2025 1:00 PM EDT Ovarian Cancer Screening [facility] [address] [place] [address] 09/05/2025 1:00 PM EDT Clinical Support [facility] [address] [facility] 1[address] [place] [address] 09/19/2025 2:40 PM EDT Appointment [facility] [address] [facility], [address] [place] [address] 09/19/2025 3:00 PM EDT Office Visit [facility] [address] [facility], [address] [place] [address] Yassine Pizarro, PA [address] [place] [address] documented as of this encounter Visit Diagnoses Not on filedocumented in this encounter Additional Health Concerns Assessment Noted Time A fall risk assessment has been complete d for the patient 09/19/2024 3:50 PM EDT A Body Mass Index follow-up plan has been documented for the patient 09/19/2024 4:33 PM EDT documented as of this encounter Care Teams Dress Fitter Relationship Specialty Start Date End Date Edouard Giron MD [address] [id number] PCP - General 08/03/20 documented as of this encounter
--- NOTE | 2024-11-16 15:30 | CT_ITS ---
FINAL REPORT TECHNIQUE: Thin section axial images were obtained through the right lower extremity without contrast. Reconstruction images were obtained from the axial data. Exam was performed using dose reduction technique. 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 KNEE: Tricompartment degenerative disease. No acute fracture or dislocation. No significant joint effusion. IMPRESSION: Tricompartment degenerative disease of the knee. Exam was performed for preoperative planning. Reviewed, Interpreted and Dictated by Carol Winkler MD Transcribed by Nicolasa Christian Authenticated and [facility]
== END 2024-11-16 23:59 | disposition home or self-care (01) ==
LOC: RAD 14:54
PROVIDERS: PCP Family Medicine; Visit Provider Orthopaedic Surgery
DX: M17.11 Unilateral primary osteoarthritis, right knee (principal); M16.11 Unilateral primary osteoarthritis, right hip
CPT/HCPCS: 73700

== ENCOUNTER 2024-11-22 10:32 | Outpatient (CLI) | payer SELFPAY ==
--- OUTSIDE RECORDS SUMMARY | 2024-08-26 07:00 | XMS_ITS ---
Author Organization [facility] Address [address] [phone] Care Team Providers Care Rn Lab Name Role Phone Mo Gironian Primary Care Provider [phone] Allergies Allergen (clinical drug ingredient) Drug/Non Drug [...] a day; Duration: 30 day(s) 03/08/2024 Not-Taking Khwzjwjdh-Jxczgbjt-GQ 30-1-20 MG/5ML 5 ml as needed Orally [...] Omeprazole 40 MG TAKE 1 CAPSULE BY [facility] ONCE DAILY; Duration: 90 days Active Potassium [...] 08/26/2024 Encounters Encounter Location Date Provider [facility] [address] [phone] 08/26/2024 Edouard Giron Primary hypertension I10 ; [...] [address], [place], [place], [phone], Progress Notes * Fay HUNTOB:[birth year] (79 yo F)Acc No.[id number]:08/26/2024 Progress Notes Patient: Aggie ARMSTRONG Provider: Katy Giron M.D. :1945 A ge:79 Y S ex:Female Date:08/26/2024 Address:[address] [place] [address], [facility] Subjective: * Chief Complaints: * 1 [...] , Forehead Pre Cancerous Lesion Removal , [place] Teeth Extracted , Eye Lid 12/2012, LT [...] eye Ophthalmic Twice a day , Not-Taking Vtviqzdfm-Jsmdylae-AL 30-1-20 MG/5ML Liquid 5 ml as needed [...] 91, O2 Sat: 98% on RA, Nurse: [facility], Ht: 64.75, BMI:29.58. * Examination: C ardiology: General Appearance: p leasant, NAD. H eart sounds: R RR, normal S1, S2. L ungs: c lear, no rales or wheezes. Assessment: * Assessment: 1. P rimary hypertension - I10 (Primary) 2 . A cquired hypothyroidism - E03.9 3 . H yperlipidemia - E78.5 4 . I nsomnia - G47.00 ? 5 . B CO 29.0-29.9,adult - Z68.29 Plan: * Treatment: * Procedure Codes: G 2211 Complex e/m visit add on, G8950 PREHTN/HTN BP DOC INDCD F/U DOC, G8752 MOST RECENT SYSTOLIC BP < 140MM HG, G8754 MOST RECENT DIASTOLIC BP < 90MM HG, G8420 BMI<30 AND >=22 CALC & DOCU, 1036F TOBACCO NON-USER * Follow Up: 6 Months * Images: Billing Information: * Visit Code: 41641 Office Visit, Est Pt., Level 3. * Procedure Codes: G2211 Complex e/m visit add on. G8950 PREHTN/HTN BP DOC INDCD F/U DOC. G8752 MOST RECENT SYSTOLIC BP < 140MM HG. G8754 MOST RECENT DIASTOLIC BP < 90MM HG. G8420 BMI<30 AND >=22 CALC & DOCU. 1036F TOBACCO NON-USER. * Electronic signature of Yuly Giron MD on 11/22/2024 at 11:08 AM EDT Sign off status: Pending * Provider: Katy Giron M.D. Date: 0 08/26/2024 Generated for Jim yun/Alicia/Stormyitting on: 0 11/22/2024 11:08 AM EDT History and Physical Notes * [...]
--- OUTSIDE RECORDS SUMMARY | 2024-09-20 07:45 | XMS_ITS ---
Author Organization [facility] Address [address] [place] [id number] Care Team Providers Care Marketing Communications Manager Name Role Phone Mo Gironian Primary Care Provider [phone] Allergies Allergen (clinical drug ingredient) Drug/Non Drug [...] Duration) Notes Start Date End Date Status Mkhvkkntz-Mklpjlgc-XT 30-1-20 MG/5ML 5 ml as needed Orally [...] Omeprazole 40 MG TAKE 1 CAPSULE BY [facility] ONCE DAILY; Duration: 90 days Active [...] 09/20/2024 Encounters Encounter Location Date Provider Diagnosis [facility] [address] [facility] [address] [place], [place] [id number] 09/20/2024 Edouard Giron Essential hypertensi on I10 [...] [address], [place], [id number], Progress Notes * Fay HUNTOB:[birth year] (79 yo F)Acc No.[id number]:09/20/2024 Progress Notes Patient: Aggie ARMSTRONG Provider: Katy Giron M.D. :1945 A ge:79 Y S ex:Female Date:09/20/2024 Address:[address] [place] [address], [place], [id number] Subjective: * Chief Complaints: * 1 . [...] , Forehead Pre Cancerous Lesion Removal , [place] Teeth Extracted , Eye Lid 12/2012, LT [...] eye Ophthalmic Twice a day , Not-Taking Ybvojvlcz-Iattefad-WG 30-1-20 MG/5ML Liquid 5 ml as needed [...] hypertension - I10 (Primary) 2 . B [place] 29.0-29.9,adult - Z68.29 Plan: * Treatment: * Procedure Codes: G 2211 Complex e/m visit add on, 1036F TOBACCO NON-USER, G8420 BMI<30 AND >=22 CALC & DOCU, G8950 PREHTN/HTN BP DOC INDCD F/U DOC, G8752 MOST RECENT SYSTOLIC BP < 140MM HG, G8755 MOST RECENT DIASTOLIC BP >= 90MM HG * Follow Up: 1 Week * Images: Billing Information: * Visit Code: 23479 Office Visit, Est Pt., Level 3. * Procedure Codes: G2211 Complex e/m visit add on. 1036F TOBACCO NON-USER. G8420 BMI<30 AND >=22 CALC & DOCU. G8950 PREHTN/HTN BP DOC INDCD F/U DOC. G8752 MOST RECENT SYSTOLIC BP < 140MM HG. G8755 MOST RECENT DIASTOLIC BP >= 90MM HG. * Electronic signature of Yuly Giron MD on 11/22/2024 at 11:08 AM EDT Sign off status: Pending * Provider: Katy Giron M.D. Date: 09/20/2024 Generated for Jim yun/Alicia/eTransmitting on: 11/22/2024 11:08 AM EDT History and Physical [...]
--- OUTSIDE RECORDS SUMMARY | 2024-09-27 06:30 | XMS_ITS ---
Author Organization [facility] Address [address] [place] [id number] Care Team Providers Care Unload Associate Name Role Phone Mo Gironian Primary Care [...] [address] [place], [place] [phone] 09/27/2024 Edouard Giron Primary hypertension I10 Assessments [...] [address], [address], [place], [place], [phone], Progress Notes * Fay HUNTOB:[birth year] (79 yo F)Acc No.[id number]:09/27/2024 Patient: Aggie ARMSTRONG Provider: Katy Giron M.D. :1945 A ge:79 Y S ex:Female Date:09/27/2024 Address:[address] [place] [address], [place], [id number] Subjective: * Chief Complaints: * 1 . [...] , Forehead Pre Cancerous Lesion Removal , [place] Teeth Extracted , Eye Lid 12/2012, LT [...] eye Ophthalmic Twice a day , Discontinued Aigmddqpj-Ayzccozf-NE 30-1-20 MG/5ML Liquid 5 ml as needed [...] * Images: Billing Information: * Visit Code: 73211 Office Visit, Est Pt., Level 3. * Procedure Codes: G2211 Complex e/m visit add on. 1036F TOBACCO NON-USER. G8950 PREHTN/HTN BP DOC INDCD F/U DOC. G8753 MOST RECENT SYSTOLIC BP >= 140MM HG. G8754 MOST RECENT DIASTOLIC BP < 90MM HG. * Electronic signature of Yuly Giron MD on 11/22/2024 at 11:09 AM EDT Sign off status: Pending * Provider: Katy Giron M.D. Date: 0 09/27/2024 Generated for Jim yun/Alicia/Emilismitting on: 0 11/22/2024 11:09 AM EDT History and Physical Notes * [...]
--- OUTSIDE RECORDS SUMMARY | 2024-10-17 07:45 | XMS_ITS ---
Author Organization [facility] Address [address] [place] [id number] Care Team Providers Care Foundation Director Name Role Phone Mo Gironian Primary Care [...] Omeprazole 40 MG TAKE 1 CAPSULE BY [facility] ONCE DAILY; Duration: 90 days Active Potassium [...] Encounter Location Date Provider Diagnosis [facility] [facility] [address] [facility] [address] [place] [id number] 10/17/2024 Edouard Giron Primary hypertension I10 and [...] Name:Edouard Carroll ry, 02/27/2025 09:30:00 AM, [address] [facility] [address] [facility], [address], [place], [phone], Progress Notes * Fay HUNTOB:[birth year] (79 yo F)Acc No.[id number]:10/17/2024 Progress Notes Patient: Aggie ARMSTRONG Provider: Katy Giron M.D. :1945 A ge:79 Y S ex:Female Date:10/17/2024 Address:[address], [place], [id number] Subjective: * Chief Complaints: * 1 . [...] , Forehead Pre Cancerous Lesion Removal , [place] Teeth Extracted , Eye Lid 12/2012, LT [...] hypertension - I10 (Primary) 2 . B MT 29.0-29.9,adult - Z68.29? Plan: * Treatment: * Procedure Codes: G 2211 Complex e/m visit add on, 1036F TOBACCO NON-USER, G8420 BMI<30 AND >=22 CALC & DOCU, G8950 PREHTN/HTN BP DOC INDCD F/U DOC, G8752 MOST RECENT SYSTOLIC BP < 140MM HG, G8754 MOST RECENT DIASTOLIC BP < 90MM HG * Follow Up: a s scheduled,and prn * Images: Billing Information: * Visit Code: 54185 Office Visit, Est Pt., Level 3. * [...] 0 10/17/2024 Generated for Jim yun/Alicia/eTransmitting on: 0 11/22/2024 11:09 AM EDT History [...]
--- OUTSIDE RECORDS SUMMARY | 2024-11-22 11:08 | XMS_ITS | Encounter Summary ---
Author Organization [employer] ([place], [place], [place], [place]) Address [address] [place] [address] Care Team Providers Care Tinning Machine Set Up Operator Name Role Phone Edouard Giron MD Primary Care Provider + [phone] Encounter Details Date Type Department Care Team (Late st Contact Info) Description 09/16/2018 Transcribed Document [facility] [place] [address] [place] [address] ProviderRenato MD [address] [place] [address] Social History Tobacco Use Types [...] Renato ProviderMD - 09/16/2018 8:50 AM CDT [address] [address] AGGIE HUNT :1945 Visit Time:09/16/2018 [...] See procedure report for recommendations Where: [address] [facility] [place] [phone] Medications What How Much When Instructions Next [...] 1 Tablet(s) Oral Every Day vitamin A 17775e Oral Every Day vitamin E 500 Milligram(s) [...] soft and easy to digest. ??? Take uzcg-woj-wjymyev or prescription medicines only as told by [...] 04/11/2011 Document Revised: 01/07/2018 Document Reviewed: 12/01/2016 [employer] Patient Education ?? 2019 [employer] Colon Polyps Polyps are tissue growths [...] 12/03/2004 Document Revised: 08/14/2016 Document Reviewed: 01/28/2016 [employer] Patient Education ?? 2019 [employer] Diverticulosis Diverticulosis is a condition that [...] getting enough exercise. ??? Smoking. ??? Taking gtmg-fna-tkkcayp pain medicines, like aspirin and ibuprofen. ??? [...] health care provider or your diet and surgical training specialist (dietitian). ? Take a fiber supplement or probiotic, if your health care provider approves. ??? Take nixq-xgk-wveqzkp and prescription medicines only as told by [...] 12/04/2004 Document Revised: 01/26/2017 Document Reviewed: 01/26/2017 [employer] Patient Education ?? 2019 [employer] Hemorrhoids Hemorrhoids are swollen veins in [...] times a day. General instructions ??? Take uacu-yqh-tdibsyh and prescription medicines only as told by [...] 12/16/2008 Document Revised: 08/14/2016 Document Reviewed: 11/21/2015 [employer] Patient Education ?? 2019 [employer] Emergency Awareness and Preventative Care STROKE [...] Assistance with quitting is available by contacting 2-021-ESFDNOW. This is a free resource providing counseling, [...] was given the opportunity to ask questions. Patient/Skin Piler Name: Patient/Skin Piler Signature: Relationship to Patient: Clinician/Hospital Skin Piler Signature: Date: Electronically signed by Kaleb, Neida Conversion Communication Studies Professor Cerner at 07/08/2022 12:01 PM CDT documented in this encounter Plan of Treatment Upcoming Encounters Date Type Department Care Team (Late st Contact Info) Description 11/23/2024 1:45 PM EDT Appointment [address] [address] documented as of this encounter Visit Diagnoses Not on filedocumented in this encounter Care Teams Tinning Machine Set Up Operator Relationship Specialty Start Date End Date Edouard Giron MD [address] [facility] [address] [place] [address] PCP - General Family Medicine 11/17/22 documented as of this encounter
--- OUTSIDE RECORDS SUMMARY | 2024-11-22 11:08 | XMS_ITS | Encounter Summary ---
Author Organization [employer] ([place], [place], [place], [place]) Address [address] [place] [address] Care Team Providers Care Disability Insurance Hearing Officer Name Role Phone Edouard Giron MD Primary Care Provider + [phone] Encounter Details Date Type Department Care Team (Late st Contact Info) Description 09/16/2018 Transcribed Document [facility] [place] [address] [place] [address] ProviderRenato MD [address] [place] [address] Social History Tobacco Use Types Packs/Day Years [...] Histories Past Medical History: Active Seasonal allergies (173545837) Arthritis (6498050) Resolved Asthma (858058206): Resolved. Procedure history: Dental surgical procedure (032007630). Tonsillectomy (210048219). Cholecystectomy (66213933). Bladder surgery. Dilation and curettage (58134616). Blephaplasty. Cyst removed from right finger. Social [...] Refill(s) Non Formulary Medication: one dose, SubCutaneous, S1Ndvih, Allergy injection, 0 Refill(s) ProAir HFA 90 mcg/inh inhalation aerosol: Puff, Inhalation, QID, PRN: as needed for wheezing, 0 Refill(s) Vitamin D2: 1400u, Oral, Daily, 0 Refill(s) aspirin: 81 mg, Oral, Daily, 0 Refill(s) magnesium oxide: 400 mg, Oral, Daily, 0 Refill(s) potassium chloride-sodium chloride: 750 mg, Oral, Daily, 0 Refill(s) vitamin A: 87330k, Oral, Daily, 0 Refill(s) vitamin E: 500 mg, Oral, Daily, 0 Refill(s) zolpidem 10 mg oral tablet: 1 Tab, Oral, At Bedtime, PRN: for sleep, 0 Refill(s), Medications (1) Active Scheduled: (0) Continuous: (1) NaCl 0.9% 1,000 mL 1,000 mL, IntraVENous, 100 mL/Hr PRN: (0) Problem list: All Problems Acute vaginitis / SNOMED CT 63112703 / Confirmed Arthritis / SNOMED CT 8284924 / Confirmed H/O hyperlipidemia / SNOMED CT 372193594 / Confirmed Seasonal allergies / SNOMED CT 850233394 / Confirmed Resolved: Asthma / SNOMED CT 374137808, Active Problems (4) Acute vaginitis Arthritis H/O [...] No deformity, Normal gait. Integumentary: Warm, Dry, [place], No rash. Integumentary exam: Face, Chest, Arm, [...] for Dr. Mayi Payne. Electronically signed by [facility], [facility] Conversion Senior Sharepoint Developer Cerner at 07/08/2022 11:59 AM CDT documented in this encounter Plan of Treatment Upcoming Encounters Date Type Department Care Team (Late st Contact Info) Description 11/23/2024 1:45 PM EDT Appointment [address] [place] [address] documented as of this encounter Visit Diagnoses Not on filedocumented in this encounter Care Teams Disability Insurance Hearing Officer Relationship Specialty Start Date End Date Edouard Giron MD [address] [facility] [address] [place] [address] PCP - General Family Medicine 11/17/22 documented as of this encounter
--- OUTSIDE RECORDS SUMMARY | 2024-11-22 11:08 | XMS_ITS | Encounter Summary ---
Author Organization [employer] ([place], [place], [place], [place]) Address [address] [place] [address] Care Team Providers Care Potato Chip Frier Name Role Phone Edouard Giron MD Primary Care Provider + [phone] Encounter Details Date Type Department Care Team (Late st Contact Info) Description 09/16/2018 Transcribed Document [facility] [place] [address] [place] [address] ProviderRenato MD [address] [place] [address] Social History Tobacco Use Types Packs/Day Years [...] AGGIE HUNT.O.B./Sex: 1945 Female Med Rec #: [id number] Physician: ERNIE SANTORO MD-GAE Financial #: [id number] Pt. Type: O Room/Bed: EEN/2 Admit/Disch: 09/16/18 06:44:00 - Institution: [facility] PACU Case Times Entry 1 In PACU I 09/16/18 08:26:00 Ready for PACU 09/16/18 08:56:00 Discharge Discharge from PACU 09/16/18 08:56:00 I [facility] PACU Case Times Audit 09/16/18 08:56:12 Agricultural Pilot: MARTÍNEZ Modifier: MARTÍNEZ <+> 1 Ready for PACU Discharge <+> 1 Discharge from PACU I Finalized By: ONELIA Mandujnao RN Document Signatures Signed By: ONELIA Mandujano RN 09/16/18 08:56 Electronically signed by Kaleb [facility] Conversion Breakfast And Room Attendant Cerner at 07/08/2022 11:59 AM CDT documented in this encounter Plan of Treatment Upcoming Encounters Date Type Department Care Team (Late st Contact Info) Description 11/23/2024 1:45 PM EDT Appointment [address] [address] documented as of this encounter Visit Diagnoses Not on filedocumented in this encounter Care Teams Potato Chip Frier Relationship Specialty Start Date End Date Edouard Giron MD [address] [facility] [address] [place] [address] PCP - General Family Medicine 11/17/22 documented as of this encounter
--- OUTSIDE RECORDS SUMMARY | 2024-11-22 11:08 | XMS_ITS | Encounter Summary ---
Author Organization [employer] ([place], [place], [place], [place]) Address [address] [place] [address] Care Team Providers Care Range Master Name Role Phone Edouard Giron MD Primary Care Provider + [phone] Encounter Details Date Type Department Care Team (Late st Contact Info) Description 09/16/2018 Transcribed Document [facility] [place] [address] [place] [address] ProviderRenato MD [address] [place], [place] [address] Social History Tobacco Use Types Packs/Day Years [...] AGGIE HUNT.O.B./Sex: 1945 Female Med Rec #: [id number] Physician: ERNIE SANTORO MD-GAE Financial #: [id number] Pt. Type: O Room/Bed: EEN/2 Admit/Disch: 09/16/18 06:44:00 - Institution: [facility] PreOp Case Times Entry 1 In Preop 09/16/18 07:25:00 Ready for Holding 09/16/18 07:46:00 Room Patient Ready for 09/16/18 07:47:00 Surgery Patient Out of Preop 09/16/18 07:47:00 Patient Out of 09/16/18 07:47:00 Holding Room [facility] PreOp Case Times Audit 09/16/18 07:47:05 Rescue Worker: FERMIN Modifier: [email or web address] <+> 1 Patient Out [...] Description 11/23/2024 1:45 PM EDT Appointment [address] [place] [address] documented as of this encounter Visit Diagnoses Not on filedocumented in this encounter Care Teams Range Master Relationship Specialty Start Date End Date Edouard Giron MD [address] [facility] [address] [place] [address] PCP - General Family Medicine 11/17/22 documented as of this encounter
--- OUTSIDE RECORDS SUMMARY | 2024-11-22 11:08 | XMS_ITS | Encounter Summary ---
Author Organization [employer] ([place], [place], [place], [place]) Address [address] [place] [address] Care Team Providers Care Feather Separator Name Role Phone Edouard Giron MD Primary Care Provider + [phone] Encounter Details Date Type Department Care Team (Late st Contact Info) Description 09/16/2018 Transcribed Document [facility] Family Medicine [address] [place] [address] ProviderRenato MD [address] [place], [place] [address] Social History Tobacco Use Types Packs/Day Years [...] AGGIE HUNT.O.B./Sex: 1945 Female Med Rec #: [id number] Physician: ERNIE SANTORO MD-GAE Financial #: [id number] Pt. Type: O Room/Bed: EEN/2 Admit/Disch: 09/16/18 06:44:00 - Institution: [facility] [place] - Case Attendance Entry 1 Entry 2 Entry 3 Case Attendee ERNIE SANTORO MD-MELVI MAGANA, RN CAMELIA MARTINEZ, CUPOLA TAPPER Role Performed Surgeon/Proceduralist, Agricultural Labor Camp Manager, First CUPOLA TAPPER/Nurse Vending Attendant First Time In 09/16/18 07:50:00 09/16/18 07:50:00 [...] Endo - Case Attendance Audit 09/16/18 08:22:51 Machine Installer: JUAN CARLOSKJ Modifier: JUAN CARLOSKJ 1 <+> Time Out 1 <*> Procedure Colonoscopy, Colon Polypectomy 2 <+> Time Out 2 <*> Procedure Colonoscopy, Colon Polypectomy 3 <+> Time Out 3 <*> Procedure Colonoscopy, Colon Polypectomy 4 <+> Time Out 4 <*> Procedure Colonoscopy, Colon Polypectomy 09/16/18 08:08:53 Machine Installer: JUAN CARLOSKJ Modifier: JUAN CARLOSKJ 1 <*> Procedure Colonoscopy 2 <*> Procedure Colonoscopy 3 <*> Procedure Colonoscopy 4 <*> Procedure Colonoscopy 09/16/18 07:54:32 Machine Installer: JUAN CARLOSKJ Modifier: JUAN CARLOSKJ 4 <*> [...] Endo - Case Times Audit 09/16/18 08:22:47 Machine Installer: JUAN CARLOSKJ Modifier: JUAN CARLOSKJ <+> 1 Out Room Time <+> 1 Stop Time <+> 1 Stop Time 09/16/18 08:06:09 Machine Installer: YONGJ Modifier: JUAN CARLOSKJ <+> 1 Start [...] Yes Assessment Complete Fire Risk MELVI RANGEL, user interface artist Verified By Fire Risk 09/16/18 07:53:00 Assessment Verified Date/Time Fire Risk High Risk Protocol Yes Implemented Standard Fire Yes Safety Precautions Followed Last Modified By: MELVI RANGEL RN 09/16/18 07:53:07 [facility] [place] - General Case Executive Chef Assistant 1 Case Information OR Endo 02 [facility] Case Level 1 Room Verified Yes Wound Class III - Contaminated Specialty SN Gastroenterology Anesthesia Type MAC ASA Class 2 Diagnosis Preop Diagnosis Z86.010 history of polyps Postop Same As Preop No Postop Diagnosis polyps, diverticulosis, hemorrhoids Last Modified By: MELVI RANGEL RN 09/16/18 08:22:37 [facility] Endo - General Case Data Audit 09/16/18 08:22:37 Machine Installer: MADHU Modifier: MADHU 1 <*> Postop Diagnosis polyps, diverticulosis, hemorrhoids 09/16/18 08:12:30 Machine Installer: MADHU Modifier: MADHU <+> 1 Postop Diagnosis [facility] Endo - Intraoperative Assessment Entry 1 Valid [...] Endo - Intraoperative Equipment Audit 09/16/18 07:54:50 Machine Installer: MADHU Modifier: MADHU <+> 1 Photo <+> 1 Video <+> 1 Blood Pressure Location <+> 1 Pulse Oximeter Probe Site <+> 1 Flexible Endoscopes Used <+> 1 Scope Serial Number/Identification Number [facility] Endo - Patient Positioning Entry 1 Procedure [...] Endo - Patient Positioning Audit 09/16/18 08:08:54 Machine Installer: JUAN CARLOSElmaJ Modifier: YONGJ 1 <*> Procedure [...] Endo - Sign Out Audit 09/16/18 08:23:44 Machine Installer: JUAN CARLOSKJ Modifier: YONGJ <+> 1 RN [...] KAREN J., RN 09/16/18 08:23:01 09/16/18 08:23:01 [facility] Endo - Surgical Procedures Audit 09/16/18 08:23:01 Machine Installer: MADHU Modifier: MADHU <+> 1 Stop <+> 2 Stop 09/16/18 08:08:48 Machine Installer: MADHU Modifier: MADHU 1 <*> Procedure Colonoscopy 1 <+> Start 1 <+> Physician States Cecum Reached <+> 2 Procedure <+> 2 Primary Procedure <+> 2 Primary Surgeon <+> 2 Specialty <+> 2 Start <+> 2 Wound Class <+> 2 Anesthesia Type <+> 2 Physician States Cecum Reached 09/16/18 07:55:14 Machine Installer: MADHU Modifier: MADHU 1 <*> Procedure Colonoscopy 1 <+> Specialty [facility] Endo - Time Out Entry 1 Procedure [...] Endo - Time Out Audit 09/16/18 08:08:55 Machine Installer: MADHU Modifier: MADHU 1 <*> Procedure to be Performed Colonoscopy Case Comments <None> Finalized By: MELVI RANGEL, RN Document Signatures Signed By: MELVI RANGEL RN 09/16/18 08:23 MELVI RANGEL RN 09/16/18 09:44 Unfinalized History Date/Time Username Reason for Unfinalizing Freetext Reason for Unfinalizing 09/16/18 09:43 MADHU Correct Documentation Electronically signed by Cem Manuel Conversion Online Communications Specialist Cerner at 07/08/2022 12:07 PM CDT documented in this encounter Plan of Treatment Upcoming Encounters Date Type Department Care Team (Late st Contact Info) Description 11/23/2024 1:45 PM EDT Appointment [address] [place] [address] documented as of this encounter Visit Diagnoses Not on filedocumented in this encounter Care Teams Feather Separator Relationship Specialty Start Date End Date Edouard Giron MD [address] [address] [address] [place] [address] PCP - General Family Medicine 11/17/22 documented as of this encounter
--- OUTSIDE RECORDS SUMMARY | 2024-11-22 11:09 | XMS_ITS | Encounter Summary ---
Author Organization [employer] ([place], [place], [place], [place]) Address [address] [place] [address] Care Team Providers Care Autocad Draftsman Name Role Phone Edouard Giron MD Primary Care Provider + [phone] Encounter Details Date Type Department Care Team (Late st Contact Info) Description 09/16/2018 Transcribed Document [facility] [place] Family Medicine [address] [place] [address] ProviderRenato MD [address] [place], [place] [id number] Social History Tobacco Use Types Packs/Day Years [...] soft and easy to digest. ??? Take cghr-rxi-ntwkwcg or prescription medicines only as told by [...] 04/11/2011 Document Revised: 01/07/2018 Document Reviewed: 12/01/2016 [employer] Interactive Patient Education ? 2019 [employer] Colon Polyps Polyps are tissue growths [...] 12/03/2004 Document Revised: 08/14/2016 Document Reviewed: 01/28/2016 [employer] Interactive Patient Education ? 2019 [employer] Diverticulosis Diverticulosis is a condition that [...] getting enough exercise. ??? Smoking. ??? Taking vgir-mtc-fpdznaq pain medicines, like aspirin and ibuprofen. ??? [...] health care provider or your diet and graves registration specialist (dietitian). ? Take a fiber supplement or probiotic, if your health care provider approves. ??? Take gxdx-rtr-yinbhfp and prescription medicines only as told by [...] 12/04/2004 Document Revised: 01/26/2017 Document Reviewed: 01/26/2017 [employer] Interactive Patient Education ? 2019 [employer] Hemorrhoids Hemorrhoids are swollen veins in [...] times a day. General instructions ??? Take tplu-cye-itxkmcw and prescription medicines only as told by [...] 12/16/2008 Document Revised: 08/14/2016 Document Reviewed: 11/21/2015 [employer]Hymite Interactive Patient Education ? 2019 [employer]. documented in this encounter Plan of Treatment Upcoming Encounters Date Type Department Care Team (Late st Contact Info) Description 11/23/2024 1:45 PM EDT Appointment [address] [place] [address] documented as of this encounter Visit Diagnoses Not on filedocumented in this encounter Care Teams Autocad Draftsman Relationship Specialty Start Date End Date Edouard Giron MD [address] [facility] [address] [place] [address] PCP - General Family Medicine 11/17/22 documented as of this encounter
--- OUTSIDE RECORDS SUMMARY | 2024-11-22 11:09 | XMS_ITS | Referral Summary ---
Author Organization [employer] ([place], [place], [place], [place]) Address [address] [place] [address] Care Team Providers Care Coat Room Attendant Name Role Phone Edouard Giron MD Primary Care Provider + [phone] Allergies Active Allergy Reactions Criticality Noted Date Comments Atorvastatin Anaphylaxis,Other (See Comments) High 08/23/2008 Dexbrompheniramine-Ps eudoephed Other (See Comments) Low 08/31/2012 Dexchlorpheniram-Phen ylephrine Other (See Comments) Low 08/23/2008 Diazepam Other (See Comments) Low 08/23/2008 Other reaction(s): Disorientation Ibuprofen Other (See Comments) Low 08/31/2012 Levofloxacin Other (See Comments) Low 08/31/2012 Penicillins Hives,Other (See Comments) High 08/23/2008 Rofecoxib Anaphylaxis,Rash,Ot her (See Comments) High 08/23/2008 Npqepyfzr-Hq-Yyf-Verde adonna Other (See Comments) 08/23/2008 1Replaced free [...] Date Rupesh rded Speak language other than Azerbaijani at home Not on file 04/10/2023 Want [...] Description 11/23/2024 1:45 PM EDT Appointment [address] [place] [address] Insurance [facility] SU[facility] MEDICARE PART A B Care Teams Coat Room Attendant Relationship Specialty Start Date End Date Edouard Giron MD [address] [facility] [address] [place] [phone] PCP - General Family Medicine 11/17/22
--- OUTSIDE RECORDS SUMMARY | 2024-11-22 11:09 | XMS_ITS | Encounter Summary ---
Author Organization [employer] ([place], [place], [place], [place]) Address [address] [place] [address] Care Team Providers Care Social Work Instructor Name Role Phone Edouard Giron MD Primary Care Provider + [phone] Encounter Details Date Type Department Care Team (Late st Contact Info) Description 09/16/2018 Transcribed Document [facility] [place] Family Medicine [address] [place] [address] ProviderRenato MD [address] [employer], [place] [id number] Social History Tobacco Use Types Packs/Day Years [...] Source : Stated Height Entry Format : [place] Height, Feet : 5 ft(Converted to: 152 cm, 60 Inch) Height, Inches : 4 Inch(Converted to: 0 ft 4 Inch, 10.16 cm) Clinical Height : 162.56 cm Weight Source : Standing scale Weight Entry Format : [place] Clinical Dosing Weight : 78.73 kg Weight, Pounds : 173.2 lb Body Surface Area (BSA) : 1.84 m2 Body Mass Index : 29.8 kg/m2 (HI) [place] Body Weight : 54 kg Lanny Cohen [...] Arrival on Unit : Ambulatory Support Person/Patient Jailkeeper : Yes Support Person/Pt Rep Name : Rui (spouse) Patient's Support Person/Pt Rep Contact Information : [phone] Want Family/Rep/Phys Notified of Admit : Yes Name/Contact Info Fam/Rep Notified Adm : RUI Name/Contact Info Physician Notified Adm : EDOUARD GIRON Emergency Contact #1 : RUI Emergency Contact #1 Emergency Contact #1 Relationship : Emergency Contact #2 : NA Emergency Contact #2 Phone Number : NA Emergency Contact #2 Relationship : NA Primary Language : Swazi Communication Barrier : None Lanny Cohen RN [...] Scale Risk Level : 0-24 Low Risk [place] Fall Interventions : Adequate lighting, Bed in [...] Description 11/23/2024 1:45 PM EDT Appointment [address] [place] [address] documented as of this encounter Visit Diagnoses Not on filedocumented in this encounter Care Teams Social Work Instructor Relationship Specialty Start Date End Date Edouard Giron MD [address] [facility] [address] [place] [phone] PCP - General Family Medicine 11/17/22 documented as of this encounter
--- OUTSIDE RECORDS SUMMARY | 2024-11-22 11:09 | XMS_ITS | Clinical Summary ---
Author Organization [facility] Address [address] [place] [address] Care Team Providers Care Scudding Inspector Name Role Phone Edouard Giron MD Primary Care Provider + [phone] Allergies Active Allergy Reactions Criticality Noted Date [...] time each day. 09/03/19 17 Active Multiple Vitamins-[place] als (Womens Multi) capsule Take 1 capsule [...] 09/03/19 17 Active Vitamin A 3 MG (74573 UT) capsule 09/01/19 13 Active alpha tocopherol [...] 09/19/2024 4:00 PM EDT Office Visit [facility] [address] [address] [facility] [address] [facility], [address] [place] [address] Yassine Pizarro, PA Osteopenia of multiple sites (Primary Dx); Hypervitaminosis D; Osteochondrosis of lunate, unspecified laterality 09/19/2024 3:02 PM EDT - 09/19/2024 11:59 PM EDT Hospital Encounter [facility] [address] [facility], [address] [place] [address] Osteopenia of multiple sites Discharge Disposition: Home or Self Care 09/19/2024 Travel 08/29/2024 Travel from Last 3 Months Immunizations Immunization [...] 08/29/2025 1:00 PM EDT Ovarian Cancer Scre[facility] [address] [facility] [place] [phone] 09/05/2025 1:00 PM EDT Clinical Support [facility] [address] [place] [address] 09/19/2025 2:40 PM EDT Appointment [facility] [address], [address] [place] [address] 09/19/2025 3:00 PM EDT Office Visit [facility] [address], [address] [place] [address] Yassine Pizarro, PA [address] [place] [address] Health Maintenance Due Date Last Done Comments [facility]-Hepatitis C Screening 1945 [facility]Medicare Annual Wellness (AWV) 1945 [facility]-Infant/Child/Adol SDOH Screenings 1945 [facility]- SDOH Screenings 1963 [facility]-Adult SDOH Screenings 1963 [facility]-Depression Screening 08/31/2024 09/01/2023 [id number] Vaccine (7 - Moderna risk season) 2024 03/25/2024, 12/31/2021, 07/16/2021, Additional history exists [facility]-Influenza Vaccine (#1) 11/21/202412/07, 11/29/2019, 12/28/2018, Additional history [...] Zonia ging Narrative 10/01/2024 10:42 PM EDT [facility] [address] [place] [address] DXA Bone Densitometry Report: [Date of exam] BMD test performed using the Qbix DXA System (analysis version: 14.10) manufactured by [employer]. REFERRING PROVIDER: SHAUNNA Garcia CLINICAL INFORMATION: PATIENT [...] Phosphatase 14.4 ug/L 08/29/2024 4:31 PM EDT [facility] Comment: BSAP (Ostase) Reference Values, Female, age 18 years and up: Premenopausal: 4.5 to 16.9 ug/L Postmenopausal: 7.0 to 22.4 ug/L Blood Venous blood specimen / Unknown Venipuncture / Unknown 08/29/2024 12:45 PM EDT 08/29/2024 12:45 PM EDT us [facility] REF LAB BLOOD AND FLUID OR D Final Result [facility] [address] [place] [address] * C-Telopeptide (08/29/2024 12:45 PM EDT) C Telopeptide Beta Cross Linked Serum Result 429 pg/mL 09/01/2024 12:49 PM EDT [facility] ([facility]) Blood Venous blood specimen / Unknown Venipuncture / Unknown 08/29/2024 12:45 PM EDT 08/29/2024 12:45 PM EDT Narrative [facility]) - 09/01/2024 12:49 PM EDT Premenopausal Females: 136-689 pg/mL Postmenopausal Females: 177-1015 pg/mL REFERENCE INTERVAL: C-Telopeptide, Tduj-Icfjd-Abriup, Serum Access complete set of age- and/or gender-specific reference intervals for this test in the [facility] Test Directory ([facility]). Performed By: [facility] [address] [place] [address] Set Up Operator: Arsalan Elizabeth MD, PhD CLIA Number: [id number] us [facility] BLOOD ORDERABLES Final Res ult [facility] [address] [place] [address] * Vitamin D 25 Hydroxy (08/29/2024 12:45 PM EDT) Vitamin D 25 Hydroxy 59.8 20.0 - 80.0 ng/mL 08/29/2024 4:29 PM EDT [facility] Blood Venous blood specimen / Unknown Venipuncture / Unknown 08/29/2024 12:45 PM EDT 08/29/2024 12:45 PM EDT Narrative [facility] - 08/29/2024 4:29 PM EDT Testing performed on [facility] [employer], standardized against NIST SRM 2972. When testing [...] [facility] BLOOD ORDERABLES Final Res ult [facility] [address] [place] [address] * (ABNORMAL) Renal Function Panel, Plasma (08/29/2024 12:45 PM EDT) Glucose, Plasma 104(H) 74 - 99 mg/dL 08/29/2024 2:55 PM EDT [facility] BUN, Plasma 16 8 - 23 mg/dL 08/29/2024 2:55 PM EDT [facility] Creatinine, Plasma 0.65 0.60 - 1.10 mg/dL 08/29/2024 2:55 PM EDT [facility] BUN/Creatinine Ratio 25 08/29/2024 2:55 PM EDT [facility] Sodium, Plasma 135(L) 136 - 145 mmol/L 08/29/2024 2:55 PM EDT [facility] Potassium, Plasma 4.3 3.6 - 4.9 mmol/L 08/29/2024 2:55 PM EDT [facility] Chloride, Plasma 101 97 - 107 mmol/L 08/29/2024 2:55 PM EDT [facility] CO2, Plasma 24 22 - 29 mmol/L 08/29/2024 2:55 PM EDT [facility] Anion Gap 10 6 - 16 mmol/L 08/29/2024 2:55 PM EDT [facility] Total Calcium, Plasma 9.1 8.9 - 10.2 mg/dL 08/29/2024 2:55 PM EDT [facility] Phosphorus, Plasma 3.6 2.5 - 4.5 mg/dL 08/29/2024 2:55 PM EDT [facility] Albumin, Plasma 4.2 3.5 - 5.2 g/dL 08/29/2024 2:55 PM EDT [facility] eGFRcr 89.7 mL/min/1.7 3m*2 08/29/2024 2:55 PM EDT [facility] Comment:Reported eGFRcr in m L/min/1.73m2 is based the CKD-EPI 2020 equation that does not use a race coefficient. Blood Venous blood specimen / Unknown Venipuncture / Unknown 08/29/2024 12:45 PM EDT 08/29/2024 12:45 PM EDT us [facility] BLOOD ORDERABLES Final Res [facility] [address] [place] [address] from Last 3 Months [place] [address] [place] [place] [address] [address] [place] [address] Care Teams Scudding Inspector Relationship Specialty Start Date End Date Edouard Giron MD [address] [place] [id number] PCP - General 08/03/20
--- OUTSIDE RECORDS SUMMARY | 2024-11-22 11:09 | XMS_ITS | Clinical Summary ---
Author Organization [employer] ([place], [place], [place], [place]) Address [address] [place] [address] Care Team Providers Care French Lecturer Name Role Phone Edouard Giron MD Primary Care Provider + [phone] Allergies Active Allergy Reactions Criticality Noted Date Comments Atorvastatin Anaphylaxis,Other (See Comments) High 08/23/2008 Dexbrompheniramine-Ps eudoephed Other (See Comments) Low 08/31/2012 Dexchlorpheniram-Phen ylephrine Other (See Comments) Low 08/23/2008 Diazepam Other (See Comments) Low 08/23/2008 Other reaction(s): Disorientation Ibuprofen Other (See Comments) Low 08/31/2012 Levofloxacin Other (See Comments) Low 08/31/2012 Penicillins Hives,Other (See Comments) High 08/23/2008 Rofecoxib Anaphylaxis,Rash,Ot her (See Comments) High 08/23/2008 Anvktzprm-Ea-Sar-Verde adonna Other (See Comments) 08/23/2008 1Replaced free [...] Date Rupesh rded Speak language other than Guatemalan at home Not on file 04/10/2023 Want [...] Description 11/23/2024 1:45 PM EDT Appointment [address] [place] [address] Health Maintenance Due Date Last Done [...] Shingles Vaccine (Zoster) Completed 05/10/2018, 12/2017 Insurance [facility] SUPPL MEDICARE PART A B Care Teams French Lecturer Relationship Specialty Start Date End Date Edouard Giron MD [employer] [address] [place] [address] PCP - General Family Medicine 11/17/22
--- OUTSIDE RECORDS SUMMARY | 2024-11-22 11:09 | XMS_ITS | Encounter Summary ---
Author Organization [employer] ([place], [place], [place], [place]) Address [address] [place] [address] Care Team Providers Care Freight Rate Analyst Name Role Phone Edouard Giron MD Primary Care Provider [phone] Reason for Referral * Mammography (Routine) - Authorized Specialty Diagnoses / Procedures Referred By Ramos bennett Referred To Contact Radiology Diagnoses Visit for screening mammogram Procedures MM digital mammo screen with joe bilateral Edouard Giron MD [address] [address] [address] [place] [phone] Phone: tel: fax: [address] [place] [address] Phone: tel: fax: Referral ID Status Reason Start Date Expiration Date V isits Requested Visits Authorized [id number] Authorized 11/23/2024 11/23/2025 1 1 Encounter Details Date Type Department Care Team (Late st Contact Info) Description 11/19/2023 Outside Orders [address] [place] [address] Edouard Giron MD [address] [address] [place] [phone] Visit for screening mammogram (Primary Dx) Social History Tobacco Use Types Packs/Day Years Used Date Smoking Tobacco: Never Assessed Family and Community Support Answer Patrick e Recorded Help with Day to Day Activities Not on file 04/10/2023 Feeling Lonely or Isolated Not on file 04/10 Educational Attainment Answer Date Rupesh rded Speak language other than Kosovan at home Not on file 04/10/2023 Want [...] Info) Description 11/23/2024 1:45 PM EDT Appointment [address] [place] [address] Scheduled Orders Name Type Priority Associated Diagnoses Orde r Schedule MM digital mammo screen with joe bilateral Imaging Routine Visit for screening mammogram Expected: 11/23/2024, Expires: 11/23/2025 documented as of this encounter Visit Diagnoses Diagnosis Visit for screening mammogram- Primary documented in this encounter Care Teams Freight Rate Analyst Relationship Specialty Start Date End Date Edouard Giron MD [address] [place] [address] PCP - General Family Medicine 11/17/22 documented as of this encounter
--- OUTSIDE RECORDS SUMMARY | 2024-11-22 11:10 | XMS_ITS | Clinical Summary ---
Author Organization [facility] Address [address] [place] [address] Care Team Providers Care Marketing Support Manager Name Role Phone Edouard Giron MD Primary Care Provider + [phone] Allergies Active Allergy Reactions Criticality Noted Date [...] Description 07/11/2025 11:30 AM EDT Office Visit [facility] [address] [address] Shruti Hansen APRN [address] [facility] [address] [place] [address] Health Maintenance Due Date Last [...] history exists Insurance MEDICARE A & B [facility] Care Teams Marketing Support Manager Relationship Specialty Start Date End Date Edouard Giron MD [address] [facility] [address] [place] [address] PCP - General Family Medicine 07/28/23
--- OUTSIDE RECORDS SUMMARY | 2024-11-22 11:10 | XMS_ITS | Patient Health Record ---
Author Organization [facility] Address [address] [place] [id number] Care Team Providers Care Water Trainer Name Role Phone Edouard Giron Primary Care Provider [phone] Pepper Parson Unavailable [phone] Allergies Allergen (clinical drug ingredient) Drug/Non Drug [...] 38 plat 159 100 - 400 CBC Fingerstick (in house) [...] - 38 plat 203 100 - 400 P-Vitamin D 25-Hydroxy Reviewed date:03/02/2024 09:02:03 AM Interpretation: Normal Performing Lab: Notes/Report: Test performed by [facility] [address] [place] [address] , [address], [place] [address] Richard Live MD, Perch Mender CLIA: [id number] Vitamin D 25-Hydroxy 52.9 30.0-100.0 ng/mL Interpretation of Vitamin D 25 OH: < 20 ng/mL - Deficiency 20 - 29 ng/mL - Insufficiency 30 - 100 ng/mL - Sufficiency > 100 ng/mL - Super-therapeutic- toxicity may occur above this level. Clinical correlation required. P-Microalbumin/Creatinine, R andom Urine Sample Reviewed date:03/02/2024 09:02:03 AM Interpretation: Normal Performing Lab: Notes/Report: Test performed by [facility] [address] , [address], [place] [id number] Richard Live MD, Perch Mender CLIA: [id number] Albumin/Creatinine Ratio, Urine 25 0-30 ug/mg Microalbumin, Urine, Random 11.4 Creatinine, Urine 462.4 P-TSH Reviewed date:03/02/2024 09:02:03 AM Interpretation: Normal Performing Lab: Notes/Report: Test performed by [facility] [address] [place] [address] [place] [address] Richard Live MD, Perch Mender CLIA: [id number] TSH 2.82 0.43-5.25 mU/L P-Lipid Panel Reviewed date:03/02/2024 09:02:03 AM Interpretation: Normal Performing Lab: Notes/Report: Test performed by [facility] [address] [place] [address] [address], [place] [address] Richard Live MD, Perch Mender CLIA: [id number] Cholesterol 148 <200 mg/dL Triglycerides 116 <150 [...] Normal Performing Lab: Notes/Report: Test performed by [facility] [address] [facility] [address], [place] [address] Richard Live MD, Perch Mender CLIA: [id number] Thyroxine Free (free T4) 1.45 0.86-1.76 ng/dL P-Comprehensive Metabolic Pa gabby (CMP) Reviewed date:03/02/2024 09:02:02 AM Interpretation:gluc 126 Performing Lab: Notes/Report: Test performed by [facility] [address] [place] [address] , [address], [place] [address] Richard Live MD, Perch Mender CLIA: [id number] Sodium 141 135-145 mmol/L Potassium 4.7 3.5-5.3 [...] - 38 platlet 277 100 - 400 Bone density Reviewed date:10/28/2024 12:15:45 PM Interpretation:osteopenia [...] Interpretation:Positive Performing Lab: Notes/Report: Positive Result: Pos Reason For Referral No Information Medications Medication [...] 40 MG TAKE 1 CAPSULE BY MO UTH ONCE DAILY; Duration: 90 days Active Albuterol Sulfate HFA 108 (90 Base) MCG/ACT 1 puff as needed Inhalation tid 02/09/2024 Active Potassium Chloride ER 10 MEQ TAKE 1 CAPSULE BY MOUTH TWICE DAILY; Duration: 90 Active Immunizations Vaccine Route Administration Date Status Comme nts Hepatitis B (20 and more) Unknown 08/04/2000 Administer ed PNEUMOVAX 23 VACCINE IM Intramuscular 12/14/2015 Administe red Prevnar (PCV20) Unknown 02/28/2022 Pending Shingrix Unknown 01/30/2018 Administered Shingrix Unknown 05/10/2018 Administered Tetanus Tdap-Adacel (over 7yrs) IM Intramuscular 07/03/2004 Administered Fluzone High Dose (65yr and older) [...] Intramuscular 12/25/2023 Administered COVID 19 Moderna Unknown 11/21/2020 Administered Boostrix Tdap Unknown 01/06/2024 Administered Tetanus Tdap-Adacel (over 7yrs) IM Intramuscular 12/12/2013 Administered Prevnar (PCV13) IM Intramuscular 12/12/2013 Administered PNEUMOVAX 23 VACCINE IM Intramuscular 01/08/2009 Tata iniguez COVID 19 Moderna Unknown 05/04/2020 Administered Fluzone High Dose (65yr and older) IM Intramuscular 12/11/2022 Administered Fluzone High Dose (65yr and older) IM Intramuscular 12/19/2021 Administered Fluzone High Dose (65yr and older) IM Intramuscular 11/29/2015 Administered PNEUMOVAX 23 VACCINE IM Intramuscular 02/22/2021 Tata iniguez Problems Problem Type SNOMED Code ICD Code Onset Dates Problem Status W/U Status Risk Notes Problem Atrophic vulvovaginitis (95096342) 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.3) Active confirmed Problem Polyarthralgia (44092653) Polyarthralgia (719.49) Active confirmed Problem Insomnia (182644911) Insomnia (G47.00) Active confirmed Problem Tear film insufficiency (47674473) Dry eyes, bilateral (H04.123) Active confirmed Problem Hyperlipidemia (74547410) Hyperlipidemia (E78.5) Active confirmed Problem Vitamin D deficiency (27606239) Vitamin D deficiency (E55.9) Active confirmed Problem Otitis externa (4411448) Otitis externa (H60.90) Active confirmed Problem History of anemia (283314525) History of anemia (Z86.2) Active confirmed Problem Allergic rhinitis (00557012) Allergic rhinitis, unspecified (J30.9) Active confirmed Problem Acquired hypothyroidism (386105813) Acquired hypothyroidism (E03.9) Active confirmed Problem Gastroesophageal reflux disease (257151463) Gastroesophageal reflux disease, esophagitis presence not specified (K21.9) Active confirmed Problem Migraine (31389804) Migraine wit hout status migrainosus, not intractable, unspecified migraine type (G43.909) Active confirmed Problem Asthma without status asthmaticus (40006823) Uncomplicated asthma, unspecified asthma severity (J45.909) Active confirmed Problem Osteoarthritis of knee (331582115) Primary osteoarthritis of both knees (M17.0) Active confirmed Problem Vitamin D deficiency (36497395) Low vitamin D level (E55.9) Active confirmed Problem Chronic rhinitis (21162467) Rhinitis, unspecified type (J31.0) Active confirmed Problem Allergic rhinitis (11962459) Allergic rhinitis, unspecified seasonality, unspecified trigger (J30.9) Active confirmed Problem Primary hypertension (17699861) Primary hypertension (I10) Active confirmed Vital Signs Heart Rate 70 /min 10/17/2024 Blood pressure diastolic 70 mm Hg 10/17/2024 Height 64.75 in 10/17/2024 Blood pressure systolic 122 mm Hg 10/17/2024 Weight 178.6 lbs 10/17/2024 BMI 29.95 kg/m2 10/17/2024 Encounters Encounter Location Date Provider Diagnosis [facility] [address] [place], [place] [id number] 11/30/2023 Edouard [place] COVID-19 U07.1 [facility] [address] [place], [place] [id number] 12/25/2023 Edouard [place] Encounter for immunization Z23 [facility] [address] [place], [place] [id number] 02/09/2024 Pepper Parson Bronchitis J40 [facility] [address] [place], [place] [id number] 02/26/2024 Edouard [place] Primary hypertension I10 ; Hyperlipidemia E78.5 ; Acquired hypothyroidism E03.9 ; Vitamin D deficiency E55.9 ; Gastroesophageal reflux disease, esophagitis presence not specified K21.9 ; Insomnia G47.00 ; Persistent cough R05.3 and Hypokalemia E87.6 [facility] [address] [facility] [address] [place], [place] [id number] 03/08/2024 Pepper Parson URI (upper respirato ry infection) J06.9 and Stye H00.019 [facility] [address] [facility] [address] [place], [place] [id number] 08/26/2024 Edouard [place] Primary hypertension I10 ; Acquired hypothyroidism E03.9 ; Hyperlipidemia E78.5 ; Insomnia G47.00 and BMI 29.0-29.9,adult Z68.29 [facility] [address] [facility] [address] [place], [place] [id number] 09/20/2024 Edouard [place] Essential hypertensi on I10 and BMI 29.0-29.9,adult Z68.29 [facility] [address] [place], [place] [id number] 09/27/2024 Edouard [place] Primary hypertension I10 [facility] [address] [place], [place] [id number] 10/17/2024 Edouard [place] Primary hypertension I10 and BMI 29.0-29.9,adult Z68.29 [facility] [address] [place], [place] [id number] 03/02/2024 Edouard [place] [facility] [address] [facility] [address] [place] [id number] 08/27/2024 Edouard [place] Screening for osteoporosis Z13.820 [facility] [address] [place] [id number] 09/20/2024 Edouard [place] [facility] [address] [facility] [address] [place], [place] [id number] 10/28/2024 Edouard [place] Assessments Encounter Date Diagnosis (ICD Code) Assessment [...] E78.5) 02/26/2024 Acquired hypothyroidism (ICD-10 - E03.9) 08/26/2024 Insomnia (ICD-10 - G47.00) 02/26/2024 Vitamin [...] [address], [place], [id number], Insurance Providers Payer Name Payer Address Payer Phone Subscriber Number Group Number Insured Name Patient Relationship to Insured Coverage Start Date Coverage End Date MEDICARE PART B [address] [address] [place] [id number] [id number] BenitoAggie correa Self - patient is the insured [employer] [address] [place] [address] [id number] Aggie Oliver Self - patient [...] 1.0 mL allergy 08/06/2016 1.0 mL allergy 10/10/2016 allergy 10/10/2016 allergy 10/10/2016 allergy 11/11/2016 0.5 mL allergy 11/11/2016 0.5 mL allergy 11/11/2016 0.5 mL allergy 11/18/2016 1.0 mL allergy 11/18/2016 1.0 mL allergy 11/18/2016 1.0 mL allergy 02/18/2017 1.0 mL allergy 02/18/2017 1.0 mL allergy 02/18/2017 1.0 mL allergy 03/20/2017 1.0 mL allergy 03/20/2017 1.0 mL allergy 03/20/2017 1.0 mL allergy 06/18/2017 0.05 mL allergy 06/18/2017 0.05 mL allergy 06/18/2017 0.05 mL allergy 06/29/2017 0.10 mL allergy 06/29/2017 0.10 mL allergy 06/29/2017 0.10 mL allergy 07/07/2017 0.20 mL allergy 07/07/2017 0.20 allergy 08/07/2017 0.05 mL allergy 08/07/2017 0.50 [...] 0.5 mL allergy 10/14/2017 0.5 mL allergy 12/16/2017 1.0 mL allergy 12/16/2017 1.0 mL allergy 12/16/2017 1.0 mL allergy 01/01/2018 allergy 01/01/2018 allergy 01/01/2018 Dexamethasone 02/27/2014 1 mL Dexamethasone 02/09/2024 1 mL allergy 11/24/2017 1.0 mL allergy 11/24/2017 1.0 mL allergy 11/24/2017 1.0 mL allergy 11/05/2017 1.0 mL allergy 11/05/2017 1.0 mL allergy 11/05/2017 1.0 mL allergy 10/22/2017 1.0 mL allergy 10/22/2017 1.0 mL allergy 10/22/2017 1.0 mL allergy 07/31/2017 0.8 mL allergy 07/31/2017 0.8 mL allergy 07/31/2017 0.6 mL allergy 07/24/2017 0.5 mL allergy 07/24/2017 0.5 mL allergy 07/24/2017 0.40 mL allergy 07/15/2017 0.30 mL allergy 07/15/2017 0.30 mL allergy 07/15/2017 0.30 allergy 07/07/2017 0.20 mL allergy 06/11/2017 0.6 mL allergy 06/11/2017 0.6 mL allergy 06/11/2017 0.6 mL allergy 09/08/2016 1.0 mL allergy 09/08/2016 1.0 mL allergy 09/08/2016 1.0 mL Medical (General) History Medical History History ICD Code Insomnia Hypercholestrolemia Vitamin D Deficiency Migraine Headaches Allergic Rhinitis Asthma Esophageal Reflux Surgical History Surgery Date(Month/Year) Cholecystectomy Tonsillectomy Bladder Suspension D & C Ear Tubes Forehead Pre Cancerous Lesion Removal Dow Teeth Extracted Eye Lid 12/2012 LT Lower Arm Lesion Removal x2 5 RT 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
== END 2024-11-22 23:59 | disposition home or self-care (01) ==
LOC: RAD 10:33
PROVIDERS: PCP Family Medicine; Visit Provider Orthopaedic Surgery
DX: R69 Illness, unspecified (principal)

== ENCOUNTER 2025-01-27 08:50 | Outpatient (CLI) | payer MEDICARE, BC, SELFPAY ==
--- OUTSIDE RECORDS SUMMARY | 2024-02-09 05:50 | XMS_ITS ---
[facility] Address [address] [place] [id number] Care Team Providers Care Valve Assembler Name Role Phone Mo Gironian Primary Care Provider [phone] Pepper Parson Unavailable [phone] Allergies Allergen (clinical drug ingredient) Drug/Non Drug Allergy documented on EMR Reaction Allergy Type Onset Date Status Levaquin Unknown Drug Allergy Active atorvastatin Lipitor muscle weakness Drug Allergy Active Stahist Unknown Drug Allergy Active Sulfamethoxazole Unknown Drug Allergy Active diazepam Valium insomnia Drug Allergy Active Penicillin rash Drug Allergy Active rofecoxib Rofecoxib Unknown Drug Allergy Active Results Component Value Reference Range Notes CBC Fingerstick (in house) Reviewed date:02/09/2024 03:39:46 PM Interpretation: Performing Lab: Notes/Report: wbc 10.0 3.5 - 10 lym 14.9 15 - 50 mid 4.3 2 - 15 gran 80.8 35 - 80 rbc 4.78 3.5 - 5.5 hgb 14.4 11.5 - 16.5 hct 43.4 35 - 55 mcv 90.7 75 - 100 mch 30.2 25 - 35 mchc 33.3 31 - 38 plat 159 100 - 400 REASON FOR VISIT drainage, cough Medications Medication SIG (Take, Route, Frequency, Duration) Notes Start Date End Date Status Omeprazole 40 MG TAKE 1 CAPSULE BY [facility] ONCE DAILY; Duration: 90 Active Metoprolol Succinate ER 25 MG 1 tablet Orally Once a day; Duration: 90 days Active Cefuroxime Axetil 500 MG 1 tablet Orally every 12 hrs; Duration: 5 day(s) 02/09/2024 Active CeleBREX 200 MG 1 cap(s) orally once a day; Duration: 90 days Active Albuterol Sulfate HFA 108 (90 Base) MCG/ACT 1 puff as needed Inhalation tid 02/09/2024 Active Cromolyn Sodium 4 % 1 gtt in each affect ed eye 4 times a day as needed 08/26/2018 Active Potassium Chloride ER 10 MEQ 1 cap(s) orally 2 times a day; Duration: 90 days Active Zolpidem Tartrate 10 MG 1 tab(s) orally prn at bedtime; Duration: 90 days 02/27/2023 Active Rosuvastatin Calcium 20 MG TAKE 1 TABLET BY MOUTH ONCE DAILY AT BEDTIME Active Synthroid 25 MCG 1 tab(s) orally once daily Active Vitamin A & D 8000-400 UNIT 1 cap(s) orally once a day Active Vitamin E 400 UNIT 1 cap(s) orally once a day Active ProAir Digihaler 108 (90 Base) MCG/ACT 2 puff(s) inhaled 4 times a day Not-Taking EpiPen 2-Tima 0.3 MG/0.3ML 1 kit intramuscularly once Active Vitamin D3 50 MCG (2000 UT) 6000 units orally once a day 12/24/2015 Active Multivitamin - 1 tab(s) orally once a day Active Azelastine HCl 0.1 % 1 puff in each nost ril Nasally Twice a day; Duration: 30 day(s) Active Aspirin 81 MG 1 tab(s) orally once a day Active Magnesium Oxide 400 MG 1 tab(s) orally o nce a day Active Alendronate Sodium 70 MG 1 tablet 30 minutes before the first food, beverage or medicine of the day with plain water Orally One Time A Week Active Vital Signs Blood pressure systolic 120 mm Hg 02/09/20 24 Blood pressure diastolic 68 mm Hg 024 Heart Rate 82 /min 02/09/2024 Height 64.75 in 02/09/2024 Weight 175.0 lbs 02/09/2024 BMI 29.34 kg/m2 02/09/2024 Encounters Encounter Location Date Provider Diagnosis [facility] [address] [facility] [place] [phone] 02/09/2024 Pepper Parson Bronchitis J4 0 Assessments Encounter Date Diagnosis (ICD Code) Assessment Notes Treatment Notes Treatment Clinical Notes Section Notes 02/09/2024 Bronchitis (ICD-10 - J40) fluids, rest, supportive measures for fever/symptom relief Plan Of Treatment Medication Medication Name Sig Start Date Stop Date Notes Cefuroxime Axetil 500 MG 1 tablet Orally every 12 hrs; Duration: 5 day(s) 02/09/2024 Albuterol Sulfate HFA 108 (9 0 Base) MCG/ACT 1 puff as needed Inhalation tid 02/09/2024 Treatment Notes Assessment Notes Bronchitis fluids, rest, suppor tive measures for fever/symptom relief Next Appt Details Follow Up: prn, Reason: Provider Name:Edouard young, 02/27/2025 09:30:00 AM, [address], [address], [place], [id number], Medications Administered Medication Instructions Date of Administration Dosage Notes Dexamethasone 02/09/2024 1 mL Progress Notes * Fay OLIVEROB:[birth year] (79 yo F)Acc No.[id number]:02/09/2024 Progress Notes Patient: Aggie ARMSTRONG Provider: WILLIE Marquez :1945 A ge:78 Y S ex:Female Date:02/09/2024 Address:[address] [place] [address], [id number] Pcp:Edouard Giron Subjective: * Chief Complaints: * 1 . Drainage, cough. * HPI: E NT/respiratory: 78 year old female presents with c/o sore throat. c/o cough g reenish yellow sputum production. c/o nasal congestion. c/o ear pain s topped up. c/o rhinorrhea. c/o post nasal drainage. c/o Chest Pain. c/o headache. Denies : Short of Breath. D enies : chest congestion. D enies : smoking. D enies : body aches. Pt sts her symptoms started 5 days ago; sleeps sitting up; eating and drinking OK. * ROS: D ERMATOLOGY: no R lluvia. n o H thiago. G ASTROENTEROLOGY: no N ausea. n o V omiting. U ROLOGY: no D ifficulty urinating. n o B lood in urine. * Medical History: I nsomnia, Hypercholestrolemia, Vitamin D Deficiency, Migraine Headaches, Allergic Rhinitis, Asthma, Esophageal Reflux. * Surgical History: C holecystectomy , Tonsillectomy , Bladder Suspension , D & C , Ear Tubes , Forehead Pre Cancerous Lesion Removal , [place] Teeth Extracted , Eye Lid 12/2012, LT Lower Arm Lesion Removal x2 12/05/2014, RT Chest Basal Cell Carcinoma 10/2017, EGD 11/2017, Benign Cyst Removal from Back 07/2022. * Family History: F ather: , stroke. M other: , alzheimer. 1 son(s) , 1 daughter(s) . .? * Social History: C URRENT TOBACCO USE S moking Status: Patient does NOT smoke, Former Smoker: No, Second hand smoke exposure: No. C affeine: yes, frequency: 5- 7 cups a day. Exercise: no. Marital Status: . Alcohol: Yes, rare. Sexually active: yes. * Medications: T aking Alendronate Sodium 70 MG Tablet 1 tablet 30 minutes before the first food, beverage or medicine of the day with plain water Orally One Time A Week , Taking Azelastine HCl 0.1 % Solution 1 puff in each nostril Nasally Twice a day , Taking Aspirin 81 MG Tablet Delayed Release 1 tab(s) orally once a day , Taking Magnesium Oxide 400 MG Tablet 1 tab(s) orally once a day , Taking Multivitamin - Tablet 1 tab(s) orally once a day , Taking Vitamin A & D 8000-400 UNIT Capsule 1 cap(s) orally once a day , Taking Vitamin E 400 UNIT Capsule 1 cap(s) orally once a day , Taking EpiPen 2-Tima 0.3 MG/0.3ML Solution Auto-injector 1 kit intramuscularly once , Taking Vitamin D3 50 MCG (2000 UT) Tablet 6000 units orally once a day , Taking Potassium Chloride ER 10 MEQ Capsule Extended Release 1 cap(s) orally 2 times a day , Taking Zolpidem Tartrate 10 MG Tablet 1 tab(s) orally prn at bedtime , Taking Rosuvastatin Calcium 20 MG Tablet TAKE 1 TABLET BY MOUTH ONCE DAILY AT BEDTIME , Taking Synthroid 25 MCG Tablet 1 tab(s) orally once daily , Taking Cromolyn Sodium 4 % Solution 1 gtt in each affected eye 4 times a day as needed , Taking Omeprazole 40 MG Capsule Delayed Release TAKE 1 CAPSULE BY MOUTH ONCE DAILY , Taking Metoprolol Succinate ER 25 MG Tablet Extended Release 24 Hour 1 tablet Orally Once a day , Taking CeleBREX 200 MG Capsule 1 cap(s) orally once a day , Not-Taking ProAir Digihaler 108 (90 Base) MCG/ACT Aerosol Powder Breath Activated 2 puff(s) inhaled 4 times a day , Discontinued Levocetirizine Dihydrochloride 5 MG Tablet 1 tablet in the evening Orally Once a day , Medication List reviewed and reconciled with the patient * Allergies: P enicillin: rash - Allergy, Valium: insomnia - Side Effects, Stahist, Levaquin, Lipitor: muscle weakness - Side Effects, Sulfamethoxazole, Rofecoxib. Objective: * Vitals: W t:175.0, Temp:97.8, BP:120/68, HR:82, O2 Sat:96% on RA, Nurse:OSMEL, Ht: 64.75, BMI:29.34. * Examination: E NT/Respiratory: General Appearance: well nourished and hydrated NAD alert. E yes: s clera and conjunctiva clear. E ars: auditory canals normal bilaterally tympanic membranes normal bilaterally. N ose : clear rhinorrhea. O ral cavity : no erythema or exudate seen on pharynx. N patrice : supple no cervical lymphadenopathy. H eart : RRR. L ungs: few crackles on the left posteriorly. Assessment: * Assessment: 1. Katy montano - Celia40 (Primary) Plan: * Treatment: * Therapeutic Injections: Dexamethasone : 1 mL (Route: Intramuscular) given by Charleen Light on right gluteus (Bronchitis) * Labs: * L ab: CBC Fingerstick (in house) (Collection Date & Time - 02/09/2024) Value Reference Range w bc 10.0 3.5 - 10 * l ym 14.9 15 - 50 * m id 4.3 2 - 15 * g ran 80.8 35 - 80 * r bc 4.78 3.5 - 5.5 * h gb 14.4 11.5 - 16.5 * h ct 43.4 35 - 55 * m cv 90.7 75 - 100 * m ch 30.2 25 - 35 * m chc 33.3 31 - 38 * p lat 159 100 - 400 * Chanell Garcia 02/09/2024 11:1 7:24 AM > , Provider reviewed results while patient in office.Pepper Parson 02/09/2024 3:39:43 PM > * Procedure Codes: 9 47[address] [place], [address] CAPILLARY BLOOD DRAW, 97559 CBC WITH AUTO DIFF, J1100 Dexamethasone, 61819 ADMINISTRATION OF INJECTION * Follow Up: p rn * Images: Billing Information: * Visit Code: 49252 Office Visit, Est Pt., Level 3. * Procedure Codes: [address] [place]. [address] CAPILLARY BLOOD DRAW. 71101 CBC WITH AUTO DIFF. J1100 Dexamethasone. 89013 ADMINISTRATION OF INJECTION. * Electronic signature of Florencia amber Parson APRN on 01/27/2025 at 08:55 AM EST Sign off status: Pending * Provider: WILLIE Marquez Date: 04/10/2023 Generated for Printi ng/Faxing/eTransmitting on: 03/29/2024 08:55 AM EST History and Physical Notes * HPI (History of Present Illness) Category Sub-Category Detail Notes Category Not es ENT/respiratory sore throat Pt sts her s ymptoms started 5 days ago; sleeps sitting up; eating and drinking OK ear pain stopped up Short of Breath Chest Pain cough greenish yellow sput um production post nasal drainage headache chest congestion rhinorrhea nasal congestion smoking body aches Examination Category Sub-Category Detail Notes Category Not es ENT/Respiratory Oral cavity : no erythema or exudate s een on pharynx Ears: auditory canals norm al bilaterally tympanic membranes normal bilaterally Neck : supple no cervical l ymphadenopathy Heart : RRR Lungs: few crackles on the left posteriorly General Appearance: well nourished and h ydrated NAD alert Nose : clear rhinorrhea Eyes: sclera and conjuncti va clear
--- OUTSIDE RECORDS SUMMARY | 2024-02-26 04:30 | XMS_ITS ---
Author Organization [facility] Address [address] [place] [id number] Care Team Providers Care Furniture Dipper Name Role Phone Edouard Giron Primary Care Provider Allergies Allergen (clinical drug ingredient) Drug/Non Drug Allergy documented on EMR Reaction Allergy Type Onset Date Status Levaquin Unknown Drug Allergy Active atorvastatin Lipitor muscle weakness Drug Allergy Active Stahist Unknown Drug Allergy Active Sulfamethoxazole Unknown Drug Allergy Active diazepam Valium insomnia Drug Allergy Active Penicillin rash Drug Allergy Active rofecoxib Rofecoxib Unknown Drug Allergy Active Results Component Value Reference Range Notes CBC Venipuncture (in house) Reviewed date:03/02/2024 09:02:03 AM Interpretation:Normal Performing Lab: Notes/Report: Normal wbc 9.7 3.5 - 10 lymph 16.8% 15 - 50 mid 5.4% 2 - 15 gran 77.8% 35 - 80 rbc 4.74 3.5 - 5.5 hgb 14.2 11.5 - 16.5 hct 42.3 35 - 55 mcv 89.3 75 - 100 mch 30.0 25 - 35 mchc 33.6 31 - 38 platlet 277 100 - 400 P-Comprehensive Metabolic Pa gabby (CMP) Reviewed date:03/02/2024 09:02:02 AM Interpretation:gluc 126 Performing Lab: Notes/Report: Test performed by [facility] [address] [facility] , [address], [place] [address] Richard Live MD, Senior Merchandiser CLIA: [id number] Sodium 141 135-145 mmol/L Potassium 4.7 3.5-5.3 mmol/L Chloride 104 97-108 mmol/L CO2 23 22-32 mmol/L Glucose 126 65-99 mg/dL BUN 12 8-23 mg/dL Creatinine 0.73 0.50-1.00 mg/dL Calcium 9.5 8.6-10.4 mg/dL eGFR by Creatinine 84 >59 mL/min/1.73m2 Protein 6.9 6.0-8.3 g/dL Albumin 4.5 3.5-5.3 g/dL Alkaline Phosphatase 80 35-121 IU/L ALT (SGPT) 25 <5-47 IU/L AST (SGOT) 27 <5-40 IU/L Bilirubin, Total 0.6 <0.2-1.2 mg/dL A/G Ratio 1.9 1.1-2.5 P-T4 Free (thyroxine) Reviewed date:03/02/2024 09:02:03 AM Interpretation: Normal Performing Lab: Notes/Report: Test performed by [facility] [address] [place] [address] , [address], [place] [address] Richard Live MD, Senior Merchandiser CLIA: [id number] Thyroxine Free (free T4) 1.45 0.86-1.76 ng/dL P-Lipid Panel Reviewed date:03/02/2024 09:02:03 AM Interpretation: Normal Performing Lab: Notes/Report: Test performed by [facility] [address] [place] [address] , [address], [place] [address] Richard Live MD, Senior Merchandiser CLIA: [id number] Cholesterol 148 <200 mg/dL Triglycerides 116 <150 mg/dL HDL Cholesterol 74 >39 mg/dL Cholesterol / HDL Ratio 2.00 0.00-4.44 Ratio Non-HDL Cholesterol 74 <130 mg/dL LDL Cholesterol (Calculation) 51 <130 mg/dL LDL Cholesterol Levels* Less than 100 mg/dL Optimal 100 to 129 mg/dL Near Optimal/ Above Optimal 130 to 159 mg/dL Borderline High 160 to 189 mg/dL High 190 mg/dL and above Very High * Categories as recommended by the 2004 ATPIII guidelines LDL/HDL Ratio 0.7 <3.3 Ratio LDL Cholesterol Patient History Test Date: 08/28/2023 LDL Results: 52 Units: mg/dL % Change: - Test Date: 02/26/2024 LDL Results: 51 Units: mg/dL % Change: -1% P-TSH Reviewed date:03/02/2024 09:02:03 AM Interpretation: Normal Performing Lab: Notes/Report: Test performed by [facility] [address] [place] [address] , [place] [address] Richard Live MD, Senior Merchandiser CLIA: [id number] TSH 2.82 0.43-5.25 mU/L P-Microalbumin/Creatinine, R andom Urine Sample Reviewed date:03/02/2024 09:02:03 AM Interpretation: Normal Performing Lab: Notes/Report: Test performed by [facility] [address] [place] [address] , [address], [place] [address] Richard Live MD, Senior Merchandiser CLIA: [id number] Albumin/Creatinine Ratio, Urine 25 0-30 ug/m g Microalbumin, Urine, Random 11.4 Creatinine, Urine 462.4 P-Vitamin D 25-Hydroxy Reviewed date:03/02/2024 09:02:03 AM Interpretation: Normal Performing Lab: Notes/Report: Test performed by [facility] [address] [place] [address] , [address], [place] [address] Richard Live MD, Senior Merchandiser CLIA: [id number] Vitamin D 25-Hydroxy 52.9 30.0-100.0 ng/mL Interpretation of Vitamin D 25 OH: < 20 ng/mL - Deficiency 20 - 29 ng/mL - Insufficiency 30 - 100 ng/mL - Sufficiency > 100 ng/mL - Super-therapeutic- toxicity may occur above this level. Clinical correlation required. REASON FOR VISIT 6 Month Check Up Medications Medication SIG (Take, Route, Frequency, Duration) Notes Start Date End Date Status Cromolyn Sodium 4 % 1 gtt in each affect ed eye 4 times a day as needed 08/26/2018 Active Albuterol Sulfate HFA 108 (90 Base) MCG/ACT 1 puff as needed Inhalation tid 02/09/2024 Active CeleBREX 200 MG 1 cap(s) orally once a day; Duration: 90 days Active Multivitamin - 1 tab(s) orally once a day Active Vitamin D3 50 MCG (2000 UT) 6000 units orally once a day 12/24/2015 Active EpiPen 2-Tima 0.3 MG/0.3ML 1 kit intramuscularly once Active Vitamin E 400 UNIT 1 cap(s) orally once a day Active Vitamin A & D 8000-400 UNIT 1 cap(s) orally once a day A ctive Magnesium Oxide 400 MG 1 tab(s) orally once a day Active Aspirin 81 MG 1 tab(s) orally once a day Active Azelastine HCl 0.1 % 1 puff in each nost ril Nasally Twice a day; Duration: 30 day(s) Active Alendronate Sodium 70 MG 1 tablet 30 min utes before the first food, beverage or medicine of the day with plain water Orally One Time A Week Active Rosuvastatin Calcium 20 MG take 1 tablet by mouth once daily at bedtime; Duration: 90 days Active Omeprazole 40 MG TAKE 1 CAPSULE BY IL UT ONCE DAILY; Duration: 90 days Active Potassium Chloride ER 10 MEQ 1 cap(s) orally 2 times a day; Duration: 90 days Active Metoprolol Succinate ER 25 MG 1 tablet Orally Once a day; Duration: 90 days Active Synthroid 25 MCG 1 tab(s) orally once daily; Duration: 90 days Active Zolpidem Tartrate 10 MG 1 tab(s) orally prn at bedtime; Duration: 90 days 02/26/2024 Activ e Vital Signs Blood pressure systolic 114 mm Hg 02/26/20 24 Blood pressure diastolic 62 mm Hg 024 Heart Rate 77 /min 02/26/2024 Height 64.75 in 02/26/2024 Weight 170.4 lbs 02/26/2024 BMI 28.57 kg/m2 02/26/2024 Encounters Encounter Location Date Provider Diagnosis [facility] [address] [facility] [address] [place] [address], [place] [id number] 02/26/2024 Edouard Giron Primary hypertension I10 ; Hyperlipidemia E78.5 ; Acquired hypothyroidism E03.9 ; Vitamin D deficiency E55.9 ; Gastroesophageal reflux disease, esophagitis presence not specified K21.9 ; Insomnia G47.00 ; Persistent cough R05.3 and Hypokalemia E87.6 Assessments Encounter Date Diagnosis (ICD Code) Assessment Notes Treatment Notes Treatment Clinical Notes Section Notes 02/26/2024 Primary hypertension (ICD-10 - I10) 02/26/2024 Hyperlipidemia (ICD-10 - E78.5) 02/26/2024 Acquired hypothyroidism (ICD-10 - E03.9) 02/26/2024 Vitamin D deficiency (ICD-10 - E55.9) 02/26/2024 Gastroesophageal reflux disease, esophagitis presence not specified (ICD-10 - K21.9) 02/26/2024 Insomnia (ICD-10 - G47.00) 02/26/2024 Persistent cough (ICD-10 - R05.3) 02/26/2024 Hypokalemia (ICD-10 - E87.6) Plan Of Treatment Medication Medication Name Sig Start Date Stop Date Notes Rosuvastatin Calcium 20 MG take 1 tablet by mouth once daily at bedtime; Duration: 90 days Omeprazole 40 MG TAKE 1 CAPSULE BY MO UT ONCE DAILY; Duration: 90 days Potassium Chloride ER 10 MEQ 1 cap(s) or ally 2 times a day; Duration: 90 days Metoprolol Succinate ER 25 MG 1 tablet O rally Once a day; Duration: 90 days Synthroid 25 MCG 1 tab(s) orally once daily; Duration: 90 days Zolpidem Tartrate 10 MG 1 tab(s) orally prn at bedtime; Duration: 90 days 02/26/2024 Next Appt Details Follow Up: 6 Months, Reason: Provider Name:Edouard Carroll ry, 02/27/2025 09:30:00 AM, [address], [address], [place], [id number], Progress Notes * Fay HUNTOB:[birth year] (79 yo F)Acc No.[id number]:02/26/2024 Progress Notes Patient: Aggie ARMSTRONG Provider: Katy Giron M.D. :1945 A ge:79 Y S ex:Female Date:02/26/2024 Address:[address] [place] [address], [id number] Subjective: * Chief Complaints: * 1 . 6 Month Check Up. * HPI: C ardiology: 79 year old female presents with c/o Blood Pressure Elevated?Pt here for 6 mo f/u on hypertension, states she is doing well and does not have any concerns.? c/o Hyperlipidemia P t is fasting today. E ndocrinology: c/o Hypothyroidism P t here to f/u. * ROS: D ERMATOLOGY: no R lluvia. [...] , Forehead Pre Cancerous Lesion Removal , [place] Teeth Extracted , Eye Lid 12/2012, LT Lower Arm Lesion Removal x2 12/05/2014, RT Chest Basal Cell Carcinoma 10/2017, EGD 11/2017, Benign Cyst Removal from Back 07/2022. * Hospitalization/Major Diagno stic Procedure: D enies Past Hospitalization. * Family History: F ather: , stroke. [...] cap(s) orally once a day , Taking Albuterol Sulfate HFA 108 (90 Base) MCG/ACT Aerosol Solution 1 puff as needed Inhalation tid , Discontinued Cefuroxime Axetil 500 MG Tablet 1 tablet Orally every 12 hrs , Discontinued ProAir Digihaler 108 (90 Base) MCG/ACT Aerosol Powder Breath Activated 2 puff(s) inhaled 4 times a day , Medication List reviewed and reconciled with the patient * Allergies: P enicillin: rash - Allergy, Valium: insomnia - Side Effects, Stahist, Levaquin, Lipitor: muscle weakness - Side Effects, Sulfamethoxazole, Rofecoxib. Objective: * Vitals: W t:170.4, Temp:98.0, BP:114/62, HR:77, O2 Sat:99% on RA, Nurse:chidi, Ht: 64.75, BMI:28.57. * Examination: C ardiology: General Appearance: p leasant, NAD. H EENT: u nremarkable. H eart sounds: R RR, normal S1, S2. L ungs: c lear, no rales or wheezes.?Extremities: n o leg edema. Assessment: * Assessment: 1. P rimary hypertension - I10 (Primary) 2 . H yperlipidemia - E78.5 ? 3 . A cquired hypothyroidism - E03.9 4 . V itamin D deficiency - E55.9 5 . G astroesophageal reflux disease, esophagitis presence not specified - K21.9 6 . I nsomnia - G47.00 7 . P ersistent cough - R05.3? 8. H ypokalemia - E87.6 Plan: * Treatment: Value Reference Range A /G Ratio 1.9 1.1-2.5 - * A lbumin 4.5 3.5-5.3 - g/dL * A lkaline Phosphatase 80 35-121 - IU/L * A LT (SGPT) 25 <5-47 - IU/L * A ST (SGOT) 27 <5-40 - IU/L * B ilirubin, Total 0.6 <0.2-1.2 - mg/dL * B UN 12 8-23 - mg/dL * C alcium 9.5 8.6-10.4 - mg/dL * C hloride 104 97-108 - mmol/L * C O2 23 22-32 - mmol/L * C reatinine 0.73 0.50-1.00 - mg/dL * G lucose 126 H 65-99 - mg/dL * P otassium 4.7 3.5-5.3 - mmol/L * S odium 141 135-145 - mmol/L * P rotein 6.9 6.0-8.3 - g/dL * e GFR by Creatinine 84 >59 - mL/min/1.73m2 * Ami Dominguez 03/02/2024 9:01 :58 AM >See phone encounter ?LAB: P-Microalbumin/Creatinine, Random Urine Sample (Collection Date & Time - 02/26/2024 11:02 AM)?Normal* Value Reference Range A lbumin/Creatinine Ratio, Urine 25 0-30 - ug /mg * C reatinine, Urine 462.4 - mg/dL * M icroalbumin, Urine, Random 11.4 - mg/dL * AlbertoAmi 03/02/2024 9:01 :58 AM >See phone encounter 2.?Hyperlipidemia? Refill Rosuvastatin Calcium Tablet, 20 MG, take 1 tablet by mouth once daily at bedtime, 90 days, 90, Refills 1.?LAB: P-Comprehensive Metabolic Panel (CMP) (Collection Date & Time - 02/26/2024 11:02 AM)?gluc 126* Value Reference Range A /G Ratio 1.9 1.1-2.5 - * A lbumin 4.5 3.5-5.3 - g/dL * A lkaline Phosphatase 80 35-121 - IU/L * A LT (SGPT) 25 <5-47 - IU/L * A ST (SGOT) 27 <5-40 - IU/L * B ilirubin, Total 0.6 <0.2-1.2 - mg/dL * B UN 12 8-23 - mg/dL * C alcium 9.5 8.6-10.4 - mg/dL * C hloride 104 97-108 - mmol/L * C O2 23 22-32 - mmol/L * C reatinine 0.73 0.50-1.00 - mg/dL * G lucose 126 H 65-99 - mg/dL * P otassium 4.7 3.5-5.3 - mmol/L * S odium 141 135-145 - mmol/L * P rotein 6.9 6.0-8.3 - g/dL * e GFR by Creatinine 84 >59 - mL/min/1.73m2 * AlbertoAmi 03/02/2024 9:01 :58 AM >See phone encounter ?LAB: P-Lipid Panel (Collection Date & Time - 02/26/2024 11:02 AM)?Normal* Value Reference Range C holesterol / HDL Ratio 2.00 0.00-4.44 - Ratio * C holesterol 148 <200 - mg/dL * H DL Cholesterol 74 >39 - mg/dL * L DL Cholesterol (Calculation) 51 <130 - mg/d L * L DL/HDL Ratio 0.7 <3.3 - Ratio * N on-HDL Cholesterol 74 <130 - mg/dL * T riglycerides 116 <150 - mg/dL * AlbertoAmi 03/02/2024 9:01 :58 AM >See phone encounter 3.?Acquired hypothyroidism? Refill Synthroid Tablet, 25 MCG, 1 tab(s), orally, once daily, 90 days, 90, Refills 1.?LAB: P-T4 Free (thyroxine) (Collection Date & Time - 02/26/2024 11:02 AM)? Normal* Value Reference Range T hyroxine Free (free T4) 1.45 0.86-1.76 - ng/d L * AlbertoAmi 03/02/2024 9:01 :58 AM >See phone encounter ?LAB: P-TSH (Collection Date & Time - 02/26/2024 11:02 AM)?Normal* Value Reference Range T SH 2.82 0.43-5.25 - mU/L * AlbertoAmi thomason 03/02/2024 9:01 :58 AM >See phone encounter 4.?Vitamin D deficiency?LAB: P-Vitamin D 25-Hydroxy (Collection Date & Time - 02/26/2024 11:02 AM)? Normal* Value Reference Range V itamin D 25-Hydroxy 52.9 30.0-100.0 - ng/mL * AlbertoAmi thomason 03/02/2024 9:01 :58 AM >See phone encounter 5.?Gastroesophageal reflux disease, esophagitis presence not specified? Refill Omeprazole Capsule Delayed Release, 40 MG, TAKE 1 CAPSULE BY MOUTH ONCE DAILY, 90 days, 90 Capsule, Refills 1.??6.?Insomnia? Refill Zolpidem Tartrate Tablet, 10 MG, 1 tab(s), orally, prn at bedtime, 90 days, 90, Refills 0. ?7.?Persistent cough?LAB: CBC Venipuncture (in house) (Collection Date & Time - 02/26/2024)? Normal* Value Reference Range w bc 9.7 3.5 - 10 * l ymph 16.8% 15 - 50 * m id 5.4% 2 - 15 * g ran 77.8% 35 - 80 * r bc 4.74 3.5 - 5.5 * h gb 14.2 11.5 - 16.5 * h ct 42.3 35 - 55 * m cv 89.3 75 - 100 * m ch 30.0 25 - 35 * m chc 33.6 31 - 38 * p latlet 277 100 - 400 * Monalisa Ac 02/26/2024 11:41:0 4 AM > Ami Dominguez 03/02/2024 9:01:58 AM >See phone encounter 8.?Hypokalemia? Refill Potassium Chloride ER Capsule Extended Release, 10 MEQ, 1 cap(s), orally, 2 times a day, 90 days, 180, Refills 1.?? * Procedure Codes: G 2211 Complex e/[place] [address] [place], [address] CBC WITH AUTO DIFF, 78971 VENIPUNCT, ROUTINE* * Follow Up: 6 Months * Images: Billing Information: * Visit Code: 86771 Office Visit, Est Pt., Level 4. * Procedure Codes: G2211 Complex e/[place] [address] [place]. [address] CBC WITH AUTO DIFF. 37251 VENIPUNCT, ROUTINE*. * Electronic signature of Yuly Giron MD on 01/27/2025 at 08:57 AM EST Sign off status: Pending * Provider: Katy Giron M.D. Date: 04/28/2023 Generated for Jim yun/Alicia/eTransmitting on: 03/29/2024 08:57 AM EST History and Physical Notes * HPI (History of Present Illness) Category Sub-Category Detail Notes Category Not es Endocrinology Hypothyroidism Pt here to f/u Cardiology Blood Pressure Elevated Pt here for 6 mo f/u on hypertension, states she is doing well and does not have any concerns Hyperlipidemia Pt is fasting today Examination Category Sub-Category Detail Notes Category Not es Cardiology Lungs: clear, no rales or wheezes HEENT: unremarkable Heart sounds: RRR, normal S1, S2 Extremities: no leg edema General Appearance: pleasant, NAD
--- OUTSIDE RECORDS SUMMARY | 2024-03-08 05:15 | XMS_ITS ---
[facility] Address [address] [place] [id number] Care Team Providers Care Vacuum Metalizer Operator Name Role Phone Mo Gironian Primary Care Provider Pepper Parson Unavailable [phone] Allergies Allergen (clinical drug ingredient) Drug/Non Drug [...] Range Notes CBC Fingerstick (in house) Reviewed date:03/08/2024 03:05:08 PM Interpretation: Performing Lab: Notes/Report: wbc 7.7 3.5 - 10 lym 18.2 15 - 50 mid 4.6 2 - 15 gran 77.2 35 - 80 rbc 4.52 3.5 - 5.5 hgb 13.7 11.5 - 16.5 hct 40.7 35 - 55 mcv 89.8 75 - 100 mch 30.3 25 - 35 mchc 33.7 31 - 38 plat 203 100 - 400 REASON FOR VISIT Possible Stye Medications Medication SIG (Take, Route, Frequency, Duration) Notes Start Date End Date Status Vitamin A & D 8000-400 UNIT 1 cap(s) orally once a day A ctive Multivitamin - 1 tab(s) orally once a day Active Magnesium Oxide 400 MG 1 tab(s) orally once a day Active EpiPen 2-Tima 0.3 MG/0.3ML 1 kit intramuscularly once Active Vitamin E 400 UNIT 1 cap(s) orally once a day Active Azelastine HCl 0.1 % 1 puff in each nost ril Nasally Twice a day; Duration: 30 day(s) Active Alendronate Sodium 70 MG 1 tablet 30 min utes before the first food, beverage or medicine of the day with plain water Orally One Time A Week Active Aspirin 81 MG 1 tab(s) orally once a day Active Flonase Allergy Relief 50 MCG/ACT 1 spray in each nostril Nasally Twice a day; Duration: 30 day(s) 03/08/2024 Active Qiurvysev-Vvpgvwcy-LG 30-1-20 MG/5ML 5 ml as needed Orally every 6 hrs prn 03/08/2024 Active Synthroid 25 MCG 1 tab(s) orally once daily; Duration: 90 days Active Omeprazole 40 MG TAKE 1 CAPSULE BY SC UT ONCE DAILY; Duration: 90 days Active Potassium Chloride ER 10 MEQ 1 cap(s) orally 2 times a day; Duration: 90 days Active Erythromycin 5 MG/GM 1 application into the lower eyelid of affected eye Ophthalmic Twice a day; Duration: 7 day(s) 03/08/2024 Active Rosuvastatin Calcium 20 MG take 1 tablet by mouth once daily at bedtime; Duration: 90 days Active Metoprolol Succinate ER 25 MG 1 tablet Orally Once a day; Duration: 90 days Active Albuterol Sulfate HFA 108 (90 Base) MCG/ACT 1 puff as needed Inhalation tid 02/09/2024 Active CeleBREX 200 MG 1 cap(s) orally once a day; Duration: 90 days Active Cromolyn Sodium 4 % 1 gtt in each affect ed eye 4 times a day as needed 08/26/2018 Active Vitamin D3 50 MCG (1999 UT) 6000 units orally once a day 12/24/2015 Active Vital Signs Blood pressure systolic 124 mm Hg 03/08/20 24 Blood pressure diastolic 70 mm Hg 024 Heart Rate 55 /min 03/08/2024 Height 64.75 in 03/08/2024 Weight 172.2 lbs 03/08/2024 BMI 28.87 kg/m2 03/08/2024 Encounters Encounter Location Date Provider Diagnosis [facility] [address] [facility] [address] [place], [place] [id number] 03/08/2024 Pepper Parson URI (upper respirato ry infection) J06.9 and Stye H00.019 Assessments Encounter Date Diagnosis (ICD Code) Assessment Notes Treatment Notes Treatment Clinical Notes Section Notes 03/08/2024 URI (upper respiratory infection) (ICD-10 - J06.9) fluids, rest, supportive measures; sleep with head elevated 03/08/2024 Stye (ICD-10 - H00.019) eye care reviewed; warm compresess to the eye prn Plan Of Treatment Medication Medication Name Sig Start Date Stop Date Notes Flonase Allergy Relief 50 MCG/ACT 1 spray in each nostril Nasally Twice a day; Duration: 30 day(s) 03/08/2024 Mopasurfm-Ungicfok-DS 30-1-2 0 MG/5ML 5 ml as needed Orally every 6 hrs prn 03/08/2024 Erythromycin 5 MG/GM 1 application into the lower eyelid of affected eye Ophthalmic Twice a day; Duration: 7 day(s) 03/08/2024 Treatment Notes Assessment Notes URI (upper respiratory infection) fluids , rest, supportive measures; sleep with head elevated Stye eye care reviewed; w arm compresess to the eye prn Next Appt Details Follow Up: prn, Reason: Provider Name:Edouard young, 02/27/2025 09:30:00 AM, [address] [facility] [address] [facility], [address], [place], [id number], Progress Notes * Fay OLIVEROB:[birth year] (79 yo F)Acc No.[id number]:03/08/2024 Progress Notes Patient: Aggie ARMSTRONG Provider: WILLIE Marquez :1945 A ge:79 Y S ex:Female Date:03/08/2024 Address:[address] [place] [address], [id number] Pcp:Edouard Giron Subjective: * Chief Complaints: * 1 . Possible Stye. * HPI: D ermatology: Pt sts she is here for a possible stye on the right side of the eye. Pt sts she is unsure if it could possibly an infected tear duct. Pt sts she noticed her eye has felt funny for a few days now, but sts she touched her eye last night and that's when she noticed the spot. E NT/respiratory: c/o cough P t sts she is still coughing up a lot of stuff and sts she is unsure if she has gotten rid of the bronchitis she recently had. c/o rhinorrhea.? c/o post nasal drainage. c/o Short of Breath. c/o dizziness. Denies : Fever. D enies : ear pain. D enies : headache.?Denies : chest congestion. D enies : smoking. eating an drinking OK. * ROS: D ERMATOLOGY: no [...] , Forehead Pre Cancerous Lesion Removal , [place] Teeth Extracted , Eye Lid 12/2012, LT Lower Arm Lesion Removal x2 12/05/2014, RT Chest Basal Cell Carcinoma 10/2017, EGD 11/2017, Benign Cyst Removal from Back 07/2022, colonoscopy (repeat in 3 years) 09/16/18. * Family History: F ather: , stroke. [...] units orally once a day , Taking Cromolyn Sodium 4 % Solution 1 gtt in each affected eye 4 times a day as needed , Taking CeleBREX 200 MG Capsule 1 cap(s) orally once a day , Taking Albuterol Sulfate HFA 108 (90 Base) MCG/ACT Aerosol Solution 1 puff as needed Inhalation tid , Taking Metoprolol Succinate ER 25 MG Tablet Extended Release 24 Hour 1 tablet Orally Once a day , Taking Potassium Chloride ER 10 MEQ Capsule Extended Release 1 cap(s) orally 2 times a day , Taking Omeprazole 40 MG Capsule Delayed Release TAKE 1 CAPSULE BY MOUTH ONCE DAILY , Taking Synthroid 25 MCG Tablet 1 tab(s) orally once daily , Taking Rosuvastatin Calcium 20 MG Tablet take 1 tablet by mouth once daily at bedtime , Medication List reviewed and reconciled with the patient * Allergies: P enicillin: rash - Allergy, Valium: insomnia - Side Effects, Stahist, Levaquin, Lipitor: muscle weakness - Side Effects, Sulfamethoxazole, Rofecoxib. Objective: * Vitals: W t:172.2, Temp:97.6, BP:124/70, HR:55, Nurse:OSMEL, Ht: 64.75, BMI:28.87. * Examination: E NT/Respiratory: General Appearance: well nourished and hydrated, NAD, alert. E yes: sclera clear bilateraly; right iner lower lid with papule; drainage noted. E ars: auditory canals normal bilaterally, tympanic membranes normal bilaterally. N ose : nares patent. S inuses : non tender bilaterally. O ral cavity : no erythema or exudate seen on pharynx. N patrice : supple, no cervical lymphadenopathy. H eart :? RRR. L ungs: CTAB A&P. Assessment: * Assessment: 1. U RI (upper respiratory infection) - J06.9 (Primary) 2 . S dung - H00.019? Specify :right Plan: * Treatment: Value Reference Range w bc 7.7 3.5 - 10 * l ym 18.2 15 - 50 * m id 4.6 2 - 15 * g ran 77.2 35 - 80 * r bc 4.52 3.5 - 5.5 * h gb 13.7 11.5 - 16.5 * h ct 40.7 35 - 55 * m cv 89.8 75 - 100 * m ch 30.3 25 - 35 * m chc 33.7 31 - 38 * p lat 203 100 - 400 * Chanell Garcia 03/08/2024 10:3 6:34 AM > , Provider reviewed results while patient in office.Pepper Parson 03/08/2024 3:05:04 PM > Notes: fluids, rest, supportive measures; sleep with head elevated??2.?Stye? Start Erythromycin Ointment, 5 MG/GM, 1 application into the lower eyelid of affected eye, Ophthalmic, Twice a day, 7 day(s), 1, Refills 1.?? Notes: eye care reviewed; warm compresess to the eye prn ?? * Procedure Codes: 3 6416 CAPILLARY BLOOD DRAW, 56624 CBC WITH AUTO DIFF * Follow Up: p rn * Images: Billing Information: * Visit Code: 73257 Office Visit, Est Pt., Level 3. * Procedure Codes: 99097 CAPILLARY BLOOD DRAW. 21585 CBC WITH AUTO DIFF. * Electronic signature of Florencia Parson APRN on 01/27/2025 at 08:57 AM EST Sign off status: Pending * Provider: WILLIE Marquez Date: 05/09/2023 Generated for Jim yun/Alicia/Stormyitting on: 03/29/2024 08:57 AM EST History and Physical Notes * HPI (History of Present Illness) Category Sub-Category Detail Notes Category Not es ENT/respiratory ear pain eating an dr inking OK Short of Breath cough Pt sts she is still coughing up a lot of stuff and sts she is unsure if she has gotten rid of the bronchitis she recently had Fever post nasal drainage headache chest congestion rhinorrhea smoking dizziness Dermatology Pt sts she is h ere for a possible stye on the right side of the eye. Pt sts she is unsure if it could possibly an infected tear duct. Pt sts she noticed her eye has felt funny for a few days now, but sts she touched her eye last night and that's when she noticed the spot Examination Category Sub-Category Detail Notes Category Not es ENT/Respiratory Oral cavity : no erythema or exudate s een on pharynx Sinuses : non tender bilateral ly Ears: auditory canals norm al bilaterally, tympanic membranes normal bilaterally Neck : supple, no cervical lymphadenopathy Heart : RRR Lungs: CTAB A&P General Appearance: well nourished and h ydrated, NAD, alert Nose : nares patent Eyes: sclera clear bilater fern; right iner lower lid with papule; drainage noted
--- OUTSIDE RECORDS SUMMARY | 2024-08-26 06:00 | XMS_ITS ---
Author Organization [facility] Address [address] [place] [id number] Care Team Providers Care Finisher Plate Name Role Phone Mo Gironian Primary Care Provider Allergies Allergen (clinical drug ingredient) Drug/Non Drug Allergy documented on EMR Reaction Allergy Type Onset Date Status Levaquin Unknown Drug Allergy Active atorvastatin Lipitor muscle weakness Drug Allergy Active Stahist Unknown Drug Allergy Active Sulfamethoxazole Unknown Drug Allergy Active diazepam Valium insomnia Drug Allergy Active Penicillin rash Drug Allergy Active rofecoxib Rofecoxib Unknown Drug Allergy Active REASON FOR VISIT 6 months Medications Medication SIG (Take, Route, Frequency, Duration) Notes Start Date End Date Status Flonase Allergy Relief 50 MCG/ACT 1 spray in each nostril Nasally Twice a day; Duration: 30 day(s) 03/08/2024 Not-Taking Zpkdazzfl-Hdcreelb-EZ 30-1-20 MG/5ML 5 ml as needed Orally every 6 hrs prn 03/08/2024 Not-Taking Erythromycin 5 MG/GM 1 application into the lower eyelid of affected eye Ophthalmic Twice a day; Duration: 7 day(s) 03/08/2024 Not-Taki ng Rosuvastatin Calcium 20 MG take 1 tablet by mouth once daily at bedtime; Duration: 90 days Active Synthroid 25 MCG 1 tab(s) orally once daily; Duration: 90 days Active Metoprolol Succinate ER 25 MG 1 tablet Orally Once a day Active Omeprazole 40 MG TAKE 1 CAPSULE BY [facility] ONCE DAILY; Duration: 90 days Active Potassium Chloride ER 10 MEQ 1 cap(s) orally 2 times a day; Duration: 90 days Active Albuterol Sulfate HFA 108 (90 Base) MCG/ACT 1 puff as needed Inhalation tid 02/09/2024 Active CeleBREX 200 MG 1 cap(s) orally once a day; Duration: 90 days Active Cromolyn Sodium 4 % 1 gtt in each affect ed eye 4 times a day as needed 08/26/2018 Active Vitamin D3 50 MCG (2000 UT) 6000 units orally once a day 12/24/2015 Active EpiPen 2-Tima 0.3 MG/0.3ML 1 kit intramuscularly once Active Vitamin E 400 UNIT 1 cap(s) orally once a day Active Vitamin A & D 8000-400 UNIT 1 cap(s) orally once a day Active Multivitamin - 1 tab(s) orally once a day Active Magnesium Oxide 400 MG 1 tab(s) orally o nce a day Active Aspirin 81 MG 1 [...] Signs Blood pressure systolic 120 mm Hg 08/27/19 25 Blood pressure diastolic 72 mm Hg 025 Heart Rate 91 /min 08/26/2024 Height 64.75 in 08/26/2024 Weight 176.4 lbs 08/26/2024 BMI 29.58 kg/m2 08/26/2024 Encounters Encounter Location Date [facility] [address] [id number] 08/26/2024 Edouard Giron Primary hypertension I10 ; Acquired hypothyroidism E03.9 ; Hyperlipidemia E78.5 ; Insomnia G47.00 and BMI 29.0-29.9,adult Z68.29 Assessments Encounter Date Diagnosis (ICD Code) Assessment Notes Treatment Notes Treatment Clinical Notes Section Notes 08/26/2024 Primary hypertension (ICD-10 - I10) 08/26/2024 Acquired hypothyroidism (ICD-10 - E03.9) 08/26/2024 Hyperlipidemia (ICD-10 - E78.5) 08/26/2024 Insomnia (ICD-10 - G47.00) 08/26/2024 BMI 29.0-29.9,adult (ICD-10 - Z68.29) Plan Of Treatment Medication Medication Name Sig Start Date Stop Date Notes Metoprolol Succinate ER 25 MG 1 tablet Orally Once a day Next Appt Details Follow Up: 6 Months, Reason: Provider Name:Edouard Carroll ry, 02/27/2025 09:30:00 AM, [address], [address], [place], [place], [phone], Progress Notes * Fay HUNTOB:[birth year] (79 yo F)Acc No.[id number]:08/26/2024 Progress Notes Patient: Aggie ARMSTRONG Provider: Katy Giron M.D. :1945 A ge:79 Y S ex:Female Date:08/26/2024 Address:[address] [place] [address], [facility] Subjective: * Chief Complaints: * 1 . 6 months. * HPI: C ardiology: 79 year old female presents with c/o Blood Pressure Elevated?Pt is here today for a 6 month check up on hypertention. Pt sts she is , doing well on medications. c/o Hyperlipidemia P t is fasting today. H PI: c/o Patient is here today for P t sts she is having a CT Scan done next and sts she is due to have fasting labs done . * ROS: D ERMATOLOGY: no R lluvia. [...] , Forehead Pre Cancerous Lesion Removal , [place] Teeth Extracted , Eye Lid 12/2012, LT [...] by mouth once daily at bedtime , Not-Taking Erythromycin 5 MG/GM Ointment 1 application into the lower eyelid of affected eye Ophthalmic Twice a day , Not-Taking Diksqfwfs-Iznvnpol-UG 30-1-20 MG/5ML Liquid 5 ml as needed Orally every 6 hrs prn , Not-Taking Flonase Allergy Relief 50 MCG/ACT Suspension 1 spray in each nostril Nasally Twice a day , Medication List reviewed and reconciled with the patient * Allergies: P enicillin: rash - Allergy, Valium: insomnia - Side Effects, Stahist, Levaquin, Lipitor: muscle weakness - Side Effects, Sulfamethoxazole, Rofecoxib. Objective: * Vitals: W t: 176.4, Temp: 98.2, BP: 120/72, HR: 91, O2 Sat: 98% on RA, Nurse: [facility], Ht: 64.75, BMI:29.58. * Examination: C ardiology: General Appearance: p leasant, NAD. H eart sounds: R RR, normal S1, S2. L ungs: c lear, no rales or wheezes. Assessment: * Assessment: 1. P rimary hypertension - I10 (Primary) 2 . A cquired hypothyroidism - E03.9 3 . H yperlipidemia - E78.5 4 . I nsomnia - G47.00 ? 5 . B OK 29.0-29.9,adult - Z68.29 Plan: * Treatment: * Procedure Codes: G 2211 Complex e/m visit add on, G8950 PREHTN/HTN BP DOC INDCD F/U DOC, G8752 MOST RECENT SYSTOLIC BP < 140MM HG, G8754 MOST RECENT DIASTOLIC BP < 90MM HG, G8420 BMI<30 AND >=22 CALC & DOCU, 1036F TOBACCO NON-USER * Follow Up: 6 Months * Images: Billing Information: * Visit Code: 62185 Office Visit, Est Pt., Level 3. * Procedure Codes: G2211 Complex e/m visit add on. G8950 PREHTN/HTN BP DOC INDCD F/U DOC. G8752 MOST RECENT SYSTOLIC BP < 140MM HG. G8754 MOST RECENT DIASTOLIC BP < 90MM HG. G8420 BMI<30 AND >=22 CALC & DOCU. 1036F TOBACCO NON-USER. * Electronic signature of Yuly Giron MD on 01/27/2025 at 08:55 AM EST Sign off status: Pending * Provider: Katy Giron M.D. Date: 0 08/26/2024 Generated for Printi ng/Alicia/Stormyitting on: 1 03/29/2024 08:55 AM EST History and Physical Notes * HPI (History of Present Illness) Category Sub-Category Detail Notes Category Not es Cardiology Blood Pressure Elevated Pt is he re today for a 6 month check up on hypertention. Pt sts she is , doing well on medications Hyperlipidemia Pt is fasting today HPI Patient is here today for Pt sts she is having a CT Scan done next and sts she is due to have fasting labs done Examination Category Sub-Category Detail Notes Category Not es Cardiology Lungs: clear, no rales or wheezes Heart sounds: RRR, normal S1, S2 General Appearance: pleasant, NAD
--- OUTSIDE RECORDS SUMMARY | 2024-09-20 06:45 | XMS_ITS ---
Author [facility] Address [address] [place] [id number] Care Team Providers Care Product Design Specialist Name Role Phone Mo Gironian Primary Care [...] Unknown Drug Allergy Active REASON FOR VISIT high blood pressure Medications Medication SIG (Take, Route, Frequency, Duration) Notes Start Date End Date Status Wpisappak-Egbqsfpy-SO 30-1-20 MG/5ML 5 ml as needed Orally every 6 hrs prn 03/08/2024 Not-Taking Flonase Allergy Relief 50 MCG/ACT 1 spray in each nostril Nasally Twice a day; Duration: 30 day(s) 03/08/2024 Not-Taking Rosuvastatin Calcium 20 MG take 1 tablet by mouth once daily at bedtime; Duration: 90 days Active Potassium Chloride ER 10 MEQ TAKE 1 CAPSULE BY MOUTH TWICE DAILY; Duration: 90 Active Erythromycin 5 MG/GM 1 application into the lower eyelid of affected eye Ophthalmic Twice a day; Duration: 7 day(s) 03/08/2024 Not-Taki ng CeleBREX 200 MG 1 cap(s) orally once a day; Duration: 90 days Active Albuterol Sulfate HFA 108 (90 Base) MCG/ACT 1 puff as needed Inhalation tid 02/09/2024 Active Cromolyn Sodium 4 % 1 gtt in each affect ed eye 4 times a day as needed 08/26/2018 Active Omeprazole 40 MG TAKE 1 CAPSULE BY [facility] ONCE DAILY; Duration: 90 days Active Synthroid 25 MCG 1 tab(s) orally once daily; Duration: 90 days Active Vitamin D3 50 MCG (1999 UT) 6000 units orally once a day 12/24/2015 Active Metoprolol Succinate ER 25 MG 2 tablet Orally Once a day Active EpiPen 2-Tima 0.3 MG/0.3ML 1 kit intramuscularly once Active Vitamin A & D 8000-400 UNIT 1 cap(s) orally once a day Active Vitamin E 400 UNIT 1 cap(s) orally once a day Active Alendronate Sodium 70 MG 1 tablet 30 minutes before the first food, beverage or medicine of the day with plain water Orally One Time A Week Active Magnesium Oxide 400 MG 1 tab(s) orally o nce a day Active Multivitamin - 1 tab(s) orally once a day Active Azelastine HCl 0.1 % 1 puff in each nost ril Nasally Twice a day; Duration: 30 day(s) Active Aspirin 81 MG 1 tab(s) orally once a day Active Vital Signs Blood pressure systolic 132 mm Hg 09/21/19 25 Blood pressure diastolic 92 mm Hg 025 Heart Rate 92 /min 09/20/2024 Height 64.75 in 09/20/2024 Weight 178 lbs 09/20/2024 BMI 29.85 kg/m2 09/20/2024 Encounters Encounter Location Date Provider Diagnosis [facility] [address] [facility] [address] [place], [place] [id number] 09/20/2024 Edouard Giron Essential hypertensi on I10 and BMI 29.0-29.9,adult Z68.29 Assessments Encounter Date Diagnosis (ICD Code) Assessment Notes Treatment Notes Treatment Clinical Notes Section Notes 09/20/2024 Essential hypertension (ICD-10 - I10) 09/20/2024 BMI 29.0-29.9,adult (ICD-10 - Z68.29) Plan Of Treatment Medication Medication Name Sig Start Date Stop Date Notes Metoprolol Succinate ER 25 MG 2 tablet Orally Once a day Next Appt Details Follow Up: 1 Week, Reason: Provider Name:Edouard young, 02/27/2025 09:30:00 AM, [address], [address], [place], [id number], Progress Notes * Fay HUNTOB:[birth year] (79 yo F)Acc No.[id number]:09/20/2024 Progress Notes Patient: Aggie ARMSTRONG Provider: Katy Giron M.D. :1945 A ge:79 Y S ex:Female Date:09/20/2024 Address:[address] [place] [address], [place], [id number] Subjective: * Chief Complaints: * 1 . High blood pressure. * HPI: C ardiology: 79 year old female presents with c/o Blood Pressure Elevated?Pt states her blood pressure is running high. Pt states yesterday 180/82 at the doctor and then had a appt September [address] Bee it was 182/105. * ROS: D ERMATOLOGY: no R lluvia. [...] , Forehead Pre Cancerous Lesion Removal , [place] Teeth Extracted , Eye Lid 12/2012, LT Lower Arm Lesion Removal x2 12/05/2014, RT Chest Basal Cell Carcinoma 10/2017, EGD 11/2017, Benign Cyst Removal from Back 07/2022. * Hospitalization/Major Diagno stic Procedure: D enies Past Hospitalization. * Family History: F ather: , stroke. M other: , alzheimer. 1 son(s) , 1 daughter(s) . .? * Social History: C URRENT TOBACCO USE: No . C affeine: yes, frequency: 5- 7 cups [...] puff as needed Inhalation tid , Taking Omeprazole 40 MG Capsule Delayed Release TAKE 1 CAPSULE BY MOUTH ONCE DAILY , Taking Synthroid 25 MCG Tablet 1 tab(s) orally once daily , Taking Rosuvastatin Calcium 20 MG Tablet take 1 tablet by mouth once daily at bedtime , Taking Metoprolol Succinate ER 25 MG Tablet Extended Release 24 Hour 1 tablet Orally Once a day , Taking Potassium Chloride ER 10 MEQ Capsule Extended Release TAKE 1 CAPSULE BY MOUTH TWICE DAILY , Not-Taking Erythromycin 5 MG/GM Ointment 1 application into the lower eyelid of affected eye Ophthalmic Twice a day , Not-Taking Diwxharjp-Hfkyafxu-ZM 30-1-20 MG/5ML Liquid 5 ml as needed [...] Sulfamethoxazole, Rofecoxib. Objective: * Vitals: W t: 178, Temp: 98.0, BP: 132/92, HR: 92, Nurse: pe, Ht: 64.75, BMI:29.85. * Examination: G eneral Examination: General Appearance: N AD. H eart: R SR. L ungs:?clear to auscultation. Assessment: * Assessment: 1. E ssential hypertension - I10 (Primary) 2 . B NH 29.0-29.9,adult - Z68.29 Plan: * Treatment: * Procedure Codes: G 2211 Complex e/m visit add on, 1036F TOBACCO NON-USER, G8420 BMI<30 AND >=22 CALC & DOCU, G8950 PREHTN/HTN BP DOC INDCD F/U DOC, G8752 MOST RECENT SYSTOLIC BP < 140MM HG, G8755 MOST RECENT DIASTOLIC BP >= 90MM HG * Follow Up: 1 Week * Images: Billing Information: * Visit Code: 09010 Office Visit, Est Pt., Level 3. * Procedure Codes: G2211 Complex e/m visit add on. 1036F TOBACCO NON-USER. G8420 BMI<30 AND >=22 CALC & DOCU. G8950 PREHTN/HTN BP DOC INDCD F/U DOC. G8752 MOST RECENT SYSTOLIC BP < 140MM HG. G8755 MOST RECENT DIASTOLIC BP >= 90MM HG. * Electronic signature of Yuyl Giron MD on 01/27/2025 at 08:56 AM EST Sign off status: Pending * Provider: Katy Giron M.D. Date: 0 09/20/2024 Generated for Jim yun/Alicia/eTransmitting on: 03/29/2024 08:56 AM EST History and Physical Notes * HPI (History of Present Illness) Category Sub-Category Detail Notes Category Not es Cardiology Blood Pressure Elevated Pt state s her blood pressure is running high. Pt states yesterday 180/82 at the doctor and then had a appt September [address] Bee it was 182/105 Examination Category Sub-Category Detail Notes Category Not es General Examination Heart: RSR Lungs: clear to auscultatio n General Appearance: NAD
--- OUTSIDE RECORDS SUMMARY | 2024-09-27 05:30 | XMS_ITS ---
Author Organization [facility] Address [address] [place] [id number] Care Team Providers Care Business Applications Specialist Name Role Phone Mo Gironian Primary Care Provider [phone] Allergies Allergen (clinical drug ingredient) Drug/Non Drug Allergy documented on EMR Reaction Allergy Type Onset Date Status Levaquin Unknown Drug Allergy Active atorvastatin Lipitor muscle weakness Drug Allergy Active Stahist Unknown Drug Allergy Active Sulfamethoxazole Unknown Drug Allergy Active diazepam Valium insomnia Drug Allergy Active Penicillin rash Drug Allergy Active rofecoxib Rofecoxib Unknown Drug Allergy Active REASON FOR VISIT 1 week f/u Medications Medication SIG (Take, Route, Frequency, Duration) Notes Start Date End Date Status Potassium Chloride ER 10 MEQ TAKE 1 CAPSULE BY MOUTH TWICE DAILY; Duration: 90 Active Metoprolol Succinate ER 25 MG 4 tablet Orally Once a day A ctive Synthroid 25 MCG 1 tab(s) orally once daily; Duration: 90 days Active Rosuvastatin Calcium 20 MG take 1 tablet by mouth once daily at bedtime; Duration: 90 days Active Albuterol Sulfate HFA 108 (90 Base) MCG/ACT 1 puff as needed Inhalation tid 02/09/2024 Active Omeprazole 40 MG TAKE 1 CAPSULE BY [facility] ONCE DAILY; Duration: 90 days Active Vitamin D3 50 MCG (1999 UT) 6000 units orally once a day 12/24/2015 Active Cromolyn Sodium 4 % 1 gtt in each affect ed eye 4 times a day as needed 08/26/2018 Active CeleBREX 200 MG 1 cap(s) orally once a day; Duration: 90 days Active Multivitamin - 1 tab(s) orally once a day Active Vitamin A & D 8000-400 UNIT 1 cap(s) orally once a day A ctive Vitamin E 400 UNIT 1 cap(s) orally once a day Active EpiPen 2-Tima 0.3 MG/0.3ML 1 kit intramuscularly once Active Magnesium Oxide 400 MG 1 tab(s) orally once a day Active Alendronate Sodium 70 MG 1 tablet 30 min utes before the first food, beverage or medicine of the day with plain water Orally One Time A Week Active Azelastine HCl 0.1 % 1 puff in each nost ril Nasally Twice a day; Duration: 30 day(s) Active Aspirin 81 MG 1 tab(s) orally once a day Active Vital Signs Blood pressure systolic 160 mm Hg 09/28/19 25 Blood pressure diastolic 82 mm Hg 025 Heart Rate 80 /min 09/27/2024 Height 64.75 in 09/27/2024 Weight 181.4 lbs 09/27/2024 BMI 30.42 kg/m2 09/27/2024 Encounters Encounter Location Date Provider Diagnosis [facility] [address] [place], [place] [phone] 09/27/2024 Edouard Giron Primary hypertension I10 Assessments Encounter Date Diagnosis (ICD Code) Assessment Notes Treatment Notes Treatment Clinical Notes Section Notes 09/27/2024 Primary hypertension (ICD-10 - I10) Plan Of Treatment Medication Medication Name Sig Start Date Stop Date Notes Metoprolol Succinate ER 25 MG 4 tablet Orally Once a day Next Appt Details Follow Up: 3 Weeks, Reason: Provider Name:Edouard Carroll ry, 02/27/2025 09:30:00 AM, [address], [address], [place], [place], [phone], Progress Notes * Fay HUNTOB:[birth year] (79 yo F)Acc No.[id number]:09/27/2024 Patient: Aggie ARMSTRONG Provider: Katy Giron M.D. :1945 A ge:79 Y S ex:Female Date:09/27/2024 Address:[address] [place] [address], [place], [id number] Subjective: * Chief Complaints: * 1 . 1 week f/u. * HPI: C ardiology: 79 year old female presents with c/o Blood Pressure Elevated?Pt here for 1 week f/u on hypertension. Pt's Metoprolol was increased to 25mg on 09/20. Pt states she has been checking bp at home and it has continued to be elevated . * ROS: D ERMATOLOGY: no R [...] , Forehead Pre Cancerous Lesion Removal , [place] Teeth Extracted , Eye Lid 12/2012, LT [...] mouth once daily at bedtime , Taking Potassium Chloride ER 10 MEQ Capsule Extended Release TAKE 1 CAPSULE BY MOUTH TWICE DAILY , Taking Metoprolol Succinate ER 25 MG Tablet Extended Release 24 Hour 2 tablet Orally Once a day , Discontinued Erythromycin 5 MG/GM Ointment 1 application into the lower eyelid of affected eye Ophthalmic Twice a day , Discontinued Erjwbxqzt-Nyrlsgjs-AH 30-1-20 MG/5ML Liquid 5 ml as needed Orally every 6 hrs prn , Discontinued Flonase Allergy Relief 50 MCG/ACT Suspension 1 spray in each nostril Nasally Twice a day , Medication List reviewed and reconciled with the patient * Allergies: P enicillin: rash - Allergy, Valium: insomnia - Side Effects, Stahist, Levaquin, Lipitor: muscle weakness - Side Effects, Sulfamethoxazole, Rofecoxib. Objective: * Vitals: W t: 181.4, Temp: 97.8, BP: 160/82, HR: 80, Nurse: chidi, Ht: 64.75, BMI:30.42. * Examination: G eneral Examination: General Appearance: N AD. H eart: R SR. L ungs:?clear to auscultation. E xtremities: n o leg edema. Assessment: * Assessment: 1. P rimary hypertension - I10 (Primary) Plan: * Treatment: * Procedure Codes: G 2211 Complex e/m visit add on, 1036F TOBACCO NON-USER, G8950 PREHTN/HTN BP DOC INDCD F/U DOC, G8753 MOST RECENT SYSTOLIC BP >= 140MM HG, G8754 MOST RECENT DIASTOLIC BP < 90MM HG * Follow Up: 3 Weeks * Images: Billing Information: * Visit Code: 81612 Office Visit, Est Pt., Level 3. * Procedure Codes: G2211 Complex e/m visit add on. 1036F TOBACCO NON-USER. G8950 PREHTN/HTN BP DOC INDCD F/U DOC. G8753 MOST RECENT SYSTOLIC BP >= 140MM HG. G8754 MOST RECENT DIASTOLIC BP < 90MM HG. * Electronic signature of Yuly Giron MD on 01/27/2025 at 08:57 AM EST Sign off status: Pending * Provider: Katy Giron M.D. Date: 0 09/27/2024 Generated for Jim yun/Alicia/Emilismitting on: 03/29/2024 08:57 AM EST History and Physical Notes * HPI (History of Present Illness) Category Sub-Category Detail Notes Category Not es Cardiology Blood Pressure Elevated Pt here for 1 week f/u on hypertension. Pt's Metoprolol was increased to 25mg on 09/20. Pt states she has been checking bp at home and it has continued to be elevated Examination Category Sub-Category Detail Notes Category Not es General Examination Heart: RSR Lungs: clear to auscultatio n Extremities: no leg edema General Appearance: NAD
--- OUTSIDE RECORDS SUMMARY | 2024-10-17 06:45 | XMS_ITS ---
Author Organization [facility] Address [address] [place] [phone] Care Team Providers Care Scada Operator Name Role Phone Mo Gironian Primary [...] Unknown Drug Allergy Active REASON FOR VISIT 3 weeks Medications Medication SIG (Take, Route, Frequency, Duration) Notes Start Date End Date Status Rosuvastatin Calcium 20 MG 1 tablet Orally Once a day; Duration: 90 days Active Metoprolol Succinate ER 25 MG 3 tablet Orally Once a day; Duration: 90 days Active Omeprazole 40 MG TAKE 1 CAPSULE BY [facility] ONCE DAILY; Duration: 90 days Active Potassium Chloride ER 10 MEQ TAKE 1 CAPSULE BY MOUTH TWICE DAILY; Duration: 90 Active Synthroid 25 MCG 1 tab(s) orally once daily; Duration: 90 days Active Albuterol Sulfate HFA 108 (90 Base) MCG/ACT 1 puff as needed Inhalation tid 02/09/2024 Active Vitamin D3 50 MCG (1999 UT) 6000 units orally once a day 12/24/2015 Active EpiPen 2-Tima 0.3 MG/0.3ML 1 kit intramuscularly once Active CeleBREX 200 MG 1 cap(s) orally once a day; Duration: 90 days Active Cromolyn Sodium 4 % 1 gtt in each affect ed eye 4 times a day as needed 08/26/2018 Active Aspirin 81 MG 1 tab(s) orally once a day Active Multivitamin - 1 tab(s) orally once a day Active Magnesium Oxide 400 MG 1 tab(s) orally once a day Active Vitamin E 400 UNIT 1 cap(s) orally once a day Active Vitamin A & D 8000-400 UNIT 1 cap(s) orally once a day A ctive Alendronate Sodium 70 MG 1 tablet 30 min utes before the first food, beverage or medicine of the day with plain water Orally One Time A Week Active Azelastine HCl 0.1 % 1 puff in each nost ril Nasally Twice a day; Duration: 30 day(s) Active Vital Signs Blood pressure systolic 122 mm Hg 10/18/19 25 Blood pressure diastolic 70 mm Hg 025 Heart Rate 70 /min 10/17/2024 Height 64.75 in 10/17/2024 Weight 178.6 lbs 10/17/2024 BMI 29.95 kg/m2 10/17/2024 Encounters Encounter Location Date Provider Diagnosis [facility] [facility] [address] [facility] [address] [place] [id number] 10/17/2024 Edouard Giron Primary hypertension I10 and BMI 29.0-29.9,adult Z68.29 Assessments Encounter Date Diagnosis (ICD Code) Assessment Notes Treatment Notes Treatment Clinical Notes Section Notes 10/17/2024 Primary hypertension (ICD-10 - I10) 10/17/2024 BMI 29.0-29.9,adult (ICD-10 - Z68.29) Plan Of Treatment Medication Medication Name Sig Start Date Stop Date Notes Metoprolol Succinate ER 25 MG 3 tablet O rally Once a day; Duration: 90 days Next Appt Details Follow Up: as scheduled,and prn, Reason: Provider Name:Edouard Carroll ry, 02/27/2025 09:30:00 AM, [address] [facility] [address] [facility], [address], [place], [id number], Progress Notes * Fay HUNTOB:[birth year] (79 yo F)Acc No.[id number]:10/17/2024 Progress Notes Patient: Aggie ARMSTRONG Provider: Katy Giron M.D. :1945 A ge:79 Y S ex:Female Date:10/17/2024 Address:[address], [place], [id number] Subjective: * Chief Complaints: * 1 . 3 weeks. * HPI: C ardiology: 79 year old female presents with c/o Blood Pressure Elevated?Pt here to f/u on hypertension. Pt had Metoprolol 25mg increased to 4 tablets on 09/27. Pt states she did take 4 tablets for about 3 day but heart rate was staying in the 50's, so pt has been taking 3 tablets. Pt states she does feel weak but is not sure if it is the medication or the heat outside. Pt does have bp journal with her today. * ROS: D ERMATOLOGY: no R lluvia. [...] , Forehead Pre Cancerous Lesion Removal , [place] Teeth Extracted , Eye Lid 12/2012, LT [...] 1 tab(s) orally once daily , Taking Potassium Chloride ER 10 MEQ Capsule Extended Release TAKE 1 CAPSULE BY MOUTH TWICE DAILY , Taking Metoprolol Succinate ER 25 MG Tablet Extended Release 24 Hour 3 tablet Orally Once a day , Taking Rosuvastatin Calcium 20 MG Tablet 1 tablet Orally Once a day , Medication List reviewed and reconciled with the patient * Allergies: P enicillin: rash - Allergy, Valium: insomnia - Side Effects, Stahist, Levaquin, Lipitor: muscle weakness - Side Effects, Sulfamethoxazole, Rofecoxib. Objective: * Vitals: W t: 178.6, Temp: 97.8, BP: 122/70, HR: 70, Nurse: chidi, Ht: 64.75, BMI:29.95. * Examination: C ardiology: General Appearance: p leasant, NAD. H eart sounds: R RR, normal S1, S2. L ungs: c lear, no rales or wheezes. E xtremities: n o leg edema. Assessment: * Assessment: 1. P rimary hypertension - I10 (Primary) 2 . B [place] 29.0-29.9,adult - Z68.29? Plan: * Treatment: * Procedure Codes: G 2211 Complex e/m visit add on, 1036F TOBACCO NON-USER, G8420 BMI<30 AND >=22 CALC & DOCU, G8950 PREHTN/HTN BP DOC INDCD F/U DOC, G8752 MOST RECENT SYSTOLIC BP < 140MM HG, G8754 MOST RECENT DIASTOLIC BP < 90MM HG * Follow Up: a s scheduled,and prn * Images: Billing Information: * Visit Code: 17019 Office Visit, Est Pt., Level 3. * Procedure Codes: G2211 Complex e/m visit add on. 1036F TOBACCO NON-USER. G8420 BMI<30 AND >=22 CALC & DOCU. G8950 PREHTN/HTN BP DOC INDCD F/U DOC. G8752 MOST RECENT SYSTOLIC BP < 140MM HG. G8754 MOST RECENT DIASTOLIC BP < 90MM HG. * Electronic signature of Yuly Giron MD on 01/27/2025 at 08:56 AM EST Sign off status: Pending * Provider: Katy Giron M.D. Date: 0 10/17/2024 Generated for Jim yun/Alicia/eTransmitting on: 03/29/2024 08:56 AM EST History and Physical Notes * HPI (History of Present Illness) Category Sub-Category Detail Notes Category Not es Cardiology Blood Pressure Elevated Pt here to f/u on hypertension. Pt had Metoprolol 25mg increased to 4 tablets on 09/27. Pt states she did take 4 tablets for about 3 day but heart rate was staying in the 50's, so pt has been taking 3 tablets. Pt states she does feel weak but is not sure if it is the medication or the heat outside. Pt does have bp journal with her today Examination Category Sub-Category Detail Notes Category Not es Cardiology Lungs: clear, no rales or wheezes Heart sounds: RRR, normal S1, S2 Extremities: no leg edema General Appearance: pleasant, NAD
--- OUTSIDE RECORDS SUMMARY | 2024-12-02 09:15 | XMS_ITS ---
Author Organization [facility] Address [address] [place] [id number] Care Team Providers Care Marklogic Developer Name Role Phone Mo Gironian Primary Care [...] Active Results Component Value Reference Range Notes MICHELLE Reviewed date:12/05/2024 08:47:13 AM Interpretation: Performing Lab: Notes/Report: REASON FOR VISIT Knee Pain, Surgery Not Yet Scheduled Medications Medication SIG (Take, Route, Frequency, Duration) Notes Start Date End Date Status CeleBREX 200 MG 1 cap(s) orally once a day; Duration: 90 days Active Cromolyn Sodium 4 % 1 gtt in each affect ed eye 4 times a day as needed 08/26/2018 Active Potassium Chloride ER 10 MEQ TAKE 1 CAPSULE BY MOUTH TWICE DAILY; Duration: 90 Active Omeprazole 40 MG TAKE 1 CAPSULE BY [facility] ONCE DAILY; Duration: 90 days Active Albuterol [...] 1 tab(s) orally once a day Active traMADol HCl 50 MG 1 tablet as needed O rally every 8 hrs 12/02/2024 Active Magnesium Oxide 400 MG 1 tab(s) [...] water Orally One Time A Week Active Synthroid 25 MCG 1 tab(s) orally once daily; Duration: 90 days Active Metoprolol Succinate ER 25 MG 3 tablet Orally Once a day; Duration: 90 days Active Rosuvastatin Calcium 20 MG 1 tablet Orally Once a day; Duration: 90 days Active Problems Problem Type SNOMED Code ICD Code Onset Dates Problem Status W/U Status Risk Notes Problem Arthritis of right knee (9496576309031 102) Arthritis of right knee (M17.11) Active confirmed Vital Signs Blood pressure systolic 130 mm Hg 12/03/19 25 Blood pressure diastolic 86 mm Hg 025 Heart Rate 96 /min 12/02/2024 Height 64.75 in 12/02/2024 Weight 185.4 lbs 12/02/2024 BMI 31.09 kg/m2 12/02/2024 Encounters Encounter Location Date Provider [facility] [address] [id number] 12/02/2024 Edouard [place] Pain in right knee M25.561 and Arthritis of right knee M17.11 Assessments Encounter Date Diagnosis (ICD Code) Assessment Notes Treatment Notes Treatment Clinical Notes Section Notes 12/02/2024 Pain in right knee (ICD-10 - M25.561) Current course of treatment reviewed, including pertinent labs and diagnostic imaging. Risks and benefits of the use of controlled substances discussed, including the risk of tolerance and drug dependence. Refer to [facility] Controlled Substance Agreement. 12/02/2024 Arthritis of right knee (ICD-10 - M17.11) Spoke to staff at Dr. Castelan's office. They will contact patient about date for surgery Plan Of Treatment Medication Medication Name Sig Start Date Stop Date Notes traMADol HCl 50 MG 1 tablet as needed Orally every 8 hrs 0 12/02/2024 Treatment Notes Assessment Notes Pain in right knee Current course of tr eatment reviewed, including pertinent labs and diagnostic imaging. Risks and benefits of the use of controlled substances discussed, including the risk of tolerance and drug dependence. Refer to [facility] Controlled Substance Agreement. Arthritis of right knee Spoke to staff elizabeth Castelan's office. They will contact patient about date for surgery Next Appt Details Follow Up: via phone to repo rt progress, Reason: Provider Name:Edouard Carroll ry, 02/27/2025 09:30:00 AM, [address], [address], [place], [place], [id number], Progress Notes * Fay HUNTOB:[birth year] (79 yo F)Acc No.[id number]:12/02/2024 Progress Notes Patient: Aggie ARMSTRONG Provider: Katy Giron M.D. :1945 A ge:79 Y S ex:Female Date:12/02/2024 Address:[address] [place] [address], [place] [facility], [place], [id number] Subjective: * Chief Complaints: * 1 . Knee Pain, Surgery Not Yet Scheduled. * HPI: Carla coleman/Glass: 79 year old female presents with c/o knee pain P t states the rt knee pain has been ongoing for 3 years, but the most recent pain started recemtly. Pt states the pain is just in the knee and sts it is painful and does burn. Pt sts it is hard to get up and down or to do anything. Pt sts the carla coleman has not been accepting the CT scans and sts she was unable to have her surgery last week. * ROS: D ERMATOLOGY: no R lluvia. n o H thiago. G ASTROENTEROLOGY: no N ausea. n o V omiting. n o D iarrhea.? U ROLOGY: no D ifficulty urinating. n o B lood in urine. * Medical History: I nsomnia, Hypercholestrolemia, Vitamin D Deficiency, Migraine Headaches, Allergic Rhinitis, Asthma, Esophageal Reflux. * Surgical History: C holecystectomy , Tonsillectomy , Bladder Suspension , D & C , Ear Tubes , Forehead Pre Cancerous Lesion Removal , [place] Teeth Extracted , Eye Lid 12/2012, LT [...] CAPSULE BY MOUTH ONCE DAILY , Taking Potassium Chloride ER 10 MEQ Capsule Extended Release TAKE 1 CAPSULE BY MOUTH TWICE DAILY , Taking Rosuvastatin Calcium 20 MG Tablet 1 tablet Orally Once a day , Taking Metoprolol Succinate ER 25 MG Tablet Extended Release 24 Hour 3 tablet Orally Once a day , Taking Synthroid 25 MCG Tablet 1 tab(s) orally once daily , Medication List reviewed and reconciled with the patient * Allergies: P enicillin: rash - Allergy, Valium: insomnia - Side Effects, Stahist, Levaquin, Lipitor: muscle weakness - Side Effects, Sulfamethoxazole, Rofecoxib. Objective: * Vitals: W t: 185.4, Temp: 97.7, BP: 130/86, HR: 96, O2 Sat: 97% on RA, Nurse: mario, Ht: 64.75, BMI:31.09. * Examination: G eneral Examination: General Appearance: N AD, uses a cane to assist with ambulation, walks slowly due to pain. Assessment: * Assessment: 1. P ain in right knee - M25.561 (Primary) 2 . A rthritis of right knee - M17.11 Plan: * Treatment: 2. A rthritis of right knee Notes: Spoke to staff at Dr. Castelan's office. They will contact patient about date for surgery ? * Imaging: * I maging: MICHELLE (Performed Date - 12/05/2024) * Procedure Codes: G 2211 Complex e/m visit add on * Follow Up: v ia phone to report progress * Images: Billing Information: * Visit Code: 91350 Office Visit, Est Pt., Level 3. * Procedure Codes: G2211 Complex e/m visit add on. * Electronic signature of Yuly Giron MD on 01/27/2025 at 08:56 AM EST Sign off status: Pending * Provider: Katy Giron M.D. Date: 0 12/02/2024 Generated for Jim yun/Alicia/John on: 1 03/29/2024 08:56 AM EST History and Physical Notes * HPI (History of Present Illness) Category Sub-Category Detail Notes Category Not es Knee/Glass knee pain Pt states the rt knee pain has been ongoing for 3 years, but the most recent pain started recemtly. Pt states the pain is just in the knee and sts it is painful and does burn. Pt sts it is hard to get up and down or to do anything. Pt sts the knee has not been accepting the CT scans and sts she was unable to have her surgery last week Examination Category Sub-Category Detail Notes Category Not es General Examination General Appearance: NAD, use s a cane to assist with ambulation, walks slowly due to pain
--- OUTSIDE RECORDS SUMMARY | 2024-12-05 08:15 | XMS_ITS ---
Author Organization [facility] Address [address] [facility] [address] [place] [id number] Care Team Providers Care Grease And Tallow Pumper Name Role Phone Edouard Giron Primary Care Provider [phone] REASON FOR VISIT flu shot Medications Medication SIG (Take, Route, Frequency, Duration) Notes Start Date End Date Status Potassium Chloride ER 10 MEQ TAKE 1 CAPSULE BY MOUTH TWICE DAILY; Duration: 90 Active Rosuvastatin Calcium 20 MG 1 tablet Orally Once a day; Duration: 90 days Active Metoprolol Succinate ER 25 MG 3 tablet Orally Once a day; Duration: 90 days Active Synthroid 25 MCG 1 tab(s) orally once daily; Duration: 90 days Active traMADol HCl 50 MG 1 tablet as needed O rally every 8 hrs 12/02/2024 Active Vitamin D3 50 MCG (2000 UT) [...] UTH ONCE DAILY; Duration: 90 days Active Magnesium Oxide 400 MG 1 tab(s) orally once a day Active Multivitamin - 1 tab(s) orally once a day Active Vitamin A & D 8000-400 UNIT 1 cap(s) orally once a day A ctive Vitamin E 400 UNIT 1 cap(s) orally once a day Active EpiPen 2-Tima 0.3 MG/0.3ML 1 kit intramuscularly once Active Aspirin 81 MG 1 tab(s) orally once a day Active Alendronate Sodium 70 MG 1 tablet 30 min utes before the first food, beverage or medicine of the day with plain water Orally One Time A Week Active Azelastine HCl 0.1 % 1 puff in each nost ril Nasally Twice a day; Duration: 30 day(s) Active Immunizations Vaccine Route Administration Date Status Comme nts Fluzone High Dose (65yr and older) IM Intramuscular 12/05/2024 Administered Encounters Encounter Location Date Provider Diagnosis [facility] [address] [facility] [address] [facility] [address] [place] [id number] 12/05/2024 Edouard Giron Encounter for immunization Z23 Assessments Encounter Date Diagnosis (ICD Code) Assessment Notes Treatment Notes Treatment Clinical Notes Section Notes 12/05/2024 Encounter for immunization (ICD-10 - Z23) Plan Of Treatment Next Appt Details Provider Name:Edouard Carroll , 02/27/2025 09:30:00 AM, [address] [facility] [address] [facility], [address], [place], [id number], Progress Notes * Fay HUNTOB:[birth year] (79 yo F)Acc No.[id number]:12/05/2024 Patient: Aggie ARMSTRONG Provider: Katy Giron M.D. :1945 A ge:79 Y S ex:Female Date:12/05/2024 Address:[address] [place] [address], [id number] Subjective: * Chief Complaints: * 1 . Flu shot. * Medical History: * Medications: T aking Alendronate Sodium 70 [...] 1 tab(s) orally once daily , Taking traMADol HCl 50 MG Tablet 1 tablet as needed Orally every 8 hrs , Medication List reviewed and reconciled with the patient Objective: * Vitals: Assessment: * Assessment: 1. E ncounter for immunization - Z23 (Primary) Plan: * Treatment: * Immunizations: Fluzone High Dose (65yr and older) : 0.5 mL (Route: Intramuscular) given by Monalisa Ac on Left Deltoid (Encounter for immunization) * Images: Billing Information: * Visit Code: * Procedure Codes: * Electronic signature of Yuly Giron MD on 01/27/2025 at 08:56 AM EST Sign off status: Pending * Provider: Katy Giron M.D. Date: 0 12/05/2024 Generated for Jim yun/Alicia/John on: 03/29/2024 08:56 AM EST
--- OUTSIDE RECORDS SUMMARY | 2025-01-27 08:56 | XMS_ITS | Encounter Summary ---
Author Organization [facility] ([place], [place], [place], [place], [place]) Address [address] [place] [address] Care Team Providers Care Domestic Cleaner Name Role Phone Edouard Giron MD Primary Care Provider + [phone] Encounter Details Date Type Department Care Team (Late st Contact Info) Description 09/16/2018 Transcribed Document [facility] [place] [facility] [address] [place] [address] ProviderRenato MD [address] [place], [place] [address] Social History Tobacco Use Types Packs/Day Years [...] Source : Stated Height Entry Format : Centre Height, Feet : 5 ft(Converted to: 152 cm, 60 Inch) Height, Inches : 4 Inch(Converted to: 0 ft 4 Inch, 10.16 cm) Clinical Height : 162.56 cm Weight Source : Standing scale Weight Entry Format : Centre Clinical Dosing Weight : 78.73 kg Weight, Pounds : 173.2 lb Body Surface Area (BSA) : 1.84 m2 Body Mass Index : 29.8 kg/m2 (HI) [place] Body Weight : 54 kg Lanny Cohen [...] : No Tuberculosis Symptoms : None Lanny Choen RN - 09/16/2018 7:29 EDT Anesthesia/Transfusion History [...] Arrival on Unit : Ambulatory Support Person/Patient Quality Control Engineer : Yes Support Person/Pt Rep Name : Rui (spouse) Patient's Support Person/Pt Rep Contact Information : [phone] Want Family/Rep/Phys Notified of Admit : Yes Name/Contact Info Fam/Rep Notified Adm : RUI Name/Contact Info Physician Notified Adm : EDOUARD GIRON Emergency Contact #1 : RUI Emergency Contact #1 Emergency Contact #1 Relationship : Emergency Contact #2 : NA Emergency Contact #2 Phone Number : NA Emergency Contact #2 Relationship : NA Primary Language : [place] Islander Communication Barrier : None Lanny Cohen RN [...] Scale Risk Level : 0-24 Low Risk [place] Fall Interventions : Adequate lighting, Bed in [...] the text rendition version of the form. Electronically signed by Neida Manuel Conversion Optometrist President/Practice Owner Cerner at 07/08/2022 11:47 AM CDT documented in this encounter Plan of Treatment Upcoming Encounters Date Type Department Care Team (Late st Contact Info) Description 11/29/2025 1:30 PM EDT Appointment [address] [place] [address] documented as of this encounter Visit Diagnoses Not on filedocumented in this encounter Care Teams Domestic Cleaner Relationship Specialty Start Date End Date Edouard Giron MD [address] [facility] [address] [place] [id number] PCP - General Family Medicine 11/17/22 documented as of this encounter
--- OUTSIDE RECORDS SUMMARY | 2025-01-27 08:56 | XMS_ITS | Encounter Summary ---
Author Organization [employer] ([place], [place], [place], [place], [place]) Address [address] [place] [address] Care Team Providers Care Consulting Project Director Name Role Phone Edouard Giron MD Primary Care Provider + [phone] Encounter Details Date Type Department Care Team (Late st Contact Info) Description 09/16/2018 Transcribed Document [facility] Family Medicine [address] [place] [address] ProviderRenato MD [address] [place] [address] Social History Tobacco Use Types Packs/Day Years [...] AGGIE HUNT.O.B./Sex: 1945 Female Med Rec #: [id number] Physician: ERNIE SANTORO MD-GAE Financial #: [id number] Pt. Type: O Room/Bed: EEN/2 Admit/Disch: 09/16/18 06:44:00 - Institution: [facility] PACU Case Times Entry 1 In PACU I 09/16/18 08:26:00 Ready for PACU 09/16/18 08:56:00 Discharge Discharge from PACU 09/16/18 08:56:00 Emmanuelle London PACU Case Times Audit 09/16/18 08:56:12 Cap Coverer: MARTÍNEZ Modifier: MARTÍNEZ <+> 1 Ready for PACU Discharge <+> 1 Discharge from PACU I Finalized By: ONELIA Mandujano RN Document Signatures Signed By: ONELIA Mandujano RN 09/16/18 08:56 documented in this encounter Plan of Treatment Upcoming Encounters Date Type Department Care Team (Late st Contact Info) Description 11/29/2025 1:30 PM EDT Appointment [address] [address] documented as of this encounter Visit Diagnoses Not on filedocumented in this encounter Care Teams Consulting Project Director Relationship Specialty Start Date End Date Edouard Giron MD [address] [facility] [address] [place] [address] PCP - General Family Medicine 11/17/22 documented as of this encounter
--- OUTSIDE RECORDS SUMMARY | 2025-01-27 08:56 | XMS_ITS | Encounter Summary ---
Author Organization [employer] ([place], [place], [place], [place], [place]) Address [address] [place] [address] Care Team Providers Care General Cargo Clerk Name Role Phone Edouard Giron MD Primary Care Provider + [phone] Encounter Details Date Type Department Care Team (Late st Contact Info) Description 09/16/2018 Transcribed Document [facility] Family Medicine [address] [place] [address] ProviderRenato MD [address] [place], [place] [address] Social History Tobacco Use Types Packs/Day Years [...] soft and easy to digest. ??? Take fmjq-fcp-xiwazgx or prescription medicines only as told by [...] 04/11/2011 Document Revised: 01/07/2018 Document Reviewed: 12/01/2016 [employer] Interactive Patient Education ? 2019 [employer] Colon Polyps Polyps are tissue growths [...] 12/03/2004 Document Revised: 08/14/2016 Document Reviewed: 01/28/2016 [employer] Interactive Patient Education ? 2019 [employer] Diverticulosis Diverticulosis is a condition that [...] getting enough exercise. ??? Smoking. ??? Taking rfkc-lyi-dqklxjm pain medicines, like aspirin and ibuprofen. ??? [...] care provider or your diet and nutrition services worker (dietitian). ? Take a fiber supplement or probiotic, if your health care provider approves. ??? Take fafx-kpd-xixycpd and prescription medicines only as told by [...] 12/04/2004 Document Revised: 01/26/2017 Document Reviewed: 01/26/2017 [employer] Interactive Patient Education ? 2019 [employer] Hemorrhoids Hemorrhoids are swollen veins in [...] times a day. General instructions ??? Take gpqe-fuj-wpthmqb and prescription medicines only as told by [...] 12/16/2008 Document Revised: 08/14/2016 Document Reviewed: 11/21/2015 [employer] Interactive Patient Education ? 2019 [employer]. documented in this encounter Plan of Treatment Upcoming Encounters Date Type Department Care Team (Late st Contact Info) Description 11/29/2025 1:30 PM EDT Appointment [address] [place] [address] documented as of this encounter Visit Diagnoses Not on filedocumented in this encounter Care Teams General Cargo Clerk Relationship Specialty Start Date End Date Edouard Giron MD [address] [facility] [address] [place] [address] PCP - General Family Medicine 11/17/22 documented as of this encounter
--- OUTSIDE RECORDS SUMMARY | 2025-01-27 08:56 | XMS_ITS | Encounter Summary ---
Author Organization [employer] ([place], [place], [place], [place], [place]) Address [address] [place] [address] Care Team Providers Care Mixer Crane Operator Name Role Phone Edouard Giron MD Primary Care Provider + [phone] Encounter Details Date Type Department Care Team (Late st Contact Info) Description 09/16/2018 Transcribed Document [facility] [place] [address] [place] [address] ProviderRenato MD [address] [place] [address] Social History Tobacco Use Types [...] Elizabeth MD - 09/16/2018 8:50 AM CDT [address] [address] AGGIE HUNT :1945 Visit Time:09/16/2018 [...] See procedure report for recommendations Where: [address] [facility] [address] [place] [id number]- Medications What How Much When Instructions Next [...] 1 Tablet(s) Oral Every Day vitamin A 21102g Oral Every Day vitamin E 500 Milligram(s) [...] soft and easy to digest. ??? Take jewq-kfx-pdsefhx or prescription medicines only as told by [...] 04/11/2011 Document Revised: 01/07/2018 Document Reviewed: 12/01/2016 [employer] Interactive Patient Education ?? 2019 [employer]. Colon Polyps Polyps are tissue growths [...] 12/03/2004 Document Revised: 08/14/2016 Document Reviewed: 01/28/2016 [employer] Interactive Patient Education ?? 2019 [employer] Diverticulosis Diverticulosis is a condition that [...] getting enough exercise. ??? Smoking. ??? Taking jfjl-osh-akgnvgr pain medicines, like aspirin and ibuprofen. ??? [...] health care provider or your diet and research nutritionist (dietitian). ? Take a fiber supplement or probiotic, if your health care provider approves. ??? Take fprx-myf-pdhmkjm and prescription medicines only as told by [...] 12/04/2004 Document Revised: 01/26/2017 Document Reviewed: 01/26/2017 [employer] Interactive Patient Education ?? 2019 [employer]. Hemorrhoids Hemorrhoids are swollen veins in [...] times a day. General instructions ??? Take vecw-zyu-wlvdiue and prescription medicines only as told by [...] 12/16/2008 Document Revised: 08/14/2016 Document Reviewed: 11/21/2015 [employer] Interactive Patient Education ?? 2019 [employer] Emergency Awareness and Preventative Care STROKE [...] Assistance with quitting is available by contacting 4-600-KFWUNOW. This is a free resource providing counseling, [...] was given the opportunity to ask questions. Patient/Department Clinician Name: Patient/Department Clinician Signature: Relationship to Patient: Clinician/Hospital Department Clinician Signature: Date: Electronically signed by Kaleb, [facility] Conversion Traffic Investigator Cerner at 07/08/2022 12:01 PM CDT documented in this encounter Plan of Treatment Upcoming Encounters Date Type Department Care Team (Late st Contact Info) Description 11/29/2025 1:30 PM EDT Appointment [address] [address] documented as of this encounter Visit Diagnoses Not on filedocumented in this encounter Care Teams Mixer Crane Operator Relationship Specialty Start Date End Date Edouard Giron MD [address] [facility] [address] [place] [address] PCP - General Family Medicine 11/17/22 documented as of this encounter
--- OUTSIDE RECORDS SUMMARY | 2025-01-27 08:56 | XMS_ITS | Clinical Summary ---
Author Organization [facility] Address [address] [place] [address] Care Team Providers Care Pie Bottomer Name Role Phone Edouard Giron MD Primary Care Provider + [phone] Allergies Active Allergy Reactions Criticality Noted Date [...] time each day. 09/03/19 17 Active Multiple Vitamins-[place] als (Womens Multi) capsule Take 1 capsule [...] 09/03/19 17 Active Vitamin A 3 MG (02948 UT) capsule 09/01/19 13 Active alpha tocopherol (Vitamin E) 400 units capsule 09/01/19 13 Active rosuvastatin (Crestor) 10 MG tablet 09/05/19 15 Active rosuvastatin (Crestor) 20 MG tablet 08/06/19 25 Active alendronate (Fosamax) 70 MG tablet Take 1 tablet by mouth every 7 days. Take in the morning with a full glass of water, on an empty stomach, and do not take anything else by mouth or lie down for the next 30 min. 12 tablet 3 11/24/19 25 026 Active Active Problems Problem Noted Date Diagnosed [...] fx Today's Plan: Cont f/u with pcp Immunizations Immunization Administration Dates Next Due Hep [...] Cancer Screening Amanda [facility] Plus OCR [address] [facility] [place] [address] 09/05/2025 1:00 PM EDT Clinical Support [facility] [address] 1[address] [place] [address] 09/19/2025 2:40 PM EDT Appointment [facility] [address], [address] [place] [address] 09/19/2025 3:00 PM EDT Office Visit [facility] [address], [address] [place] [address] Yassine Pizarro, PA [address] [place] [address] Health Maintenance Due Date Last Done Comments [facility]-Hepatitis C Screening 1945 [facility]-Medicare Annual Wellness (AWV) 1945 [facility]-/Child/Adol SDOH Screenings 1945 [facility]- SDOH Screenings 1963 [facility]-Adult SDOH Screenings 1963 [facility]-Depression Screening 08/31/2024 09/01/2023 [id number] Vaccine (7 - Moderna risk 2023- season) 2024 03/25/2024, 12/31/2021, 07/16/2021, Additional history exists [facility]-Influenza Vaccine (#1) 11/21/202412/07, 11/29/2019, 12/28/2018, Additional history [...] 9 PM EDT Osteopenia of multiple sites from Last 3 Months or Most Recently Relevant to Health Maintenance Results * Dexa Bone Density (09/19/2024 2:19 PM EDT) Anatomical Region Laterality Modality L-spine Radiographic Zonia ging Narrative 10/01/2024 10:42 PM EDT [facility] [address] [place] [address] DXA Bone Densitometry Report: [Date of exam] BMD test performed using the Recognition PRO iDXA DXA System (analysis version: 14.10) manufactured by [employer]. REFERRING PROVIDER: Dr. Yassine Pizarro, PA CLINICAL INFORMATION: PATIENT NAME: Aggie Oliver PATIENT [...] repeat BMD in 2-3 years Yassine MAZA IMKhalida DXA PROCEDURES Final Resul t from Last 3 Months or Most Recently Relevant to Health Maintenance [place] [address] [facility] Care Teams Pie Bottomer Relationship Specialty Start Date End Date Edouard Giron MD [address] [place] [address] PCP - General 08/03/20
--- OUTSIDE RECORDS SUMMARY | 2025-01-27 08:56 | XMS_ITS | Encounter Summary ---
Author Organization [employer] ([place], [place], [place], [place], [place]) Address [address] [place] [address] Care Team Providers Care Unit Support Representative Name Role Phone Edouard Giron MD Primary Care Provider + [phone] Encounter Details Date Type Department Care Team (Late st Contact Info) Description 09/16/2018 Transcribed Document [facility] Family Medicine [address] [place] [address] ProviderRenato MD [address] [place] [address] Social History Tobacco Use Types Packs/Day Years [...] AGGIE HUNT.O.B./Sex: 1945 Female Med Rec #: [id number] Physician: ERNIE SANTORO MD-GAE Financial #: [id number] Pt. Type: O Room/Bed: EEN/2 Admit/Disch: 09/16/18 06:44:00 - Institution: [facility] - Case Attendance Entry 1 Entry 2 Entry 3 Case Attendee ERNIE SANTORO MD-GAE TAYLOR, KAREN J., RN CAMELIA MARTINEZ, DRY ROOM ATTENDANT Role Performed Surgeon/Proceduralist, Ground Source Heat Pump Technician, First DRY ROOM ATTENDANT/Nurse Groutman First Time In 09/16/18 07:50:00 09/16/18 07:50:00 [...] Endo - Case Attendance Audit 09/16/18 08:22:51 Solar Sales Advisor: JUAN CARLOSKJ Modifier: JUAN CARLOSKJ 1 <+> Time Out 1 <*> Procedure Colonoscopy, Colon Polypectomy 2 <+> Time Out 2 <*> Procedure Colonoscopy, Colon Polypectomy 3 <+> Time Out 3 <*> Procedure Colonoscopy, Colon Polypectomy 4 <+> Time Out 4 <*> Procedure Colonoscopy, Colon Polypectomy 09/16/18 08:08:53 Solar Sales Advisor: JUAN CARLOSKJ Modifier: JUAN CARLOSKJ 1 <*> Procedure Colonoscopy 2 <*> Procedure Colonoscopy 3 <*> Procedure Colonoscopy 4 <*> Procedure Colonoscopy 09/16/18 07:54:32 Solar Sales Advisor: JUAN CARLOSKJ Modifier: JUAN CARLOSKJ 4 <*> [...] Endo - Case Times Audit 09/16/18 08:22:47 Solar Sales Advisor: JUAN CARLOSKJ Modifier: JUAN CARLOSKJ <+> 1 Out Room Time <+> 1 Stop Time <+> 1 Stop Time 09/16/18 08:06:09 Solar Sales Advisor: MADHU Modifier: YONGJ <+> 1 Start Time [facility] - Cultures and Spec Summary Entry 1 Cultrures and Specimens Specimen Ordered: Yes Specimens Types Pathology Specimen(s) Labeled Lab and Sent to Last Modified By: MEVLI RANGEL RN 09/16/18 08:09:15 General Comments: ascending [...] Yes Assessment Complete Fire Risk MELVI RANGEL collection agent Verified By Fire Risk 09/16/18 07:53:00 Assessment Verified Date/Time Fire Risk High Risk Protocol Yes Implemented Standard Fire Yes Safety Precautions Followed Last Modified By: MELVI RANGEL RN 09/16/18 07:53:07 [facility] - General Case Groutman 1 Case Information OR Endo 02 [facility] Case Level 1 Room Verified Yes Wound Class III - Contaminated Specialty SN Gastroenterology Anesthesia Type MAC ASA Class 2 Diagnosis Preop Diagnosis Z86.010 history of polyps Postop Same As Preop No Postop Diagnosis polyps, diverticulosis, hemorrhoids Last Modified By: MELVI RANGEL RN 09/16/18 08:22:37 [facility] - General Case Data Audit 09/16/18 08:22:37 Solar Sales Advisor: MADHU Modifier: MADHU 1 <*> Postop Diagnosis polyps, diverticulosis, hemorrhoids 09/16/18 08:12:30 Solar Sales Advisor: MADHU Modifier: MADHU <+> 1 Postop Diagnosis [facility] - Intraoperative Assessment Entry 1 Valid [...] Modified By: MELVI RANGEL RN 09/16/18 07:54:50 [facility] - Intraoperative Equipment Audit 09/16/18 07:54:50 Solar Sales Advisor: MADHU Modifier: MADHU <+> 1 Photo <+> 1 Video <+> 1 Blood Pressure Location <+> 1 Pulse Oximeter Probe Site <+> 1 Flexible Endoscopes Used <+> 1 Scope Serial Number/Identification Number [facility] - Patient Positioning Entry 1 Procedure [...] Modified By: MELVI RANGEL RN 09/16/18 08:08:54 [facility] - Patient Positioning Audit 09/16/18 08:08:54 Solar Sales Advisor: YONGJ Modifier: YONGJ 1 <*> Procedure Colonoscopy [facility] - Sign In Entry 1 Patient, [...] Endo - Sign Out Audit 09/16/18 08:23:44 Solar Sales Advisor: JUAN CARLOSKJ Modifier: YONGJ <+> 1 RN Sign Out Signature Date/Time <+> 1 Urinary Catheter Documented in IView [facility] - Surgical Procedures Entry 1 Entry [...] KAREN J., RN 09/16/18 08:23:01 09/16/18 08:23:01 [facility] - Surgical Procedures Audit 09/16/18 08:23:01 Solar Sales Advisor: YONGJ Modifier: YONGJ <+> 1 Stop <+> 2 Stop 09/16/18 08:08:48 Solar Sales Advisor: MADHU Modifier: MADHU 1 <*> Procedure Colonoscopy 1 <+> Start 1 <+> Physician States Cecum Reached <+> 2 Procedure <+> 2 Primary Procedure <+> 2 Primary Surgeon <+> 2 Specialty <+> 2 Start <+> 2 Wound Class <+> 2 Anesthesia Type <+> 2 Physician States Cecum Reached 09/16/18 07:55:14 Solar Sales Advisor: MADHU Modifier: MADHU 1 <*> Procedure Colonoscopy 1 <+> Specialty [facility] - Time Out Entry 1 Procedure [...] Endo - Time Out Audit 09/16/18 08:08:55 Solar Sales Advisor: MADHU Modifier: MADHU 1 <*> Procedure to be Performed Colonoscopy Case Comments <None> Finalized By: MELVI RANGEL, RN Document Signatures Signed By: MELVI RANGEL RN 09/16/18 08:23 MELVI RANGEL RN 09/16/18 09:44 Unfinalized History Date/Time Username Reason for Unfinalizing Freetext Reason for Unfinalizing 09/16/18 09:43 MADHU Correct Documentation documented in this encounter Plan of Treatment Upcoming Encounters Date Type Department Care Team (Lucero Contact Info) Description 11/29/2025 1:30 PM EDT Appointment [address] [place] [address] documented as of this encounter Visit Diagnoses Not on filedocumented in this encounter Care Teams Unit Support Representative Relationship Specialty Start Date End Date Edouard Giron MD [address] [place] [address] PCP - General Family Medicine 11/17/22 documented as of this encounter
--- OUTSIDE RECORDS SUMMARY | 2025-01-27 08:56 | XMS_ITS | Encounter Summary ---
Author Organization [employer] ([place], [place], [place], [place], [place]) Address [address] [place] [address] Care Team Providers Care Quarrying Specialist Name Role Phone Edouard Giron MD Primary Care Provider + [phone] Encounter Details Date Type Department Care Team (Late st Contact Info) Description 09/16/2018 Transcribed Document [facility] Family Medicine [address] [place] [address] ProviderRenato MD [address] [place] [address] Social History Tobacco Use Types Packs/Day Years [...] Histories Past Medical History: Active Seasonal allergies (767809876) Arthritis (3794119) Resolved Asthma (637859491): Resolved. Procedure history: Dental surgical procedure (603072483). Tonsillectomy (164686500). Cholecystectomy (95957068). Bladder surgery. Dilation and curettage (33380872). Blephaplasty. Cyst removed from right finger. Social [...] Refill(s) Non Formulary Medication: one dose, SubCutaneous, R8Xzone, Allergy injection, 0 Refill(s) ProAir HFA 90 mcg/inh inhalation aerosol: Puff, Inhalation, QID, PRN: as needed for wheezing, 0 Refill(s) Vitamin D2: 1400u, Oral, Daily, 0 Refill(s) aspirin: 81 mg, Oral, Daily, 0 Refill(s) magnesium oxide: 400 mg, Oral, Daily, 0 Refill(s) potassium chloride-sodium chloride: 750 mg, Oral, Daily, 0 Refill(s) vitamin A: 62370x, Oral, Daily, 0 Refill(s) vitamin E: 500 mg, Oral, Daily, 0 Refill(s) zolpidem 10 mg oral tablet: 1 Tab, Oral, At Bedtime, PRN: for sleep, 0 Refill(s), Medications (1) Active Scheduled: (0) Continuous: (1) NaCl 0.9% 1,000 mL 1,000 mL, IntraVENous, 100 mL/Hr PRN: (0) Problem list: All Problems Acute vaginitis / SNOMED CT 83122390 / Confirmed Arthritis / SNOMED CT 6661627 / Confirmed H/O hyperlipidemia / SNOMED CT 290980879 / Confirmed Seasonal allergies / SNOMED CT 830951158 / Confirmed Resolved: Asthma / SNOMED CT 444463210, Active Problems (4) Acute vaginitis Arthritis H/O [...] 07:40) 97.8 (SEP 16 07:40) 97.8 (SEP 16:40) Mon HR 62 (SEP 16 07:40) 62 [...] No deformity, Normal gait. Integumentary: Warm, Dry, Reeder, No rash. Integumentary exam: Face, Chest, Arm, [...] for Dr. Mayi Payne. Electronically signed by Kaleb, [facility] Conversion Hander In Cerner at 07/08/2022 11:59 AM CDT documented in this encounter Plan of Treatment Upcoming Encounters Date Type Department Care Team (Late st Contact Info) Description 11/29/2025 1:30 PM EDT Appointment [address] [place] [address] documented as of this encounter Visit Diagnoses Not on filedocumented in this encounter Care Teams Quarrying Specialist Relationship Specialty Start Date End Date Edouard Giron MD [address] [facility] [address] [place] [address] PCP - General Family Medicine 11/17/22 documented as of this encounter
--- OUTSIDE RECORDS SUMMARY | 2025-01-27 08:56 | XMS_ITS | Encounter Summary ---
Author Organization [employer] ([place], [place], [place], [place], [place]) Address [address] [place] [address] Care Team Providers Care Indian Blanket Weaver Name Role Phone Edouard Giron MD Primary Care Provider + [phone] Encounter Details Date Type Department Care Team (Late st Contact Info) Description 09/16/2018 Transcribed Document [facility] Family Medicine [address] [place] [address] ProviderRenato MD [address] [place] [address] Social History Tobacco Use Types Packs/Day Years [...] AGGIE HUNT.O.B./Sex: 1945 Female Med Rec #: [id number] Physician: ERNIE SANTORO MD-GAE Financial #: [id number] Pt. Type: O Room/Bed: EEN/2 Admit/Disch: 09/16/18 06:44:00 - Institution: [facility] PreOp Case Times Entry 1 In Preop 09/16/18 07:25:00 Ready for Holding 09/16/18 07:46:00 Room Patient Ready for 09/16/18 07:47:00 Surgery Patient Out of Preop 09/16/18 07:47:00 Patient Out of 09/16/18 07:47:00 Holding Room [facility] PreOp Case Times Audit 09/16/18 07:47:05 Railroad Watchman: FERMIN Modifier: [email or web address] <+> 1 Patient Out of Preop <+> 1 Patient Ready for Surgery <+> 1 Ready for Holding Room <+> 1 Patient Out of Holding Room Finalized By: Lanny Cohen RN Document Signatures Signed By: Lanny Cohen RN 09/16/18 07:47 Electronically signed by Klaeb [facility] Conversion Cigarette Filter Inspector Cerner at 07/08/2022 11:49 AM CDT documented in this encounter Plan of Treatment Upcoming Encounters Date Type Department Care Team (Late st Contact Info) Description 11/29/2025 1:30 PM EDT Appointment [address] [place] [address] documented as of this encounter Visit Diagnoses Not on filedocumented in this encounter Care Teams Indian Blanket Weaver Relationship Specialty Start Date End Date Edouard Giron MD [address] [place] [address] PCP - General Family Medicine 11/17/22 documented as of this encounter
--- OUTSIDE RECORDS SUMMARY | 2025-01-27 08:57 | XMS_ITS | Clinical Summary ---
Author Organization [facility] Address [address] [place] [address] Care Team Providers Care Electrolysis Engineer Name Role Phone Edouard Giron MD Primary Care Provider + [phone] Allergies Active Allergy Reactions Criticality Noted Date [...] Description 07/11/2025 11:30 AM EDT Office Visit [facility] [address] [address] Shruti Hansen APRN [address] [facility] [address] [place] [address] Health Maintenance Due Date Last Done Comments RSV Vaccine - Adults (1 - 1- dose 75+ series) 02/16/2020 Pneumococcal Vaccine 50+ (2 of 2 - PCV) 02/22/2022 02/22/2021 ANNUAL WELLNESS VISIT 07/25/2023 HEPATITIS C SCREENING 07/25/2023 INFLUENZA VACCINE 10/21/2024 12/07/2020, , 12/28/2018, Additional history exists COVID-19 Vaccine (7 - Modern a risk 2023- season) 2024 03/25/2024, 12/31/2021, 07/16/2021, Additional history exists DXA SCAN 09/19/2026 09/19/2024, 08/23, 09/01/2023, Additional history exists TDAP/TD VACCINES (2 - Td or Tdap) 01/05/2034 024 ZOSTER VACCINE Completed 05/10/2018, 01/30/2018 MAMMOGRAM Discontinued 11/23/2024, 05/2024, 11/19/2023, Additional history exists Insurance MEDICARE A & B [facility] Care Teams Electrolysis Engineer Relationship Specialty Start Date End Date Edouard Giron MD [address] [facility] [address] [place] [address] PCP - General Family Medicine 07/28/23
--- OUTSIDE RECORDS SUMMARY | 2025-01-27 08:57 | XMS_ITS | Clinical Summary ---
Author Organization [employer] ([place], [place], [place], [place], [place]) Address [address] [place] [address] Care Team Providers Care Editor Producer Name Role Phone Edouard Giron MD Primary Care Provider + [phone] Allergies Active Allergy Reactions Criticality Noted Date Comments Atorvastatin Anaphylaxis,Other (See Comments) High 08/23/2008 Dexbrompheniramine-Ps eudoephed Other (See Comments) Low 08/31/2012 Dexchlorpheniram-Phen ylephrine Other (See Comments) Low 08/23/2008 Diazepam Other (See Comments) Low 08/23/2008 Other reaction(s): Disorientation Ibuprofen Other (See Comments) Low 08/31/2012 Levofloxacin Other (See Comments) Low 08/31/2012 Penicillins Hives,Other (See Comments) High 08/23/2008 Rofecoxib Anaphylaxis,Rash,Ot her (See Comments) High 08/23/2008 Mfeohksjf-Hv-Jso-Verde adonna Other (See Comments) 08/23/2008 1Replaced free [...] Diagnosed Date History of colon polyps 11/03/2023 Encounters Date Type Department Care Team Description 11/23/2024 1:27 PM EDT - 11/23/2024 11:59 PM EDT Hospital Encounter [address] [address] Edouard Giron MD Visit for screening mammogram Discharge Disposition: Home or Self Care from Last 3 Months Family History Medical History Relation Name Comments Breast cancer Maternal Grandmother Ovarian cancer Neg Hx Prostate cancer Neg Hx Relation Name Status Comments Maternal Grandmother Social [...] Date Rupesh rded Speak language other than Stateless at home Not on file 04/10/2023 Want help with school or training Not on file 04/10/2023 Substance Use Answer Date Recorded Used prescription meds for non-medical reasons N ot on file 04/10/2023 Used illegal drugs past 12 months Not on file 04/10/2023 Comments No Sex and Gender Information Value Date Recorded [...] EDT Inhaled Oxygen Concentration - - Weight 81.6 kg (180 lb) 11/23/2024 2:03 PM EDT Height 162.6 cm (5' 4 ) 11/23/2024 2:03 PM EDT Body Mass Index 30.9 11/23/2024 2:03 PM EDT Plan of Treatment Upcoming Encounters Date Type Department Care Team (Late st Contact Info) Description 11/29/2025 1:30 PM EDT Appointment [address] [address] Health Maintenance Due Date Last Done Comments DXA SCAN 1945 Depression Screening (12+) 1957 Tobacco Cessation Counseling and Screening (12+) 1957 Hepatitis C Screening 1963 DTAP/TDAP/TD VACCINES (1 - Tdap) 02/16/1964 Medicare Initial AWV G0438 01/22/2011 Respiratory Syncytial Virus (RSV) Adult or (1 - 1-dose 75+ series) 02/16/2020 Pneumococcal 50+ years (2 of 2 - PCV) 02/22/2022 02/22/2021 Falls Risk Screening 03/23/2024 COVID-19 VACCINE (4 - 2024-2 6 season) 2024 12/31/2021, 07/16/2021, 11/21/2020 Influenza Vaccine (#1) 2024 , 11/29/2019, 11/29/2019, Additional history exists Shingles Vaccine (Zoster) Completed 05/10/2018, 12/2017 Procedures Procedure Name Priority Date/Time Associated Diagnosis Comments MM DIGITAL MAMMO SCREEN WITH ROBERTO BILATERAL Routine 11/23/2024 2:04 PM EDT Visit for screening mammogram from Last 3 Months Results * MM digital mammo screen with roberto bilateral (11/23/2024 2:04 PM EDT) Anatomical Region Laterality Modality Breast Bilateral Mammography 11/23/2024 8:18 PM EDT Impressions 11/23/2024 8:22 PM EDT No mammographic evidence of malignancy. BI-RADS CATEGORY: 2 , BENIGN FINDING(S). RECOMMENDED FOLLOW-UP: Routine annual screening mammography. A letter including results and recommendations was sent to the patient. Density notification was provided as well. Patient information entered into a reminder system with a target due date for the next mammogram. At our facility, a [place] marker is positioned over a visible skin lesion and a linear marker is used to indicate a scar. A triangular marker is placed on a self reported palpable finding. Mammography does not detect approximately 10-15% of breast cancers. An annual clinical breast exam by the patient's breast care physician and regular monthly self breast exams by the patient are integral parts of breast cancer screening. A normal mammogram does not completely exclude the presence of breast cancer, especially if there is an abnormal finding on physical exam. When clinically indicated, a biopsy should not be deferred because of a normal mammogram report. : 1945 Images reviewed, interpreted, and dictated by Faviola Lancaster MD Narrative 11/23/2024 8:22 PM EDT BILATERAL SCREENING DIGITAL MAMMOGRAPHY CLINICAL INDICATION: Routine screening FAMILY HISTORY: No family history.. TECHNIQUE: Bilateral CC and MLO views were obtained with 2-D and 3-D digital acquisitions. The study was read with the assistance of CAD. COMPARISON: Previous exams back to 2021. FINDINGS: No spiculated mass, calcifications or architectural distortion is seen. The breasts are heterogeneously dense, which may obscure small masses. No suspicious change identified. Edouard Giron MD IMG MAMMOGRAPHY ORDERABLES F inal Result from Last 3 Months Insurance [facility] [place] [place] [id number] [facility] SUPPL MEDICARE PART A B Care Teams Editor Producer Relationship Specialty Start Date End Date Edouard Giron MD [address] [place] [id number] PCP - General Family Medicine 11/17/22
--- OUTSIDE RECORDS SUMMARY | 2025-01-27 08:57 | XMS_ITS | Referral Summary ---
Author Organization [employer] ([place], [place], [place], [place], [place]) Address [address] [place] [address] Care Team Providers Care Ground Transportation Operator Name Role Phone Edouard Giron MD Primary Care Provider + [phone] Encounters Date Type Department Care Team Description 11/23/2024 1:27 PM EDT - 11/23/2024 11:59 PM EDT Hospital Encounter [address] [address] Edouard Giron MD Visit for screening mammogram Discharge Disposition: Home or Self Care from Last 3 Months Allergies Active Allergy Reactions Criticality Noted Date Comments Atorvastatin Anaphylaxis,Other (See Comments) High 08/23/2008 Dexbrompheniramine-Ps eudoephed Other (See Comments) Low 08/31/2012 Dexchlorpheniram-Phen ylephrine Other (See Comments) Low 08/23/2008 Diazepam Other (See Comments) Low 08/23/2008 Other reaction(s): Disorientation Ibuprofen Other (See Comments) Low 08/31/2012 Levofloxacin Other (See Comments) Low 08/31/2012 Penicillins Hives,Other (See Comments) High 08/23/2008 Rofecoxib Anaphylaxis,Rash,Ot her (See Comments) High 08/23/2008 Htoguuhuh-Qb-Tgf-Verde adonna Other (See Comments) 08/23/2008 1Replaced free [...] Date Rupesh rded Speak language other than Palestinian at home Not on file 04/10/2023 Want [...] Info) Description 11/29/2025 1:30 PM EDT Appointment [address] [place] [phone] Procedures Procedure Name Priority Date/Time Associated Diagnosis [...] the next mammogram. At our facility, a apache marker is positioned over a visible skin [...] inal Result from Last 3 Months Insurance [facility] SUPPL MEDICARE PART A B Care Teams Ground Transportation Operator Relationship Specialty Start Date End Date Edouard Giron MD [address] [facility] [address] [place] [phone] PCP - General Family Medicine 11/17/22
--- OUTSIDE RECORDS SUMMARY | 2025-01-27 08:57 | XMS_ITS | Patient Health Record ---
[facility] Address [address] [place] [id number] Care Team Providers Care Staffing Consultant Name Role Phone MackMoEdouard Primary Care Provider [phone] Pepper Parson Unavailable [phone] Allergies Allergen (clinical drug ingredient) Drug/Non Drug [...] - 38 plat 159 100 - 400 MICHELLE Reviewed date:12/05/2024 08:47:13 AM Interpretation: Performing Lab: Notes/Report: P-Vitamin D 25-Hydroxy Reviewed date:03/02/2024 09:02:03 AM Interpretation: Normal Performing Lab: Notes/Report: Test performed by [facility] [address] [place] [address] , [address], [place] [address] Richard Live MD, Clinical Nurse Leader CLIA: [id number] Vitamin D 25-Hydroxy 52.9 30.0-100.0 ng/mL Interpretation of Vitamin D 25 OH: < 20 ng/mL - Deficiency 20 - 29 ng/mL - Insufficiency 30 - 100 ng/mL - Sufficiency > 100 ng/mL - Super-therapeutic- toxicity may occur above this level. Clinical correlation required. P-Microalbumin/Creatinine, R andom Urine Sample Reviewed date:03/02/2024 09:02:03 AM Interpretation: Normal Performing Lab: Notes/Report: Test performed by [email or web address] [address] [place] [address] , [address], [place] [address] Richard Live MD, Clinical Nurse Leader CLIA: [id number] Albumin/Creatinine Ratio, Urine 25 0-30 ug/mg Microalbumin, Urine, Random 11.4 Creatinine, Urine 462.4 P-TSH Reviewed date:03/02/2024 09:02:03 AM Interpretation: Normal Performing Lab: Notes/Report: Test performed by [facility] [address] , [address], [place] [address] Richard Live MD, Clinical Nurse Leader CLIA: [id number] TSH 2.82 0.43-5.25 mU/L P-Lipid Panel Reviewed date:03/02/2024 09:02:03 AM Interpretation: Normal Performing Lab: Notes/Report: Test performed by [email or web address] [address] [place] [address] , [address], [place] [address] Richard Live MD, Clinical Nurse Leader CLIA: [id number] Cholesterol 148 <200 mg/dL Triglycerides 116 <150 [...] Normal Performing Lab: Notes/Report: Test performed by [email or web address] [address] [place], [place] [address] [place] [place] [address] Richard Live MD, Clinical Nurse Leader CLIA: [id number] Thyroxine Free (free T4) 1.45 0.86-1.76 ng/dL P-Comprehensive Metabolic Pa gabby (CMP) Reviewed date:03/02/2024 09:02:02 AM Interpretation:gluc 126 Performing Lab: Notes/Report: Test performed by [email or web address] [address] [place], [place] [address] [place] [address] Richard Live MD, Clinical Nurse Leader CLIA: [id number] Sodium 141 135-145 mmol/L Potassium 4.7 3.5-5.3 [...] - 38 plat 203 100 - 400 Bone density Reviewed date:10/28/2024 12:15:45 PM Interpretation:osteopenia Performing Lab: Notes/Report: osteopenia Bone density osteopenia Reason For Referral No Information Medications Medication SIG (Take, Route, Frequency, Duration) Notes Start Date End Date Status Rosuvastatin Calcium 20 MG 1 tablet Orally Once a day; Duration: 90 days Active Multivitamin - 1 tab(s) orally once a day Active Metoprolol Succinate ER 25 MG 3 tablet Orally Once a day; Duration: 90 days Active traMADol HCl 50 MG 1 tablet as needed O rally every 8 hrs 01/13/2025 Active Omeprazole 40 MG 1 capsule 1/2 to 1 h our before morning meal Orally Once a day; Duration: 90 days Active Aspirin 81 MG 1 tab(s) orally once a day Active Potassium Chloride ER 10 MEQ TAKE 1 CAPSULE BY MOUTH TWICE DAILY; Duration: 90 Active Magnesium Oxide 400 MG 1 tab(s) orally once a day Active Vitamin A & D 8000-400 UNIT 1 cap(s) orally once a day A ctive Synthroid 25 MCG 1 tab(s) orally once daily; Duration: 90 days Active Vitamin E 400 UNIT 1 cap(s) [...] once a day; Duration: 90 days Active Alendronate Sodium 70 MG 1 tablet 30 min utes before the first food, beverage or medicine of the day with plain water Orally One Time A Week Active Albuterol Sulfate HFA 108 (90 Base) MCG/ACT 1 puff as needed Inhalation tid 02/09/2024 Active Azelastine HCl 0.1 % 1 puff in each nost ril Nasally Twice a day; Duration: 30 day(s) Active Immunizations Vaccine Route Administration Date Status Comme nts Fluzone High Dose (65yr and older) IM Intramuscular 12/25/2023 Administered Fluzone High Dose (65yr and older) IM Intramuscular 12/05/2024 Administered Prevnar (PCV20) Unknown 02/28/2022 Pending Shingrix Unknown 05/10/2018 Administered Shingrix Unknown 01/30/2018 Administered Hepatitis B (20 and more) Unknown 08/04/2000 Administer ed Fluzone High Dose (65yr and older) IM Intramuscular 11/29/2019 Administered COVID 19 Moderna Unknown 11/21/2020 Administered Tetanus Tdap-Adacel (over 7yrs) IM Intramuscular 07/03/2004 Administered PNEUMOVAX 23 VACCINE IM Intramuscular 01/08/2009 Administe red Boostrix Tdap Unknown 01/06/2024 Administered COVID 19 Moderna Unknown 05/04/2020 Administered PNEUMOVAX 23 VACCINE IM Intramuscular 02/22/2021 Administe red Fluzone High Dose (65yr and older) IM Intramuscular 12/11/2022 Administered Fluzone High Dose (65yr and older) IM Intramuscular 12/02/2016 Administered PNEUMOVAX 23 VACCINE IM Intramuscular 12/14/2015 Administe red Fluzone High Dose (65yr and older) IM Intramuscular 12/10/2012 Administered Fluzone High Dose (65yr and older) IM Intramuscular 11/29/2015 Administered Fluzone High Dose (65yr and older) IM Intramuscular 12/07/2020 Administered Fluzone High Dose (65yr and older) IM Intramuscular 12/12/2013 Administered Prevnar (PCV13) IM Intramuscular 12/12/2013 Administered Tetanus Tdap-Adacel (over 7yrs) IM Intramuscular 12/12/2013 Administered Fluzone High Dose (65yr and older) IM Intramuscular 12/19/2021 Administered Fluzone High Dose (65yr and older) IM Intramuscular 12/28/2018 Administered Fluzone High Dose (65yr and older) IM Intramuscular 12/10/2017 Administered Problems Problem Type SNOMED Code ICD Code Onset Dates Problem Status W/U Status Risk Notes Problem Atrophic vulvovaginitis (93784531) 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.3) Active confirmed Problem Polyarthralgia (89047521) Polyarthralgia (719.49) Active confirmed Problem Insomnia (828186913) Insomnia (G47.00) Active confirmed Problem Tear film insufficiency (36380067) Dry eyes, bilateral (H04.123) Active confirmed Problem Hyperlipidemia (84400950) Hyperlipidemia (E78.5) Active confirmed Problem Vitamin D deficiency (23232637) Vitamin D deficiency (E55.9) Active confirmed Problem Otitis externa (5174017) Otitis externa (H60.90) Active confirmed Problem History of anemia (322136736) History of anemia (Z86.2) Active confirmed Problem Allergic rhinitis (28273022) Allergic rhinitis, unspecified (J30.9) Active confirmed Problem Acquired hypothyroidism (085224592) Acquired hypothyroidism (E03.9) Active confirmed Problem Gastroesophageal reflux disease (562449719) Gastroesophageal reflux disease, esophagitis presence not specified (K21.9) Active confirmed Problem Migraine (72111937) Migraine wit hout status migrainosus, not intractable, unspecified migraine type (G43.909) Active confirmed Problem Asthma without status asthmaticus (60926809) Uncomplicated asthma, unspecified asthma severity (J45.909) Active confirmed Problem Osteoarthritis of knee (625802913) Primary osteoarthritis of both knees (M17.0) Active confirmed Problem Vitamin D deficiency (96590858) Low vitamin D level (E55.9) Active confirmed Problem Chronic rhinitis (21757238) Rhinitis, unspecified type (J31.0) Active confirmed Problem Arthritis of right knee (4890584285111592) Arthritis of right knee (M17.11) Active confirmed Problem Allergic rhinitis (82523554) Allergic rhinitis, unspecified seasonality, unspecified trigger (J30.9) Active confirmed Problem Primary hypertension (40728683) Primary hypertension (I10) Active confirmed Vital Signs Heart Rate 96 /min 12/02/2024 Blood pressure diastolic 86 mm Hg 12/02/2024 Height 64.75 in 12/02/2024 Blood pressure systolic 130 mm Hg 12/02/2024 Weight 185.4 lbs 12/02/2024 BMI 31.09 kg/m2 12/02/2024 Encounters Encounter Location Date Provider Diagnosis [facility] [address] [place] [facility] [address] [place] [id number] 02/09/2024 Pepper Parson Bronchitis J40 [facility] [address] [place] [facility] [address] [place], [place] [id number] 02/26/2024 Edouard Waverly Primary hypertension I10 ; Hyperlipidemia E78.5 ; Acquired hypothyroidism E03.9 ; Vitamin D deficiency E55.9 ; Gastroesophageal reflux disease, esophagitis presence not specified K21.9 ; Insomnia G47.00 ; Persistent cough R05.3 and Hypokalemia E87.6 [facility] [address] [place] [facility] [address] [place] [id number] 03/08/2024 Pepper Parson URI (upper respirato ry infection) J06.9 and Stye H00.019 [facility] [address] [place], [place] [id number] 08/26/2024 Edouard Waverly Primary hypertension I10 ; Acquired hypothyroidism E03.9 ; Hyperlipidemia E78.5 ; Insomnia G47.00 and BMI 29.0-29.9,adult Z68.29 [facility] [address] [place], [place] [id number] 09/20/2024 Edouard Waverly Essential hypertensi on I10 and BMI 29.0-29.9,adult Z68.29 [facility] [address] [place], [place] [id number] 09/27/2024 Edouard Waverly Primary hypertension I10 [facility] [address] [place], [place] [id number] 10/17/2024 Edouard Waverly Primary hypertension I10 and BMI 29.0-29.9,adult Z68.29 [facility] [address] [place], [place] [id number] 12/02/2024 Edouard Waverly Pain in right knee M25.561 and Arthritis of right knee M17.11 [facility] [address] [place], [place] [id number] 12/05/2024 Edouard Waverly Encounter for immunization Z23 [facility] [address] [place], [place] [id number] 03/02/2024 Edouard Waverly [facility] [address] [place], [place] [id number] 08/27/2024 Edouard Waverly Screening for osteoporosis Z13.820 [facility] [address] [place], [place] [id number] 09/20/2024 Edouard Waverly [facility] [address] [place], [place] [id number] 10/28/2024 Edouard Waverly [facility] [address] [place], [place] [id number] 12/16/2024 Edouadr Waverly Pain in right knee M25.561 [facility] [address] [facility] [address] [place] [id number] 01/02/2025 Edouard Waverly Pain in right knee M25.561 [facility] [facility] [facility] [place] [id number] 01/13/2025 Edouard Waverly Pain in right knee M25.561 Assessments Encounter Date Diagnosis (ICD Code) Assessment Notes Treatment Notes Treatment Clinical Notes Section Notes 02/26/2024 Hyperlipidemia (ICD-10 - E78.5) 08/26/2024 Primary hypertension (ICD-10 - I10) 08/27/2024 Screening for osteoporosis (ICD-10 - Z13.820) 09/20/2024 Essential hypertension (ICD-10 - I10) 09/20/2024 BMI 29.0-29.9,adult (ICD-10 - Z68.29) 09/27/2024 Primary hypertension (ICD-10 - I10) 12/02/2024 Pain in right knee (ICD-10 - M25.561) Current course of treatment reviewed, including pertinent labs and diagnostic imaging. Risks and benefits of the use of controlled substances discussed, including the risk of tolerance and drug dependence. Refer to [facility] Controlled Substance Agreement. 12/02/2024 Arthritis of right knee (ICD-10 - M17.11) Spoke to staff at Dr. Castelan's office. They will contact patient about date for surgery 12/05/2024 Encounter for immunization (ICD-10 - Z23) 12/16/2024 Pain in right knee (ICD-10 - M25.561) 01/02/2025 Pain in right knee (ICD-10 - M25.561) 01/13/2025 Pain in right knee (ICD-10 - M25.561) 02/26/2024 Primary hypertension (ICD-10 - I10) 03/08/2024 URI (upper respiratory infection) (ICD-10 - J06.9) fluids, rest, supportive measures; sleep with head elevated 03/08/2024 Stye (ICD-10 - H00.019) eye care reviewed; warm compresess to the eye prn 08/26/2024 Acquired hypothyroidism (ICD-10 - E03.9) 10/17/2024 BMI 29.0-29.9,adult (ICD-10 - Z68.29) 10/17/2024 Primary hypertension (ICD-10 - I10) 02/09/2024 Bronchitis (ICD-10 - J40) fluids, rest, supportive measures for fever/symptom relief 08/26/2024 Hyperlipidemia (ICD-10 - E78.5) 02/26/2024 Acquired [...] [address], [place], [place], [id number], Insurance Providers Payer Name Payer Address Payer Phone Subscriber Number Group Number Insured Name Patient Relationship to Insured Coverage Start Date Coverage End Date MEDICARE PART B [address] [address] [place] [address] [id number] Aggie Oliver Self - patient is the insured [facility] [address] [place] [address] [id number] Aggie Oliver Self - patient is the insured Medications Administered Medication Instructions Date of Administration Dosage Notes Dexamethasone 02/27/2014 1 mL Dexamethasone 02/09/2024 1 mL allergy 02/23/2014 0.1 mL allergy 02/23/2014 0.1 mL allergy 02/23/2014 0.10 mL allergy 12/05/2013 1 mL allergy 12/05/2013 1 mL Lower arm allergy 12/05/2013 1 mL Upper arm allergy 11/09/2013 1 allergy 11/09/2013 1 allergy 11/09/2013 1 allergy 11/02/2013 0.5 mL allergy 11/02/2013 0.5 mL allergy 11/02/2013 0.5 mL allergy 10/05/2013 1.0 mL allergy 10/05/2013 1.0 mL allergy 10/05/2013 1.0 mL allergy 08/08/2013 1.0 yellow right a rm lower allergy 08/08/2013 1.0 right upper-re d allergy 08/08/2013 1.0 blue dot allergy 02/23/2013 exp, 07/2013 allergy 02/23/2013 R Delt. Lower area, allergy 02/23/2013 R upper arm, e xp 07/2013 allergy 10/28/2012 Contents: [facility] 1:10,000, L lower deltoid allergy 10/28/2012 Contents Tree C 1:1000, R lower deltoid allergy 10/28/2012 Contents: [facility] 1:10, R upper deltoid allergy 10/22/2017 1.0 mL allergy 10/22/2017 1.0 mL allergy 10/22/2017 1.0 mL allergy 10/14/2017 0.5 mL allergy 10/14/2017 0.5 mL allergy 10/14/2017 0.5 mL allergy 07/28/2014 1 mL allergy 07/28/2014 [...] 1.0 mL allergy 02/18/2017 1.0 mL allergy 06/11/2017 0.6 mL allergy 06/11/2017 0.6 mL allergy 06/11/2017 0.6 mL allergy 06/29/2017 0.10 mL allergy 06/29/2017 [...] mg allergy 08/14/2017 1.0 mg allergy 08/21/2017 1.0 mL allergy 08/28/2017 0.4 mL allergy 08/28/2017 1.0 mL allergy 08/28/2017 1.0 mL allergy 09/07/2017 0.80 mL allergy 09/07/2017 1 mL allergy 09/07/2017 1 mL allergy 09/15/2017 1 mL allergy 09/15/2017 1 mL allergy 09/15/2017 1 mL allergy 11/05/2017 1.0 mL allergy 11/05/2017 1.0 mL allergy 11/05/2017 1.0 mL allergy 11/24/2017 1.0 mL allergy 11/24/2017 1.0 mL allergy 11/24/2017 1.0 mL allergy 12/16/2017 1.0 mL allergy 12/16/2017 1.0 mL allergy 12/16/2017 1.0 mL allergy 01/01/2018 allergy 01/01/2018 allergy 01/01/2018 allergy 08/21/2017 1.0 mL allergy 08/21/2017 0.20 mL allergy 06/18/2017 0.05 mL allergy 06/18/2017 0.05 mL allergy 06/18/2017 0.05 mL allergy 03/20/2017 1.0 mL allergy 03/20/2017 1.0 mL allergy 03/20/2017 1.0 mL allergy 09/08/2016 1.0 mL allergy 09/08/2016 1.0 mL allergy 09/08/2016 1.0 mL Medical (General) History Medical History History ICD Code Insomnia Hypercholestrolemia Vitamin D Deficiency Migraine Headaches Allergic Rhinitis Asthma Esophageal Reflux Surgical History Surgery Date(Month/Year) Cholecystectomy Tonsillectomy Bladder Suspension D & C Ear Tubes Forehead Pre Cancerous Lesion Removal [place] Teeth Extracted Eye Lid 12/2012 LT Lower Arm Lesion Removal x2 5 RT 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
[2025-01-27 09:38] VITALS: BMI 30.2
--- NOTE | 2025-01-27 09:41 | XR_ITS ---
FINAL REPORT TECHNIQUE: Chest PA & Lateral CLINICAL HISTORY: pre op for knee replacement next Thursday (01/31), high blood pressure COMPARISON: None FINDINGS: 2 views of the chest were performed. There are small lucencies in the upper lung acuña bilaterally that may be secondary to changes of centrilobular emphysema. Moderate scarring is present. The heart size is normal. The mediastinum is within normal limits. There is no acute cardiopulmonary process. There are no pleural effusions. There is no pneumothorax. The bony thorax appears intact. IMPRESSION: No acute cardiopulmonary process. Small lucencies in the upper lung acuña bilaterally, that may be secondary to changes of centrilobular emphysema. Reviewed, Interpreted and Dictated by Brandan Miller MD Transcribed by Josefina Spangler Authenticated and [facility]
[2025-01-27 10:01] LABS: Hematocrit 41.7 % (37.0-47.0); Hemoglobin 13.8 g/dL (12.2-16.2); Immature Granulocytes % 0.2 %; Mean Corpuscular HGB Conc 33.1 g/dL (31.8-35.4); Mean Corpuscular Hemoglobin 30.5 pg (27.0-31.2); Mean Corpuscular Volume 92.1 fl (81-99); Nucleated Red Blood Cells % 0 %; Platelet Count 198 K/mm3 (142-424); Red Blood Count 4.53 M/mm3 (4.20-5.40); Red Cell Distribution Width-SD 43.1 fL; White Blood Count 5.1 K/mm3 (4.8-10.8)
[2025-01-27 10:10] LABS: Anion Gap 11.6 mEq/L (5-15); Blood Urea Nitrogen 16 mg/dl (7-17); Calcium 9.1 mg/dl (8.4-10.2); Carbon Dioxide 25 mmol/L (22.0-30.0); Chloride 104 mmol/L (98-107); Creatinine Clearance Estimated 57 mL/min (50-200); Creatinine,Serum 0.70 mg/dl (0.52-1.04); Estimated Glomerular Filt Rate 81 ml/min (>60); GFR (African American) 98 ML/MIN (>60); Glucose 124 mg/dl (74-100); Potassium 3.6 mmoL/L (3.5-5.1); Sodium 137 mmol/L (136-145)
== END 2025-01-27 23:59 | disposition home or self-care (01) ==
LOC: PREOP 08:51
PROVIDERS: PCP Family Medicine; Visit Provider Orthopaedic Surgery
DX: Z01.811 Encounter for preprocedural respiratory examination (principal); Z01.812 Encounter for preprocedural laboratory examination; Z01.818 Encounter for other preprocedural examination; J43.2 Centrilobular emphysema; I10 Essential (primary) hypertension; R91.8 Other nonspecific abnormal finding of lung field
CPT/HCPCS: 71046; 80048; 85025

== ENCOUNTER 2025-01-31 11:51 | Observation (INO) | payer MEDICARE, BC, SELFPAY ==
--- NOTE | 2025-01-20 13:05 | SW/DCPLANNER ---
Addendum entered by Heather Garay 02/01/25 11:24: Patient will return to [facility] tomorrow for outpatient PT services. Original Note: I spoke w/ patient regarding plans after surgery w/ Dr Castelan on 01-31. Patient stated that she does resides at home alone but will have friends that will help her. Patient prefers to return back to outpatient PT services for therapy and this is scheduled for 02-02. Patient does have a rolling walker at home. CM will continue to follow up w/ patient.
[2025-01-27 07:30] VITALS: BMI 30.2
[2025-01-31] VITALS (8 sets, daily range): BP systolic 113–164; BP diastolic 62–83; PULSE 56–80; RESP 16–18; TEMP 36.3–43; O2SAT 93–97; BMI 30.2
[2025-01-31] MEDS: LACTATED RINGERS 1000ML 1,000 ML 100 ML IV (08:01)
[2025-01-31] MEDS: CLINDAMYCIN PHOSPHATE/D5W 900 MG/50 ML PIGGYBACK 100 MG IV ×2 (08:30→18:39)
--- NOTE | 2025-01-31 09:22 | P.PNANES_ITS ---
[facility] Disclaimer: The information contained in this section may have been updated after the patient was seen, as this information can be updated by other users. Medical History History of cataract Encounter for pre-operative cardiovascular clearance Coronary artery disease Follow-up exam Breast pain, right Lichen sclerosus of vulva Lichen sclerosus HTN (hypertension) HLD (hyperlipidemia) Abnormal EKG Dyspnea Agatston coronary artery calcium score between 100 and 199 Surgical History H/O removal of cyst History of bladder surgery History of tonsillectomy History of cholecystectomy H/O dilation and curettage Family History Other Cancer Coronary artery disease Hypertension Stroke Thyroid disorder Social History (Updated 01/31/25 @ 07:00 by Jerri Martinez RN) Smoking Status: Never smoker alcohol intake: never substance use type: denies use current occupational status: retired Travel in the last 8 weeks?: None caffeine: No Have you lived/traveled outside US in past 30 days?: No Contact w/someone who lives/traveled outside US past 30 days?: No Exposure to someone with infectious disease in past 14 days?: No Do you have a fever (greater than 100.4 F or 38 C)?: No Have you tested positive for COVID-19?: No Exposed to someone with COVID-19 in past 14 days?: No Do you have a sore throat?: No Do you have a cough?: No Do you have any weakness?: No Are you experiencing any nausea/vomitting?: No Do you have any diarrhea?: No Are you experiencing any unusual bleeding?: No Do you have any muscle aches/pain?: No Do you have any abdominal pain?: No Are you experiencing loss of taste or smell?: No [facility] Anesthesia Checklist Patient Identification Patient Identification: Arm Band and Verbal (Name & ) Structural Data Admitted From: Home Planned Operative Procedure/s: Right total knee arthroplasty Consent for Planned Operative Procedure(s) Verified: Yes Verified Documents: Surgical Consent NPO Status Verified Time NPO: 00:00 Chart Verification Results Verified: CBC, BMP and ECG Additional verifications Anesthesia Reactions: No Airway Assessment Mallampati Score:: Class II C-Spine Mobility Assessed: Yes TMJ Mobility Assessed: Yes Dentition: Good Dentition Neurological Assessment Level of Consciousness: Awake, Alert and Appropriate Hx Seizures: No Numbness or tingling in extremities: No Anesthesia Plan Anesthesia Risk discussed: Yes Anesthesia Plan: Verified ASA Class: II Anesthesia Type: MAC w/Spinal
[2025-01-31] MEDS: SODIUM CHLORIDE IRRIG SOLUTION 3,000 ML 200 ML IR (09:24)
--- NOTE | 2025-01-31 10:59 | P.OP_ITS ---
Date of procedure: 01/31/25 Pre-op Diagnosis:: Stage osteoarthritis right knee Post-op Diagnosis:: Same Procedure performed:: Right total knee arthroplasty Surgeon:: Gera Castelan DO Undercover Agent(s):: Del MAIN SUEDING MACHINE OPERATOR:: Shaheen Gómez Anesthesia: regional and spinal Estimated blood loss (mL): 50 Clinical Note:: Implants Medacta size 2+ femur size 2 tibia 11 mm poly 1 patella Operative findings:: End-stage osteoarthritis Operative note:: Patient identified preoperatively. Right knee marked with yes my initials. Transferred operative suite given spinal anesthesia and then transferred to the operative bed. Once adequate spinal anesthesia was intact right lower extremity was prepped and draped normal sterile fashion. Once prepped and draped final operative timeout performed to identify proper patient procedure and extremity. Everyone involved in the case agreed. There is no counter indication to beginning. Did receive preoperative antibiotics. Marking pen was used to lucero planned midline incision of the knee. Esmarch was used to exsanguinate extremity pneumatic tourniquet inflated to 300 mmHg. Skin knife was used incise the skin dissection was taken down to identify the capsule arthrotomy was performed with a standard medial parapatellar approach patella was everted knee was flexed ACL sacrificed anterior aspect of the medial and lateral meniscus were sacrificed. The custom cutting jig for the distal femoral cut was selected cartilage was removed from the bone and it was pinned into place. Distal femoral was cut and caliper was used to confirm proper distal femoral cut based on planning. The holes were then drilled for the 4-in-1 cutting guide and a size 2+ 4-in-1 cutting guide was placed anterior and posterior cuts were made anterior and posterior chamfer cuts were made excess bone was removed. The trial femur was impacted into place. Lug holes were drilled. Attention was then brought to the tibia was subluxed anteriorly the remainder of the medial and lateral meniscus were sacrificed. The extramedullary tibial guide was selected and based on preoperative templating 10 mm taken from the lateral side. This was calibrated and confirmed after osteotomy to be proper. The size 2 tibial tray was then selected and pinned into place drop angie was placed to confirm rotation and slope once confirmed a second pin was placed and then the smoke stack reamer was utilized followed by the punch. The femoral trial was then reimpacted a size 10 poly was placed flexion extension was pe rformed it was slightly loose in flexion extension therefore 11 mm poly trial was selected and the knee was brought out straight and stable through flexion extension. Attention was then brought to the patella flap patella cut was made and is sized to a size 1 the 3 peg holes were drilled. Patella trial was placed the knee was then taken through range of motion again and found to be very stable. The trial implants were removed copious irrigation of the wound was performed the final implants were opened on the back table Once all the final implants were opened and the cement was mixed and the tibia was cemented in followed by the femur the poly was placed the patella was cemented last the knee was brought in extension to allow the cement to harden tourniquet was deflated hemostasis obtained excess cement removed irrigation repeated capsule closed with a running #1 strata fix suture deep layers with 0 Vicryl subcutaneous 2-0 Vicryl surgical clips in the skin for closure sterile dressing placed patient then underwent an adductor canal block with anesthesia and taken to recovery in stable condition. . Condition: stable Disposition: PACU Complications:: None apparent
--- NOTE | 2025-01-31 11:09 | XR_ITS ---
FINAL REPORT CLINICAL HISTORY: Status post right total knee arthroplasty COMPARISON: 08/19/2024 FINDINGS: Two views of the right knee were obtained. There are normal post arthroplasty changes. The hardware appears unremarkable. No acute fracture. IMPRESSION: Post arthroplasty changes without evidence of complication. Reviewed, Interpreted and Dictated by Ambar Harkins MD Transcribed by Eleni Arango Authenticated and [facility]
--- NOTE | 2025-01-31 11:52 | PC.NURSE ---
arrived to floor by stretcher from surgery @ 11:46
[2025-01-31] MEDS: LACTATED RINGERS 1000ML 1,000 ML 75 ML IV (12:11)
[2025-01-31] MEDS: ACETAMINOPHEN 325MG TAB 650 MG PO (12:12)
--- NOTE | 2025-01-31 12:18 | HMH.PHAINT1 ---
Pharmacy Intervention Comments: MEDICATION RECONCILIATION COMPLETED ON PATIENT USING EXTERNAL FILL HISTORY FROM PHARMACY. -ADRIENNE ALBARRAN, CORRYD
[2025-01-31 13:05] LABS: Microscopic,Cath URINE MICROSCOPIC (MICROSCOPIC)
[2025-01-31 13:09] LABS: Appearance,Urine/Cath CLEAR (Clear); Bilirubin,Cath Negative (Negative); Blood, Urine/Cath Negative (Negative); Color,Urine/Cath YELLOW (Yellow); Glucose,Urine/Cath (UA) Negative (Negative); Ketones,Urine/Cath Negative (Negative); Leukocyte Esterase,Cath Negative (Negative); Nitrate,Cath Negative (Negative); PH,Urine/Cath 5.5 (5.0-8.5); Protein,Urine/Cath TRACE (Negative); Specific Gravity, Urine/Cath >= 1.030 (1.005-1.030); Urobilinogen,Cath 0.2 EU/dl (0.2)
[2025-01-31] MEDS: OXYCODONE 5MG IMMEDIATE RELEASE TABLET 5 MG PO (14:15)
--- NOTE | 2025-01-31 14:43 | CARE MANAGER ---
Patient recently had knee replacement surgery which is causing a mobility impairment that cannot be corrected with a cane and will require the use of a rolling walker. There is however, potential for ambulation.
[2025-01-31] MEDS: KETOROLAC 15MG/ML VIAL 15 MG IV (16:51)
[2025-01-31] MEDS: OXYCODONE 5MG IMMEDIATE RELEASE TABLET 10 MG PO (18:38)
[2025-01-31] MEDS: ASPIRIN EC 81MG TABLET 81 MG PO (20:03)
[2025-01-31] MEDS: OXYCODONE 10MG W/APAP 325MG TABLET 1 EACH PO (22:06)
[2025-02-01] MEDS: CLINDAMYCIN PHOSPHATE/D5W 900 MG/50 ML PIGGYBACK 100 MG IV (00:34)
[2025-02-01] MEDS: LACTATED RINGERS 1000ML 1,000 ML 75 ML IV (00:35)
[2025-02-01 04:00] VITALS: BP 135/72; PULSE 91; RESP 18; TEMP 36.7; O2SAT 94
[2025-02-01] MEDS: OXYCODONE 10MG W/APAP 325MG TABLET 1 EACH PO ×3 (04:55→12:02)
--- NOTE | 2025-02-01 05:18 | PC.NURSE ---
Pt is A&OX4 and has tolerated room air. She has complained of pain twice and was medicated per MAR. Dressing over right leg has remained c/d//i. Farr has remained in place. IVF infusing at 75ml/hr. No other complaints at this time, call light within reach.
[2025-02-01 06:28] LABS: Hematocrit 32.7 % (37.0-47.0); Hemoglobin 10.6 g/dL (12.2-16.2); Immature Granulocytes % 0.4 %; Mean Corpuscular HGB Conc 32.4 g/dL (31.8-35.4); Mean Corpuscular Hemoglobin 30.1 pg (27.0-31.2); Mean Corpuscular Volume 92.9 fl (81-99); Nucleated Red Blood Cells % 0 %; Platelet Count 118 K/mm3 (142-424); Red Blood Count 3.52 M/mm3 (4.20-5.40); Red Cell Distribution Width-SD 43.2 fL; White Blood Count 5.3 K/mm3 (4.8-10.8)
[2025-02-01 06:38] LABS: Anion Gap 7.0 mEq/L (5-15); Blood Urea Nitrogen 11 mg/dl (7-17); Calcium 8.6 mg/dl (8.4-10.2); Carbon Dioxide 26 mmol/L (22.0-30.0); Chloride 104 mmol/L (98-107); Creatinine Clearance Estimated 57 mL/min (50-200); Creatinine,Serum 0.60 mg/dl (0.52-1.04); Estimated Glomerular Filt Rate 96 ml/min (>60); GFR (African American) 117 ML/MIN (>60); Glucose 112 mg/dl (74-100); Potassium 4.0 mmoL/L (3.5-5.1); Sodium 133 mmol/L (136-145)
[2025-02-01 08:00] VITALS: BP 139/79; PULSE 85; RESP 16; TEMP 36.8; O2SAT 93
[2025-02-01] MEDS: ASPIRIN EC 81MG TABLET 81 MG PO (08:15)
--- NOTE | 2025-02-01 08:30 | EXP.ACUTE.PN ---
Subjective *Date: 02/01/25 *Time: 08:56 Interval history: Patient is doing well post knee replacement. She is waiting on PT to see her before she can be discharged. Her pain is about a level 4. Medical Exam Vital signs and Labs for Last 24 Hours: Vital Signs Temp Pulse Resp BP Pulse Ox O2 Del Method 02/01/25 08:00 98.3 F 85 16 139/79 93 L Room Air 02/01/25 06:36 Room Air 02/01/25 05:00 Room Air 02/01/25 04:00 98.1 F 91 H 18 135/72 94 L Room Air 02/01/25 03:00 Room Air 02/01/25 01:00 Room Air 01/31/25 22:47 Room Air 01/31/25 20:44 Room Air 01/31/25 20:00 Room Air 01/31/25 20:00 98.1 F 75 16 131/69 93 L Room Air 01/31/25 18:57 Room Air 01/31/25 17:10 Room Air 01/31/25 16:00 98.2 F 70 16 138/70 97 Room Air 01/31/25 15:10 Room Air 01/31/25 13:00 Room Air 01/31/25 11:52 97 Room Air 01/31/25 11:34 97.4 F L 76 18 134/71 97 Room Air 01/31/25 11:19 97.4 F L 76 18 138/62 97 Room Air 01/31/25 11:04 97.4 F L 80 18 113/66 96 Room Air Intake and Output 01/31/25 02/01/25 02/01/25 19:59 03:59 11:59 Intake Total 1050 / 2890 1840 / 2890 Output Total 750 / 1500 750 / 1500 0 / 1500 Balance 300 / 1390 1090 / 1390 0 / 1390 Intake: Intake, Oral Amount 560 / 860 300 / 860 Intake, Total IV Amount 490 / 2030 1540 / 2030 Clindamycin Phosphate/D5w 900 100 / 100 mg In 50 ml @ 100 mls/hr IV Q8H JESSICA Rx#:[id number] Lactated Ringers 1000ML 1,000 1000 / 1000 ml @ 100 mls/hr IV .Q10H JESSICA Rx #:[id number] Lactated Ringers 1000ML 1,000 490 / 930 440 / 930 ml @ 75 mls/hr IV .[id number] [facility] Rx#:[id number] Output: Output, Urine Amount 750 / 1500 750 / 1500 0 / 1500 Other: Number of Unmeasured Voids 0 0 0 Laboratory Results - last 24 hr 01/31/25 08:50: Urine Color Yellow, Urine Appearance Clear, Urine pH 5.5, Ur Specific [place] >= 1.030, Urine Protein Trace, Urine Glucose (UA) Negative, Urine Ketones Negative, Urine Blood Negative, Urine Nitrate Negative, Urine Bilirubin Negative, Urine Urobilinogen 0.2, Ur Leukocyte Esterase Negative, Urine RBC 3-5, Urine WBC None, Ur Squamous Epith Cells 3-5, Urine Bacteria None 02/01/25 06:07: WBC 5.3, RBC 3.52 L, Hgb 10.6 L, Hct 32.7 L, MCV 92.9, MCH 30.1, MCHC 32.4, RDW 12.8, Plt Count 118 L, MPV 8.7, Neut % (Auto) 69.2, Lymph % (Auto) 16.5, [place] % (Auto) 9.5 H, Eos % (Auto) 4.0, Baso % (Auto) 0.4, Neut # (Auto) 3.7, Lymph # (Auto) 0.9, [place] # (Auto) 0.5, Eos # (Auto) 0.2, Baso # (Auto) 0.0, Sodium 133 L, Potassium 4.0, Chloride 104, Carbon Dioxide 26, Anion Gap 7.0, BUN 11, Creatinine 0.60, Estimated Creat Clear 57, Estimated GFR 96, Est GFR ( Amer) 117, Glucose 112 H, Calcium 8.6 I & O for Labs for Last 24 Hours: Intake & Output 01/29/25 01/30/25 01/31/25 02/01/25 11:59 11:59 11:59 11:59 Intake Total 570 / 570 2890 / 2890 Output Total 1500 / 1500 Balance 570 / 570 1390 / 1390 Weight 176 lb Constitutional: Present no acute distress Respiratory: Present CTA bilaterally Cardiac: Present Reg Rate and Rhythm GI: Present soft and normal bowel sounds; Absent distention or tenderness Extremities: Absent edema, clubbing or cyanosis Comment:: right leg with DANIELLA wrap Skin: Present intact Neuro: Present alert and awake Assessment and Plan *Assessment and plan (1) Primary osteoarthritis of right knee: Status: Acute Category: Medical Code(s): M17.11 - Unilateral primary osteoarthritis, right knee (2) Status post total knee replacement: Status: Acute Category: Surgical Code(s): Z96.659 - Presence of unspecified artificial knee joint Plan Ortho to follow. PT to see today. Dr. Giron entry - Saw patient, agree with above note.
--- NOTE | 2025-02-01 10:20 | HMH.PTEV ---
Physical Therapy Evaluation Rehab PT IP Evaluation Start: 01/31/25 11:06 Freq: ONCE Status: Active Protocol: Document 02/01/25 10:12 VIDA (Rec: 02/01/25 10:20 PHOMANDY [id number]) Subjective/History History History 79 yowf adm to [facility] after R TKA with expected post-op pain and stiffness. Unknown PMH at this time. She reports she lives alone, [address] the home, and she generally uses a RW for ambulation due to her chronic R knee pain. Subjective Subjective Currently she c/o increased pain in the R knee and presented for examination this am with pillow under her R knee. Instructed pt NOT to continue using pillow directly under her knee as it will contribute to lack of R knee extension ROM, instead she should use the pillow along the entire length of her leg for propping and she reports understanding. [facility] How much help from another person do you currently need... Turning from your None back to your side while in a flat bed without using bedrails? Moving from lying on None back to sitting on the side of a flat bed without using bedrails? Moving to and from a A little bed to a chair ( including a wheelchair)? Standing up from a A little chair using your arms? (e.g., wheelchair, bedside chair) Walking in hospital A little room? Climbing 3-5 steps A little with a railing? Mobility Score 20 Mobility Level [facility] Mobility 6 Walk 10 steps or more Mobility Calculator Rehab PT IP Eval Objective Appearance Patient Behavior Appropriate Patient Orientation Person,Place,Time Speech Pattern Clear Ambulation Patient Able to Yes Ambulate Ambulation Observation IP General Gait Antalgic Gait,Decrease Stride Lngth (R),Decrease Stride Pattern Observation Lngth (L) Ambulation Distance 25 (feet) Ambulation Assistive Rolling Walker Device Ambulation Ability Contact Guard/Hand Hold Balance Ability to Arise Able, uses arms to help Sitting Balance Steady, safe Standing Balance Steady, wide stance Dynamic Sitting Good Balance Ability Dynamic Standing Fair Balance Ability Transfers Bed Transfer Ability Independent Chair Transfer Contact Guard/Hand Hold Ability Sit to Stand Bed Contact Guard/Hand Hold Transfer Ability Sit to Stand Chair Contact Guard/Hand Hold Transfer Ability Rehab PT IP prob,goals,plan Problems Date of Evaluation: 02/01/25 PT IP Problems Transfers,Gait,Self care Rehab Potential Rehab Potential Good Plan PT Intervention Plan Transfers,Gait,Self care,Therapeutic Exercise PT Plan Frequency Daily Duration LOS Discharge Goals Sit to Stand Chair Supervision/Stand by Transfer Ability Ambulation Assistive Rolling Walker Device Ambulation Distance 40 (feet) Discharge Plan PT Discharge Plan Pt is currently appropriate to return home once medically stable for d/c. Considerable instruction given to pt and her daughter regarding appropriate care at home, use of RW for gait, and HEP. Written HEP instructions were also given to pt this date. Skilled therapy remains indicated to improve transfers, gait, and all general ADLs in order to return pt to [facility]. Eval Complexity Eval Charge Codes 85161 - High Complexity PHYSICIAN CERTIFICATION: I certify the specified therapy services for Aggie Oliver are required, authorized, and reviewed every 30 days.
--- NOTE | 2025-02-01 10:33 | CARE MANAGER ---
Received care management consult to get patient a walker. Patient states no walker needed at this time. She has one at home.
--- NOTE | 2025-02-01 11:04 | EXP.HPDC ---
General Admission date:: 01/31/25 *Admission Date: 01/31/25 *Chief complaint: R knee OA s/p R TKR *History of present illness: Patient was seen as outpatient with complaint of R knee OA, with inability to perform activities of daily living. Imaging confirms diagnosis of R knee OA. Patient was consented, with discussion of risk benefits and alternatives for R TKR with Dr. Castelan scheduled for 01/31/25. Patient was admitted postop to ortho service. Today, states that pain is well-controlled with pain medications and ice machine, denies DUNAWAY, CP, SOB, dizziness, nausea, vomiting, paresthesias, calf pain. [facility] Disclaimer: The information contained in this section may have been updated after the patient was seen, as this information can be updated by other users. Medical History History of cataract Encounter for pre-operative cardiovascular clearance Coronary artery disease Follow-up exam Breast pain, right Lichen sclerosus of vulva Lichen sclerosus HTN (hypertension) HLD (hyperlipidemia) Abnormal EKG Dyspnea Agatston coronary artery calcium score between 100 and 199 Surgical History H/O removal of cyst History of bladder surgery History of tonsillectomy History of cholecystectomy H/O dilation and curettage Family History Other Cancer Coronary artery disease Hypertension Stroke Thyroid disorder Social History (Updated 01/31/25 @ 13:30 by Saray Kovacs RN) Smoking Status: Never smoker alcohol intake: never substance use type: denies use current occupational status: retired Travel in the last 8 weeks?: None caffeine: No Other Medical History Have you received the Flu Vaccine for this season: No Have you received the Pneumonia Vaccine: Yes Review of Systems Review of Systems Review of systems:: pertinent systems reviewed and negative unless documented below *Cardiovascular Cardiovascular: Reports system reviewed and no additional complaints, except as documented *Respiratory Respiratory: Reports system reviewed and no additional complaints, except as documented *Gastrointestinal Gastrointestinal: Reports system reviewed and no additional complaints, except as documented *Genitourinary Genitourinary: Reports system reviewed and no additional complaints, except as documented *Musculoskeletal Musculoskeletal: Reports as per HPI *Neurologic Neurologic: Reports system reviewed and no additional complaints, except as documented Exam Data for Last 24 hours Vital signs and Labs for Last 24 Hours: Temp Pulse Resp BP Pulse Ox O2 Del Method 98.3 F 85 16 139/79 93 L Room Air 02/01/25 08:00 02/01/25 08:00 02/01/25 08:00 02/01/25 08:00 02/01/25 08:00 02/01/25 09:00 Laboratory Results - last 24 hr 01/31/25 08:50: Urine Color Yellow, Urine Appearance Clear, Urine pH 5.5, Ur Specific [place] >= 1.030, Urine Protein Trace, Urine Glucose (UA) Negative, Urine Ketones Negative, Urine Blood Negative, Urine Nitrate Negative, Urine Bilirubin Negative, Urine Urobilinogen 0.2, Ur Leukocyte Esterase Negative, Urine RBC 3-5, Urine WBC None, Ur Squamous Epith Cells 3-5, Urine Bacteria None 02/01/25 06:07: WBC 5.3, RBC 3.52 L, Hgb 10.6 L, Hct 32.7 L, MCV 92.9, MCH 30.1, MCHC 32.4, RDW 12.8, Plt Count 118 L, MPV 8.7, Neut % (Auto) 69.2, Lymph % (Auto) 16.5, [place] % (Auto) 9.5 H, Eos % (Auto) 4.0, Baso % (Auto) 0.4, Neut # (Auto) 3.7, Lymph # (Auto) 0.9, [place] # (Auto) 0.5, Eos # (Auto) 0.2, Baso # (Auto) 0.0, Sodium 133 L, Potassium 4.0, Chloride 104, Carbon Dioxide 26, Anion Gap 7.0, BUN 11, Creatinine 0.60, Estimated Creat Clear 57, Estimated GFR 96, Est GFR ( Amer) 117, Glucose 112 H, Calcium 8.6 I & O for Last 24 hours: Intake & Output 01/29/25 01/30/25 01/31/25 02/01/25 23:59 23:59 23:59 23:59 Intake Total 2670 / 2970 1270 / 1270 Output Total 750 / 750 1450 / 1450 Balance 1920 / 2220 -180 / -180 Weight 79.832 kg *Routine HEENT Exam Head: Present normocephalic Eye: Present EOMI ENT: Present mucous membranes moist *Routine Respiratory Exam Respiratory: Present normal respiratory effort *Routine Cardiovascular Exam Cardiovascular: Present other *Routine Abdominal Exam Abdominal: Present soft *Routine Rectal Exam Rectal:: deferred *Routine Genitalia Exam Genitalia:: deferred Detailed Lower Extremity Exam Comments: Right knee: Dressing clean dry and intact with ice machine in place. Calves are soft and nontender. Grossly neurovascularly intact distally with +2 DP, sensation intact to light touch at first dorsal webspace/plantar aspect. Motor intact to EHL/FHL/GS/TA. Meds Home Medications and Allergies Home Medications ?Medication ?Instructions ?Recorded ?Confirmed ?Type ascorbic acid (vitamin C) 500 mg 500 mg PO DAILY 11/04/17 01/31/25 History capsule levothyroxine 25 mcg tablet 25 mcg PO DAILY 11/04/17 01/31/25 History potassium chloride 10 mEq 10 meq PO BID 11/04/17 01/31/25 History capsule,extended release vitamin A 2,400 mcg capsule 8,000 unit PO DAILY 11/04/17 01/31/25 History vitamin E 268 mg (400 unit) capsule 400 unit PO DAILY 11/04/17 01/31/25 History rosuvastatin 20 mg tablet (Crestor) 20 mg PO DAILY #30 tabs 08/23/20 01/31/25 Rx metoprolol succinate 25 mg 25 mg PO DAILY 08/30/21 01/31/25 History tablet,extended release 24 hr celecoxib 200 mg capsule (Celebrex) 200 mg PO BID 09/02/23 01/31/25 History omeprazole 40 mg capsule,delayed 40 mg PO DAILY 09/02/23 01/31/25 History release aspirin 81 mg chewable tablet 81 mg PO DAILY 01/27/25 01/31/25 History clobetasol 0.05 % topical cream 1 applic topical HSP PRN vulvar 01/31/25 01/31/25 History itching/burning New Prescriptions to Start Prescriptions: Allergies Allergy/AdvReac Type Severity Reaction Status Date / Time atorvastatin (From Lipitor) Allergy Mild Hives Verified 01/31/25 06:57 diazepam (From Valium) Allergy Mild Hives Verified 01/31/25 06:57 levofloxacin (From Levaquin) Allergy Mild Hives Verified 01/31/25 06:57 Penicillins Allergy Mild Hives Verified 01/31/25 06:57 Hospital Course Hospital Course Hospital Course: Patient underwent a R TKR with Dr. Castelan on 01/31/25 with postop admission to orthopedic service after being transferred from PACU in stable condition to inpatient floor. Patient underwent physical therapy, with labs and vitals taken per floor protocol. Farr was removed POD#1. Inpatient stay was uneventful, and patient was discharged on postop day 1 with labs and vitals stable, and recommendations for discharge by physical therapy. Case management was involved in discharge planning, and patient and family understood and agreed with the recommendations. Patient was discharged in stable condition with all medications and outpatient orders in place at time of discharge. Results Data Completed and Pending Labs on day of discharge: Labs from last 24 hours 02/01/25 01/31/25 06:07 08:50 WBC 5.3 RBC 3.52 L Hgb 10.6 L Hct 32.7 L MCV 92.9 MCH 30.1 MCHC 32.4 RDW 12.8 Plt Count 118 L MPV 8.7 Neut % (Auto) 69.2 Lymph % (Auto) 16.5 [place] % (Auto) 9.5 H Eos % (Auto) 4.0 Baso % (Auto) 0.4 Neut # (Auto) 3.7 Lymph # (Auto) 0.9 [place] # (Auto) 0.5 Eos # (Auto) 0.2 Baso # (Auto) 0.0 Sodium 133 L Potassium 4.0 Chloride 104 Carbon Dioxide 26 Anion Gap 7.0 BUN 11 Creatinine 0.60 Estimated Creat Clear 57 Estimated GFR 96 Est GFR ( Amer) 117 Glucose 112 H Calcium 8.6 Urine Color Yellow Urine Appearance Clear Urine pH 5.5 Ur Specific [place] >= 1.030 Urine Protein Trace Urine Glucose (UA) Negative Urine Ketones Negative Urine Blood Negative Urine Nitrate Negative Urine Bilirubin Negative Urine Urobilinogen 0.2 Ur Leukocyte Esterase Negative Urine RBC 3-5 Urine WBC None Ur Squamous Epith Cells 3-5 Urine Bacteria None DS: Diagnosis Discharge Diagnosis (1) Primary osteoarthritis of right knee: Status: Acute Code(s): M17.11 - Unilateral primary osteoarthritis, right knee (2) Status post total knee replacement: Status: Acute Code(s): Z96.659 - Presence of unspecified artificial knee joint Discharge Plan Disposition Patient Disposition: Home, Self-Care Condition: Good Follow up Plan Follow up with: Gera Castelan DO [Staff Physician, Orthopedics] - 02/13/25 9:30 am Prescriptions/Medication Reconciliation: No Action omeprazole 40 mg capsule,delayed release(DR/EC) 40 mg PO DAILY rosuvastatin [Crestor] 20 mg tablet 20 mg PO DAILY Qty: 30 5RF metoprolol succinate 25 mg tablet extended release 24 hr 25 mg PO DAILY celecoxib [Celebrex] 200 mg capsule 200 mg PO BID vitamin A 8,000 UNIT capsule 8,000 unit PO DAILY potassium chloride 10 MEQ capsule, extended release 10 meq PO BID levothyroxine 25 MCG tablet 25 mcg PO DAILY vitamin E 400 UNIT capsule 400 unit PO DAILY ascorbic acid (vitamin C) 500 MG capsule 500 mg PO DAILY aspirin [Aspirin Low-Strength] 81 mg Tablet,Chewable 81 mg PO DAILY clobetasol 0.05 % cream 1 applic topical HSP PRN (Reason: vulvar itching/burning) Problem Reconciliation Problems Reviewed?: Yes Patient Discharge Instructions ACTIVITY: Ambulate as tolerated DIET: advance to your usual diet Patient Instructions: How to Care for a Surgical Wound, Knee Replacement, Surgical Site Infection Print Language: Georgian Providers Primary Care Provider: Edouard Giron Admit Provider: Gera Castelan Attending Provider: Gera Castelan
[2025-02-01] MEDS: ACETAMINOPHEN 325MG TAB 650 MG PO (13:20)
--- NOTE | 2025-02-02 10:08 | SW/DCPLANNER ---
Spoke with patient on the phone. Patient stated that she is doing great. Patient stated that she is aware of her upcoming appointments. Patient stated that she was able to get her medicine brought to the room by Clinic pharmacy before she was discharged home. Patient stated that she has no concerns or questions at this time. Jason Massey
== END 2025-02-01 13:44 | disposition home or self-care (01) ==
LOC: 2ND 11:52
PROVIDERS: Admitting Provider Orthopaedic Surgery; PCP Family Medicine; Visit Provider Orthopaedic Surgery
PROC: (CPT 27447; principal; 2025-01-31 08:00)
DX: M17.11 Unilateral primary osteoarthritis, right knee (principal); I25.10 Atherosclerotic heart disease of native coronary artery without angina pectoris; E78.5 Hyperlipidemia, unspecified; I10 Essential (primary) hypertension; Z90.49 Acquired absence of other specified parts of digestive tract; Z82.49 Family history of ischemic heart disease and other diseases of the circulatory system; Z88.8 Allergy status to other drugs, medicaments and biological substances; Z88.0 Allergy status to penicillin; Z79.899 Other long term (current) drug therapy; Z79.890 Hormone replacement therapy
CPT/HCPCS: 27447; 36415; 51702; 73560; 80048; 81001; 85025; 97163; C1776; G0378; J0665; J0666; J0736; J1885; J2003; J2371; J2405; J2704; J7050; J7120

== ENCOUNTER 2025-02-13 13:35 | Outpatient (CLI) | payer MEDICARE, BC, SELFPAY ==
--- NOTE | 2025-02-13 13:36 | XR_ITS ---
FINAL REPORT TECHNIQUE: Right knee 2 views CLINICAL HISTORY: right tka post op..PAIN COMPARISON: 01/31/2025 FINDINGS: AP and lateral views of the right knee were obtained. The patient has undergone a total knee arthroplasty, with intact hardware. No acute osseous abnormality is identified. No hardware complication is seen. The subcutaneous air has resolved since the prior exam of 01/31/2025. IMPRESSION: Prior total knee arthroplasty with intact hardware. Reviewed, Interpreted and Dictated by Carol Winkler MD Transcribed by Josefina Spangler Authenticated and [facility] [place] [place]
--- OUTSIDE RECORDS SUMMARY | 2025-02-13 13:51 | XMS_ITS | Encounter Summary ---
Author Organization [employer] ([place], [place], [place], [place], [place]) Address [address] [place] [address] Care Team Providers Care Mold Polisher Name Role Phone Edouard Giron MD Primary Care Provider + [phone] Encounter Details Date Type Department Care Team (Late st Contact Info) Description 09/16/2018 Transcribed Document [facility] [place] Family Medicine [address] [place] [address] ProviderRenato MD [address] [place] [address] Social History Tobacco Use Types [...] Elizabeth MD - 09/16/2018 8:50 AM CDT [address] [address] AGGIE HUNT :1945 Visit Time:09/16/2018 [...] See procedure report for recommendations Where: [address] [facility] [address] [place] [id number] Medications What How Much When Instructions Next [...] 1 Tablet(s) Oral Every Day vitamin A 79331s Oral Every Day vitamin E 500 Milligram(s) [...] soft and easy to digest. ??? Take pogp-ruo-ejylkrs or prescription medicines only as told by [...] 04/11/2011 Document Revised: 01/07/2018 Document Reviewed: 12/01/2016 [employer] Patient Education ?? 2019 [employer] Colon Polyps Polyps are tissue growths [...] 12/03/2004 Document Revised: 08/14/2016 Document Reviewed: 01/28/2016 [employer] Patient Education ?? 2019 [employer] Diverticulosis Diverticulosis is a condition that [...] getting enough exercise. ??? Smoking. ??? Taking pqmg-wdv-nstowaw pain medicines, like aspirin and ibuprofen. ??? [...] care provider or your diet and nutrition and dietetics instructor (dietitian). ? Take a fiber supplement or probiotic, if your health care provider approves. ??? Take kwbh-vrr-ofutthy and prescription medicines only as told by [...] 12/04/2004 Document Revised: 01/26/2017 Document Reviewed: 01/26/2017 [employer] Patient Education ?? 2019 [employer] Hemorrhoids Hemorrhoids are swollen veins in [...] times a day. General instructions ??? Take ozip-ebj-lfdjvdk and prescription medicines only as told by [...] 12/16/2008 Document Revised: 08/14/2016 Document Reviewed: 11/21/2015 [employer] Patient Education ?? 2019 [employer] Emergency Awareness and Preventative Care STROKE [...] Assistance with quitting is available by contacting 7-926-IXBLNOW. This is a free resource providing counseling, [...] was given the opportunity to ask questions. Patient/Dump Attendant Name: Patient/Dump Attendant Signature: Relationship to Patient: Clinician/Hospital Dump Attendant Signature: Date: Electronically signed by Kaleb, [facility] Conversion Grazing Examiner Cerner at 07/08/2022 12:01 PM CDT documented in this encounter Plan of Treatment Upcoming Encounters Date Type Department Care Team (Late st Contact Info) Description 11/29/2025 1:30 PM EDT Appointment [address] [address] documented as of this encounter Visit Diagnoses Not on filedocumented in this encounter Care Teams Mold Polisher Relationship Specialty Start Date End Date Edouard Giron MD [address] [facility] [address] [place] [address] PCP - General Family Medicine 11/17/22 documented as of this encounter
--- OUTSIDE RECORDS SUMMARY | 2025-02-13 13:51 | XMS_ITS | Encounter Summary ---
Author Organization [employer] ([place], [place], [place], [place], [place]) Address [address] [place] [address] Care Team Providers Care Cook House Laborer Name Role Phone Edouard Giron MD Primary Care Provider + [phone] Encounter Details Date Type Department Care Team (Late st Contact Info) Description 09/16/2018 Transcribed Document [facility] [place] Family Medicine [address] [place] [address] ProviderRenato MD [address] [place] [address] Social History Tobacco Use Types Packs/Day Years [...] AGGIE HUNT.O.B./Sex: 1945 Female Med Rec #: [id number] Physician: ERNIE SANTORO MD-GAE Financial #: [id number] Pt. Type: O Room/Bed: EEN/2 Admit/Disch: 09/16/18 06:44:00 - Institution: [facility] PACU Case Times Entry 1 In PACU I 09/16/18 08:26:00 Ready for PACU 09/16/18 08:56:00 Discharge Discharge from PACU 09/16/18 08:56:00 Emmanuelle London PACU Case Times Audit 09/16/18 08:56:12 Mixing Pan Tender: MARTÍNEZ Modifier: MARTÍNEZ <+> 1 Ready for PACU Discharge <+> 1 Discharge from PACU I Finalized By: ONELIA Mandujano RN Document Signatures Signed By: ONELIA Mandujano RN 09/16/18 08:56 documented in this encounter Plan of Treatment Upcoming Encounters Date Type Department Care Team (Late st Contact Info) Description 11/29/2025 1:30 PM EDT Appointment [address] [address] documented as of this encounter Visit Diagnoses Not on filedocumented in this encounter Care Teams Cook House Laborer Relationship Specialty Start Date End Date Edouard Giron MD [address] [facility] [address] [place] [address] PCP - General Family Medicine 11/17/22 documented as of this encounter
--- OUTSIDE RECORDS SUMMARY | 2025-02-13 13:51 | XMS_ITS | Encounter Summary ---
Author Organization [employer] ([place], [place], [place], [place], [place]) Address [address] [place] [address] Care Team Providers Care Customs Examiner Name Role Phone Edouard Giron MD Primary Care Provider + [phone] Encounter Details Date Type Department Care Team (Late st Contact Info) Description 09/16/2018 Transcribed Document [facility] [place] Family Medicine [address] [place] [address] ProviderRenato MD [address] [place] [address] Social History Tobacco Use Types Packs/Day Years [...] KEANU London IntraOp Summary Primary Physician: ERNIE SANTOOR MD-GAE Finalized Date/Time: 09/16/18 09:44:03 Pt. Name: AGGIE HUNT.O.B./Sex: 1945 Female Med Rec #: [id number] Physician: ERNIE SANTORO MD-GAE Financial #: [id number] Pt. Type: O Room/Bed: EEN/2 Admit/Disch: 09/16/18 06:44:00 - Institution: [facility] - Case Attendance Entry 1 Entry 2 Entry 3 Case Attendee ERNIE SANTORO MD-GAE TAYLOR, KAREN J., RN CAMELIA MARTINEZ, STATEMENT DISTRIBUTION CLERK Role Performed Surgeon/Proceduralist, Ironworker Wire Fence Erector, First STATEMENT DISTRIBUTION CLERK/Nurse Miniature Set Builder First Time In 09/16/18 07:50:00 09/16/18 07:50:00 [...] Endo - Case Attendance Audit 09/16/18 08:22:51 Crystallizer Operator: JUAN CARLOSKJ Modifier: JUAN CARLOSKJ 1 <+> Time Out 1 <*> Procedure Colonoscopy, Colon Polypectomy 2 <+> Time Out 2 <*> Procedure Colonoscopy, Colon Polypectomy 3 <+> Time Out 3 <*> Procedure Colonoscopy, Colon Polypectomy 4 <+> Time Out 4 <*> Procedure Colonoscopy, Colon Polypectomy 09/16/18 08:08:53 Crystallizer Operator: JUAN CARLOSKJ Modifier: JUAN CARLOSKJ 1 <*> Procedure Colonoscopy 2 <*> Procedure Colonoscopy 3 <*> Procedure Colonoscopy 4 <*> Procedure Colonoscopy 09/16/18 07:54:32 Crystallizer Operator: JUAN CARLOSKJ Modifier: JUAN CARLOSKJ 4 <*> [...] Endo - Case Times Audit 09/16/18 08:22:47 Crystallizer Operator: JUAN CARLOSKJ Modifier: JUAN CARLOSKJ <+> 1 Out Room Time <+> 1 Stop Time <+> 1 Stop Time 09/16/18 08:06:09 Crystallizer Operator: MADHU Modifier: YONGJ <+> 1 Start Time [...] Yes Assessment Complete Fire Risk MELVI RANGEL flame annealing machine setter Verified By Fire Risk 09/16/18 07:53:00 Assessment Verified Date/Time Fire Risk High Risk Protocol Yes Implemented Standard Fire Yes Safety Precautions Followed Last Modified By: MELVI RANGEL RN 09/16/18 07:53:07 [facility] Endo - General Case Shipping Technician 1 Case Information OR Endo 02 [facility] Case Level 1 Room Verified Yes Wound Class III - Contaminated Specialty SN Gastroenterology Anesthesia Type MAC ASA Class 2 Diagnosis Preop Diagnosis Z86.010 history of polyps Postop Same As Preop No Postop Diagnosis polyps, diverticulosis, hemorrhoids Last Modified By: MELVI RANGEL RN 09/16/18 08:22:37 [facility] Endo - General Case Data Audit 09/16/18 08:22:37 Crystallizer Operator: MADHU Modifier: MADHU 1 <*> Postop Diagnosis polyps, diverticulosis, hemorrhoids 09/16/18 08:12:30 Crystallizer Operator: MADHU Modifier: MADHU <+> 1 Postop Diagnosis [facility] Endo - Intraoperative Assessment Entry 1 Valid [...] Endo - Intraoperative Equipment Audit 09/16/18 07:54:50 Crystallizer Operator: MADHU Modifier: MADHU <+> 1 Photo <+> 1 Video <+> 1 Blood Pressure Location <+> 1 Pulse Oximeter Probe Site <+> 1 Flexible Endoscopes Used <+> 1 Scope Serial Number/Identification Number [facility] Endo - Patient Positioning Entry 1 Procedure [...] Endo - Patient Positioning Audit 09/16/18 08:08:54 Crystallizer Operator: YONGJ Modifier: YONGJ 1 <*> Procedure Colonoscopy [...] Endo - Sign Out Audit 09/16/18 08:23:44 Crystallizer Operator: JUAN CARLOSKJ Modifier: YONGJ <+> 1 RN Sign Out Signature Date/Time <+> 1 Urinary Catheter Documented in IView [facility] Endo - Surgical Procedures Entry 1 Entry [...] KAREN J., RN 09/16/18 08:23:01 09/16/18 08:23:01 [facility] Endo - Surgical Procedures Audit 09/16/18 08:23:01 Crystallizer Operator: YONGJ Modifier: YONGJ <+> 1 Stop <+> 2 Stop 09/16/18 08:08:48 Crystallizer Operator: MADHU Modifier: MADHU 1 <*> Procedure Colonoscopy 1 <+> Start 1 <+> Physician States Cecum Reached <+> 2 Procedure <+> 2 Primary Procedure <+> 2 Primary Surgeon <+> 2 Specialty <+> 2 Start <+> 2 Wound Class <+> 2 Anesthesia Type <+> 2 Physician States Cecum Reached 09/16/18 07:55:14 Crystallizer Operator: MADHU Modifier: MADHU 1 <*> Procedure Colonoscopy 1 <+> Specialty [facility] Endo - Time Out Entry 1 Procedure [...] Endo - Time Out Audit 09/16/18 08:08:55 Crystallizer Operator: MADHU Modifier: MADHU 1 <*> Procedure to [...] Info) Description 11/29/2025 1:30 PM EDT Appointment [address] [place] [address] documented as of this encounter Visit Diagnoses Not on filedocumented in this encounter Care Teams Customs Examiner Relationship Specialty Start Date End Date Edouard Giron MD [address] [place] [address] [address] [place] [address] PCP - General Family Medicine 11/17/22 documented as of this encounter
--- OUTSIDE RECORDS SUMMARY | 2025-02-13 13:51 | XMS_ITS | Encounter Summary ---
Author Organization [employer] ([place], [place], [place], [place], [place]) Address [address] [place] [address] Care Team Providers Care Java Mobile Developer Name Role Phone Edouard Giron MD Primary Care Provider + [phone] Encounter Details Date Type Department Care Team (Late st Contact Info) Description 09/16/2018 Transcribed Document [facility] [place] [facility] [place] [address] ProviderRenato MD [address] [place] [address] Social History Tobacco Use Types Packs/Day Years [...] AGGIE HUNT.O.B./Sex: 1945 Female Med Rec #: [id number] Physician: ERNIE SANTORO MD-GAE Financial #: [id number] Pt. Type: O Room/Bed: EEN/2 Admit/Disch: 09/16/18 06:44:00 - Institution: [facility] PreOp Case Times Entry 1 In Preop 09/16/18 07:25:00 Ready for Holding 09/16/18 07:46:00 Room Patient Ready for 09/16/18 07:47:00 Surgery Patient Out of Preop 09/16/18 07:47:00 Patient Out of 09/16/18 07:47:00 Holding Room [facility] PreOp Case Times Audit 09/16/18 07:47:05 Customer Service Clerk: FERMIN Modifier: [email or web address] <+> 1 Patient Out [...] Description 11/29/2025 1:30 PM EDT Appointment [address] [place] [address] documented as of this encounter Visit Diagnoses Not on filedocumented in this encounter Care Teams Java Mobile Developer Relationship Specialty Start Date End Date Edouard Giron MD [address] [place] [address] PCP - General Family Medicine 11/17/22 documented as of this encounter
--- OUTSIDE RECORDS SUMMARY | 2025-02-13 13:52 | XMS_ITS | Clinical Summary ---
Author Organization [employer] ([place], [place], [place], [place], [place]) Address [address] [place] [address] Care Team Providers Care Superintendent Production Name Role Phone Edouard Giorn MD Primary Care Provider + [phone] Allergies Active Allergy Reactions Criticality Noted Date Comments Atorvastatin Anaphylaxis,Other (See Comments) High 08/23/2008 Dexbrompheniramine-Ps eudoephed Other (See Comments) Low 08/31/2012 Dexchlorpheniram-Phen ylephrine Other (See Comments) Low 08/23/2008 Diazepam Other (See Comments) Low 08/23/2008 Other reaction(s): Disorientation Ibuprofen Other (See Comments) Low 08/31/2012 Levofloxacin Other (See Comments) Low 08/31/2012 Penicillins Hives,Other (See Comments) High 08/23/2008 Rofecoxib Anaphylaxis,Rash,Ot her (See Comments) High 08/23/2008 Vsjdbqvpa-Sx-Uvf-Verde adonna Other (See Comments) 08/23/2008 1Replaced free [...] - 11/23/2024 11:59 PM EDT Hospital Encounter [address] [address] Edouard Giron MD Visit for [...] Date Rupesh rded Speak language other than Somali at home Not on file 04/10/2023 Want [...] Info) Description 11/29/2025 1:30 PM EDT Appointment [address] [address] Health Maintenance Due Date Last [...] the next mammogram. At our facility, a [place] marker is positioned over a visible skin [...] inal Result from Last 3 Months Insurance [facility] [place] [id number] [facility] MEDICARE PART A B Care Teams Superintendent Production Relationship Specialty Start Date End Date Edouard Giron MD [address] [place] [address] PCP - General Family Medicine 11/17/22
--- OUTSIDE RECORDS SUMMARY | 2025-02-13 13:52 | XMS_ITS | Clinical Summary ---
Author Organization [facility] Address [address] [place] [address] Care Team Providers Care Sixth Grade Teacher Name Role Phone Edouard Giron MD Primary Care Provider + [phone] Allergies Active Allergy Reactions Criticality Noted Date [...] time each day. 09/03/19 17 Active Multiple Vitamins-Hand als (Womens Multi) capsule Take 1 capsule [...] 09/03/19 17 Active Vitamin A 3 MG (55390 UT) capsule 09/01/19 13 Active alpha tocopherol [...] Cancer Screening [facility] OCR [address] [facility] [place] [address] 09/05/2025 1:00 PM EDT Clinical Support [facility] [address] [place] [address] 09/19/2025 2:40 PM EDT Appointment [facility] [address], [address] [place] [address] 09/19/2025 3:00 PM EDT Office Visit [facility] [address], [address] [place] [address] Yassine Pizarro, PA [address] [place] [address] Health Maintenance Due Date Last Done Comments [facility]-Hepatitis C Screening 1945 [facility]Medicare Annual Wellness (AWV) 1945 [facility]-/Child/Adol SDOH Screenings 1945 [facility]- SDOH Screenings 1963 [facility]-Adult SDOH Screenings 1963 [facility]-Depression Screening 08/31/2024 09/01/2023 [id number] Vaccine ( season) 2024 03/25/2024, 12/31/2021, 07/16/2021, Additional history [...] Zonia ging Narrative 10/01/2024 10:42 PM EDT [facility] [address] [place] [address] DXA Bone Densitometry Report: [Date of exam] BMD test performed using the Your SurvivalXA DXA System (analysis version: 14.10) manufactured by [employer]. REFERRING PROVIDER: Dr. Yassine Pizarro, PA CLINICAL INFORMATION: PATIENT NAME: Aggie Hunt PATIENT [...] Recently Relevant to Health Maintenance Insurance MEDICARE [facility] Care Teams Sixth Grade Teacher Relationship Specialty Start Date End Date Edouard Giron MD [address] [place] [address] PCP - General 08/03/20
--- OUTSIDE RECORDS SUMMARY | 2025-02-13 13:52 | XMS_ITS | Clinical Summary ---
Author Organization [facility] Address [address] [place] [address] Care Team Providers Care Life Consultant Name Role Phone Edouard Giron MD Primary Care Provider + [phone] Allergies Active Allergy Reactions Criticality Noted Date [...] Description 07/11/2025 11:30 AM EDT Office Visit [facility] [address] [address] Shruti Hansen APRN 330 [facility] [address] [place] [address] Health Maintenance Due Date Last [...] history exists Insurance MEDICARE A & B [facility] Care Teams Life Consultant Relationship Specialty Start Date End Date Edouard Giron MD [address] [facility] [address] [place] [id number] PCP - General Family Medicine 07/28/23
--- OUTSIDE RECORDS SUMMARY | 2025-02-13 13:52 | XMS_ITS | Encounter Summary ---
Author Organization [employer] ([place], [place], [place], [place], [place]) Address [address] [place] [address] Care Team Providers Care Manager Membership Name Role Phone Edouard Giron MD Primary Care Provider + [phone] Encounter Details Date Type Department Care Team (Late st Contact Info) Description 09/16/2018 Transcribed Document [facility] [place] [address] [place] [address] ProviderRenato MD [address] [place] [address] Social History Tobacco Use Types Packs/Day Years [...] Histories Past Medical History: Active Seasonal allergies (039026246) Arthritis (5279402) Resolved Asthma (917266145): Resolved. Procedure history: Dental surgical procedure (769683382). Tonsillectomy (767375390). Cholecystectomy (91757818). Bladder surgery. Dilation and curettage (60108297). Blephaplasty. Cyst removed from right finger. Social [...] Refill(s) Non Formulary Medication: one dose, SubCutaneous, S8Znkpm, Allergy injection, 0 Refill(s) ProAir HFA 90 mcg/inh inhalation aerosol: Puff, Inhalation, QID, PRN: as needed for wheezing, 0 Refill(s) Vitamin D2: 1400u, Oral, Daily, 0 Refill(s) aspirin: 81 mg, Oral, Daily, 0 Refill(s) magnesium oxide: 400 mg, Oral, Daily, 0 Refill(s) potassium chloride-sodium chloride: 750 mg, Oral, Daily, 0 Refill(s) vitamin A: 36945s, Oral, Daily, 0 Refill(s) vitamin E: 500 mg, Oral, Daily, 0 Refill(s) zolpidem 10 mg oral tablet: 1 Tab, Oral, At Bedtime, PRN: for sleep, 0 Refill(s), Medications (1) Active Scheduled: (0) Continuous: (1) NaCl 0.9% 1,000 mL 1,000 mL, IntraVENous, 100 mL/Hr PRN: (0) Problem list: All Problems Acute vaginitis / SNOMED CT 80013149 / Confirmed Arthritis / SNOMED CT 1038208 / Confirmed H/O hyperlipidemia / SNOMED CT 401204804 / Confirmed Seasonal allergies / SNOMED CT 212104553 / Confirmed Resolved: Asthma / SNOMED CT 798628959, Active Problems (4) Acute vaginitis Arthritis H/O [...] No deformity, Normal gait. Integumentary: Warm, Dry, [place], No rash. Integumentary exam: Face, Chest, Arm, [...] Dr. Mayi Payne. Electronically signed by Kaleb, [facility] Conversion Clinical Laboratory Scientist Cerner at 07/08/2022 11:59 AM CDT documented in this encounter Plan of Treatment Upcoming Encounters Date Type Department Care Team (Late st Contact Info) Description 11/29/2025 1:30 PM EDT Appointment [address] [place] [address] documented as of this encounter Visit Diagnoses Not on filedocumented in this encounter Care Teams Manager Membership Relationship Specialty Start Date End Date Edouard Giron MD 1210 [facility] [address] [place] [address] PCP - General Family Medicine 11/17/22 documented as of this encounter
--- OUTSIDE RECORDS SUMMARY | 2025-02-13 13:52 | XMS_ITS | Referral Summary ---
Author Organization [employer] ([place], [place], [place], [place]) Address [address] [place] [address] Care Team Providers Care Computing Architect Name Role Phone Edouard Giron MD Primary Care Provider + [phone] Encounters Date Type Department Care Team Description 11/23/2024 1:27 PM EDT - 11/23/2024 11:59 PM EDT Hospital Encounter [address] [address] Edouard Giron MD Visit for [...] Rofecoxib Anaphylaxis,Rash,Ot her (See Comments) High 08/23/2008 Hwewisoqv-Fn-Fea-Verde adonna Other (See Comments) 08/23/2008 1Replaced free [...] Date Rupesh rded Speak language other than Lebanese at home Not on file 04/10/2023 Want [...] Info) Description 11/29/2025 1:30 PM EDT Appointment [address] [place] [phone] Procedures Procedure Name Priority Date/Time Associated [...] the next mammogram. At our facility, a jamul marker is positioned over a visible skin [...] inal Result from Last 3 Months Insurance [facility] SUP[facility] MEDICARE PART A B Care Teams Computing Architect Relationship Specialty Start Date End Date Edouard Giron MD 12[address] [facility] [address] [place] [address] PCP - General Family Medicine 11/17/22
--- OUTSIDE RECORDS SUMMARY | 2025-02-13 13:52 | XMS_ITS | Encounter Summary ---
Author Organization [employer] ([place], [place], [place], [place]) Address [address] [place] [address] Care Team Providers Care Archival Studies Professor Name Role Phone Edouard Giron MD Primary Care Provider + [phone] Encounter Details Date Type Department Care Team (Late st Contact Info) Description 09/16/2018 Transcribed Document [facility] [place] Medicine [address] [place] [address] ProviderRenato MD [address] [place], [place] [id number] Social History Tobacco Use Types Packs/Day Years [...] Source : Stated Height Entry Format : [place] Height, Feet : 5 ft(Converted to: 152 cm, 60 Inch) Height, Inches : 4 Inch(Converted to: 0 ft 4 Inch, 10.16 cm) Clinical Height : 162.56 cm Weight Source : Standing scale Weight Entry Format : [place] Clinical Dosing Weight : 78.73 kg Weight, Pounds : 173.2 lb Body Surface Area (BSA) : 1.84 m2 Body Mass Index : 29.8 kg/m2 (HI) Earlimart Body Weight : 54 kg Lanny Cohen [...] Arrival on Unit : Ambulatory Support Person/Patient Center Line Cutter Operator : Yes Support Person/Pt Rep Name : Rui (spouse) Patient's Support Person/Pt Rep Contact Information : [phone] Want Family/Rep/Phys Notified of Admit : Yes Name/Contact Info Fam/Rep Notified Adm : RUI Name/Contact Info Physician Notified Adm : EDOUARD GIRON Emergency Contact #1 : RUI Emergency Contact #1 Emergency Contact #1 Relationship : Emergency Contact #2 : NA Emergency Contact #2 Phone Number : NA Emergency Contact #2 Relationship : NA Primary Language : Slovenian Communication Barrier : None Lanny Cohen RN [...] WHITTAKER Use of Ambulatory Aid : None WHITTAKRE IV Therapy or IV Access : Yes [place] Gait/Transferring : Normal, bedrest, immobile [place] Mental Status : Oriented to own ability [place] Fall Risk Score : 20 WHITTAKER Fall Scale Risk Level : 0-24 Low Risk [place] Fall Interventions : Adequate lighting, Bed in [...] form. Electronically signed by Neida Manuel Conversion Agricultural Technical Officer Cerner at 07/08/2022 11:47 AM CDT documented in this encounter Plan of Treatment Upcoming Encounters Date Type Department Care Team (Late st Contact Info) Description 11/29/2025 1:30 PM EDT Appointment [address] [place] [address] documented as of this encounter Visit Diagnoses Not on filedocumented in this encounter Care Teams Archival Studies Professor Relationship Specialty Start Date End Date Edouard Giron MD 1210 [facility] [address] [place] [phone] PCP - General Family Medicine 11/17/22 documented as of this encounter
--- OUTSIDE RECORDS SUMMARY | 2025-02-13 13:52 | XMS_ITS | Encounter Summary ---
Author Organization [employer] ([place], [place], [place], [place], [place]) Address [address] [place] [address] Care Team Providers Care Rackman Name Role Phone Edouard Giron MD Primary Care Provider + [phone] Encounter Details Date Type Department Care Team (Late st Contact Info) Description 09/16/2018 Transcribed Document [facility] [place] [address] [place] [address] ProviderRenato MD [address] [place], [place] [address] Social History Tobacco Use Types Packs/Day Years [...] soft and easy to digest. ??? Take opha-sva-wdigumk or prescription medicines only as told by [...] 04/11/2011 Document Revised: 01/07/2018 Document Reviewed: 12/01/2016 [employer] Interactive Patient Education ? 2019 [employer] Colon Polyps Polyps are tissue growths [...] 12/03/2004 Document Revised: 08/14/2016 Document Reviewed: 01/28/2016 [employer] Patient Education ? 2019 [employer] Diverticulosis Diverticulosis is a condition that [...] getting enough exercise. ??? Smoking. ??? Taking txzd-jsa-rhidtao pain medicines, like aspirin and ibuprofen. ??? [...] health care provider or your diet and metalworking specialist (dietitian). ? Take a fiber supplement or probiotic, if your health care provider approves. ??? Take iwzu-ezy-iizhtnj and prescription medicines only as told by [...] 12/04/2004 Document Revised: 01/26/2017 Document Reviewed: 01/26/2017 [employer] Patient Education ? 2019 [employer] Hemorrhoids Hemorrhoids are swollen veins in [...] times a day. General instructions ??? Take ggdf-dlp-lkeztyl and prescription medicines only as told by [...] 12/16/2008 Document Revised: 08/14/2016 Document Reviewed: 11/21/2015 [employer] Interactive Patient Education ? 2019 [employer]. documented in this encounter Plan of Treatment Upcoming Encounters Date Type Department Care Team (Late st Contact Info) Description 11/29/2025 1:30 PM EDT Appointment [address] [place] [address] documented as of this encounter Visit Diagnoses Not on filedocumented in this encounter Care Teams Rackman Relationship Specialty Start Date End Date Edouard Giron MD 1210 [facility] [address] [place] [address] PCP - General Family Medicine 11/17/22 documented as of this encounter
== END 2025-02-13 23:59 | disposition home or self-care (01) ==
LOC: RAD 13:36
PROVIDERS: PCP Family Medicine; Visit Provider Orthopaedic Surgery
DX: Z47.1 Aftercare following joint replacement surgery (principal); Z96.651 Presence of right artificial knee joint
CPT/HCPCS: 73560

== ENCOUNTER 2025-02-14 15:00 | Outpatient (RCR) | payer MEDICARE, BC, SELFPAY ==
--- NOTE | 2025-02-02 14:10 | HMH.PTOPEV ---
PT Evaluation Rehab PT Outpatient Evaluation Start: 02/02/25 12:53 Freq: Status: Active Protocol: Document 02/02/25 12:58 ESVIN (Rec: 02/02/25 14:10 ESVIN [id number]) E-signed By Rob Hatch, PT Outpatient Therapy Subjective History Subjective History Pt is a 79 yof who is referred to [facility] outpatient PT s/p R TKA performed on 01/31. Pt spent 1 night in the hospital. Pt presents this date WBAT walking with a FWW . Pt reports that she lives alone in a 2 story house. Pt reports that her bedroom is on the second floor of the house. Pt reports that her daughter is staying with her currently. PMH: HTN New diagnosis of No cancer in past 12 months? Chief Complaint Pain,Stiff Symptom Type Ache Symptoms Relieved By Ice,Prescription Meds Symptoms Aggravated Standing,Walking By Prior Functional None Limitations Current Functional Lifting,Standing,Squatting,Walking,Stairs,Balance Limitations Symptom Description Constant but Variable,Activity Dependent Level of pain today 2 (0-10) Pain scale - at its 0 best (0-10) Pain scale - at its 6 worst (0-10) Hip/Knee Eval Gait Observation General Gait Pattern Antalgic Gait,Decrease Weight Bear (R),Decrease Stride Observation Lngth (L) Assistive Device Assistive Devices Rolling / Wheeled Walker Palpation Tenderness right Knee Palpation Tenderness Finding Knee Palpation 3/4 to global R knee Overall Comment MMT Hip Flexion Strength 3 Fair Grade Hip Abduction 3 Fair Strength Grade Hip Adduction 3 Fair Strength Grade Hip Extension 3 Fair Strength Grade Knee Extension 2 Poor Strength Grade Knee Flexion 2 Poor Strength Grade ROM Knee Extension -2 Active Range of Motion (degrees) Knee Flexion Active 88 Range of Motion ( degrees) Lower Extremity Functional Index Activities Today, do you or would you have any difficulty at all with: a.Any of your usual Quite a bit of difficulty work, housework or school activities b. Your usual Extreme difficulty or unable to perform activity hobbies, recreational or sporting activities c. Getting into or Moderate difficulty out of the bath d. Walking between Moderate difficulty rooms e. Putting on your Extreme difficulty or unable to perform activity shoes or socks f. Squatting Quite a bit of difficulty g. Lifting an object Moderate difficulty , like a bag of groceries from the floor h. Performing light Extreme difficulty or unable to perform activity activities around your home i. Performing heavy Quite a bit of difficulty activities around your home j. Getting into or Extreme difficulty or unable to perform activity out of a car k. Walking 2 blocks Extreme difficulty or unable to perform activity l. Walking a mile Extreme difficulty or unable to perform activity m. Going up or down Extreme difficulty or unable to perform activity 10 stairs (about 1 flight of stairs) n. Standing for 1 Extreme difficulty or unable to perform activity hour o. Sitting for 1 No difficulty hour p. Running on even Extreme difficulty or unable to perform activity ground q. Running on uneven Extreme difficulty or unable to perform activity ground r. Making sharp Extreme difficulty or unable to perform activity turns while running fast s. Hopping Extreme difficulty or unable to perform activity t. Rolling over in Extreme difficulty or unable to perform activity bed LEFI Score Lower Extremity 13 Functional Index Score Outpatient Therapy Assessment Impairments Problems/ Palpation Tenderness,Impaired Range of Motion,Impaired Impairmments Strength,Impaired Gait Pattern,Impaired Walking, Impaired Standing,Impaired Lifting,Impaired Household Care,Impaired Stair Climbing,Impaired Incline Stepping, Impaired Stepping on Uneven Surface,Impaired Balance, Subjective C/O Pain,Impaired Self Care/Self Management Prognosis Rehab Potential Good Comment w HEP compliance Clinical Impression Consistent with Yes Diagnosis Consistent with s/p R TKA 01/31 PT Patient Goals PT Patient Goals PT Short Term In 4 weeks: Patient Goals 1. Patient will improve R knee ROM to -2-100 in order to demonstrate improvements in functional movement patterns and improved gait mechanics. 2. Patient will improve R hip/knee strength to 3+/5 grossly upon MMT to demonstrate functional strength improvements and to assist with functional movement patterns. 3. Patient will improve LEFS score to 25/80 in order to demonstrate overall improvement in QOL and improvement with normal daily activities. 4. Patient will be able to stand for 15 minutes at one time to demonstrate independence with pharmaceutical detailer, such as washing her dishes. 5. Pt will demonstrate HEP compliance by completing prescribed HEP at least 1x/daily. 6. Pt will report a 48 hr pain average of 5/10 in order to demonstrate an improved QOL and overall functional improvement. 7. Pt will be able to walk with symmetrical WB and step length with the LRAD to demonstrate independence with in-home and community mobility. PT Chcf Patient In 8 weeks: Goals 1. Patient will improve R knee ROM to 0-125 in order to demonstrate improvements in functional movement patterns and improved gait mechanics. 2. Patient will improve R hip/knee strength to 4+/5 grossly upon MMT to demonstrate functional strength improvements and to assist with functional movement patterns. 3. Patient will improve LEFS score to 45/80 in order to demonstrate overall improvement in QOL and improvement with normal daily activities. 4. Patient will be able to stand/walk for 60 minutes at one time to demonstrate independence with community activities such as grocery shopping. 5. Pt will be able to ascend/descend a flight of stairs with a reciprocal stepping pattern to demonstrate independence with in-home and community mobility. 6. Pt will report a 48 hr pain average of 2-3/10 in order to demonstrate an improved QOL and overall functional improvement. 7. Pt will be able to ambulate without an AD with no apparent gait abnormalities to demonstrate independence with in-home and community mobility. Outpatient Therapy Plan of Care Treatment Plan May Include Therapeutic Exercise Yes Including Home Exercise Program Manual Therapy Yes Techniques Neuromuscular Re- Yes education Therapeutic Yes Activities to Return to Previous Functional/Work Level Gait Training Yes ADL/Self Care Yes Education Thermal Modalities Yes Electrical Yes Stimulation Massage Yes Manual Lymphatic Yes Drainage Eval/Re-Eval Yes Frequency Times per week 2 Duration Number of Weeks 8 Addendums This patient is a No candidate for social or vocational rehab ? Patient/Guardian Yes verbally acknowledges understanding of treatment program and consents to further treatment? Patient/Guardian Yes verbally acknowledges understanding of diagnosis, prognosis and goals for treatment? Eval Complexity PT Charges 41850 - Moderate Complexity Shoulder/Elbow Eval Shoulder Objective Measurements Elbow Objective Measurements PHYSICIAN CERTIFICATION: I certify the specified therapy services for Aggie Oliver are required, authorized, and reviewed every 30 days.
== END 2025-02-14 23:59 | disposition home or self-care (01) ==
LOC: PT 15:00
PROVIDERS: PCP Family Medicine; Visit Provider Orthopaedic Surgery
DX: M17.11 Unilateral primary osteoarthritis, right knee (principal); Z96.651 Presence of right artificial knee joint
CPT/HCPCS: 97014; 97016; 97110; 97140; 97162; G0283

== ENCOUNTER 2025-03-09 12:58 | Outpatient (CLI) | payer MEDICARE, BC, SELFPAY ==
--- NOTE | 2025-03-09 13:00 | XR_ITS ---
FINAL REPORT TECHNIQUE: Right knee 3 views CLINICAL HISTORY: Right Knee Pain, patient had total knee replacement surgery on January 31, 2025. COMPARISON: 02/13/2025 FINDINGS: RIGHT KNEE: 3 images of the right knee were obtained. 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 The surgical gallo anteriorly have been removed since the prior exam. There is no evidence of fracture or dislocation. The hardware remains intact. A joint effusion remains present. There is no soft tissue abnormality identified. 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 The hardware is intact. Reviewed, Interpreted and Dictated by Brandan Mliler MD Transcribed by Josefina Spangler Authenticated and [facility]
== END 2025-03-09 23:59 | disposition home or self-care (01) ==
LOC: RAD 12:59
PROVIDERS: PCP Family Medicine; Visit Provider Orthopaedic Surgery
DX: M25.461 Effusion, right knee (principal); Z96.651 Presence of right artificial knee joint
CPT/HCPCS: 73562

== ENCOUNTER 2025-03-20 14:00 | Outpatient (RCR) | payer MEDICARE, BC, SELFPAY ==
--- NOTE | 2025-03-14 16:21 | HMH.RHREAS ---
Rehab Reassessment Rehab OP Re-assessment Start: 02/20/25 11:05 Freq: Status: Active Protocol: Document 03/02/25 14:01 TERRYJESSICALOGAN (Rec: 03/02/25 15:02 ESVIN [id number]) E-signed By Rob Hatch PT Lower Extremity Functional Index Activities Today, do you or would you have any difficulty at all with: a.Any of your usual A little bit of difficulty work, housework or school activities b. Your usual No difficulty hobbies, recreational or sporting activities c. Getting into or No difficulty out of the bath d. Walking between No difficulty rooms e. Putting on your No difficulty shoes or socks f. Squatting A little bit of difficulty g. Lifting an object No difficulty , like a bag of groceries from the floor h. Performing light No difficulty activities around your home i. Performing heavy A little bit of difficulty activities around your home j. Getting into or A little bit of difficulty out of a car k. Walking 2 blocks No difficulty l. Walking a mile Quite a bit of difficulty m. Going up or down No difficulty 10 stairs (about 1 flight of stairs) n. Standing for 1 No difficulty hour o. Sitting for 1 No difficulty hour p. Running on even Quite a bit of difficulty ground q. Running on uneven Quite a bit of difficulty ground r. Making sharp Quite a bit of difficulty turns while running fast s. Hopping No difficulty t. Rolling over in No difficulty bed LEFI Score Lower Extremity 64 Functional Index Score Rehab Re-assessment Subjective Subjective Pt reports that she is 85% improved this date. Pt reports that she continues to have days of soreness that seem to limit her. Pt reports that her average pain over the past 48 hours has been a 4/10. Pt reports that she plans to leave for [place] around the first march for the winter. Pt reports that she has been compliant with her daily exercises. Objective Objective Notes LEFS: 64 (13 on IE) Knee ROM: 0-128 MMT: - hip flexion 4/5 - hip abd 3+/5 - knee extension 4/5 - knee flexion 4/5 Gait: Pt ambulates without AD. Lateral lean to right during R stance phase. Assessment Progress Assessment Progressing as Expected Assessment Notes Pt presents for her first reassessment this date, 1 month s/p R TKA. Pt's treatment sessions have consisted of R knee mobility exercises and manual therapy, balance training and strength training through both open and closed chain mechanisms. The pt has responded well at this time, demonstrating improvements in her R knee mobility, meeting both her short and senior care goals for knee ROM. Pt has met her short term goals for R LE strength and has met her short term goal for ambulation. Pt continues to demonstrate minor impairments in her strength and in her gait mechanics. Skilled PT remains indicated at this time. PT Patient Goals PT Short Term In 4 weeks: Patient Goals 1. Patient will improve R knee ROM to -2-100 in order to demonstrate improvements in functional movement patterns and improved gait mechanics. MET 2. Patient will improve R hip/knee strength to 3+/5 grossly upon MMT to demonstrate functional strength improvements and to assist with functional movement patterns. MET 3. Patient will improve LEFS score to 25/80 in order to demonstrate overall improvement in QOL and improvement with normal daily activities. MET 4. Patient will be able to stand for 15 minutes at one time to demonstrate independence with brush sander, such as washing her dishes. MET 5. Pt will demonstrate HEP compliance by completing prescribed HEP at least 1x/daily. MET 6. Pt will report a 48 hr pain average of 5/10 in order to demonstrate an improved QOL and overall functional improvement. MET 7. Pt will be able to walk with symmetrical WB and step length with the LRAD to demonstrate independence with in-home and community mobility. MET PT Long-Term Patient In 8 weeks: Goals 1. Patient will improve R knee ROM to 0-125 in order to demonstrate improvements in functional movement patterns and improved gait mechanics. MET 2. Patient will improve R hip/knee strength to 4+/5 grossly upon MMT to demonstrate functional strength improvements and to assist with functional movement patterns. 3. Patient will improve LEFS score to 45/80 in order to demonstrate overall improvement in QOL and improvement with normal daily activities. MET 4. Patient will be able to stand/walk for 60 minutes at one time to demonstrate independence with community activities such as grocery shopping. 5. Pt will be able to ascend/descend a flight of stairs with a reciprocal stepping pattern to demonstrate independence with in-home and community mobility. 6. Pt will report a 48 hr pain average of 2-3/10 in order to demonstrate an improved QOL and overall functional improvement. 7. Pt will be able to ambulate without an AD with no apparent gait abnormalities to demonstrate independence with in-home and community mobility. Plan Plan Continue as per initial POC, utilizing the following methods and activities. This progress note is being sent to the referring provider for an update on the pt's care. Frequency of Therapy 2/week Duration of Therapy 4 weeks Therapeutic Exercise Yes Including Home Exercise Program Manual Therapy Yes Techniques Neuromuscular Re- Yes education Therapeutic Yes Activities to Return to Previous Functional/Work Level Gait Training Yes ADL/Self Care Yes Education Thermal Modalities Yes Electrical Yes Stimulation Ultrasound/ Yes Phonophoresis Iontophoresis Yes Manual Lymphatic Yes Drainage Eval/Re-Eval Yes Time and Billing Re-Eval Time 10 Re-Eval Billing 0 Units Charge for PT No reassessment? PHYSICIAN CERTIFICATION: I certify the specified therapy services for Aggie Oliver are required, authorized, and reviewed every 30 days.
== END 2025-03-20 23:59 | disposition home or self-care (01) ==
LOC: PT 14:00
PROVIDERS: PCP Family Medicine; Visit Provider Orthopaedic Surgery
DX: Z47.1 Aftercare following joint replacement surgery (principal); Z96.651 Presence of right artificial knee joint
CPT/HCPCS: 97014; 97110; 97140; G0283